=== PATIENT | male | born 1985 | race Hispanic/Latino ===

== ENCOUNTER 2023-03-18 03:05 | Emergency (ER) | payer OTHER ==
[2023-03-18 04:50] LABS: Protime INR 0.98
[2023-03-18 04:52] LABS: Absolute Lymphocytes (CBC) 1.2 K/uL (0.7-4.9); Hematocrit 26.9 % (39.6-49.0); Lymphocytes % 11.1 % (15.3-44.8); MCV 97.6 fL (80-100); MPV 7.1 fL (7.6-11.3); Platelets 221 thou/uL (152-406); RBC Red Blood Cell Count 2.75 M/uL (4.33-5.43)
[2023-03-18] MEDS ORDERED: MORPHINE 4 MG/ML SYR ONE ×2 (04:54→07:56)
[2023-03-18] MEDS ORDERED: ONDANSETRON 4 MG/2 ML VIAL ONE (04:55)
[2023-03-18] MEDS ORDERED: HYDRALAZINE HCL 20 MG/ML VIAL ONE (04:55)
[2023-03-18] MEDS ORDERED: LORAZEPAM 1 MG TABLET ONE (04:55)
[2023-03-18 05:49] LABS: Albumin 2.9 g/dL (3.4-5.0); Bilirubin Direct 0.2 mg/dL (0-0.2); Bilirubin Indirect, Calculated 0.2 mg/dL (0.2-0.8); Bilirubin Total 0.4 mg/dL (0.2-1.0); Magnesium 2.2 mg/dL (1.6-2.4); Potassium 5.5 mEq/L (3.5-5.1); Protein, Total 6.5 g/dL (6.4-8.2)
[2023-03-18 06:53] LABS: Troponin High Sensitivity 231.1 pg/mL (<58.9)
--- NOTE | 2023-03-18 07:04 | ER ---
Nurse's Notes [facility] Name: Dasia Monroe Age: 37 yrs Sex: Male : 1985 Arrival Date: 03/18/2023 Time: 03:05 Bed 18 Private MD: Diagnosis: Elevated troponin, acute diastolic heart failure, hypertensive emergency, end-stage renal disease on peritoneal dialysis, cardiac volume overload. Presentation: 03/18 03:40 Chief complaint: Patient states: I haven't had my hydralazine in a little bit and when vc1 I lay down I am nauseous, dizzy, lightheaded. I am supposed to see my Dr. tomorrow but I can't sleep because I can't breath and my back hurts. 03:40 Coronavirus screen: Vaccine status: Patient reports receiving the 2nd dose of the covid vc1 vaccine. Moderna Client denies travel out of the [place] in the last 14 days. At this time, the client does not indicate any symptoms associated with coronavirus-19. Ebola Screen: Patient negative for fever greater than or equal to 101.5 degrees Fahrenheit, and additional compatible Ebola Virus Disease symptoms Patient denies exposure to infectious person. Patient denies travel to an Ebola-affected area in the 21 days before illness onset. No symptoms or risks identified at this time. Initial Sepsis Screen: Does the patient meet any 2 criteria? No. Patient's initial sepsis screen is negative. Does the patient have a suspected source of infection? No. Patient's initial sepsis screen is negative. Risk Assessment: Do you want to hurt yourself or someone else? Patient reports no desire to harm self or others. Onset of symptoms is unknown. 03:40 Method Of Arrival: Ambulatory vc1 03:40 Acuity: [place] 3 vc1 Triage Assessment: 03:40 General: Appears in no apparent distress. uncomfortable, slender, Behavior is anxious, vc1 crying. Pain: Complains of pain in back Pain does not radiate. Pain currently is 10 out of 10 on a pain scale. EENT: No deficits noted. No signs and/or symptoms were reported regarding the EENT system. Neuro: Level of Consciousness is awake, alert, obeys commands, Oriented to person, place, time, situation, Appropriate for age. Cardiovascular: Reports lightheadedness, nausea, shortness of breath, Denies chest pain. Respiratory: Reports shortness of breath Airway is patent Respiratory effort is even, unlabored, Respiratory pattern is regular, symmetrical. GI: No deficits noted. No signs and/or symptoms were reported involving the gastrointestinal system. : No deficits noted. No signs and/or symptoms were reported regarding the genitourinary system. Derm: No deficits noted. No signs and/or symptoms reported regarding the dermatologic system. Musculoskeletal: Circulation, motion, and sensation intact. Range of motion: intact in all extremities, Reports pain in back. Historical: - Allergies: 04:41 No Known Allergies; vc1 - PMHx: 04:41 Congestive heart failure; Hypertensive disorder; Peritoneal Dialysis; 4 herniated disk; vc1 - PSHx: 04:41 None; vc1 - Immunization history:: Client reports receiving the 2nd dose of the Covid vaccine. - Social history:: Smoking status: Patient reports the use of cigarette tobacco products, smokes one pack cigarettes per day. - Family history:: not pertinent. Screenin:40 [facility] ED Fall Risk Assessment (Adult) History of falling in the last 3 months, vc1 including since admission No falls in past 3 months (0 pts) Confusion or Disorientation No (0 pts) Intoxicated or Sedated No (0 pts) Impaired Gait No (0 pts) Mobility Assist Device Used No (0 pt) Altered Elimination No (0 pt) Score/Fall Risk Level 0 - 2 = Low Risk Oriented to surroundings, Maintained a safe environment, Educated pt \T\ family on fall prevention, incl call for assistance when getting out of bed. Abuse screen: Denies threats or abuse. Nutritional screening: No deficits noted. Tuberculosis screening: No symptoms or risk factors identified. Assessment: 04:50 General: Appears in no apparent distress. uncomfortable, Behavior is cooperative, lg3 fussy, restless. Pain: Complains of pain in back. Neuro: Lozada Agitation-Sedation Scale (RASS): +1 Restless Level of Consciousness is awake, alert, obeys commands, Oriented to person, place, time, situation. Cardiovascular: No deficits noted. Denies chest pain, Capillary refill < 3 seconds Clubbing of nail beds is absent JVD is absent Patient's skin is warm and dry. Respiratory: No deficits noted. Reports shortness of breath Airway is patent Respiratory effort is even, unlabored, Respiratory pattern is regular, symmetrical, Breath sounds are clear bilaterally. GI: No deficits noted. No signs and/or symptoms were reported involving the gastrointestinal system. Abdomen is flat, non-distended. : No deficits noted. No signs and/or symptoms were reported regarding the genitourinary system. : peritoneal dialysis catheter in place. EENT: No deficits noted. No signs and/or symptoms were reported regarding the EENT system. Derm: No deficits noted. No signs and/or symptoms reported regarding the dermatologic system. Skin is intact, is healthy with good turgor, Skin is dry, Skin is normal, Skin temperature is warm. Musculoskeletal: No deficits noted. No signs and/or symptoms reported regarding the musculoskeletal system. Circulation, motion, and sensation intact. Range of motion: intact in all extremities. 06:02 Reassessment:. General: Appears in no apparent distress. comfortable, Behavior is calm, lg3 cooperative. Neuro: No deficits noted. [place]ada Agitation-Sedation Scale (RASS): 0 - Alert and Calm Level of Consciousness is awake, alert, obeys commands, Oriented to person, place, time, situation. Respiratory: No deficits noted. Airway is patent Respiratory effort is even, unlabored, Respiratory pattern is regular, symmetrical. 07:20 Reassessment: Patient is alert, oriented x 3, equal unlabored respirations, skin aa5 warm/dry/pink. Pt c/o chronic back pain, pt states he takes [place] at home for pain. . 08:20 Reassessment: Pt sleeping at this time, equal and unlabored respirations. Awaiting aa5 acceptance to another facility for transfer. . 09:40 Reassessment: to bedside to administer medication, pt not in room. . aa5 09:46 Reassessment: Checked bathrooms and checked pt's room, pt is not in room, unable to aa5 locate pt. Spoke to registration staff and they stated they saw pt and pt's walk down to the cafeteria. . 10:00 Reassessment: Patient is alert, oriented x 3, equal unlabored respirations, skin aa5 warm/dry/pink. Pt back in room. . 10:20 Reassessment: Report given to Neelam at [facility]. . aa5 10:55 Reassessment: Patient is alert, oriented x 3, equal unlabored respirations, skin aa5 warm/dry/pink. Vital Signs: 03:40 BP 215 / 112; Pulse 88; Resp 18; Temp 98.2; Pulse Ox 100% ; Weight 68.04 kg; Height 5 vc1 ft. 5 in. ; Pain 10/10; 04:50 BP 173 / 103; Pulse 86; Resp 17 S; Pulse Ox 100% on R/A; lg3 06:02 BP 164 / 91; Pulse 88; Resp 16 S; Pulse Ox 100% on R/A; lg3 07:20 BP 153 / 85; Pulse 98; Resp 16 S; Temp 98.3(TE); Pulse Ox 99% on R/A; Pain 10/10; aa5 08:20 BP 147 / 81; Pulse 98; Resp 14 S; Pulse Ox 96% on R/A; aa5 10:00 BP 189 / 106; Pulse 86; Resp 17; Pulse Ox 99% on R/A; rs5 03:40 Body Mass Index 24.96 (68.04 kg, 165.1 cm) vc1 03:40 Pain Scale: Adult vc1 07:20 Pain Scale: Adult aa5 ED Course: 03:08 Patient arrived in ED. ag3 03:40 Arm band placed on left wrist. vc1 03:40 Patient has correct armband on for positive identification. Placed in gown. Call light vc1 in reach. Pulse ox on. NIBP on. 03:55 Phill Quiñones MD is Attending Physician. sp4 04:41 Triage completed. vc1 04:49 Elizabeth Ceballos, ROSIO is Primary Nurse. lg3 04:50 Client placed on continuous cardiac and pulse oximetry monitoring. NIBP monitoring lg3 applied. brake liner on. Door closed. Noise minimized. Warm blanket given. 04:50 Inserted saline lock: 20 gauge in right antecubital area, using aseptic technique. lg3 Blood collected. Patient maintains SpO2 saturation greater than 95% on room air. 04:57 XRAY Chest (1 view) In Process Unspecified. EDMS 07:11 Primary Nurse role handed off by Elizabeth Ceballos, ROSIO bd 07:37 Elis Catherine, RN is Primary Nurse. aa5 09:26 Attending Physician role handed off by Phill Quiñones MD rn 09:26 Dileep Presley MD is Attending Physician. rn 10:55 No provider procedures requiring assistance completed. Patient transferred, IV remains aa5 in place. Administered Medications: 04:53 Drug: morphine IVP or IV 4 mg Route: IVP; Infused Over: 4 mins; Site: right antecubital;lg3 06:09 Follow up: Response: No adverse reaction; Marked relief of symptoms lg3 04:53 Drug: Ondansetron IVP 4 mg Route: IVP; Site: right antecubital; lg3 06:09 Follow up: Response: No adverse reaction lg3 04:53 Drug: LORazepam PO 1 mg Route: PO; lg3 06:08 Follow up: Response: No adverse reaction; Marked relief of symptoms; Anxiety decreased lg3 04:54 Drug: hydrALAZINE IVP 20 mg Route: IVP; Site: right antecubital; lg3 06:09 Follow up: Response: No adverse reaction; Marked relief of symptoms lg3 07:28 Drug: Sodium Bicarbonate IVP 1 amp Route: IVP; Site: right antecubital; aa5 07:40 Follow up: Response: No adverse reaction aa5 07:30 Drug: Kayexalate PO 30 grams {Note: Pt only took a few sips, refused the rest. .} aa5 Route: PO; 08:30 Follow up: Response: No adverse reaction aa5 07:37 Drug: Calcium Gluconate IVPB 1 grams Route: IVPB; Infused Over: 60 mins; Site: right aa5 antecubital; 08:37 Follow up: IV Status: Completed infusion aa5 07:37 Drug: HydrALAZINE PO 50 mg Route: PO; aa5 08:30 Follow up: Response: No adverse reaction aa5 07:55 Drug: Aspirin PO Chewable Tablet 324 mg Route: PO; aa5 08:30 Follow up: Response: No adverse reaction aa5 07:55 Drug: morphine IVP or IV 2 mg Route: IVP; Infused Over: 4 mins; Site: right antecubital;aa5 08:00 Follow up: Response: No adverse reaction aa5 10:00 Drug: Furosemide IVP 40 mg Route: IVP; Site: right antecubital; aa5 10:15 Follow up: Response: No adverse reaction aa5 Medication: 03:40 VIS not applicable for this client. vc1 Outcome: 07:03 ER care complete, transfer ordered by . sp4 10:55 Transferred by ground EMS Transfer form completed. X-rays sent w/ patient. Note: aa5 Report given to [facility]. Transfer to [facility]. 10:55 Condition: stable 10:55 Instructed on the need for transfer, Demonstrated understanding of instructions. 11:01 Patient left the ED. aa5 Signatures: Dispatcher [employer] EDMS Montse Tate Roman, MD MD rn Calderon, Audri, RN RN aa5 Brittney Raza ag3 Elizabeth Ceballos RN RN lg3 Beba Howard RN RN vc1 Jaydon Whitmore RN RN rs5 Phill Quiñones MD MD sp4 Corrections: (The following items were deleted from the chart) 04:45 04:44 Arm band placed on left wrist. vc1 vc1
--- NOTE | 2023-03-18 07:04 | EDPHYS ---
Physician Documentation [facility] Name: Dasia Monroe Age: 37 yrs Sex: Male : 1985 Arrival Date: 03/18/2023 Time: 03:05 Bed 18 Private MD: ED Physician Dileep Presley HPI: 03/18 03:56 This 37 yrs old Male presents to ER via Unassigned with complaints of High sp4 Blood Pressure, Back Pain. 05:38 This is an 37-year-old male presents for worsening shortness of breath, diffuse back sp4 pain, dyspnea on exertion and on for orthopnea. Patient also reports elevated blood pressures. . 05:41 Patient reports he is also out of his hydralazine but plans to see his primary MD sp4 tomorrow.. Patient's die tester is Dr. Cedeño . Historical: - Allergies: 04:41 No Known Allergies; vc1 - PMHx: 04:41 Congestive heart failure; Hypertensive disorder; Peritoneal Dialysis; 4 herniated disk; vc1 - PSHx: 04:41 None; vc1 - Immunization history:: Client reports receiving the 2nd dose of the Covid vaccine. - Social history:: Smoking status: Patient reports the use of cigarette tobacco products, smokes one pack cigarettes per day. - Family history:: not pertinent. ROS: 05:38 Constitutional: Negative for fever, chills, and weight loss, positive for body aches, sp4 positive for back pain, positive for dyspnea on exertion, positive for orthopnea Cardiovascular: Negative for chest pain, palpitations, and edema, positive for dyspnea, positive for dyspnea on exertion, positive for orthopnea Back: Positive for chronic back pain 05:38 All other systems are negative. Exam: 05:35 Constitutional: This is a well developed, well nourished patient who is awake, alert, sp4 uncomfortable appearing male, nontoxic-appearing, hypertensive Head/Face: Normocephalic, atraumatic. Eyes: Pupils equal round and reactive to light, extra-ocular motions intact. Lids and lashes normal. Conjunctiva and sclera are not injected. Cornea within normal limits. Periorbital areas with no swelling, redness, or edema. ENT: Nares patent. No nasal discharge, no septal abnormalities noted. Tympanic membranes are normal and external auditory canals are clear. Oropharynx with no redness, swelling, or masses, exudates, or evidence of obstruction, uvula midline. Mucous membranes moist. Neck: Trachea midline, no thyromegaly or masses palpated, and no cervical lymphadenopathy. Supple, full range of motion without nuchal rigidity, or vertebral point tenderness. Positive jugular venous distention Chest/axilla: Normal chest wall appearance and motion. Nontender with no deformity. No lesions are appreciated. Cardiovascular: Regular rate and rhythm with a normal S1 and S2. No gallops, murmurs, or rubs. Normal PMI, positive JVD, no pulse deficits. Respiratory: Lungs have equal breath sounds bilaterally, clear to auscultation and percussion. No rales, rhonchi or wheezes noted. No increased work of breathing, no retractions or nasal flaring. Abdomen/GI: Soft, non-tender, with normal bowel sounds. No distension or tympany. No guarding or rebound. No evidence of tenderness throughout. There is left lower quadrant abdominal peritoneal dialysis catheter. Dialysis stoma looks clean dry and intact Back: No spinal tenderness. No costovertebral tenderness. Skin: Warm, dry with normal turgor. Normal color with no rashes, no lesions, and no evidence of cellulitis. MS/ Extremity: Pulses equal, no cyanosis. Neurovascular intact. Full, normal range of motion. Neuro: Awake and alert, GCS 15, oriented to person, place, time, and situation. Cranial nerves II-XII grossly intact. Motor strength 5/5 in all extremities. Sensory grossly intact. Psych: Awake, alert, with orientation to person, place and time. Behavior, mood, and affect are within normal limits 05:35 ECG was reviewed by the Attending Physician. EKG time 414, there is sinus rhythm with multiple supraventricular complexes, there is sinus rhythm at the rate of 98, no ST elevation or depression, normal intervals, apart from supraventricular complexes EKG is unremarkable. Vital Signs: 03:40 BP 215 / 112; Pulse 88; Resp 18; Temp 98.2; Pulse Ox 100% ; Weight 68.04 kg; Height 5 vc1 ft. 5 in. ; Pain 10/10; 04:50 BP 173 / 103; Pulse 86; Resp 17 S; Pulse Ox 100% on R/A; lg3 06:02 BP 164 / 91; Pulse 88; Resp 16 S; Pulse Ox 100% on R/A; lg3 07:20 BP 153 / 85; Pulse 98; Resp 16 S; Temp 98.3(TE); Pulse Ox 99% on R/A; Pain 10/10; aa5 08:20 BP 147 / 81; Pulse 98; Resp 14 S; Pulse Ox 96% on R/A; aa5 10:00 BP 189 / 106; Pulse 86; Resp 17; Pulse Ox 99% on R/A; rs5 03:40 Body Mass Index 24.96 (68.04 kg, 165.1 cm) vc1 03:40 Pain Scale: Adult vc1 07:20 Pain Scale: Adult aa5 MDM: 04:05 Patient medically screened. sp4 06:43 ED course: COMPARISON: None. TECHNIQUE: XR CHEST 1 VIEW 03/18/2023 3:55 AM CDT FINDINGS: sp4 Cardiac silhouette is normal in size. Lungs are clear without consolidation, atelectasis, mass or edema. There is no pleural effusion. There is no pneumothorax. There are no acute osseous findings. IMPRESSION: Clear lungs.. 06:50 Differential diagnosis: hypertensive crisis, Malignant HTN, Medication noncompliance, sp4 acute hypertensive emergency. Data reviewed: vital signs, nurses notes, old medical records, lab test result(s), EKG, radiologic studies, plain films. Consideration of Admission/Observation Escalation of care including admission/observation considered. Management of patient was discussed with the following: Register Of Wills: Patient's die tester. ED course: Patient states he takes hydralazine 25 mg 3 times a day. Patient states he actually has appointment today with his die tester. Patient will have refills for his medications presumably today at his appointment. Patient will be prescribed hydralazine just in case for blood pressure control this morning. At this time blood pressure has improved significantly. On patient has mild elevation of potassium 5.5, will administer Kayexalate and bicarbonate. Patient will warrant his peritoneal dialysis today. At this time there is no pulmonary edema, no respiratory compromise, however patient's troponin is abnormally high over 200. I spoke with patient's die tester Dr. Cedeño who is excepting patient at [facility] at [place]. Patient also can be accepted at [facility] by his die tester for peritoneal dialysis and cardiac evaluation.. 07:01 ED course: . sp4 09:32 ED course: Pt still makes urine, hemodynamically stable, will give lasix per rn conversation with hospitalist at [facility], and now accepted for transfer. . 03/18 03:55 Order name: Basic Metabolic Panel; Complete Time: 06:53 sp4 03/18 03:55 Order name: CBC with Diff; Complete Time: 05:28 sp4 03/18 03:55 Order name: LFT's; Complete Time: 06:53 sp4 03/18 03:55 Order name: Magnesium; Complete Time: 06:53 sp4 03/18 03:55 Order name: NT PRO-BNP; Complete Time: 06:53 sp4 03/18 03:55 Order name: PT-INR; Complete Time: 05:28 sp4 03/18 03:55 Order name: Troponin HS; Complete Time: 06:53 sp4 03/18 07:10 Order name: SARS RAPID; Complete Time: 09:23 sp4 03/18 03:55 Order name: XRAY Chest (1 view) sp4 03/18 03:55 Order name: EKG; Complete Time: 03:56 sp4 03/18 03:55 Order name: Cardiac monitoring; Complete Time: 04:54 sp4 03/18 03:55 Order name: EKG - Nurse/Tech; Complete Time: 04:54 sp4 03/18 03:55 Order name: IV Saline Lock; Complete Time: 04:54 sp4 03/18 03:55 Order name: Labs collected and sent; Complete Time: 04:54 sp4 03/18 03:55 Order name: O2 Per Protocol; Complete Time: 04:54 sp4 03/18 03:55 Order name: O2 Sat Monitoring; Complete Time: 04:54 sp4 Administered Medications: 04:53 Drug: morphine IVP or IV 4 mg Route: IVP; Infused Over: 4 mins; Site: right antecubital;lg3 06:09 Follow up: Response: No adverse reaction; Marked relief of symptoms lg3 04:53 Drug: Ondansetron IVP 4 mg Route: IVP; Site: right antecubital; lg3 06:09 Follow up: Response: No adverse reaction lg3 04:53 Drug: LORazepam PO 1 mg Route: PO; lg3 06:08 Follow up: Response: No adverse reaction; Marked relief of symptoms; Anxiety decreased lg3 04:54 Drug: hydrALAZINE IVP 20 mg Route: IVP; Site: right antecubital; lg3 06:09 Follow up: Response: No adverse reaction; Marked relief of symptoms lg3 07:28 Drug: Sodium Bicarbonate IVP 1 amp Route: IVP; Site: right antecubital; aa5 07:40 Follow up: Response: No adverse reaction aa5 07:30 Drug: Kayexalate PO 30 grams {Note: Pt only took a few sips, refused the rest. .} aa5 Route: PO; 08:30 Follow up: Response: No adverse reaction aa5 07:37 Drug: Calcium Gluconate IVPB 1 grams Route: IVPB; Infused Over: 60 mins; Site: right aa5 antecubital; 08:37 Follow up: IV Status: Completed infusion aa5 07:37 Drug: HydrALAZINE PO 50 mg Route: PO; aa5 08:30 Follow up: Response: No adverse reaction aa5 07:55 Drug: Aspirin PO Chewable Tablet 324 mg Route: PO; aa5 08:30 Follow up: Response: No adverse reaction aa5 07:55 Drug: morphine IVP or IV 2 mg Route: IVP; Infused Over: 4 mins; Site: right antecubital;aa5 08:00 Follow up: Response: No adverse reaction aa5 10:00 Drug: Furosemide IVP 40 mg Route: IVP; Site: right antecubital; aa5 10:15 Follow up: Response: No adverse reaction aa5 Disposition Summary: 03/18/23 07:03 Transfer Ordered Transfer Location: [facility] sp4 Reason: Higher level of care sp4 Condition: Stable sp4 Problem: new sp4 Symptoms: have improved sp4 Accepting Physician: Dr. Cedeño at [facility] (03/18/23 11:01) aa5 Diagnosis - Elevated troponin, acute diastolic heart failure, hypertensive emergency, end-stage sp4 renal disease on peritoneal dialysis, cardiac volume overload. Forms: - Medication Reconciliation Form sp4 - SBAR form sp4 Signatures: Dispatcher [employer] EDMS Dileep Presley MD MD rn Calderon, Audri, RN RN aa5 Elizabeth Ceballos RN RN lg3 Beba Howard RN RN vc1 Phill Quiñones MD MD sp4 Corrections: (The following items were deleted from the chart) 07:02 06:50 ED course: Patient states he takes hydralazine 25 mg 3 times a day. Patient sp4 states he actually has appointment today with his die tester. Patient will have refills for his medications presumably today at his appointment. Patient will be prescribed hydralazine just in case for blood pressure control this morning. At this time blood pressure has improved significantly. On patient has mild elevation of potassium 5.5, will administer Kayexalate and bicarbonate. Patient will warrant his peritoneal dialysis today. At this time there is no pulmonary edema, no respiratory compromise, patient is stable for discharge home. He will advised to continue his peritoneal dialysis at home and see his die tester today. . sp4 11:01 07:03 Dr. Cedeño at [facility] sp4 aa5
[2023-03-18] MEDS ORDERED: SOD BICARB 8.4% PEDI 10 mEq/10 mL SYR IVP ONE (07:05)
[2023-03-18] MEDS ORDERED: SOD POLYSTYREN SUL 15 GM/60 ML UCUP ONE (07:05)
[2023-03-18] MEDS ORDERED: HYDRALAZINE HCL 10 MG TABLET ONE (07:27)
[2023-03-18] MEDS ORDERED: CALCIUM GLUCONATE 1 GM IVPB 1 GM/50 ML BAG IV ONE (07:27)
[2023-03-18] MEDS ORDERED: SODIUM BICARB 50 MEQ/50ML VIAL ONE (07:27)
[2023-03-18] MEDS ORDERED: HYDRALAZINE HCL 25 MG TABLET ONE (07:40)
[2023-03-18] MEDS ORDERED: ASPIRIN 81 MG CHEWABLE TABLET ONE (07:56)
[2023-03-18] MEDS ORDERED: MORPHINE 2 MG/ML SYR ONE (08:01)
[2023-03-18 08:22] LABS: SARS-CoV-2 Antigen Rapid Res Negative (Negative)
[2023-03-18] MEDS ORDERED: FUROSEMIDE 40 MG/4 ML VIAL ONE (09:47)
[2023-03-18 11:25] VITALS: TEMP 98.3
[2023-03-18 11:27] VITALS: BP 189/106; O2SAT 99
--- NOTE | 2023-03-18 13:48 | RAD REPORT ---
EXAM DESCRIPTION: RAD - Chest Single View - 03/18/2023 4:55 am CLINICAL HISTORY: CHEST PAIN COMPARISON: None. TECHNIQUE: XR CHEST 1 VIEW 03/18/2023 3:55 AM CDT FINDINGS: Cardiac silhouette is normal in size. Lungs are clear without consolidation, atelectasis, mass or edema. There is no pleural effusion. There is no pneumothorax. There are no acute osseous fin dings. IMPRESSION: Clear lungs. Electronically signed by: Robin Iniguez MD 03/18/2023 6:22 AM CDT Due to temporary technical issues with the PACS/Fluency reporting system, reports are being signed by the in house radiologists without review as a courtesy to insure prompt reporting. The interpreting radiologist is fully responsible for the content of the report.
--- NOTE | 2023-03-18 17:00 | EKG ---
Test Date: 2023-03-18 Test Time: 04:14:55 Chandelier Maker: SANCHO MEASUREMENT RESULTS: Intervals: Rate: 98 AR: 134 QRSD: 82 QT: 360 QTc: 459 [place]: P: 54 AR: 134 QRS: 62 T: 76 INTERPRETIVE STATEMENTS: Sinus rhythm with premature supraventricular complexes Otherwise normal ECG No previous ECG available for comparison Electronically Signed On 03-18-23 17:00:00 CDT by Miki Carrington
== END 2023-03-18 11:01 | disposition short-term general hospital (02) ==
LOC: ER 03:05
DX: I16.1 Hypertensive emergency (principal); E87.70 Fluid overload, unspecified; R77.8 Other specified abnormalities of plasma proteins; I50.31 Acute diastolic (congestive) heart failure; I12.0 Hypertensive chronic kidney disease with stage 5 chronic kidney disease or end stage renal disease; N18.6 End stage renal disease; F17.210 Nicotine dependence, cigarettes, uncomplicated; Z99.2 Dependence on renal dialysis; Z20.822 Contact with and (suspected) exposure to COVID-19
CPT/HCPCS: 96365; 93005; 85025; 80048; 36415; 83735; 85610; 80076; 84484; 83880; 71045; 96375; 99285; 87811; J0612; J0360; J1940; J2270; J2405

== ENCOUNTER 2023-07-09 18:08 | Inpatient (IN) | payer MEDICARE ==
[2023-07-09 18:38] LABS: Absolute Lymphocytes (CBC) 1.7 K/uL (0.7-4.9); Hematocrit 30.5 % (39.6-49.0); Lymphocytes % 21.4 % (15.3-44.8); MCV 95.1 fL (80-100); MPV 7.7 fL (7.6-11.3); Platelets 171 thou/uL (152-406); RBC Red Blood Cell Count 3.21 M/uL (4.33-5.43)
[2023-07-09] MEDS ORDERED: dilTIAZem HCL 25 MG/5 ML VIAL IV ONE ×5 (18:40→22:01)
[2023-07-09] MEDS ORDERED: LORazepam 2 MG/ML VIAL ONE (18:40)
[2023-07-09 18:54] LABS: Bilirubin Direct 0.1 mg/dL (0-0.2); Bilirubin Indirect, Calculated 0.3 mg/dL (0.2-0.8); Bilirubin Total 0.4 mg/dL (0.2-1.0); Magnesium 2.2 mg/dL (1.6-2.4); Potassium 3.2 mEq/L (3.5-5.1); Protein, Total 6.7 g/dL (6.4-8.2)
--- NOTE | 2023-07-09 19:24 | RAD REPORT ---
EXAM DESCRIPTION: RAD - Chest Single View - 07/09/2023 7:19 pm CLINICAL HISTORY: DYSPNEA Chest pain. COMPARISON: Chest Single View dated 03/18/2023 FINDINGS: Portable technique limits examination quality. Mild pulmonary edema is seen. The heart is normal in size. No displaced fractures.Right-sided venous catheter tip in the SVC. IMPRESSION: Mild CHF versus volume overload.
[2023-07-09 19:31] LABS: Troponin High Sensitivity 205.4 pg/mL (<58.9)
--- NOTE | 2023-07-09 19:55 | ER ---
Nurse's Notes [facility] Name: Dasia Monroe Age: 37 yrs Sex: Male : 1985 Arrival Date: 07/09/2023 Time: 18:08 Bed 19 Private MD: Diagnosis: Atrial fibrillation with rapid ventricular rate;Elevated troponin Presentation: 07/09 18:20 Chief complaint: EMS states: toned out to dialysis center for irregular heartbeat. me1 Patient was getting hemodialysis (removed 1800 ml) and started having an irregular heartbeat, c/o weakness and SOB. Denied cp at the scene but did have CP upon arrival to hospital. EKG Afib with RVR- HR 170. Blood glucose of 97. No IV access, No medication administered by EMS. Coronavirus screen: Vaccine status: Patient reports receiving the 2nd dose of the covid vaccine. Ebola Screen: No symptoms or risks identified at this time. Initial Sepsis Screen: Does the patient meet any 2 criteria? HR > 90 bpm. Does the patient have a suspected source of infection? No. Patient's initial sepsis screen is negative. Risk Assessment: Do you want to hurt yourself or someone else? Patient reports no desire to harm self or others. Onset of symptoms was July 09, 2023. 18:20 Method Of Arrival: EMS: [place] [id number] 18:20 Acuity: GUANAKITO 3 me1 Triage Assessment: 18:24 General: Appears uncomfortable, well groomed, well developed, well nourished, Behavior me1 is calm, cooperative, appropriate for age, Reports feeling ill for 12-24 hours, fatigue for was getting dialysis and started having an irregular heartbeat. Became weak and SOB. Pain: Denies pain. Neuro: Level of Consciousness is awake, alert, obeys commands, Oriented to person, place, time, situation, Appropriate for age. Cardiovascular: Capillary refill < 3 seconds Patient's skin is warm and dry. Rhythm is atrial fibrillation with rapid ventricular response. Respiratory: Airway is patent Respiratory effort is even, unlabored, Respiratory pattern is regular, symmetrical. : Hemodialysis patient. Access to right chest wall. M, W, F. 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 Historical: - Allergies: 18:24 No Known Allergies; aa5 - PMHx: 18:24 4 herniated disk; Hypertensive disorder; Congestive heart failure; PERITONEAL DIALYSIS; aa5 - PSHx: 18:24 dialysis access placement; aa5 - Immunization history:: Adult Immunizations up to date. - Social history:: Smoking status: Patient reports the use of cigarette tobacco products, smokes one pack cigarettes per day. - Family history:: not pertinent. Screenin:32 [facility] ED Fall Risk Assessment (Adult) History of falling in the last 3 months, me1 including since admission No falls in past 3 months (0 pts) Confusion or Disorientation No (0 pts) Intoxicated or Sedated No (0 pts) Impaired Gait No (0 pts) Mobility Assist Device Used No (0 pt) Altered Elimination No (0 pt) Score/Fall Risk Level 0 - 2 = Low Risk Maintained a safe environment, Provided non-skid footwear, Hourly rounding (assess needs \T\ fall precautionary measures) done. Abuse screen: Denies threats or abuse. Nutritional screening: No deficits noted. Tuberculosis screening: No symptoms or risk factors identified. Assessment: 18:24 General: See triage assessment. . me1 Vital Signs: 18:20 BP 149 / 91; Pulse 138; Resp 22; Temp 99.6(A); Pulse Ox 99% on R/A; Weight 71.67 kg; me1 Height 5 ft. 5 in. ; Pain 0/10; 18:41 BP 154 / 91; Pulse 143; Resp 22; Pulse Ox 96% on R/A; me1 19:00 BP 175 / 92; Pulse 94; Resp 22; Pulse Ox 97% on R/A; me1 19:27 BP 137 / 95; Pulse 128; Resp 19; Pulse Ox 96% on R/A; me1 19:40 BP 176 / 80; Pulse 106; Resp 20; Pulse Ox 98% on R/A; me1 20:00 BP 167 / 91; Pulse 113; Resp 21; Pulse Ox 97% on R/A; me1 20:20 BP 149 / 87; Pulse 99; Resp 16; Pulse Ox 97% on R/A; me1 20:46 BP 152 / 84; Pulse 99; Resp 22; Pulse Ox 96% on R/A; me1 21:00 BP 175 / 93; Pulse 111; Resp 22; Pulse Ox 96% on R/A; me1 21:00 BP 175 / 99; Pulse 129; Resp 18; Pulse Ox 96% on R/A; me1 18:20 Body Mass Index 26.29 (71.67 kg, 165.1 cm) me1 18:20 Pain Scale: Adult me1 ED Course: 18:10 Patient arrived in ED. me1 18:10 Mary Lou Menjivar, RN is Primary Nurse. me1 18:12 Navdeep Garcia MD is Attending Physician. rt 18:24 Triage completed. aa5 18:24 Arm band placed on Patient placed in an exam room. me1 19:20 XRAY Chest (1 view) In Process Unspecified. EDMS 19:54 Imer Contreras MD is Hospitalizing Provider. rt 21:39 Patient has correct armband on for positive identification. Bed in low position. Call me1 light in reach. Side rails up X2. Provided Education on: POC. Verbalized understanding. . 21:39 No provider procedures requiring assistance completed. me1 Administered Medications: 18:25 Drug: Ativan IVP 1 mg IVP once Route: IVP; Site: right antecubital; rs5 21:40 Follow up: Response: No adverse reaction me1 18:25 Drug: Diltiazem IVP 10 mg IVP once; Over 2 minutes Route: IVP; Site: right antecubital; rs5 21:40 Follow up: Response: No adverse reaction me1 19:32 Drug: Diltiazem IVP 10 mg IVP once; Over 2 minutes Route: IVP; Site: right antecubital; me1 21:40 Follow up: Response: No adverse reaction me1 Medication: 18:32 VIS not applicable for this client. me1 Outcome: 19:55 Decision to Hospitalize by Provider. rt 12 00:09 Patient left the ED. jb4 Signatures: Dispatcher [employer] EDMS Elis Catherine RN RN aa5 Rayshawn Mena, RN RN jb4 Navdeep Garcia MD MD rt Jaydon Whitmore RN RN rs5 Mary Lou Menjivar, ROSIO RN me1 Corrections: (The following items were deleted from the chart) 07/09 19:19 18:20 Chief complaint: EMS states: toned out to dialysis center for irregular me1 heartbeat. Patient was getting hemodialysis (removed 1800 ml) and started having an irregular heartbeat, c/o weakness and SOB. Denied cp at the scene but did have CP upon arrival to hospital. EKG Afib with RVR- HR 170. Blood glucose of 97. No IV access, No medication administered by EMS. [facility] 18:20 Coronavirus screen: Vaccine status: Patient reports receiving the 2nd dose of the ks1 covid vaccine. [facility] 18:20 Ebola Screen: No symptoms or risks identified at this time. [place] [address] : 18:20 Initial Sepsis Screen: Does the patient meet any 2 criteria? HR > 90 bpm. Does me1 the patient have a suspected source of infection? No. Patient's initial sepsis screen is negative. [facility] 18:20 Risk Assessment: Do you want to hurt yourself or someone else? Patient reports no ks1 desire to harm self or others. [facility] 18:20 Onset of symptoms was July 09, 2023 [place] [address] : 18:20 Method Of Arrival: EMS: [facility] [place] [address] :19 18:20 BP 149 / 91; Pulse 138bpm; Resp 22bpm; Pulse Ox 99% RA; Temp 99.6F Axillary; me1 71.67 kg; Height 5 ft. 5 in.; BMI: 26.2; Pain 0/10, Adult; [facility] : 18:20 Acuity: GUANAKITO 3 [place] [address] :20 18:24 Immunization history: Adult Immunizations up to date, [place] [address] :20 18:24 Social history: Smoking status: Patient reports the use of cigarette tobacco [facility] products, smokes one pack cigarettes per day. [facility] :20 18:55 Family history: not pertinent, rt [facility] :20 18:55 The history from the nurse's notes was reviewed and I agree with what is [facility] documented. rt 19:20 18:24 General: Appears uncomfortable, well groomed, well developed, well nourished, [facility] Behavior is calm, cooperative, appropriate for age, Reports feeling ill for 12-24 hours, fatigue for was getting dialysis and started having an irregular heartbeat. Became weak and SOB. [facility] :20 18:24 Pain: Denies pain. [place] [address] 19:20 18:24 Neuro: Level of Consciousness is awake, alert, obeys commands, Oriented to ks1 person, place, time, situation, Appropriate for age [facility] : 18:24 Cardiovascular: Capillary refill < 3 seconds Patient's skin is warm and dry. me1 Rhythm is atrial fibrillation with rapid ventricular response [facility] : 18:24 Respiratory: Airway is patent Respiratory effort is even, unlabored, Respiratory [facility] pattern is regular, symmetrical, [facility] :20 18:24 : Hemodialysis patient. Access to right chest wall. M, W, F. 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 [facility] : 18:10 Patient arrived in ED. [place] [address] : 18:24 Arm band placed on Patient placed in an exam room, [place] [address] : 18:32 General: See triage assessment. . [place] [address] : 18:32 [facility] Fall Risk Assessment (Adult) History of falling in the last 3 months, [facility] including since admission No falls in past 3 months (0 pts) Confusion or Disorientation No (0 pts) Intoxicated or Sedated No (0 pts) Impaired Gait No (0 pts) Mobility Assist Device Used No (0 pt) Altered Elimination No (0 pt) Score/Fall Risk Level 0 - 2 = Low Risk Maintained a safe environment, Provided non-skid footwear, Hourly rounding (assess needs \T\ fall precautionary measures) done, [facility] : 18:32 Abuse screen: Denies threats or abuse. [place] [address] : 18:32 Nutritional screening: No deficits noted. [place] [address] 19:21 18:32 Tuberculosis screening: No symptoms or risk factors identified. [place] [address] : 18:20 Elis Catherine, RN is Primary Nurse. [place] [address] : 19:22 Mary Lou Menjivar, ROSIO is Primary Nurse. [place] [address] 19: 18:32 VIS not applicable for this client. [place] [address]
--- NOTE | 2023-07-09 19:55 | EDPHYS ---
Physician Documentation [facility] Name: Dasia Monroe Age: 37 yrs Sex: Male : 1985 Arrival Date: 07/09/2023 Time: 18:08 Bed 19 Private MD: ED Physician Navdeep Garcia HPI: 07/09 18:55 This 37 yrs old Male presents to ER via EMS with complaints of Blood Pressure rt Problem. 18:55 Patient presents to the ED from dialysis with A-fib with RVR. Patient developed rapid rt ventricular rate towards the end of dialysis, was net -1800 cc. Reports mild chest pain, shortness of breath. Reports anxiety. Denies other acute complaints, symptoms are moderate in severity, no other aggravating or alleviating factors.. Historical: - Allergies: 18:24 No Known Allergies; aa5 - PMHx: 18:24 4 herniated disk; Hypertensive disorder; Congestive heart failure; PERITONEAL DIALYSIS; aa5 - PSHx: 18:24 dialysis access placement; aa5 - Immunization history:: Adult Immunizations up to date. - Social history:: Smoking status: Patient reports the use of cigarette tobacco products, smokes one pack cigarettes per day. - Family history:: not pertinent. ROS: 18:55 Constitutional: Negative for fever, chills, and weight loss, Eyes: Negative for injury, rt pain, redness, and discharge, Abdomen/GI: Negative for abdominal pain, nausea, vomiting, diarrhea, and constipation, Skin: Negative for injury, rash, and discoloration, Psych: Negative for depression, anxiety, suicide ideation, homicidal ideation, and hallucinations, 18:55 Cardiovascular: Positive for chest pain, Negative for edema, 18:55 Respiratory: Positive for shortness of breath, Negative for cough, 18:55 Psych: Positive for anxiety, Negative for suicidal ideation, Exam: 18:55 Constitutional: This is a well developed, well nourished patient who is awake, alert, rt and in no acute distress. Head/Face: Normocephalic, atraumatic. Chest/axilla: Normal chest wall appearance and motion. Nontender with no deformity. No lesions are appreciated. Cardiovascular: Regular rate and rhythm with a normal S1 and S2. No gallops, murmurs, or rubs. Normal PMI, no JVD. No pulse deficits. Respiratory: Lungs have equal breath sounds bilaterally, clear to auscultation and percussion. No rales, rhonchi or wheezes noted. No increased work of breathing, no retractions or nasal flaring. Abdomen/GI: Soft, non-tender, with normal bowel sounds. No distension or tympany. No guarding or rebound. No evidence of tenderness throughout. Skin: Warm, dry with normal turgor. Normal color with no rashes, no lesions, and no evidence of cellulitis. MS/ Extremity: Pulses equal, no cyanosis. Neurovascular intact. Full, normal range of motion. Neuro: Awake and alert, GCS 15, oriented to person, place, time, and situation. Cranial nerves II-XII grossly intact. Motor strength 5/5 in all extremities. Sensory grossly intact. Cerebellar exam normal. Normal gait. 18:55 ECG was reviewed by the Attending Physician. Vital Signs: 18:20 BP 149 / 91; Pulse 138; Resp 22; Temp 99.6(A); Pulse Ox 99% on R/A; Weight 71.67 kg; me1 Height 5 ft. 5 in. ; Pain 0/10; 18:41 BP 154 / 91; Pulse 143; Resp 22; Pulse Ox 96% on R/A; me1 19:00 BP 175 / 92; Pulse 94; Resp 22; Pulse Ox 97% on R/A; me1 19:27 BP 137 / 95; Pulse 128; Resp 19; Pulse Ox 96% on R/A; me1 19:40 BP 176 / 80; Pulse 106; Resp 20; Pulse Ox 98% on R/A; me1 20:00 BP 167 / 91; Pulse 113; Resp 21; Pulse Ox 97% on R/A; me1 20:20 BP 149 / 87; Pulse 99; Resp 16; Pulse Ox 97% on R/A; me1 20:46 BP 152 / 84; Pulse 99; Resp 22; Pulse Ox 96% on R/A; me1 21:00 BP 175 / 93; Pulse 111; Resp 22; Pulse Ox 96% on R/A; me1 21:00 BP 175 / 99; Pulse 129; Resp 18; Pulse Ox 96% on R/A; me1 18:20 Body Mass Index 26.29 (71.67 kg, 165.1 cm) me1 18:20 Pain Scale: Adult me1 MDM: 18:12 Patient medically screened. rt 19:56 Differential Diagnosis A-fib, volume depletion, electrolyte disturbance. Data reviewed: rt vital signs, nurses notes, lab test result(s), EKG, radiologic studies. Consideration of Admission/Observation Patient was admitted/placed on observation. Management of patient was discussed with the following: Hospitalist: Agrees to admit. I considered the following discharge prescriptions or medication management in the emergency department Medications were administered in the Emergency Department. See MAR. Independent interpretation of the following test(s) in the Emergency Department X-Ray: My interpretation is Cardiomegaly seen on interpretation of x-ray images. Care significantly affected by the following chronic conditions: A-fib, CKD. Counseling: I had a detailed discussion with the patient and/or guardian regarding the historical points, exam findings, and any diagnostic results supporting the discharge/admit diagnosis, lab results, radiology results, the need for further work-up and treatment in the hospital. Response to treatment: the patient's symptoms have markedly improved after treatment. 07/09 18:21 Order name: Basic Metabolic Panel; Complete Time: 19:39 rt 07/09 18:21 Order name: CBC with Diff; Complete Time: 18:50 rt 07/09 18:21 Order name: LFT's; Complete Time: 19:39 rt 07/09 18:21 Order name: Magnesium; Complete Time: 19:39 rt 07/09 18:21 Order name: Troponin HS; Complete Time: 19:39 rt 07/09 20:19 Order name: Urinalysis w/ reflexes EDMS 07/09 20:19 Order name: CBC with Automated Diff EDMS 07/09 20:20 Order name: CBC with Automated Diff EDMS 07/09 20:20 Order name: Comprehensive Metabolic Panel EDMS 07/09 20:20 Order name: Comprehensive Metabolic Panel EDMS 07/09 20:20 Order name: Troponin High Sensitivity EDMS 07/09 20:20 Order name: Troponin High Sensitivity EDMS 07/09 20:20 Order name: Troponin High Sensitivity EDMS 07/09 20:20 Order name: Troponin High Sensitivity EDMS 07/09 18:21 Order name: XRAY Chest (1 view); Complete Time: 19:28 rt 07/09 18:21 Order name: EKG; Complete Time: 18:28 rt 07/09 18:21 Order name: Cardiac monitoring; Complete Time: 18:27 rt 07/09 18:21 Order name: EKG - Nurse/Tech; Complete Time: 18:27 rt 07/09 18:21 Order name: IV Saline Lock; Complete Time: 18:27 rt 07/09 18:21 Order name: Labs collected and sent; Complete Time: 18:27 rt 07/09 18:21 Order name: O2 Per Protocol; Complete Time: 18:27 rt 07/09 18:21 Order name: O2 Sat Monitoring; Complete Time: 18:27 rt EC:55 Rate is 161 beats/min. Rhythm is irregularly irregular, A fib with Occasional PVCs, rt Fibrillated ST and T wave changes. QRS [place] is Normal. QRS interval is normal. QT interval is prolonged at 504 msec. No Q waves. Administered Medications: 18:25 Drug: Ativan IVP 1 mg IVP once Route: IVP; Site: right antecubital; rs5 21:40 Follow up: Response: No adverse reaction me1 18:25 Drug: Diltiazem IVP 10 mg IVP once; Over 2 minutes Route: IVP; Site: right antecubital; rs5 21:40 Follow up: Response: No adverse reaction me1 19:32 Drug: Diltiazem IVP 10 mg IVP once; Over 2 minutes Route: IVP; Site: right antecubital; me1 21:40 Follow up: Response: No adverse reaction me1 Disposition Summary: 07/09/23 19:55 Hospitalization Ordered Notes: Hospitalization Status: Observation rt Provider: Imer Contreras rt Condition: Stable rt Problem: an acute exacerbation rt Symptoms: have improved rt Bed/Room Type: Standard rt Location: Intensive Care Unit(07/09/23 22:13) vc1 Room Assignment: 5-(07/09/23 23:27) Diagnosis - Atrial fibrillation with rapid ventricular rate rt - Elevated troponin rt Forms: - Medication Reconciliation Form rt - SBAR form rt - Leadership Thank You Letter rt Critical care time excluding procedures: 20:23 Critical care time: Bedside Care: 30 minutes, Consultation: 5 minutes. Total time: 35 rt minutes Signatures: Dispatcher [employer] Elis Arce RN RN aa5 Adri Noriega RN RN cg Beba Howard RN RN vc1 Navdeep Garcia MD MD rt Jaydon Whitmore, RN RN rs5 Mary Lou Menjivar, RN RN me1 Corrections: (The following items were deleted from the chart) 19:20 18:24 Immunization history: Adult Immunizations up to date, aa5 me1 19:20 18:24 Social history: Smoking status: Patient reports the use of cigarette tobacco me1 products, smokes one pack cigarettes per day. aa5 19:20 18:55 Family history: not pertinent, rt me1 19:20 18:55 The history from the nurse's notes was reviewed and I agree with what is me1 documented. rt 20:59 19:55 Telemetry/MedSurg (observation) rt cg 20:59 19:55 rt cg 22:13 20:59 [facility] ER HOLD cg vc1 22:13 20:59 ERHOLD- cg vc1 23:27 22:13 vc1 cg
[2023-07-09] MEDS ORDERED: ONDANSETRON 4 MG/2 ML VIAL IV PRN (20:14)
[2023-07-09] MEDS ORDERED: ACETAMINOPHEN 500 MG TAB PO PRN (20:14)
[2023-07-09] MEDS: METOPROLOL XL 50 MG TAB PO SCH (20:18)
--- NOTE | 2023-07-09 20:22 | P.HP ---
Certification for Inpatient Patient admitted to: Inpatient With expected LOS: >2 Midnights Patient will require the following post-hospital care: None Practitioner: I am a practitioner with admitting privileges, knowledge of patient current condition, hospital course, and medical plan of care. Services: Services provided to patient in accordance with Admission requirements found in Title 42 Section 412.3 of the Code of Federal Regulations Patient History Date of Service: 07/09/23 Reason for admission: Palpitation History of Present Illness: 37-year-old male with past medical history of hypertension, CHF, ESRD, on dialysis, atrial fibrillation, who was transferred from dialysis center manage he was getting dialysis and became had shortness of breath and palpitation after drawing 1800 cc . Patient denies any chest pain. No fever or chills. No nausea vomiting or diarrhea . Patient also complains of generalized weakness . Patient was assessed in the ER and was found to have A-fib with RVR and was admitted for further management Allergies No Known Drug Allergies Allergy (Verified 07/09/23 21:44) Anaphylaxis Home medications list reviewed: Yes - Past Medical/Surgical History Past Medical History: Reviewed- Non-Contributory -: ESRD, HTN , atrial fibrillation Past Surgical History: Reviewed- Non-Contributory - Family History Family History: Reviewed- Non-Contributory - Social History Smoking Status: Never smoker Review of Systems 10-point ROS is otherwise unremarkable General: Weakness, Malaise Eyes: Unremarkable ENT: Unremarkable Respiratory: Shortness of Breath, SOB with Excertion Cardiovascular: Palpitations Gastrointestinal: Unremarkable Genitourinary: Unremarkable Musculoskeletal: Unremarkable Integumentary: Unremarkable Neurological: Unremarkable Lymphatics: Unremarkable Physical Examination - Vital Signs Temperature: 98.8 F Blood Pressure: 162/96 Pulse: 126 Respirations: 18 Pulse Ox (%): 98 - Physical Exam General: Alert, Oriented x3, Mild distress HEENT: Atraumatic, Normocephalic Neck: Supple Respiratory: Diminished, Crackles/rales, Expiratory wheezes Cardiovascular: Other (Tachycardic), Irregular heart rate/rhythm Capillary refill: <2 Seconds Gastrointestinal: Soft and benign, W/out hepatosplenomegaly Musculoskeletal: No clubbing, No swelling Integumentary: No rashes, No tenderness/swelling Neurological: Normal speech, Other (alert,awake ,) Lymphatics: No axilla or inguinal lymphadenopathy - Studies Laboratory Data (last 24 hrs) 07/09/23 07/09/23 18:29 18:29 WBC 8.00 Hgb 10.2 L Hct 30.5 L Plt Count 171 Sodium 138 Potassium 3.2 L BUN 13 Creatinine 4.17 H Glucose 93 Magnesium 2.2 Total Bilirubin 0.4 AST 19 ALT 11 L Alkaline Phosphatase 55 Assessment and Plan - Problems (Diagnosis) (1) Atrial fibrillation with RVR Current Visit: Yes Status: Acute Plan: Noted to have A-fib with RVR Patient received Cardizem with minimal response We will start on Cardizem infusion Beta-cait as needed for tachycardia Cardiology consulted We will get an echocardiogram Monitor closely under telemetry in ICU (2) ESRD on dialysis Current Visit: Yes Status: Chronic Plan: Patient had dialysis today Will monitor renal parameters Strict I&O Start on renal diet Nephrology consult (3) Accelerated hypertension Current Visit: Yes Status: Acute Plan: Continue antihypertensives Titrated as needed On Cardizem drip (4) History of congestive heart failure Current Visit: Yes Status: Chronic Plan: We will get an echocardiogram Monitor I&O Electrolytes monitor and replace accordingly (5) Anemia of chronic disease Current Visit: Yes Status: Chronic Plan: Monitor H&H No overt bleeding noted Transfuse as needed (6) NSTEMI (non-ST elevated myocardial infarction) Current Visit: Yes Status: Acute Plan: Cardiac enzymes trended Start on aspirin and statin Cardiology consult Echo pending Discharge Plan: Home Plan to discharge in: Greater than 2 days - Advance Directives Does patient have a Living Will: No Does patient have a Durable POA for Healthcare: No - Code Status/Comfort Care Code Status: Full Code Critical Care: Yes Time Spent Managing Pts Care (In Minutes): 46
[2023-07-09] MEDS ORDERED: ATORVASTATIN 40 MG TAB PO SCH (21:00)
[2023-07-09] MEDS ORDERED: Nicardipine/NS 25 MG/250 ML KIT IV ONE (21:57)
[2023-07-09] MEDS ORDERED: NA CHLORIDE 0.9% 50 ML ONE (22:01)
[2023-07-09] MEDS: DILTIAZEM INJ 125 MG/25 ML 125 MG in NA CHLORIDE 0.9% 100 ML IV SCH (22:03)
[2023-07-09] MEDS ORDERED: clonazePAM 0.5 MG TAB PO PRN (22:29)
[2023-07-09] MEDS: HYDROCODONE/APAP 7.5/325 MG TAB PO PRN (22:43)
[2023-07-09] MEDS ORDERED: clonazePAM 1 MG TAB ONE (22:54)
[2023-07-09] MEDS ORDERED: HYDROCODONE/APAP 7.5/325 MG TAB ONE (22:55)
[2023-07-09] MEDS: NA CHLORIDE 0.9% 500 ML IV SCH (23:16)
[2023-07-09] MEDS: ASPIRIN EC 81 MG TAB PO SCH (23:17)
[2023-07-09] MEDS ORDERED: ATORVASTATIN 40 MG TAB ONE (23:18)
[2023-07-09] MEDS ORDERED: NA CHLORIDE 0.9% 1,000 ML ONE (23:18)
[2023-07-09] MEDS ORDERED: ASPIRIN EC 81 MG TAB PO ONE (23:18)
[2023-07-10] MEDS: HYDRALAZINE HCL 20 MG/ML VIAL IV PRN ×2 (00:42→08:50)
[2023-07-10] MEDS ORDERED: HYDRALAZINE HCL 20 MG/ML VIAL ONE ×2 (00:55→09:04)
[2023-07-10 01:03] VITALS: BMI 26.2
[2023-07-10 05:16] LABS: Absolute Lymphocytes (CBC) 1.6 K/uL (0.7-4.9); Hematocrit 29.1 % (39.6-49.0); Lymphocytes % 22.1 % (15.3-44.8); MCV 96.1 fL (80-100); MPV 7.8 fL (7.6-11.3); Platelets 149 thou/uL (152-406); RBC Red Blood Cell Count 3.03 M/uL (4.33-5.43)
[2023-07-10] MEDS: METOPROLOL XL 50 MG TAB PO SCH (05:27)
[2023-07-10] MEDS: HYDROCODONE/APAP 7.5/325 MG TAB PO PRN ×2 (05:27→09:37)
[2023-07-10 05:30] LABS: Albumin 2.7 g/dL (3.4-5.0); Bilirubin Total 0.5 mg/dL (0.2-1.0); Potassium 3.9 mEq/L (3.5-5.1); Protein, Total 6.2 g/dL (6.4-8.2)
[2023-07-10 05:35] LABS: Troponin High Sensitivity 232.8 pg/mL (<58.9)
[2023-07-10] MEDS: NA CHLORIDE 0.9% 500 ML IV SCH (07:00)
[2023-07-10] MEDS: DILTIAZEM INJ 125 MG/25 ML 125 MG in NA CHLORIDE 0.9% 100 ML IV SCH (07:44)
[2023-07-10] MEDS: HEPARIN 5000 UNIT/ML 1 ML VIAL IV ONE ×2 (07:47→07:55)
[2023-07-10] MEDS ORDERED: HEPARIN/D5W 25,000 UNIT/500 ML BAG IV SCH (08:00)
[2023-07-10] MEDS ORDERED: HEPARIN 5000 UNIT/ML 1 ML VIAL ONE (08:09)
[2023-07-10 08:16] LABS: Protime INR 1.18
[2023-07-10 08:35] VITALS: TEMP 97.4
[2023-07-10] MEDS ORDERED: HEPARIN/D5W 25,000 UNIT/500 ML BAG IV ONE (08:55)
[2023-07-10] MEDS: ASPIRIN EC 81 MG TAB PO SCH (09:00)
--- NOTE | 2023-07-10 09:29 | P.CNS ---
Date of Consult: 07/10/23 Reason for Consult: ESRD Requesting Physician: Althea Sepulveda Chief Complaint: Palpitation History of Present Illness: 37-year-old male with past medical history of hypertension, CHF, ESRD, on dialysis, atrial fibrillation, who was transferred from dialysis center manage he was getting dialysis and became had shortness of breath and palpitation after drawing 1800 cc . Patient denies any chest pain. No fever or chills. No na usea vomiting or diarrhea . Patient also complains of generalized weakness . Patient was assessed in the ER and was found to have A-fib with RVR and was admitted for further management. vanessa 18:55 This 37 yrs old Male presents to ER via EMS with complaints of Blood Pressure rt Problem. 18:55 Patient presents to the ED from dialysis with A-fib with RVR. Patient developed rapid rt ventricular rate towards the end of dialysis, was net -1800 cc. Reports mild chest pain, shortness of breath. Reports anxiety. Denies other acute complaints, symptoms are moderate in severity, no other aggravating or alleviating factors.. Allergies No Known Drug Allergies Allergy (Verified 07/09/23 21:44) Anaphylaxis Home medications list reviewed: Yes - Past Medical/Surgical History Diabetic: No -: ESRD (Dr. South/ Dr. Candelaria) -: Afib -: HTN -: CHF -: Peritoneal dialysis -: Herniated disk -: Dialysis Access placement - Family History Father Medical History: Heart disease, Hypertension, Diabetes, Stroke - Social History Smoking Status: Current every day smoker Alcohol use: No CD- Drugs: No Caffeine use: Yes Place of Residence: Home Review of Systems 10-point ROS is otherwise unremarkable Physical Examination Temp Pulse Resp BP Pulse Ox 97.4 F 74 20 195/116 H 100 07/10/23 08:00 07/10/23 09:06 07/10/23 09:06 07/10/23 09:06 07/10/23 09:06 General: In no apparent distress HEENT: Atraumatic Neck: Supple Respiratory: Normal air movement Cardiovascular: Irregular heart rate/rhythm Gastrointestinal: Non-distended Musculoskeletal: No clubbing Integumentary: No rashes, No cyanosis Neurological: Normal speech Laboratory Data (last 24 hrs) 07/09/23 07/09/23 18:29 18:29 WBC 8.00 Hgb 10.2 L Hct 30.5 L Plt Count 171 Sodium 138 Potassium 3.2 L BUN 13 Creatinine 4.17 H Glucose 93 Magnesium 2.2 Total Bilirubin 0.4 AST 19 ALT 11 L Alkaline Phosphatase 55 Imagings Data: vanessa 18:55 This 37 yrs old Male presents to ER via EMS with complaints of Blood Pressure rt Problem. 18:55 Patient presents to the ED from dialysis with A-fib with RVR. Patient developed rapid rt ventricular rate towards the end of dialysis, was net -1800 cc. Reports mild chest pain, shortness of breath. Reports anxiety. Denies other acute complaints, symptoms are moderate in severity, no other aggravating or alleviating factors.. Conclusions/Impression: ESRD on HD -HD TIW HTN with CKD/ CHF -Continue Metoprolol Diastolic CHF, chronic -HD with UF Anemia in CKD -Retacrit prn CKD MBD -Start Ergo Thank you kindly for the consultation
[2023-07-10] MEDS ORDERED: HYDROCODONE/APAP 7.5/325 MG TAB ONE (09:50)
[2023-07-10] MEDS ORDERED: ASPIRIN 81 MG CHEWABLE TABLET ONE (09:50)
[2023-07-10] MEDS ORDERED: LABETALOL 20 MG/4ML SYRINGE IV ONE ×2 (09:51→10:00)
--- NOTE | 2023-07-10 10:17 | P.PN ---
Subjective Date of Service: 07/10/23 Chief Complaint: Palpitation Pt is resting comfortably in bed. He is eager to leave AMA but I persuaded him to wait for cardiology eval. HR has improved. Off Diltiazem drip. Will continue heparin drip for NSTEMI. No other complaints. Review of Systems General: Unremarkable Eyes: Unremarkable ENT: Unremarkable Respiratory: Unremarkable Cardiovascular: Unremarkable Gastrointestinal: Unremarkable Genitourinary: Unremarkable Musculoskeletal: Unremarkable Integumentary: Unremarkable Neurological: Unremarkable Physical Examination - Vital Signs Temperature: 97.4 F Blood Pressure: 195/116 Pulse: 74 Respirations: 18 Pulse Ox (%): 100 - Physical Exam General: Alert, In no apparent distress, Oriented x3, Cooperative HEENT: Atraumatic, Normocephalic, PERRLA Neck: Supple, 2+ carotid pulse no bruit Respiratory: Clear to auscultation bilaterally, Normal air movement Cardiovascular: No edema, Normal pulses, Normal S1 S2 Capillary refill: <2 Seconds Gastrointestinal: Normal bowel sounds, Soft and benign, Non-distended Musculoskeletal: No clubbing, No swelling Integumentary: No rashes, No breakdown Neurological: Normal gait, Normal speech, Normal strength at 5/5 x4 extr Lymphatics: No axilla or inguinal lymphadenopathy - Studies Laboratory Data (last 24 hrs) 07/09/23 07/09/23 18:29 18:29 WBC 8.00 Hgb 10.2 L Hct 30.5 L Plt Count 171 Sodium 138 Potassium 3.2 L BUN 13 Creatinine 4.17 H Glucose 93 Magnesium 2.2 Total Bilirubin 0.4 AST 19 ALT 11 L Alkaline Phosphatase 55 Assessment And Plan - Plan A. fib with RVR: HR has improved. HR is 81. Off diltiazem drip. Will continue metoprolol 50mg po BID, heparin drip and Telemetry. Consulted cardiology Elevated troponin: Likely due to A. fib with RVR or NSTEMI. Will trend troponin 232<- 210 <- 205. Will continue heparin drip and follow up Cardiology eval. ESRD: Will continue HD on outpt. Htn: Continue metoprolol 50mg po BID and prn labetalol. Hx of CHF: Will continue home meds. Anemia of chronic disease; Monitor H/H. Hgb is 9.8. DVT ppx: heparin drip Code: full
[2023-07-10 10:25] VITALS: BP 154/66
[2023-07-10 10:30] VITALS: O2SAT 100
--- NOTE | 2023-07-10 11:49 | P.DS ---
Admission Date: 07/09/23 Discharge Date: 07/10/23 Disposition: AMA-LEFT AGAINST MEDICAL ADVIC Discharge Condition: FAIR Reason for Admission: Palpitation Brief History of Present Illness: 37-year-old male with past medical history of hypertension, CHF, ESRD, on dialysis, atrial fibrillation, who was transferred from dialysis center manage he was getting dialysis and became had shortness of breath and palpitation after drawing 1800 cc . Patient denies any chest pain. No fever or chills. No nausea vomiting or diarrhea . Patient also complains of generalized weakness . Patient was assessed in the ER and was found to have A-fib with RVR and was admitted for further management Hospital Course: Pt is a 37-year-old male with past medical history of hypertension, CHF, ESRD, on dialysis, and atrial fibrillation who was transferred from dialysis center due to palpitation and SOB. On admission, pt was in A. fib with RVR. We gave Diltiazem drip, metoprolol and consulted Cardiology. We gave heparin drip for elevated troponin or NSTEMI. The heart rate improved but BP remained elevated. We gave iv labetalol and BP improved. Pt decided to leave AMA despite my persuasion to stay and see the commercial reporter. Vital Signs/Physical Exam: Temp Pulse Resp BP Pulse Ox 97.4 F 72 18 154/66 H 100 07/10/23 10:19 07/10/23 10:25 07/10/23 10:25 07/10/23 10:25 07/10/23 10:25 Laboratory Data at Discharge: WBC 7.20 thou/uL (4.3-10.9) 07/10/23 04:46 Hgb 9.8 g/dL (13.6-17.9) L 07/10/23 04:46 Hct 29.1 % (39.6-49.0) L 07/10/23 04:46 Plt Count 149 thou/uL (152-406) L 07/10/23 04:46 PT 12.9 SECONDS (9.5-12.5) H 07/10/23 07:58 INR 1.18 07/10/23 07:58 APTT 30.0 SECONDS (24.3-36.9) 07/10/23 07:58 Sodium 137 mEq/L (136-145) 07/10/23 04:46 Potassium 3.9 mEq/L (3.5-5.1) D 07/10/23 04:46 BUN 18 mg/dL (7-18) 07/10/23 04:46 Creatinine 5.36 mg/dL (0.70-1.30) H 07/10/23 04:46 Glucose 96 mg/dL (74-106) 07/10/23 04:46 Magnesium 2.2 mg/dL (1.6-2.4) 07/09/23 18:29 Total Bilirubin 0.5 mg/dL (0.2-1.0) 07/10/23 04:46 AST 20 U/L (15-37) 07/10/23 04:46 ALT 12 U/L (16-61) L 07/10/23 04:46 Alkaline Phosphatase 41 U/L (45-117) L D 07/10/23 04:46 Followup: NONE,NONE [Primary Care Provider] -
--- NOTE | 2023-07-10 13:50 | P.CNS ---
Date of Consult: 07/10/23 Reason for Consult: Nonstemi, Afib with RVR Requesting Physician: Althea Sepulveda Primary Care Provider: Jay Jay Chief Complaint: Palpitation History of Present Illness: Mr. Monroe is a 37 yo with past medical history of NIDDM, HTN, ESRD on peritoneal dialysis since August 26. He began hemodialysis 1.5mo ago per right tessiocath. He has dialysis MWF x 3.5 hours. He presented to the ED last pm post 1800ml removed at dialysis clinic (about 2-2.5 hours in) for weakness and palpitations. He was noted to be in a. fib with RVR with diastolic blood pressures in the 110-116 range. He was given multiple rounds of antihypertensives (labetolol, metoprolol, hydralazine, and cardizem). He was started on a cardizem drip and admitted to medicine to ICU. Allergies No Known Drug Allergies Allergy (Verified 07/09/23 21:44) Anaphylaxis Home medications list reviewed: Yes - Past Medical/Surgical History Diabetic: Yes -: ESRD -: Afib -: Htn -: CHF -: Peritoneal dialysis -: Herniated disk -: ("don't need DM treatment anymore") -: Dialysis Access placement - Family History Father Medical History: Heart disease, Hypertension, Diabetes, Stroke - Social History Smoking Status: Current every day smoker Alcohol use: No CD- Drugs: No Caffeine use: Yes Place of Residence: Home Review of Systems 10-point ROS is otherwise unremarkable Respiratory: As per HPI Cardiovascular: As per HPI Physical Examination Temp Pulse Resp BP Pulse Ox 97.4 F 72 18 154/66 H 100 07/10/23 10:19 07/10/23 10:25 07/10/23 10:25 07/10/23 10:25 07/10/23 10:25 General: Alert, Oriented x3, Other (Does not wish to stay in the hospital, "I would rather go home and ") HEENT: Atraumatic, Normocephalic Neck: Supple, No Thyromegaly Respiratory: Clear to auscultation bilaterally Cardiovascular: No edema, Other (tachycardic) Capillary refill: <2 Seconds Gastrointestinal: Normal bowel sounds, Soft and benign Musculoskeletal: No clubbing Integumentary: No rashes Neurological: Normal speech, Normal tone Lymphatics: No axilla or inguinal lymphadenopathy External genitalia: Deferred Rectal: Deferred Laboratory Data (last 24 hrs) 07/09/23 07/09/23 18:29 18:29 WBC 8.00 Hgb 10.2 L Hct 30.5 L Plt Count 171 Sodium 138 Potassium 3.2 L BUN 13 Creatinine 4.17 H Glucose 93 Magnesium 2.2 Total Bilirubin 0.4 AST 19 ALT 11 L Alkaline Phosphatase 55 - Problems (1) Atrial fibrillation with RVR Status: Acute Plan: Continue cardizem drip for now, aspirin, will add betablocker, strive for rate control (2) NSTEMI (non-ST elevated myocardial infarction) Status: Acute Plan: Trend troponins, heparin drip, aspirin, permissive hypertension, will need cardiac cath Pt is adamant that he will be leaving. Discussed high possibility of . Pt states he has been dealing with health problems for the whole year and is compliant without relief. States he has things to do today and declines treatment per Cardiology and per Medicine. States he wants to sign AMA papers and leave.
== END 2023-07-10 10:30 | disposition left against medical advice (07) | DRG 280 ==
LOC: ER 18:08 → ERHOLD 20:14 → 3RD-ICU 23:36
PROVIDERS: ADMIT Family Medicine; ATTEND Hospitalist
PROC: 5A1D70Z Performance of Urinary Filtration, Intermittent, Less than 6 Hours Per Day (ICD-10-PCS; principal; 2023-07-10)
DX: I48.91 Unspecified atrial fibrillation (principal); N18.6 End stage renal disease; I21.4 Non-ST elevation (NSTEMI) myocardial infarction; I50.32 Chronic diastolic (congestive) heart failure; I13.2 Hypertensive heart and chronic kidney disease with heart failure and with stage 5 chronic kidney disease, or end stage renal disease; D63.1 Anemia in chronic kidney disease; I49.3 Ventricular premature depolarization; F17.210 Nicotine dependence, cigarettes, uncomplicated; R94.31 Abnormal electrocardiogram [ECG] [EKG]; R77.8 Other specified abnormalities of plasma proteins; Z99.2 Dependence on renal dialysis; Z53.29 Procedure and treatment not carried out because of patient's decision for other reasons
CPT/HCPCS: 36415; 71045; 80048; 80053; 80076; 83735; 84484; 85025; 85610; 85730; 90935; 93005; 93306; 94760; 96374; 96375; 99284; J0360; J1644; J7030

== ENCOUNTER 2023-08-16 13:27 | Inpatient (IN) | payer MEDICARE ==
[2023-08-16] MEDS ORDERED: METOPROLOL TARTRATE 5 MG/5 ML INJ IV ONE (14:02)
[2023-08-16] MEDS ORDERED: HYDROCODONE/APAP 10/325 TAB ONE (14:12)
[2023-08-16 14:29] LABS: Absolute Lymphocytes (CBC) 1.2 K/uL (0.7-4.9); Hematocrit 34.3 % (39.6-49.0); Lymphocytes % 14.2 % (15.3-44.8); MCV 97.2 fL (80-100); Platelets 140 thou/uL (152-406); RBC Red Blood Cell Count 3.53 M/uL (4.33-5.43)
[2023-08-16 15:00] LABS: ALT/SGPT 248 U/L (16-61); Albumin 3.3 g/dL (3.4-5.0); Alkaline Phosphatase 85 U/L (45-117); BUN Blood Urea Nitrogen 42 mg/dL (7-18); Bicarbonate 21 mEq/L (21-32); Bilirubin Direct 0.4 mg/dL (0-0.2); Bilirubin Indirect, Calculated 0.5 mg/dL (0.2-0.8); Bilirubin Total 0.9 mg/dL (0.2-1.0); Glucose Level 100 mg/dL (74-106); Magnesium 2.2 mg/dL (1.6-2.4); Potassium 5.3 mEq/L (3.5-5.1); Sodium Level 135 mEq/L (136-145)
[2023-08-16 15:03] LABS: AST/SGOT 378 U/L (15-37); Glomerular Filtration Rate 11 ml/min (=/>90)
[2023-08-16 15:05] LABS: NT PRO-BNP > 175000 pg/mL (<125); Troponin High Sensitivity 617.8 pg/mL (<58.9)
--- NOTE | 2023-08-16 15:05 | RAD REPORT ---
EXAM DESCRIPTION: [place] Single View08/16/2023 2:49 pm CLINICAL HISTORY: Palpitations COMPARISON: none FINDINGS: Mild bilateral pulmonary opacities Heart is mildly enlarged. Central venous line in place IMPRESSION: Mild CHF
[2023-08-16] MEDS ORDERED: DIGOXIN 0.25 MG/ML AMP ONE (15:24)
[2023-08-16] MEDS ORDERED: METOPROLOL XL 50 MG TAB PO ONE (15:25)
[2023-08-16] MEDS ORDERED: AMIODARONE HCL 150 MG/3 ML INJ IV ONE (16:14)
[2023-08-16] MEDS ORDERED: NA CHLORIDE 0.9% 100 ML ONE (16:14)
[2023-08-16] MEDS ORDERED: AMIODARONE IN DEXTROSE,ISO-OSM 360 MG/200 ML BAG IV ONE ×2 (16:14→20:45)
--- NOTE | 2023-08-16 16:24 | EDPHYS ---
Physician Documentation [facility] Name: Dasia Monroe Age: 37 yrs Sex: Male : 1985 Arrival Date: 08/16/2023 Time: 13:27 Bed 5 Private MD: ED Physician Jordan Castano HPI: 08/16 16:15 This 37 yrs old Male presents to ER via Ambulatory with complaints of HEART kb RATE. 16:15 Patient is a 37-year-old male who presents for heart rate of 150 for the last week. kb Denies any other symptoms. States he has been to dialysis as scheduled Friday, Friday and Friday and was told to come to the ER for evaluation each time but he did not want to come in until today.. Historical: - Allergies: 13:46 No Known Drug Allergies; bp 13:45 No Known Allergies; nj1 - PMHx: 13:46 4 herniated disk; Congestive heart failure; Hypertensive disorder; PERITONEAL DIALYSIS; bp 13:45 4 herniated disk; Congestive heart failure; Hypertensive disorder; Kidney disease; nj1 - PSHx: 13:46 dialysis access placement; bp 13:45 dialysis access placement; nj1 - Immunization history:: Adult Immunizations up to date, Client reports receiving the 2nd dose of the Covid vaccine. - Social history:: Smoking status: Patient denies any tobacco usage or history of. Smoking status: unknown. ROS: 15:05 Constitutional: Negative for fever, chills, and weight loss, kb 16:15 Cardiovascular: Positive for palpitations, kb 16:15 All other systems are negative, Exam: 16:21 Constitutional: This is a well developed, well nourished patient who is awake, alert, kb and in no acute distress. Head/Face: Normocephalic, atraumatic. ENT: Moist Mucous membranes Respiratory: Respirations even and unlabored. No increased work of breathing. Talking in full sentences Abdomen/GI: Soft, non-tender. No distention Skin: Warm, dry with normal turgor. Normal color. MS/ Extremity: Pulses equal, no cyanosis. Neurovascular intact. Full, normal range of motion. Neuro: Awake and alert, GCS 15, oriented to person, place, time, and situation. Moves all extremities. Normal gait. 16:21 Cardiovascular: Rate: tachycardic, actual rate is 149 bpm, 16:21 ECG was reviewed by the Attending Physician. Vital Signs: 13:42 BP 175 / 127; Pulse 145; Resp 18; Temp 98.2(TE); Pulse Ox 100% ; Weight 71.67 kg; nj1 Height 5 ft. 5 in. ; 14:09 Pulse 147; Pulse Ox 98% on R/A; ld1 14:15 BP 183 / 132; Pulse 147; Resp 16; Pulse Ox 99% ; bp 15:22 Pulse 148; Resp 18; Pulse Ox 98% on R/A; ld1 16:23 BP 188 / 119; Pulse 138; Resp 18; Pulse Ox 96% on R/A; ld1 17:51 BP 183 / 123; Pulse 134; Resp 16; Pulse Ox 100% ; ld1 13:42 Body Mass Index 26.29 (71.67 kg, 165.1 cm) nj1 MDM: 13:34 Patient medically screened. kb 16:22 Differential diagnosis: arrythmia, dehydration, stress disorder. Data reviewed: vital kb signs, nurses notes. Consideration of Admission/Observation Patient was admitted/placed on observation. Escalation of care including admission/observation considered. Management of patient was discussed with the following: Hospitalist: Dr Rockwell accepts admission. Bearing Press Machine Operator: Dr Carrington consulted, recommends amiodarone drip and admit. Care significantly affected by the following chronic conditions: Hypertension, Congestive Heart Failure, Chronic Kidney Disease. Counseling: I had a detailed discussion with the patient and/or guardian regarding the historical points, exam findings, and any diagnostic results supporting the discharge/admit diagnosis, lab results, radiology results, the need for further work-up and treatment in the hospital. 08/16 13:43 Order name: Basic Metabolic Panel; Complete Time: 15:06 kb 08/16 13:43 Order name: CBC with Diff; Complete Time: 14:39 kb 08/16 13:43 Order name: LFT's; Complete Time: 15:06 kb 08/16 13:43 Order name: Magnesium; Complete Time: 15:06 kb 08/16 13:43 Order name: NT PRO-BNP; Complete Time: 15:06 kb 08/16 13:43 Order name: Troponin HS; Complete Time: 15:06 kb 08/16 14:37 Order name: Thyroid Stimulating Hormone; Complete Time: 15:06 EDMS 08/16 16:56 Order name: CBC with Automated Diff EDMS 08/16 16:56 Order name: CBC with Automated Diff EDMS 08/16 16:56 Order name: Comprehensive Metabolic Panel EDMS 08/16 16:56 Order name: Comprehensive Metabolic Panel EDMS 08/16 16:56 Order name: D-Dimer EDMS 08/16 16:56 Order name: D-Dimer EDMS 08/16 16:56 Order name: Digoxin Level EDMS 08/16 16:56 Order name: Digoxin Level EDMS 08/16 16:56 Order name: Digoxin Level EDMS 08/16 16:56 Order name: Digoxin Level EDMS 08/16 16:56 Order name: Lipid Profile EDMS 08/16 16:56 Order name: Lipid Profile EDMS 08/16 16:56 Order name: Magnesium EDMS 08/16 16:56 Order name: Magnesium EDMS 08/16 16:56 Order name: NT PRO-BNP EDMS 08/16 16:56 Order name: NT PRO-BNP EDMS 08/16 16:56 Order name: Phosphorus EDMS 08/16 16:56 Order name: Phosphorus EDMS 08/16 16:56 Order name: Troponin High Sensitivity EDMS 08/16 16:56 Order name: Troponin High Sensitivity EDMS 08/16 16:56 Order name: Troponin High Sensitivity EDMS 08/16 16:56 Order name: Troponin High Sensitivity EDMS 08/16 13:43 Order name: XRAY Chest (1 view); Complete Time: 15:06 kb 08/16 13:43 Order name: EKG; Complete Time: 13:44 kb 08/16 16:56 Order name: CONS Physician Consult EDMS 08/16 16:56 Order name: CONS Physician Consult EDMS 08/16 13:43 Order name: Cardiac monitoring; Complete Time: 13:53 kb 08/16 13:43 Order name: EKG - Nurse/Tech; Complete Time: 13:53 kb 08/16 13:43 Order name: IV Saline Lock; Complete Time: 14:16 kb 08/16 13:43 Order name: Labs collected and sent; Complete Time: 14:16 kb 08/16 13:43 Order name: O2 Per Protocol; Complete Time: 13:46 kb 08/16 13:43 Order name: O2 Sat Monitoring; Complete Time: 13:46 kb EC:21 Rate is 146 beats/min. Rhythm is regular. QRS [place] is Normal. CA interval is normal at kb 154 msec. QRS interval is normal at 88 msec. QT interval is normal at 389 msec. Administered Medications: 14:00 Drug: Metoprolol IVP 5 mg IVP every 5 minutes; Hold for SBP < 100 or HR < 60. x3 Route: bp IVP; Site: right forearm; 14:15 Drug: Metoprolol IVP 5 mg IVP every 5 minutes; Hold for SBP < 100 or HR < 60. x3 Route: bp IVP; Site: right forearm; 14:16 Drug: [place] PO 10 mg-325 mg 1 tabs PO once Route: PO; bp 16:29 Follow up: Response: No adverse reaction bp 15:29 Drug: Digoxin IVP 0.5 mg IVP once Route: IVP; Site: right antecubital; ld1 15:29 Drug: Metoprolol PO 50 mg PO once Route: PO; ld1 16:22 Drug: amiodarone IVPB 150 mg 100 ml IVPB once over 10 mins; (mix in D5W) Volume: 100 ld1 ml; Route: IVPB; Infused Over: 10 mins; Site: right forearm; 16:27 Drug: amiodarone IVPB 900 mg, D5W IV 500 ml IVPB at 1 mg/min continuous; for 6 hrs, ld1 then change to 0.5 mg/min Route: IVPB; Rate: 1 mg/min; Site: right forearm; Disposition Summary: 08/16/23 16:23 Hospitalization Ordered Notes: Hospitalization Status: Inpatient Admission kb Provider: Seda Rockwell Location: Intensive Care Unit kb Condition: Stable kb Problem: new kb Symptoms: are unchanged kb Bed/Room Type: Standard Room Assignment: 4-(08/16/23 17:10) eb Diagnosis - Unspecified atrial flutter kb - Tachycardia, unspecified kb Forms: - Medication Reconciliation Form kb - SBAR form kb - Leadership Thank You Letter kb Critical care time excluding procedures: 17:16 Critical care time: Bedside Care: 10 minutes, Consultation: 10 minutes, Family kb Intervention: 10 minutes. Total time: 30 minutes Signatures: Dispatcher [employer] Ofelia Boyd FNP-C FNP-Narciso Verma RN RN Marina Vanegas Lauren, RN RN ld1 Liliam Paris RN RN nj1 Corrections: (The following items were deleted from the chart) 13:46 13:45 PMHx: PERITONEAL DIALYSIS; nj1 nj1 14:37 14:11 THYROID STIMULAT HORMONE+C.LAB.BRZ ordered. EDMS EDMS 17:10 16:23 kb
--- NOTE | 2023-08-16 16:24 | ER ---
Nurse's Notes [facility] Name: Dasia Monroe Age: 37 yrs Sex: Male : 1985 Arrival Date: 08/16/2023 Time: 13:27 Bed 5 Private MD: Diagnosis: Unspecified atrial flutter;Tachycardia, unspecified Presentation: 08/16 13:42 Chief complaint: Patient states: Rapid heart rate for a week, "150's", had had HD MWF. nj1 Advised to come to ED by hd staff, patient refused. Coronavirus screen: Vaccine status: Patient reports receiving the 2nd dose of the covid vaccine. Ebola Screen: Patient denies travel to an Ebola-affected area in the 21 days before illness onset. Initial Sepsis Screen: Does the patient meet any 2 criteria? HR > 90 bpm. No. Patient's initial sepsis screen is negative. Does the patient have a suspected source of infection? No. Patient's initial sepsis screen is negative. Risk Assessment: Do you want to hurt yourself or someone else? Patient reports no desire to harm self or others. Onset of symptoms was August 2023. 13:42 Method Of Arrival: Ambulatory [facility] 13:42 Acuity: GUANAKITO 2 nj1 Triage Assessment: 13:46 General: Appears in no apparent distress. Behavior is appropriate for age. Pain: Denies bp pain. Historical: - Allergies: 13:46 No Known Drug Allergies; bp 13:45 No Known Allergies; nj1 - PMHx: 13:46 4 herniated disk; Congestive heart failure; Hypertensive disorder; PERITONEAL DIALYSIS; bp 13:45 4 herniated disk; Congestive heart failure; Hypertensive disorder; Kidney disease; nj1 - PSHx: 13:46 dialysis access placement; bp 13:45 dialysis access placement; nj1 - Immunization history:: Adult Immunizations up to date, Client reports receiving the 2nd dose of the Covid vaccine. - Social history:: Smoking status: Patient denies any tobacco usage or history of. Smoking status: unknown. Screenin:09 [facility] ED Fall Risk Assessment (Adult) History of falling in the last 3 months, ld1 including since admission No falls in past 3 months (0 pts). Abuse screen: Denies threats or abuse. Denies injuries from another. Nutritional screening: No deficits noted. Tuberculosis screening: No symptoms or risk factors identified. Assessment: 14:09 General: Appears in no apparent distress. comfortable, Behavior is calm, cooperative, ld1 appropriate for age. Pain: Complains of pain in chest Pain does not radiate. Pain currently is 8 out of 10 on a pain scale. Quality of pain is described as sharp, shooting, throbbing, Pain began 2-3 days ago. Is intermittent. Neuro: Level of Consciousness is awake, alert, obeys commands, Oriented to person, place, time, situation. Cardiovascular: Capillary refill < 3 seconds Patient's skin is warm and dry. Cardiovascular: Rhythm is sinus tachycardia. Respiratory: Airway is patent Respiratory effort is even, unlabored. GI: Abdomen is round non-distended. : No signs and/or symptoms were reported regarding the genitourinary system. EENT: No signs and/or symptoms were reported regarding the EENT system. Derm: No signs and/or symptoms reported regarding the dermatologic system. Musculoskeletal: No signs and/or symptoms reported regarding the musculoskeletal system. 15:30 Reassessment: No changes from previously documented assessment. Patient is alert, ld1 oriented x 3, equal unlabored respirations, skin warm/dry/pink. 16:30 Reassessment: ADMIT INITIATED. ld1 Vital Signs: 13:42 BP 175 / 127; Pulse 145; Resp 18; Temp 98.2(TE); Pulse Ox 100% ; Weight 71.67 kg; nj1 Height 5 ft. 5 in. ; 14:09 Pulse 147; Pulse Ox 98% on R/A; ld1 14:15 BP 183 / 132; Pulse 147; Resp 16; Pulse Ox 99% ; bp 15:22 Pulse 148; Resp 18; Pulse Ox 98% on R/A; ld1 16:23 BP 188 / 119; Pulse 138; Resp 18; Pulse Ox 96% on R/A; ld1 17:51 BP 183 / 123; Pulse 134; Resp 16; Pulse Ox 100% ; ld1 13:42 Body Mass Index 26.29 (71.67 kg, 165.1 cm) nj1 ED Course: 13:32 Patient arrived in ED. ts1 13:34 Ofelia Collins FNP-C is [facility]. kb 13:34 Jordan Castano MD is Attending Physician. kb 13:43 Narciso Ramos, ROSIO is Primary Nurse. bp 13:45 Triage completed. nj1 13:46 Arm band placed on. nj1 14:09 Patient has correct armband on for positive identification. Placed in gown. Bed in low ld1 position. Call light in reach. Side rails up X2. cardiac monitor technician on. Pulse ox on. NIBP on. Door closed. Noise minimized. Warm blanket given. 14:09 No provider procedures requiring assistance completed. ld1 14:10 Inserted saline lock: 20 gauge in right forearm, using aseptic technique. Blood bp collected. 14:50 XRAY Chest (1 view) In Process Unspecified. EDMS 16:23 Seda Rockwell MD is Hospitalizing Provider. kb 18:02 Patient admitted, IV remains in place. ld1 Administered Medications: 14:00 Drug: Metoprolol IVP 5 mg IVP every 5 minutes; Hold for SBP < 100 or HR < 60. x3 Route: bp IVP; Site: right forearm; 14:15 Drug: Metoprolol IVP 5 mg IVP every 5 minutes; Hold for SBP < 100 or HR < 60. x3 Route: bp IVP; Site: right forearm; 14:16 Drug: [place] PO 10 mg-325 mg 1 tabs PO once Route: PO; bp 16:29 Follow up: Response: No adverse reaction bp 15:29 Drug: Digoxin IVP 0.5 mg IVP once Route: IVP; Site: right antecubital; ld1 15:29 Drug: Metoprolol PO 50 mg PO once Route: PO; ld1 16:22 Drug: amiodarone IVPB 150 mg 100 ml IVPB once over 10 mins; (mix in D5W) Volume: 100 ld1 ml; Route: IVPB; Infused Over: 10 mins; Site: right forearm; 16:27 Drug: amiodarone IVPB 900 mg, D5W IV 500 ml IVPB at 1 mg/min continuous; for 6 hrs, ld1 then change to 0.5 mg/min Route: IVPB; Rate: 1 mg/min; Site: right forearm; Medication: 18:02 VIS not applicable for this client. ld1 Outcome: 16:23 Decision to Hospitalize by Provider. 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 ld1 Signatures: Dispatcher [employer] EDOfelia Carrillo, WILFRED-C WOOL GROWER-Narciso Verma RN RN Lizz Gama RN RN ld1 Liliam Paris RN RN nj1 Mariia Martell, LINDSAY PAS ts1 Corrections: (The following items were deleted from the chart) 13:46 13:45 PMHx: PERITONEAL DIALYSIS; nj1 nj
[2023-08-16] MEDS ORDERED: ONDANSETRON 4 MG/2 ML VIAL IV PRN (16:49)
[2023-08-16] MEDS ORDERED: IPRATROPIUM BROM 0.5MG/2.5ML NEB PRN (16:49)
[2023-08-16] MEDS ORDERED: ALBUTEROL 2.5 MG/3 ML NEB SOL NEB PRN (16:49)
[2023-08-16 18:35] VITALS: BMI 26.4
[2023-08-16] MEDS ORDERED: cloNIDine HCL 0.1 MG TAB PO ONE (18:38)
[2023-08-16] MEDS ORDERED: FUROSEMIDE 40 MG/4 ML VIAL ONE (19:12)
[2023-08-16] MEDS ORDERED: cloNIDine HCL 0.1 MG TAB ONE (19:12)
[2023-08-16] MEDS: FUROSEMIDE 40 MG/4 ML VIAL IV SCH (19:16)
[2023-08-16] MEDS ORDERED: ALPRAZOLAM 0.5 MG TABLET PO PRN (19:30)
[2023-08-16] MEDS ORDERED: HYDROMORPHONE HCL 0.5 MG/0.5 ML INJ ONE (19:43)
[2023-08-16] MEDS ORDERED: ALPRAZOLAM 0.5 MG TABLET ONE (19:43)
[2023-08-16] MEDS: HYDROMORPHONE HCL 0.5 MG/0.5 ML INJ IV PRN (19:45)
[2023-08-16] MEDS ORDERED: HYDRALAZINE HCL 20 MG/ML VIAL IV PRN (19:50)
[2023-08-16] MEDS ORDERED: SODIUM ZIRCONIUM CYCLOSILICATE 10 GM/PKT PO ONE (20:30)
[2023-08-16] MEDS: METOPROLOL TAR 50 MG TAB PO SCH (20:55)
[2023-08-16] MEDS ORDERED: SOD POLYSTYREN SUL 15 GM/60 ML UCUP PO ONE (21:00)
[2023-08-16] MEDS ORDERED: METOPROLOL TAR 50 MG TAB PO SCH (21:00)
[2023-08-16] MEDS ORDERED: AMIODARONE HCL 450 MG in D5W 241 ML IV SCH (21:00)
[2023-08-16] MEDS ORDERED: DIPHENHYDRAMINE 50 MG/ML VIAL ONE (21:49)
[2023-08-16] MEDS: DIPHENHYDRAMINE 50 MG/ML VIAL IV PRN (21:55)
[2023-08-16] MEDS ORDERED: HYDRALAZINE HCL 20 MG/ML VIAL ONE (23:22)
[2023-08-17] MEDS: cloNIDine HCL 0.1 MG TAB PO SCH ×2 (03:00→08:37)
[2023-08-17] MEDS ORDERED: cloNIDine HCL 0.1 MG TAB ONE ×3 (03:10→14:20)
[2023-08-17] MEDS ORDERED: HYDROMORPHONE HCL 0.5 MG/0.5 ML INJ ONE ×2 (03:45→08:45)
[2023-08-17] MEDS: HYDROMORPHONE HCL 0.5 MG/0.5 ML INJ IV PRN ×2 (03:45→08:46)
[2023-08-17 05:21] LABS: Absolute Lymphocytes (CBC) 1.9 K/uL (0.7-4.9); Hematocrit 33.3 % (39.6-49.0); Lymphocytes % 24.9 % (15.3-44.8); MCV 97.1 fL (80-100); MPV 8.2 fL (7.6-11.3); Platelets 134 thou/uL (152-406); RBC Red Blood Cell Count 3.43 M/uL (4.33-5.43)
[2023-08-17] MEDS ORDERED: DIPHENHYDRAMINE 50 MG/ML VIAL ONE (06:02)
--- NOTE | 2023-08-17 06:03 | P.HP ---
Certification for Inpatient Patient admitted to: Inpatient With expected LOS: >2 Midnights Patient will require the following post-hospital care: None Practitioner: I am a practitioner with admitting privileges, knowledge of patient current condition, hospital course, and medical plan of care. Services: Services provided to patient in accordance with Admission requirements found in Title 42 Section 412.3 of the Code of Federal Regulations Patient History Date of Service: 08/16/23 Reason for admission: Aflutter with RVR Allergies No Known Drug Allergies Allergy (Verified 07/09/23 21:44) Anaphylaxis Home Medications: ALPRAZolam [Alprazolam] 1 tab PO BEDTIME PRN 08/16/23 Apixaban [Eliquis] 1 tab PO BID 08/16/23 Atenolol [Tenormin] 25 mg PO BEDTIME 08/16/23 Docusate Sodium 1 cap PO TID 08/16/23 Hydralazine [Apresoline*] 100 mg PO TID 08/16/23 Losartan Potassium 1 tab PO DAILY 08/16/23 Metoprolol Tartrate 1 tab PO BID 08/16/23 Midodrine HCl 5 mg PO SEECOM 08/16/23 PARoxetine HCL [Paxil*] 1 tab PO DAILY 08/16/23 Pantoprazole [Protonix Tab] 40 mg PO DAILY 08/16/23 cloNIDine HCL [Clonidine HCl] 0.1 mg PO BID 08/16/23 - Past Medical/Surgical History Has patient received pneumonia vaccine in the past: No Diabetic: No -: ESRD (Dr. South/ Dr. Candelaria) -: Afib -: HTN -: CHF -: Peritoneal dialysis -: Herniated disk -: Anxiety -: Depression -: Dialysis Access placement 07/23 - Family History Father History Unknown: Yes Medical History: Heart disease, Hypertension, Diabetes, Stroke - Social History Smoking Status: Current every day smoker Alcohol use: No CD- Drugs: Yes Caffeine use: Yes Place of Residence: Home Review of Systems 10-point ROS is otherwise unremarkable Physical Examination - Vital Signs Temperature: 96.8 F Blood Pressure: 144/90 Pulse: 94 Respirations: 17 Pulse Ox (%): 99 - Physical Exam General: Alert, In no apparent distress, Oriented x3 HEENT: Atraumatic, PERRLA, Mucous membr. moist/pink, EOMI, Sclerae nonicteric Neck: Supple, 2+ carotid pulse no bruit, No LAD, Without JVD or thyroid abnormality Respiratory: Clear to auscultation bilaterally, Normal air movement Cardiovascular: Other (regularly, irregular) Gastrointestinal: Normal bowel sounds, No tenderness Musculoskeletal: No clubbing, No swelling, No tenderness Integumentary: No rashes Neurological: Normal gait, Normal speech, Normal strength at 5/5 x4 extr, Normal tone, Sensation intact, Cranial nerves 3-12 intact, Normal affect Lymphatics: No axilla or inguinal lymphadenopathy - Studies Laboratory Data (last 24 hrs) 08/16/23 08/16/23 14:10 14:10 WBC 8.70 Hgb 11.6 L Hct 34.3 L Plt Count 140 L Sodium 135 L Potassium 5.3 H BUN 42 H Creatinine 6.21 H Glucose 100 Magnesium 2.2 Total Bilirubin 0.9 AST 378 H ALT 248 H Alkaline Phosphatase 85 Assessment & Plan - Problems (Diagnosis) (1) Atrial flutter with rapid ventricular response Current Visit: Yes Status: Acute (2) Type 2 myocardial infarction due to arrhythmia Current Visit: Yes Status: Acute (3) NSTEMI (non-ST elevated myocardial infarction) Current Visit: No Status: Acute (4) ESRD on dialysis Current Visit: No Status: Chronic (5) History of congestive heart failure Current Visit: No Status: Chronic - Advance Directives Does patient have a Living Will: No Does patient have a Durable POA for Healthcare: No
[2023-08-17] MEDS: DIPHENHYDRAMINE 50 MG/ML VIAL IV PRN (06:22)
[2023-08-17 06:56] LABS: ALT/SGPT 507 U/L (16-61); AST/SGOT 692 U/L (15-37); Albumin 2.9 g/dL (3.4-5.0); Alkaline Phosphatase 73 U/L (45-117); BUN Blood Urea Nitrogen 50 mg/dL (7-18); Bicarbonate 24 mEq/L (21-32); Bilirubin Total 0.5 mg/dL (0.2-1.0); Glomerular Filtration Rate 9 ml/min (=/>90); Glucose Level 83 mg/dL (74-106); HDL Cholesterol 42 mg/dL (40-60); LDL Cholesterol, Calculated 51 mg/dL (<130); Magnesium 2.1 mg/dL (1.6-2.4); Phosphorus 7.5 mg/dL (2.5-4.9); Potassium 4.7 mEq/L (3.5-5.1); Protein, Total 6.4 g/dL (6.4-8.2); Sodium Level 135 mEq/L (136-145)
[2023-08-17 07:03] LABS: NT PRO-BNP > 175000 pg/mL (<125)
[2023-08-17] MEDS ORDERED: AMIODARONE HCL 900 MG in Dextrose 5%-Water 482 ML IV SCH (08:00)
[2023-08-17] MEDS ORDERED: FUROSEMIDE 40 MG/4 ML VIAL ONE (08:10)
[2023-08-17] MEDS: METOPROLOL TAR 50 MG TAB PO SCH (08:38)
[2023-08-17] MEDS: FUROSEMIDE 40 MG/4 ML VIAL IV SCH (08:39)
[2023-08-17 09:51] VITALS: O2SAT 96
[2023-08-17] MEDS ORDERED: AMIODARONE IN DEXTROSE,ISO-OSM 0 MG/0 ML BAG IV ONE (11:44)
[2023-08-17] MEDS ORDERED: LOSARTAN POTASSIUM 50 MG TABLET PO ONE (12:19)
[2023-08-17 12:25] VITALS: TEMP 97.4
[2023-08-17 15:01] VITALS: BP 158/78
[2023-08-17] MEDS ORDERED: LOSARTAN POTASSIUM 50 MG TABLET PO SCH (21:00)
[2023-08-18] MEDS ORDERED: LOSARTAN POTASSIUM 50 MG TABLET PO ONE (12:19)
--- NOTE | 2023-08-18 17:03 | EKG ---
Test Date: 2023-08-16 Test Time: 13:50:08 Sport Intern: Nuria RASMUSSEN MEASUREMENT RESULTS: Intervals: Rate: 146 RI: 154 QRSD: 88 QT: 250 QTc: 389 [place]: P: 198 RI: 154 QRS: 156 T: 51 INTERPRETIVE STATEMENTS: Suspect arm lead reversal, interpretation assumes no reversal Unusual P axis, possible ectopic atrial tachycardia Nonspecific ST abnormality Abnormal ECG Compared to ECG 07/09/2023 21:33:50 ST (T wave) deviation now present Sinus rhythm no longer present Electronically Signed On 08-18-23 16:58:17 SWITCHBOARD MANAGER by Miki Carrington
== END 2023-08-17 14:45 | disposition left against medical advice (07) | DRG 280 ==
LOC: ER 13:27 → 3RD-ICU 17:34
PROVIDERS: ADMIT Hospitalist; ATTEND Hospitalist
DX: I48.92 Unspecified atrial flutter (principal); I21.A1 Myocardial infarction type 2; N18.6 End stage renal disease; I13.2 Hypertensive heart and chronic kidney disease with heart failure and with stage 5 chronic kidney disease, or end stage renal disease; I50.9 Heart failure, unspecified; R00.0 Tachycardia, unspecified; I48.91 Unspecified atrial fibrillation; F41.9 Anxiety disorder, unspecified; F32.A Depression, unspecified; Z53.29 Procedure and treatment not carried out because of patient's decision for other reasons; Z99.2 Dependence on renal dialysis; F17.200 Nicotine dependence, unspecified, uncomplicated; Z79.01 Long term (current) use of anticoagulants; Z79.899 Other long term (current) drug therapy; Z82.49 Family history of ischemic heart disease and other diseases of the circulatory system; Z82.3 Family history of stroke; Z83.3 Family history of diabetes mellitus
CPT/HCPCS: 36415; 71045; 80048; 80053; 80061; 80076; 80162; 83735; 83880; 84100; 84443; 84484; 85025; 85379; 87070; 87205; 93005; 94760; 99285; J0282; J0360; J1160; J1170; J1200; J1940; J7060

== ENCOUNTER 2024-03-13 14:53 | Emergency (ER) | payer MEDICARE, OTHER ==
[2024-03-13] MEDS ORDERED: NA CHLORIDE 0.9% 1,000 ML ONE (15:42)
[2024-03-13] MEDS ORDERED: METOPROLOL TAR 50 MG TAB ONE (15:43)
[2024-03-13] MEDS ORDERED: METOPROLOL TARTRATE 5 MG/5 ML INJ IV ONE (15:43)
[2024-03-13] MEDS ORDERED: DIGOXIN 0.25 MG/ML AMP ONE (15:43)
[2024-03-13 15:46] LABS: Absolute Basophils 0.1 K/uL (0-0.5); Absolute Eosinophils 0.4 K/uL (0-0.5); Absolute Lymphocytes (CBC) 2.1 K/uL (0.7-4.9); Absolute Monocytes 1.6 K/uL (0.1-1.3); Absolute Neutrophil 5.7 K/uL (1.8-8.0); Basophils % 0.9 % (0-1.3); Eosinophils % 3.9 % (0-4.4); Hematocrit 44.7 % (39.6-49.0); Hemoglobin 14.7 g/dL (13.6-17.9); Lymphocytes % 21.1 % (15.3-44.8); MCH 33.4 pg (27.0-35.0); MCHC 32.8 g/dL (32.0-36.0); MCV 101.6 fL (80-100); MPV 6.6 fL (7.6-11.3); Monocytes % 16.1 % (3.3-12.3); Nucleated Red Blood Cells % 0.1 % (0-0); Platelets 253 thou/uL (152-406); RBC Red Blood Cell Count 4.39 M/uL (4.33-5.43); Red Cell Distribution Width 17.4 % (12.1-15.2)
[2024-03-13] MEDS ORDERED: ONDANSETRON 4 MG/2 ML VIAL ONE (16:03)
[2024-03-13] MEDS ORDERED: MORPHINE 4 MG/ML SYR ONE (16:04)
[2024-03-13 16:16] LABS: PT Prothrombin Time 12.3 SECONDS (9.4-12.5)
[2024-03-13 16:17] LABS: Protime INR 1.1
--- NOTE | 2024-03-13 16:32 | RAD REPORT ---
EXAM DESCRIPTION: [place] Single View03/13/2024 3:53 pm CLINICAL HISTORY: Chest pain COMPARISON: February 2024 FINDINGS: The lungs appear clear of acute infiltrate. The heart is normal size IMPRESSION: No acute abnormalities displayed
--- NOTE | 2024-03-13 17:07 | EDPHYS ---
Physician Documentation [facility] Name: Dasia Monroe Age: 38 yrs Sex: Male : 1985 Arrival Date: 03/13/2024 Time: 14:53 Bed 4 Private MD: ED Physician Jordan Castano HPI: 03/13 16:12 This 38 yrs old Male presents to ER via EMS with complaints of Chest Pain. griffin 16:12 The patient or guardian reports chest pain that is located primarily in the anterior griffin chest wall, bilaterally. Onset: just prior to arrival. The pain does not radiate. Associated signs and symptoms: Pertinent positives: shortness of breath. The chest pain is described as aching. Modifying factors: The symptoms are alleviated by application of supplemental oxygen, remaining still, rest, the symptoms are aggravated by activity. Severity of pain: At its worst the pain was mild in the emergency department the pain is unchanged. Historical: - Allergies: 15:12 No Known Allergies; nj1 - PMHx: 15:12 4 herniated disk; Congestive heart failure; Hypertensive disorder; kidney disease; nj1 Anxiety; - PSHx: 15:12 dialysis access placement; nj1 - Immunization history:: Client reports having NOT received the Covid vaccine. - Infectious Disease History:: Denies. - Social history:: Smoking status: Patient reports the use of cigarette tobacco products, smokes one pack cigarettes per day. - Family history:: not pertinent. ROS: 16:12 Constitutional: Negative for fever, chills, and weight loss, Eyes: Negative for injury, griffin pain, redness, and discharge, ENT: Negative for injury, pain, and discharge, Neck: Negative for injury, pain, and swelling, Respiratory: Negative for shortness of breath, cough, wheezing, and pleuritic chest pain, Abdomen/GI: Negative for abdominal pain, nausea, vomiting, diarrhea, and constipation, Back: Negative for injury and pain, : Negative for injury, bleeding, discharge, and swelling, MS/Extremity: Negative for injury and deformity, Skin: Negative for injury, rash, and discoloration, Neuro: Negative for headache, weakness, numbness, tingling, and seizure, Psych: Negative for depression, anxiety, suicide ideation, homicidal ideation, and hallucinations, Allergy/Immunology: Negative for hives, rash, and allergies, Endocrine: Negative for neck swelling, polydipsia, polyuria, polyphagia, and marked weight changes, Hematologic/Lymphatic: Negative for swollen nodes, abnormal bleeding, and unusual bruising, 16:12 Cardiovascular: Positive for chest pain, palpitations, Exam: 16:12 Constitutional: This is a well developed, well nourished patient who is awake, alert, griffin and in no acute distress. Head/Face: Normocephalic, atraumatic. Eyes: Pupils equal round and reactive to light, extra-ocular motions intact. Lids and lashes normal. Conjunctiva and sclera are non-icteric and not injected. Cornea within normal limits. Periorbital areas with no swelling, redness, or edema. ENT: Nares patent. No nasal discharge, no septal abnormalities noted. Tympanic membranes are normal and external auditory canals are clear. Oropharynx with no redness, swelling, or masses, exudates, or evidence of obstruction, uvula midline. Mucous membranes moist. Neck: Trachea midline, no thyromegaly or masses palpated, and no cervical lymphadenopathy. Supple, full range of motion without nuchal rigidity, or vertebral point tenderness. No Meningismus. Chest/axilla: Normal chest wall appearance and motion. Nontender with no deformity. No lesions are appreciated. Respiratory: Lungs have equal breath sounds bilaterally, clear to auscultation and percussion. No rales, rhonchi or wheezes noted. No increased work of breathing, no retractions or nasal flaring. Abdomen/GI: Soft, non-tender, with normal bowel sounds. No distension or tympany. No guarding or rebound. No evidence of tenderness throughout. Back: No spinal tenderness. No costovertebral tenderness. Full range of motion. Male : Normal genitalia with no discharge or lesions. Skin: Warm, dry with normal turgor. Normal color with no rashes, no lesions, and no evidence of cellulitis. MS/ Extremity: Pulses equal, no cyanosis. Neurovascular intact. Full, normal range of motion. Neuro: Awake and alert, GCS 15, oriented to person, place, time, and situation. Cranial nerves II-XII grossly intact. Motor strength 5/5 in all extremities. Sensory grossly intact. Cerebellar exam normal. Normal gait. Psych: Awake, alert, with orientation to person, place and time. Behavior, mood, and affect are within normal limits. 16:12 Cardiovascular: Rate: tachycardic, actual rate is 155 bpm, Rhythm: irregularly irregular, Pulses: Pulses are 4+ in bilateral radial, brachial, femoral, popliteal, posterior tibial and and dorsalis pedis arteries.. Heart sounds: normal, Edema: is not appreciated, JVD: is not appreciated, 16:12 ECG was reviewed by the Attending Physician. 17:05 ECG was reviewed by the Attending Physician. [facility] Vital Signs: 15:02 BP 113 / 88; Pulse 73; Resp 18; Temp 98.9(O); Pulse Ox 99% on R/A; Weight 77.11 kg; nj1 Height 5 ft. 5 in. ; 15:52 BP 126 / 70; Pulse 168; nj1 15:56 BP 114 / 76; Pulse 84; Resp 18; Pulse Ox 100% on R/A; nj1 16:15 BP 139 / 90; Pulse 91; Resp 16; Pulse Ox 100% ; nj1 16:53 BP 158 / 87; Pulse 86; Resp 15; Pulse Ox 97% on R/A; nj1 15:02 Body Mass Index 28.29 (77.11 kg, 165.1 cm) nj1 MDM: 15:09 Patient medically screened. griffin 15:09 Patient medically screened. griffin 16:15 Differential diagnosis: abnormal EKG, acute myocardial infarction, acute pericarditis, griffin anxiety, coronary artery disease chest wall pain, congestive heart failure Cholelithiasis costochondritis, Devora-Smith syndrome, pancreatitis, peptic ulcer disease, pericarditis, pleurisy, stable angina, thoracic aortic disection, unstable angina. HEART Score: History: Slightly Suspicious (0), ECG: Significant ST-deviation (2), Age: < or = 45 years (0), Risk Factors: > or = 3 Risk factors for atherosclerotic disease (2), [Hypercholesterolemia] [Hypertension] [DM] [+ Family HX] [Obesity] Troponin: < or = 1 x Normal Limit (0). The patient was given aspirin in the Emergency Department. The patient was not given aspirin in the Emergency Department. Not indicated due to patient's past medical history. SYLVIE Risk Score: 1 - Three or more CAD risk factors, 1- Known CAD, TOTAL SCORE = 2. Data reviewed: vital signs, nurses notes, lab test result(s), EKG, radiologic studies, plain films. Consideration of Admission/Observation Escalation of care including admission/observation considered. I considered the following discharge prescriptions or medication management in the emergency department Medications were administered in the Emergency Department. See MAR. Test considered but Not performed: Ultrasound no 2 d echo. 17:06 ED course: PT REFUSED TO STAY, NOT ALL LABS BACK , WILL NOT STAY ANY LONGER, WILL NOT griffin BE ADMITTED. 03/13 15:10 Order name: Basic Metabolic Panel; Complete Time: 17:29 [facility] 03/13 15:10 Order name: CBC with Diff; Complete Time: 16:32 [facility] 03/13 15:10 Order name: LFT's; Complete Time: 17:29 [facility] 03/13 15:10 Order name: Magnesium; Complete Time: 17: [facility] 03/13 15:10 Order name: NT PRO-BNP; Complete Time: 17:29 [facility] 03/13 15:10 Order name: PT-INR; Complete Time: 16:32 [facility] 03/13 15:10 Order name: Troponin HS; Complete Time: 17:29 [facility] 03/13 15:10 Order name: TSH; Complete Time: 17:29 [facility] 03/13 15:10 Order name: XRAY Chest (1 view); Complete Time: 16:46 [facility] 03/13 16:21 Order name: EKG; Complete Time: 16:21 [facility] 03/13 15:10 Order name: Cardiac monitoring; Complete Time: 15:34 [facility] 03/13 15:10 Order name: EKG - Nurse/Tech; Complete Time: 15:34 [facility] 03/13 15:10 Order name: IV Saline Lock; Complete Time: 15:41 [facility] 03/13 15:10 Order name: Labs collected and sent; Complete Time: 15:41 [facility] 03/13 15:10 Order name: O2 Per Protocol; Complete Time: 15:16 [facility] 03/13 15:10 Order name: O2 Sat Monitoring; Complete Time: 15:16 [facility] 03/13 16:21 Order name: EKG - Nurse/Tech; Complete Time: 17:04 [facility] EC:12 Rate is 155 beats/min. Rhythm is irregularly irregular, A fib. QRS Coleman is Normal. PA griffin interval is normal. QRS interval is normal. QT interval is normal. No Q waves. T waves are Normal. No ST changes noted. Clinical impression: Atrial Fibrillation. Interpreted by me. Reviewed by me. 17:05 Rate is 75 beats/min. Rhythm is regular. QRS Coleman is Normal. PA interval is normal. QRS griffin interval is normal. QT interval is normal. No Q waves. T waves are Normal. No ST changes noted. Clinical impression: NSR w/ Non-specific ST/T Changes and No evidence of ischemia. Interpreted by me. Reviewed by me. Administered Medications: 15:16 Not Given (324mg ASA given by EMSs): aspirinchewable tablet 81 mg PO once nj1 15:45 Drug: Metoprolol PO 50 mg PO once Route: PO; nj1 17:05 Follow up: Response: No adverse reaction nj1 15:47 Drug: Metoprolol IVP 5 mg IVP once; Hold for SBP <100 or HR <60. Route: IVP; [facility]; 17:05 Follow up: Response: No adverse reaction nj1 15:52 Drug: Metoprolol IVP 5 mg IVP once; Hold for SBP <100 or HR <60. Route: IVP; [facility]; 17:05 Follow up: Response: No adverse reaction nj1 15:55 Drug: NS 0.9% IV 1000 ml IV at 75 ml/hr continuous Route: IV; Rate: 75 ml/hr; [facility]; 17:41 Follow up: Response: No adverse reaction; IV Status: Order to discontinue infusion; IV nj1 Intake: 150ml 15:57 Drug: Digoxin IVP 0.5 mg IVP once Route: IVP; Site: right antecubital; nj1 17:05 Follow up: Response: No adverse reaction nj1 16:05 Drug: Ondansetron IVP 4 mg IVP once; over 2 minutes Route: IVP; Site: right antecubital;nj1 17:04 Follow up: Response: No adverse reaction nj1 16:07 Drug: morphine IVP or IV 4 mg IVP once over 4 mins Route: IVP; Infused Over: 4 mins; nj1 Site: right antecubital; 17:05 Follow up: Response: No adverse reaction; Pain is decreased nj1 Disposition Summary: 03/13/24 17:06 Discharge Ordered Notes: Location: Home griffin Problem: new griffin Symptoms: have improved griffin Condition: Fair griffin Diagnosis - Dependence on renal dialysis griffin - Paroxysmal atrial fibrillation - with RVR griffin - Chest pain, unspecified 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 griffin - Non ST elevation [place] griffin Followup: griffin - With: Private Physician - When: 2 - 3 days - Reason: Recheck today's complaints, Continuance of care, Re-evaluation by your physician Followup: griffin - With: Miki Carrington MD - When: 2 - 3 days - Reason: Recheck today's complaints, Re-evaluation by your physician Followup: griffin - With: Luis Daniel Castro MD - When: 1 - 2 days - Reason: Recheck today's complaints, Re-evaluation by your physician Discharge Instructions: - Discharge Summary Sheet griffin - Atrial Fibrillation griffin - Nonspecific Chest Pain, Adult griffin - Nonspecific Chest Pain, Adult, [id number] griffin - Atrial Fibrillation, [id number] griffin Forms: - Medication Reconciliation Form griffin - Antibiotic Education griffin - Prescription Opioid Use griffin - Patient Portal Instructions griffin - Leadership Thank You Letter [facility] Prescriptions: - Digitek 250 mcg (0.25 mg) Oral tablet - take 1 tablet ORAL route once daily for 15 days; 15 tablet; Refills: 0, Product griffin Selection Permitted - Lopressor 100 mg Oral tablet - take 1 tablet ORAL route 2 times per day; 40 tablet; Refills: 0, Product griffin Selection Permitted Signatures: Dispatcher [employer] EDJordan Patel MD MD cha Jaco, Norma, RN RN nj1 Corrections: (The following items were deleted from the chart) 15:10 15:10 BASIC METABOLIC PANEL+C.LAB.BRZ ordered. EDMS EDMS 15:10 15:10 CBC+H.LAB.BRZ ordered. EDMS EDMS 15:10 15:10 HEPATIC FUNCTION+C.LAB.BRZ ordered. EDMS EDMS 15:10 15:10 MAGNESIUM+C.LAB.BRZ ordered. EDMS EDMS 15:10 15:10 PROBNP+C.LAB.BRZ ordered. EDMS EDMS 15:10 15:10 PROTIME (+INR)+COAG.LAB.BRZ ordered. EDMS EDMS 15:10 15:10 Troponin High Sensitivity+C.LAB.BRZ ordered. EDMS EDMS 15:10 15:10 THYROID STIMULAT HORMONE+C.LAB.BRZ ordered. EDMS EDMS
--- NOTE | 2024-03-13 17:07 | ER ---
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 Was at dialysis today, had half nj1 of his treatment done when he started complaining of chest pain and was hypotensive. Denies chest pain at this time, vital signs stable. Given 324 mg ASA. 15:02 Coronavirus screen: Vaccine status: Patient reports being unvaccinated. Ebola Screen: nj1 Patient denies travel to an Ebola-affected area in the 21 days before illness onset. Initial Sepsis Screen: Does the patient meet any 2 criteria? No. Patient's initial sepsis screen is negative. Does the patient have a suspected source of infection? No. Patient's initial sepsis screen is negative. Risk Assessment: Do you want to hurt yourself or someone else? Patient reports no desire to harm self or others. Onset of symptoms was March 13, 2024. 15:02 Method Of Arrival: EMS: [facility] 15:02 Acuity: GUANAKITO 2 nj1 15:02 Care prior to arrival: Medication(s) given: ASA, 81 mg, x 4. nj1 Historical: - Allergies: 15:12 No Known Allergies; nj1 - PMHx: 15:12 4 herniated disk; Congestive heart failure; Hypertensive disorder; kidney disease; nj1 Anxiety; - PSHx: 15:12 dialysis access placement; nj1 - Immunization history:: Client reports having NOT received the Covid vaccine. - Infectious Disease History:: Denies. - Social history:: Smoking status: Patient reports the use of cigarette tobacco products, smokes one pack cigarettes per day. - Family history:: not pertinent. Screenin:14 [facility] ED Fall Risk Assessment (Adult) History of falling in the last 3 months, nj1 including since admission No falls in past 3 months (0 pts) Confusion or Disorientation No (0 pts) Intoxicated or Sedated No (0 pts) Impaired Gait No (0 pts) Mobility Assist Device Used No (0 pt) Altered Elimination No (0 pt) Score/Fall Risk Level 0 - 2 = Low Risk Oriented to surroundings, Maintained a safe environment, Hourly rounding (assess needs \T\ fall precautionary measures) done. Abuse screen: Denies threats or abuse. Denies injuries from another. Nutritional screening: No deficits noted. Tuberculosis screening: No symptoms or risk factors identified. Assessment: 15:14 General: Appears in no apparent distress. comfortable, Behavior is calm, cooperative, nj1 appropriate for age. Pain: Denies pain. Neuro: Level of Consciousness is awake, alert, obeys commands, Oriented to person, place, time, situation. Cardiovascular: Denies chest pain, Patient's skin is warm and dry. Respiratory: Airway is patent Respiratory effort is even, unlabored. 15:15 Pain: Pain does not radiate. denies pain. nj1 15:15 Pain: Pain began suddenly, a few hours ago, resolved. [facility] 15:25 Cardiovascular: Rhythm is atrial fibrillation with rapid ventricular response. nh1 15:26 Reassessment: Pt does not want anything done, wants to leave AMA. Education provided, nj1 still wants to go. 15:30 Reassessment: This RN attempts to educate patient once again, pt refuses. Dr Castano nj1 notified. 17:00 Reassessment: Patient appears in no apparent distress at this time. Patient and/or nj1 family updated on plan of care and expected duration. Pain level reassessed. Patient is alert, oriented x 3, equal unlabored respirations, skin warm/dry/pink. Ready to go home. Patient denies pain at this time. Patient states feeling better. Vital Signs: 15:02 BP 113 / 88; Pulse 73; Resp 18; Temp 98.9(O); Pulse Ox 99% on R/A; Weight 77.11 kg; nh1 Height 5 ft. 5 in. ; 15:52 BP 126 / 70; Pulse 168; nj1 15:56 BP 114 / 76; Pulse 84; Resp 18; Pulse Ox 100% on R/A; nj1 16:15 BP 139 / 90; Pulse 91; Resp 16; Pulse Ox 100% ; nj1 16:53 BP 158 / 87; Pulse 86; Resp 15; Pulse Ox 97% on R/A; nj1 15:02 Body Mass Index 28.29 (77.11 kg, 165.1 cm) nj1 ED Course: 15:07 Patient arrived in ED. nj1 15:08 Liliam Paris, RN is Primary Nurse. nj1 15:09 Jordan Castano MD is Attending Physician. griffin 15:11 Triage completed. nj1 15:13 Arm band placed on. nj1 15:15 Patient has correct armband on for positive identification. Bed in low position. Call nj1 light in reach. Provided Education on: call light, fall precautions. 15:15 Patient maintains SpO2 saturation greater than 95% on room air. nj1 15:25 Client placed on continuous cardiac and pulse oximetry monitoring. NIBP monitoring nj1 applied. product managent intern on. 15:25 EKG done, by ED staff, reviewed by Jordan Castano MD. nj1 15:27 Notified ED physician of other Pt does not want anything done, wants to leave AMA. nj1 15:38 Inserted saline lock: 20 gauge in right antecubital area, using aseptic technique. nj1 Blood collected. Flushed with 10 mL NS. 15:55 XRAY Chest (1 view) In Process Unspecified. EDMS 17:05 EKG done, by ED staff, reviewed by Jordan Castano MD. nj1 17:06 Miki Carrington MD is Referral Physician. griffin 17:06 Luis Daniel Castro MD is Referral Physician. griffin 17:39 No provider procedures requiring assistance completed. IV discontinued, intact, nj1 bleeding controlled, No redness/swelling at site. Pressure dressing applied. Administered Medications: 15:16 Not Given (324mg ASA given by EMSs): aspirinchewable tablet 81 mg PO once nj1 15:45 Drug: Metoprolol PO 50 mg PO once Route: PO; nj1 17:05 Follow up: Response: No adverse reaction nj1 15:47 Drug: Metoprolol IVP 5 mg IVP once; Hold for SBP <100 or HR <60. Route: IVP; Site: [facility] right antecubital; 17:05 Follow up: Response: No adverse reaction nj1 15:52 Drug: Metoprolol IVP 5 mg IVP once; Hold for SBP <100 or HR <60. Route: IVP; Site: [facility] right antecubital; 17:05 Follow up: Response: No adverse reaction nj1 15:55 Drug: NS 0.9% IV 1000 ml IV at 75 ml/hr continuous Route: IV; Rate: 75 ml/hr; Site: nj1 right antecubital; 17:41 Follow up: Response: No adverse reaction; IV Status: Order to discontinue infusion; IV nj1 Intake: 150ml 15:57 Drug: Digoxin IVP 0.5 mg IVP once Route: IVP; Site: right antecubital; nj1 17:05 Follow up: Response: No adverse reaction nj1 16:05 Drug: Ondansetron IVP 4 mg IVP once; over 2 minutes Route: IVP; Site: right antecubital;nj1 17:04 Follow up: Response: No adverse reaction nj1 16:07 Drug: morphine IVP or IV 4 mg IVP once over 4 mins Route: IVP; Infused Over: 4 mins; nj1 Site: right antecubital; 17:05 Follow up: Response: No adverse reaction; Pain is decreased nj1 Medication: 17:06 VIS not applicable for this client. nj1 Intake: 17:41 IV: 150ml; Total: 150ml. nj1 Outcome: 17:06 Discharge ordered by MD. moya 17:40 Discharged to home ambulatory, nj1 17:40 Condition: stable 17:40 Discharge instructions given to patient, Instructed on discharge instructions, follow up and referral plans. medication usage, Demonstrated understanding of instructions, follow-up care, medications, Prescriptions given X 2, 17:41 Patient left the ED. nj1 Signatures: Dispatcher [employer] EDCO Jordan Castano MD MD cha Jaco, Norma, RN RN nj1 Corrections: (The following items were deleted from the chart) 16:14 16:12 Inserted saline lock: 20 gauge in right antecubital area, using aseptic nj1 technique. Blood collected. Flushed with 10 mL NS nj1
[2024-03-13 17:24] LABS: ALT/SGPT 17 U/L (16-61); AST/SGOT 16 U/L (15-37); Albumin 3.4 g/dL (3.4-5.0); Albumin/Globulin Ratio 0.7 (1.1-1.8); Alkaline Phosphatase 74 U/L (45-117); Anion Gap 11.6 mEq/L (5.0-15.0); BUN Blood Urea Nitrogen 54 mg/dL (7-18); Bicarbonate 30 mEq/L (21-32); Bilirubin Total 0.8 mg/dL (0.2-1.0); Globulin 4.6 g/dL (2.3-3.5); Glomerular Filtration Rate 5 ml/min (=/>90); Glucose Level 121 mg/dL (74-106); Magnesium 2.3 mg/dL (1.6-2.4); NT PRO-BNP 13723 pg/mL (<125); Potassium 4.6 mEq/L (3.5-5.1); Sodium Level 136 mEq/L (136-145)
[2024-03-13 17:26] LABS: Bilirubin Direct < 0.2 mg/dL (0-0.2); Bilirubin Indirect, Calculated 0.6 mg/dL (0.2-0.8)
[2024-03-13 17:27] LABS: Troponin High Sensitivity 85.2 pg/mL (<58.9)
[2024-03-13 17:46] VITALS: TEMP 98.9
[2024-03-13 17:52] VITALS: BP 158/87; O2SAT 97
--- NOTE | 2024-03-15 13:50 | EKG ---
Test Date: 2024-03-13 Test Time: 17:02:56 Rolled Seat Trimmer: JOSHUA MEASUREMENT RESULTS: Intervals: Rate: 75 OK: 160 QRSD: 88 QT: 346 QTc: 386 [place]: P: 60 OK: 160 QRS: 79 T: 66 INTERPRETIVE STATEMENTS: Normal sinus rhythm Possible Left atrial enlargement Borderline ECG Compared to ECG 03/13/2024 15:24:08 Atrial fibrillation no longer present Electronically Signed On 03-15-24 13:45:32 CDT by Miki Carrington
--- NOTE | 2024-03-15 13:50 | EKG ---
Test Date: 2024-03-13 Test Time: 15:24:08 Surgical Territory Manager: JOSHUA MEASUREMENT RESULTS: Intervals: Rate: 155 [place]: QRSD: 88 QT: 290 QTc: 465 [place]: P: [place]: QRS: 74 T: 79 INTERPRETIVE STATEMENTS: Atrial fibrillation with rapid ventricular response Abnormal ECG Compared to ECG 08/16/2023 13:50:08 ST (T wave) deviation no longer present Electronically Signed On 03-15-24 13:45:40 CDT by Miki Carrington
== END 2024-03-13 17:41 | disposition home or self-care (01) ==
LOC: ER 14:53
DX: I21.4 Non-ST elevation (NSTEMI) myocardial infarction (principal); I48.0 Paroxysmal atrial fibrillation; Z99.2 Dependence on renal dialysis; Z79.01 Long term (current) use of anticoagulants; I10 Essential (primary) hypertension; I50.9 Heart failure, unspecified; F17.210 Nicotine dependence, cigarettes, uncomplicated
CPT/HCPCS: 96361; 93005 ×2; 85025; 80048; 36415; 83735; 85610; 80076; 84443; 84484; 83880; 71045; 96375; 96374; 99285; J1160; J2405; J7030

== ENCOUNTER 2024-03-19 06:05 | Emergency (ER) | payer OTHER ==
[2024-03-19] MEDS ORDERED: ONDANSETRON 4 MG (ODT) TAB ONE (06:46)
[2024-03-19] MEDS ORDERED: HYDROMORPHONE HCL 1 MG/ML INJ ONE (06:46)
[2024-03-19] MEDS ORDERED: MAGNESIUM CITRATE 300 ML BOT ONE (06:46)
[2024-03-19 08:39] LABS: Absolute Basophils 0.1 K/uL (0-0.5); Absolute Eosinophils 0.1 K/uL (0-0.5); Absolute Lymphocytes (CBC) 1.7 K/uL (0.7-4.9); Absolute Monocytes 0.8 K/uL (0.1-1.3); Absolute Neutrophil 6.6 K/uL (1.8-8.0); Basophils % 0.8 % (0-1.3); Eosinophils % 1.3 % (0-4.4); Hematocrit 43.7 % (39.6-49.0); Hemoglobin 14.6 g/dL (13.6-17.9); Lymphocytes % 18.3 % (15.3-44.8); MCH 34.1 pg (27.0-35.0); MCHC 33.5 g/dL (32.0-36.0); MCV 101.7 fL (80-100); MPV 6.4 fL (7.6-11.3); Monocytes % 8.8 % (3.3-12.3); Neutrophils % 70.8 % (41.7-73.7); Platelets 264 thou/uL (152-406); RBC Red Blood Cell Count 4.29 M/uL (4.33-5.43)
[2024-03-19 08:58] LABS: Albumin 3.9 g/dL (3.4-5.0); Albumin/Globulin Ratio 0.9 (1.1-1.8); Anion Gap 16.7 mEq/L (5.0-15.0); Bilirubin Total 0.7 mg/dL (0.2-1.0); Globulin 4.5 g/dL (2.3-3.5); Potassium 5.7 mEq/L (3.5-5.1); Protein, Total 8.4 g/dL (6.4-8.2)
[2024-03-19 10:09] LABS: Anion Gap 14.8 mEq/L (5.0-15.0); Potassium 5.8 mEq/L (3.5-5.1)
--- NOTE | 2024-03-19 10:29 | ER ---
Nurse's Notes [facility] Name: Dasia Monroe Age: 38 yrs Sex: Male : 1985 Arrival Date: 03/19/2024 Time: 06:05 Bed 15 Private MD: Diagnosis: Constipation, unspecified;Hyperkalemia;Anemia, unspecified Presentation: 03/19 06:22 Chief complaint: Patient states: has not had BM x1 week, believes it is due to HD. tm6 Coronavirus screen: Vaccine status: Patient reports receiving the 2nd dose of the covid vaccine. Ebola Screen: Patient negative for fever greater than or equal to 101.5 degrees Fahrenheit, and additional compatible Ebola Virus Disease symptoms Patient denies exposure to infectious person. Patient denies travel to an Ebola-affected area in the 21 days before illness onset. No symptoms or risks identified at this time. Initial Sepsis Screen: Does the patient meet any 2 criteria? No. Patient's initial sepsis screen is negative. Does the patient have a suspected source of infection? No. Patient's initial sepsis screen is negative. Risk Assessment: Do you want to hurt yourself or someone else? Patient reports no desire to harm self or others. Onset of symptoms was March 05, 2024. 06:22 Method Of Arrival: Ambulatory tm6 06:22 Acuity: GUANAKITO 3 tm6 Triage Assessment: 06:24 General: Appears in no apparent distress. uncomfortable, Behavior is calm, cooperative. tm6 Pain: Complains of pain in abdomen Pain does not radiate. Pain currently is 5 out of 10 on a pain scale. EENT: No signs and/or symptoms were reported regarding the EENT system. Neuro: Level of Consciousness is awake, alert, obeys commands, Oriented to person, place, time, situation. Cardiovascular: Patient's skin is warm and dry. Respiratory: Airway is patent Respiratory effort is even, unlabored, Respiratory pattern is regular, symmetrical. GI: Abdomen is flat, non-distended, Abd is soft and non tender X 4 quads. Reports constipation. : No signs and/or symptoms were reported regarding the genitourinary system. Derm: No signs and/or symptoms reported regarding the dermatologic system. Musculoskeletal: No signs and/or symptoms reported regarding the musculoskeletal system. Historical: - Allergies: 06:24 No Known Allergies; tm6 - PMHx: 06:24 4 herniated disk; Anxiety; Congestive heart failure; Hypertensive disorder; kidney tm6 disease; Diabetes mellitus; - PSHx: 06:24 dialysis access placement; tm6 - Immunization history:: Client reports receiving the 2nd dose of the Covid vaccine. - Infectious Disease History:: Denies. - Social history:: Smoking status: Patient reports the use of cigarette tobacco products, smokes one pack cigarettes per day. Patient/guardian denies using alcohol. - Family history:: not pertinent. Screenin:10 [facility] ED Fall Risk Assessment (Adult) History of falling in the last 3 months, rg5 including since admission No falls in past 3 months (0 pts) Confusion or Disorientation No (0 pts) Intoxicated or Sedated No (0 pts) Impaired Gait No (0 pts) Mobility Assist Device Used No (0 pt) Altered Elimination No (0 pt) Score/Fall Risk Level 0 - 2 = Low Risk Oriented to surroundings, Maintained a safe environment, Hourly rounding (assess needs \T\ fall precautionary measures) done. Abuse screen: Denies threats or abuse. Nutritional screening: No deficits noted. Tuberculosis screening: No symptoms or risk factors identified. Assessment: 06:10 General: Appears uncomfortable, Behavior is calm, cooperative, appropriate for age. rg5 06:10 Pain: Complains of pain in abdomen Pain currently is 8 out of 10 on a pain scale. rg5 Quality of pain is described as aching. Neuro: Level of Consciousness is awake, alert, obeys commands, Oriented to person, place, time. Cardiovascular: Capillary refill < 3 seconds Patient's skin is warm and dry. Respiratory: Airway is patent Trachea midline. GI: Abdomen is flat, non-distended, Reports constipation, cramping. : No signs and/or symptoms were reported regarding the genitourinary system. EENT: No deficits noted. Derm: Skin is intact, Skin is dry, Skin is normal. Musculoskeletal: Range of motion: intact in all extremities. 07:00 GI: rg5 07:15 General: Appears uncomfortable, Behavior is calm, cooperative. Pain: Complains of pain iw in abdomen. Neuro: Level of Consciousness is awake, alert, obeys commands, Oriented to person, place, time, situation. Respiratory: Respiratory effort is even, Respiratory pattern is regular, symmetrical. GI: Reports constipation. Derm: Skin is intact, is healthy with good turgor. 08:40 Reassessment: Patient appears in no apparent distress at this time. pt up to bathroom. iw 09:10 Reassessment: Reassessment: pt reports having a BM and feels better now. iw 10:15 Reassessment: Patient and/or family updated on plan of care and expected duration. Pain rs5 level reassessed. Patient is alert, oriented x 3, equal unlabored respirations, skin warm/dry/pink. Patient denies pain at this time. Patient states feeling better. Patient states symptoms have improved. 11:10 Reassessment: Patient and/or family updated on plan of care and expected duration. Pain rs5 level reassessed. Patient is alert, oriented x 3, equal unlabored respirations, skin warm/dry/pink. Vital Signs: 06:22 BP 204 / 99; Pulse 75; Resp 19; Temp 98.3(O); Pulse Ox 100% on R/A; MAP 126 mmHg; tm6 Weight 77.11 kg; Height 5 ft. 5 in. ; Pain 5/10; 06:58 BP 158 / 64; Pulse 66; Resp 19; Temp 98.2; Pulse Ox 99% on R/A; Pain 8/10; rg5 11:20 BP 148 / 70; Pulse 68; Resp 17; Pulse Ox 98% on R/A; rs5 06:22 Body Mass Index 28.29 (77.11 kg, 165.1 cm) tm6 06:22 Pain Scale: Adult tm6 06:58 Pain Scale: Adult rg5 Radha Coma Score: 06:10 Eye Response: spontaneous(4). Motor Response: obeys commands(6). Verbal Response: rg5 oriented(5). Total: 15. 07:05 Eye Response: spontaneous(4). Motor Response: obeys commands(6). Verbal Response: sp4 oriented(5). Total: 15. ED Course: 06:07 Patient arrived in ED. jj6 06:10 Patient has correct armband on for positive identification. Bed in low position. Call rg5 light in reach. Side rails up X 1. 06:10 Inserted saline lock: 20 gauge in right forearm, using aseptic technique. Flushed with rg5 10 mL NS. 06:14 Potepalov, Phill, MD is Attending Physician. sp4 06:24 Triage completed. tm6 06:24 Arm band placed on right wrist. tm6 06:31 Brady Pace, ROSIO is Primary Nurse. rg5 06:[address] rg5 07:00 Attending Physician role handed off by Phill Quiñones MD ms3 07:00 Jeb Gama DO is Attending Physician. ms3 07:00 Served as a staffing executive during rectal exam. rg5 07:21 Note: Checked in on patient to see if he could try and attempt the scan, but he said sj not at this time. informed him to let the staff know if and when he is ready.. 09:49 Repeat lab(s) drawn. by me, sent to lab. em1 10:39 EKG done, by ED staff, reviewed by Jeb Gama DO. em1 11:13 IV discontinued, intact, bleeding controlled, No redness/swelling at site. Pressure rs5 dressing applied. Administered Medications: 06:30 Drug: Ondansetron PO 4 mg PO once Route: PO; rg5 07:00 Follow up: Response: No adverse reaction rs5 06:30 Drug: Magnesium Citrate PO Liquid 300 ml PO once Route: PO; rg5 07:20 Follow up: Response: No adverse reaction rs5 06:50 Drug: HYDROmorphone IVP 1 mg IVP once Route: IVP; Site: right forearm; rg5 07:10 Follow up: Response: No adverse reaction; Pain is decreased rs5 07:08 CANCELLED (Physician Discretion): fleet ml SC once; may repeat once ms3 08:05 Drug: soap damian 1 units SC once; Soap suds enema Route: SC; iw 08:30 Follow up: Response: No adverse reaction rs5 10:14 Drug: Lokelma Powder 10 grams PO once Route: PO; rs5 10:40 Follow up: Response: No adverse reaction rs5 Medication: 06:10 VIS not applicable for this client. rg5 Outcome: 10:28 Discharge ordered by . ms3 11:13 Discharged to home ambulatory, rs5 11:13 Condition: stable 11:13 Discharge instructions given to patient, family, Instructed on discharge instructions, follow up and referral plans. medication usage, Demonstrated understanding of instructions, follow-up care, medications, Prescriptions given X 3, 11:14 Patient left the ED. rs5 Signatures: Rosaline Lee Irene, RN RN iw Josue Mcnulty em1 Jeb Gama DO DO ms3 Scarlett Robles jj6 Jaydon Whitmore, ROSIO RN rs5 Phill Quiñones MD MD sp4 Gia Sanchez RN RN tm6 Brady Pace RN RN rg5 Corrections: (The following items were deleted from the chart) 09:30 09:28 Reassessment: [facility] 13:26 11:20 Reassessment: Patient and/or family updated on plan of care and expected rs5 duration. Pain level reassessed. Patient is alert, oriented x 3, equal unlabored respirations, skin warm/dry/pink. rs5
--- NOTE | 2024-03-19 10:29 | EDPHYS ---
Physician Documentation [facility] Name: Dasia Monroe Age: 38 yrs Sex: Male : 1985 Arrival Date: 03/19/2024 Time: 06:05 Bed 15 Private MD: ED Physician Jeb Gama HPI: 03/19 06:14 This 38 yrs old Male presents to ER via Unassigned with complaints of sp4 Constipation. 07:05 38 -year-old male presents with acute constipation and complaint of rectal pain and sp4 rectal discomfort.. States he has not had bowel movement the last 10 days. Historical: - Allergies: 06:24 No Known Allergies; tm6 - PMHx: 06:24 4 herniated disk; Anxiety; Congestive heart failure; Hypertensive disorder; kidney tm6 disease; Diabetes mellitus; - PSHx: 06:24 dialysis access placement; tm6 - Immunization history:: Client reports receiving the 2nd dose of the Covid vaccine. - Infectious Disease History:: Denies. - Social history:: Smoking status: Patient reports the use of cigarette tobacco products, smokes one pack cigarettes per day. Patient/guardian denies using alcohol. - Family history:: not pertinent. ROS: 07:05 Constitutional: Negative for fever, chills, and weight loss, rectal pain, positive sp4 rectal discomfort positive abdominal pain positive constipation 07:05 All other systems are negative, Exam: 07:05 Constitutional: This is a well developed, well nourished patient who is awake, alert, sp4 and in no acute distress. Head/Face: Normocephalic, atraumatic. Eyes: Pupils equal round and reactive to light, extra-ocular motions intact. Lids and lashes normal. Conjunctiva and sclera are not injected. Cornea within normal limits. Periorbital areas with no swelling, redness, or edema. ENT: Nares patent. No nasal discharge, no septal abnormalities noted. Tympanic membranes are normal and external auditory canals are clear. Oropharynx with no redness, swelling, or masses, exudates, or evidence of obstruction, uvula midline. Mucous membranes moist. Neck: Trachea midline, no thyromegaly or masses palpated, and no cervical lymphadenopathy. Supple, full range of motion without nuchal rigidity, or vertebral point tenderness. Chest/axilla: Normal chest wall appearance and motion. Nontender with no deformity. No lesions are appreciated. Cardiovascular: Regular rate and rhythm with a normal S1 and S2. No gallops, murmurs, or rubs. Normal PMI, no JVD. No pulse deficits. Respiratory: Lungs have equal breath sounds bilaterally, clear to auscultation and percussion. No rales, rhonchi or wheezes noted. No increased work of breathing, no retractions or nasal flaring. Abdomen/GI: Soft, with normal bowel sounds. No distension or tympany. No guarding or rebound. No evidence of tenderness throughout. Back: No spinal tenderness. No costovertebral tenderness. Male : Normal genitalia with no discharge or lesions. Rectal exam reveals moderate size solid fecal impaction. Skin: Warm, dry with normal turgor. Normal color with no rashes, no lesions, and no evidence of cellulitis. MS/ Extremity: Pulses equal, no cyanosis. Neurovascular intact. Full, normal range of motion. Neuro: Awake and alert, GCS 15, oriented to person, place, time, and situation. Cranial nerves II-XII grossly intact. Motor strength 5/5 in all extremities. Sensory grossly intact. Psych: Awake, alert, with orientation to person, place and time. Behavior, mood, and affect are within normal limits 10:44 ECG was reviewed by the Attending Physician. ms3 Vital Signs: 06:22 BP 204 / 99; Pulse 75; Resp 19; Temp 98.3(O); Pulse Ox 100% on R/A; MAP 126 mmHg; tm6 Weight 77.11 kg; Height 5 ft. 5 in. ; Pain 5/10; 06:58 BP 158 / 64; Pulse 66; Resp 19; Temp 98.2; Pulse Ox 99% on R/A; Pain 8/10; rg5 11:20 BP 148 / 70; Pulse 68; Resp 17; Pulse Ox 98% on R/A; rs5 06:22 Body Mass Index 28.29 (77.11 kg, 165.1 cm) tm6 06:22 Pain Scale: Adult tm6 06:58 Pain Scale: Adult rg5 Radha Coma Score: 06:10 Eye Response: spontaneous(4). Motor Response: obeys commands(6). Verbal Response: rg5 oriented(5). Total: 15. 07:05 Eye Response: spontaneous(4). Motor Response: obeys commands(6). Verbal Response: sp4 oriented(5). Total: 15. Procedures: 07:09 Fecal disimpaction: digital disimpaction was performed, with a small amount of stool sp4 expressed. The patient tolerated the intervention well, Fecal impaction was broken up into pieces inside the rectum, patient will be given enema. MDM: 06:41 Patient medically screened. sp4 07:00 Transition of care: Care assumed from Phill Quiñones MD. hi3 07:05 Transition of care: After a detail discussion of the patient's case, care is sp4 transferred to Jeb Gama DO. 07:05 Differential diagnosis: diverticulitis, gastritis, Hepatitis. Data reviewed: vital sp4 signs, nurses notes, radiologic studies, CT scan. Consideration of Admission/Observation Escalation of care including admission/observation considered. 10:28 I considered the following discharge prescriptions or medication management in the [facility] [place] Medications were administered in the Emergency Department. See MAR. Independent interpretation of the following test(s) in the Emergency Department EKG: See my EKG interpretation above. Counseling: I had a detailed discussion with the patient and/or guardian regarding the historical points, exam findings, and any diagnostic results supporting the discharge/admit diagnosis, lab results, the need for outpatient follow up, to return to the emergency department if symptoms worsen or persist or if there are any questions or concerns that arise at home. ED course: Patient with improvement in symptoms after large bowel movement. CT scan canceled. Patient with potassium of Lokelma given, no EKG changes noted. Patient states he has dialysis today. Patient instructed to go to dialysis from the emergency department. Patient understands agrees with plan. All questions were answered. Return precautions discussed include worsening symptoms, or any other concerns. On reevaluation patient symptoms improved, patient is alert and oriented x 4, in no apparent distress, nontoxic-appearing, ambulatory in the emergency department. 03/19 07:50 Order name: CBC with Diff; Complete Time: 08:44 ms3 03/19 07:50 Order name: CMP; Complete Time: 09:04 ms3 03/19 09:06 Order name: BMP; Complete Time: 10:12 iw 03/19 10:13 Order name: EKG; Complete Time: 10:13 ms3 03/19 06:24 Order name: Saline Lock; Complete Time: 06:49 sp4 EC:44 Rate is 67 beats/min. Rhythm is regular. QRS [place] is Normal. [place] interval is normal. QRS ms3 interval is normal. QT interval is normal. Clinical impression: Normal ECG. Interpreted by me. Reviewed by me. Administered Medications: 06:30 Drug: Ondansetron PO 4 mg PO once Route: PO; rg5 07:00 Follow up: Response: No adverse reaction rs5 06:30 Drug: Magnesium Citrate PO Liquid 300 ml PO once Route: PO; rg5 07:20 Follow up: Response: No adverse reaction rs5 06:50 Drug: HYDROmorphone IVP 1 mg IVP once Route: IVP; Site: right forearm; rg5 07:10 Follow up: Response: No adverse reaction; Pain is decreased rs5 07:08 CANCELLED (Physician Discretion): fleet vahen306 ml W[place] once; may repeat once ms3 08:05 Drug: soap damian 1 units W[place] once; Soap suds enema Route: WY; iw 08:30 Follow up: Response: No adverse reaction rs5 10:14 Drug: Lokelma Powder 10 grams PO once Route: PO; rs5 10:40 Follow up: Response: No adverse reaction rs5 Disposition Summary: 03/19/24 10:28 Discharge Ordered Notes: Location: Home ms3 Condition: Stable ms3 Diagnosis - Constipation, unspecified ms3 - Hyperkalemia ms3 - Anemia, unspecified ms3 Followup: ms3 - With: Private Physician - When: Today - Reason: Recheck today's complaints Discharge Instructions: - Discharge Summary Sheet ms3 - Anemia ms3 - Constipation, Adult ms3 Forms: - Medication Reconciliation Form ms3 - Antibiotic Education ms3 - Prescription Opioid Use ms3 - Patient Portal Instructions ms3 - Leadership Thank You Letter ms3 Signatures: Dispatcher [employer] Praveena So RN RN iw Jeb Gama DO DO ms3 Jaydon Whitmore RN RN rs5 Phill Quiñones MD MD sp4 Gia Sanchez RN RN tm6 Brady Pace RN RN rg5 Corrections: (The following items were deleted from the chart) 06:24 06:24 Abdomen Pelvis Wo Con+CT.RAD.BRZ ordered. EDMS EDMS 07:08 06:59 Fleet Enema WY 133 ml WY once; may repeat once ordered. sp4 ms3 07:50 07:50 CBC+H.LAB.BRZ ordered. EDMS EDMS 07:50 07:50 COMPREHENSIVE METABOLIC PANEL+C.LAB.BRZ ordered. EDMS EDMS
[2024-03-19] MEDS ORDERED: SODIUM ZIRCONIUM CYCLOSILICATE 10 GM/PKT PO SCH (11:00)
[2024-03-19 11:23] VITALS: BP 158/64; TEMP 98.2; O2SAT 99
== END 2024-03-19 11:14 | disposition home or self-care (01) ==
LOC: ER 06:05
DX: K59.00 Constipation, unspecified (principal); E87.5 Hyperkalemia; D64.9 Anemia, unspecified; F17.210 Nicotine dependence, cigarettes, uncomplicated
CPT/HCPCS: 93005; 85025; 80048; 36415; 80053; 96374; 99285; Q0162; J1170

== ENCOUNTER 2024-03-20 22:11 | Emergency (ER) | payer OTHER ==
--- NOTE | 2024-03-20 23:12 | ER ---
Nurse's Notes [facility] Name: Dasia Monroe Age: 38 yrs Sex: Male : 1985 Arrival Date: 03/20/2024 Time: 22:11 Bed IW2 Private MD: Diagnosis: Left Before Medical Screening ED Course: 03/20 22:14 Patient arrived in ED. ra3 22:15 Juan Luis Lundy MD is Attending Physician. ec2 23:06 Patient's name was called from ER [facility]. No response. vc1 23:22 Patient's name was called from ER [employer]. No response. Unable to locate patient. Will vc1 disposition as left without being seen by a provider. Administered Medications: No medications were administered Outcome: 23:23 Eloped from waiting room, before seeing physician Time discovered patient gone: March 1 2023 at 23:16 23:23 Patient left the ED. vc1 Signatures: Beba Howard RN RN vc1 Juan Luis Lundy MD MD ec2 Zaina Humphreys ra3
--- NOTE | 2024-03-20 23:12 | EDPHYS ---
Physician Documentation [facility] Name: Dasia Monroe Age: 38 yrs Sex: Male : 1985 Arrival Date: 03/20/2024 Time: 22:11 Bed IW2 Private MD: TARA Physician Juan Luis Lundy Administered Medications: No medications were administered Disposition Summary: 03/20/24 23:12 Eloped Notes: Disposition: Before Triage ec2 Reason: unknown ec2 Diagnosis - Left Before Medical Screening ec2 Followup: ec2 - With: Private Physician - When: - Reason: Re-evaluation by your physician Signatures: Juan Luis Lundy MD MD ec2 Corrections: (The following items were deleted from the chart) 03/20 23:11 23:06 Patient medically screened. ec2 ec2
== END 2024-03-20 23:23 | disposition left against medical advice (07) ==
LOC: ER 22:11
DX: Z02.9 Encounter for administrative examinations, unspecified (principal)

== ENCOUNTER 2024-05-19 21:52 | Emergency (ER) | payer OTHER ==
[2024-05-19] MEDS ORDERED: ONDANSETRON 4 MG/2 ML VIAL ONE (22:02)
[2024-05-19] MEDS ORDERED: LORazepam 2 MG/ML VIAL ONE (22:02)
[2024-05-19] MEDS ORDERED: MORPHINE 2 MG/ML SYR ONE (22:02)
--- NOTE | 2024-05-19 22:20 | RAD REPORT ---
EXAMINATION: ONE VIEW CHEST XR CLINICAL INDICATION: CHEST PAIN TECHNIQUE: Frontal chest projection is submitted. Examination is limited by patient positioning and t echnique. COMPARISON: 04/28/2024 FINDINGS: The lungs are well inflated and clear. The heart is normal in size. No displaced fractures identified . IMPRESSION: No acute intrathoracic abnormalities.
[2024-05-19 22:21] LABS: Absolute Basophils 0.1 K/uL (0-0.5); Absolute Eosinophils 0.4 K/uL (0-0.5); Absolute Lymphocytes (CBC) 1.9 K/uL (0.7-4.9); Absolute Monocytes 1.9 K/uL (0.1-1.3); Absolute Neutrophil 5.8 K/uL (1.8-8.0); Basophils % 0.9 % (0-1.3); Eosinophils % 3.7 % (0-4.4); Hematocrit 42.7 % (39.6-49.0); Hemoglobin 14.6 g/dL (13.6-17.9); Lymphocytes % 19.4 % (15.3-44.8); MCH 33.9 pg (27.0-35.0); MCHC 34.2 g/dL (32.0-36.0); MCV 99.2 fL (80-100); MPV 6.8 fL (7.6-11.3); Monocytes % 18.5 % (3.3-12.3); Neutrophils % 57.5 % (41.7-73.7); Nucleated Red Blood Cells % 0.1 % (0-0); Platelets 216 thou/uL (152-406)
[2024-05-19 22:24] LABS: PT Prothrombin Time 12.5 SECONDS (9.4-12.5); Protime INR 1.12
[2024-05-19 23:04] LABS: ALT/SGPT 21 U/L (16-61); AST/SGOT 19 U/L (15-37); Albumin 3.9 g/dL (3.4-5.0); Albumin/Globulin Ratio 0.8 (1.1-1.8); Alkaline Phosphatase 70 U/L (45-117); Anion Gap 10.7 mEq/L (5.0-15.0); BUN Blood Urea Nitrogen 23 mg/dL (7-18); Bicarbonate 27 mEq/L (21-32); Bilirubin Total 0.4 mg/dL (0.2-1.0); Globulin 4.7 g/dL (2.3-3.5); Glomerular Filtration Rate 10 ml/min (=/>90); Glucose Level 126 mg/dL (74-106); Lipase 101 U/L (13-75); Magnesium 2.1 mg/dL (1.6-2.4); NT PRO-BNP 52196 pg/mL (<125); Potassium 3.7 mEq/L (3.5-5.1); Protein, Total 8.6 g/dL (6.4-8.2); Sodium Level 134 mEq/L (136-145)
[2024-05-19 23:05] LABS: Bilirubin Direct < 0.2 mg/dL (0-0.2); Bilirubin Indirect, Calculated 0.2 mg/dL (0.2-0.8)
[2024-05-19 23:07] LABS: Troponin High Sensitivity 115.5 pg/mL (<58.9)
--- NOTE | 2024-05-20 00:35 | RAD REPORT ---
EXAM: CT Chest, Abdomen and Pelvis Without Intravenous Contrast CLINICAL HISTORY: Abdominal distention. TECHNIQUE: Axial computed tomography images of the chest, abdomen and pelvis without intravenous contrast. Sag ittal and coronal reformatted images were created and reviewed. This CT exam was performed using one or more of the following dose reduction techniques: automated exposure control, adjustment of t he mA and/or kV according to patient size, and/or use of iterative reconstruction technique. COMPARISON: CT Chest Abdomen Pelvis 04/28/2024. FINDINGS: CHEST: Lungs: Minimal pleural parenchymal scar on the left. No focal consolidation. Pleural space: No significant effusion. No pneumothorax. Heart: Coronary artery calcification. No cardiomegaly. No significant pericardial effusion. Thyroid: Stable 1.2 cm left thyroid nodule. ABDOMEN: Liver: Unremarkable. Gallbladder and bile ducts: Multiple calcified gallstones within a contracted gallbladder. No gallb ladder wall thickening or pericholecystic fluid. No ductal dilation. Pancreas: Unremarkable. No ductal dilation. Spleen: Unremarkable. No splenomegaly. Adrenals: Unremarkable. No mass. Kidneys and ureters: Unremarkable. No calculi. No hydronephrosis. Stomach and bowel: Moderate stool in the proximal to mid large bowel. No obstruction. Colonic diver ticula without adjacent inflammatory change. No mucosal thickening. PELVIS: Appendix: Normal caliber appendix. No findings to suggest acute appendicitis. Bladder: The urinary bladder is decompressed. No stones. Reproductive: Unremarkable as visualized. CHEST, ABDOMEN and PELVIS: Intraperitoneal space: Unremarkable. No significant fluid collection. No free air. Bones/joints: Remote left lateral fifth and sixth rib fractures. Multilevel spondylosis. No acute f racture. No dislocation. Soft tissues: Bilateral gynecomastia. Small bilateral fat-containing inguinal hernias. Vasculature: No thoracic or abdominal aortic aneurysm. Lymph nodes: Unremarkable. No enlarged lymph nodes. IMPRESSION: 1. No focal infiltrate. 2. No acute abnormality identified within the abdomen and pelvis. 3. Other findings as above. Electronically signed by: Lou Dexter MD 05/20/2024 12:31 AM CDT Due to temporary technical issues with the PACS/DoubleDutch reporting system, reports are being daniel d by the in-house radiologist without review as a courtesy to ensure prompt reporting the interpreting radiologist is fully responsible for the content of the report. Transcribed Date/Time: 05/20/2024 12:34 AM
[2024-05-20] MEDS ORDERED: PANTOPRAZOLE 40MG TABLET PO ONE (02:21)
[2024-05-20] MEDS ORDERED: METOCLOPRAMIDE 5 MG TAB ONE (02:21)
[2024-05-20] MEDS ORDERED: MAGNES/ALUMIN/SIMET 30ML UCUP ONE (02:21)
--- NOTE | 2024-05-20 02:56 | ER ---
Nurse's Notes [facility] Name: Dasia Monroe Age: 38 yrs Sex: Male : 1985 Arrival Date: 05/19/2024 Time: 21:52 Bed 4 Private MD: Diagnosis: Vomiting;Acute Vomiting, Suspected Gastroparesis , Anxiety attack Presentation: 05/19 22:06 Chief complaint: Patient states: Pt c/o nausea, vomiting, anxiety since yesterday. tl4 Coronavirus screen: At this time, the client does not indicate any symptoms associated with coronavirus-19. Ebola Screen: No symptoms or risks identified at this time. Initial Sepsis Screen: Does the patient meet any 2 criteria? No. Patient's initial sepsis screen is negative. Does the patient have a suspected source of infection? No. Patient's initial sepsis screen is negative. Risk Assessment: Do you want to hurt yourself or someone else? Patient reports no desire to harm self or others. Onset of symptoms was May 18, 2024. 22:06 Method Of Arrival: Wheelchair tl4 22:06 Acuity: [place] 3 tl4 Triage Assessment: 22:15 General: Appears distressed, Behavior is anxious, crying. Pain: Complains of pain in tl4 abdomen. EENT: No signs and/or symptoms were reported regarding the EENT system. Neuro: Level of Consciousness is awake, alert, obeys commands, Oriented to person, place, time, situation. Cardiovascular: Capillary refill < 3 seconds Patient's skin is warm and dry. Respiratory: Airway is patent Respiratory effort is even, unlabored, Respiratory pattern is regular, symmetrical. GI: Reports lower abdominal pain, upper abdominal pain. : No signs and/or symptoms were reported regarding the genitourinary system. Derm: No signs and/or symptoms reported regarding the dermatologic system. Musculoskeletal: No signs and/or symptoms reported regarding the musculoskeletal system. 22:18 General: Appears uncomfortable, ill, Behavior is agitated, anxious. Pain: Complains of kd3 pain in abdomen. GI: Reports vomiting. Historical: - Allergies: 22:15 No Known Allergies; tl4 - PMHx: 22:15 4 herniated disk; Anxiety; Congestive heart failure; diabetes mellitus; Dialysis tl4 (dialysis access johanna); Hypertensive disorder; kidney disease; - PSHx: 22:15 dialysis access placement; tl4 - Immunization history:: Adult Immunizations unknown. - Infectious Disease History:: Denies. - Social history:: Smoking status: Patient reports the use of cigarette tobacco products, smokes one pack cigarettes per day. - Family history:: not pertinent. Screenin:18 [facility] ED Fall Risk Assessment (Adult) History of falling in the last 3 months, kd3 including since admission No falls in past 3 months (0 pts) Confusion or Disorientation No (0 pts) Intoxicated or Sedated No (0 pts) Impaired Gait No (0 pts) Mobility Assist Device Used No (0 pt) Altered Elimination No (0 pt) Score/Fall Risk Level 0 - 2 = Low Risk Oriented to surroundings. Abuse screen: Denies threats or abuse. Denies injuries from another. Nutritional screening: No deficits noted. Tuberculosis screening: No symptoms or risk factors identified. Assessment: 22:14 General: This RN entered the room to find the patient thrashing back and forward in the kd3 stretcher, screaming and sweating. Patient is pale and diaphoretic and actively vomiting. Patient is extremely anxious, heart rate is elevated. Orders received from provider. Pt administered medications. Vital signs taken after patient has been medicated. Patient responded well to medications. EKG performed after med administration. . 05/20 00:02 General: Appears in no apparent distress. Behavior is calm, cooperative. General: kd3 Patient remains calm after medication administration. Vital signs remained stable. Patient returned to the room via stretcher from scan. . Neuro: Level of Consciousness is awake, alert, obeys commands, Oriented to person, place, time, situation. GI: Abdomen is non-distended. 02:25 Reassessment: Patient appears in no apparent distress at this time. Patient and/or bm8 family updated on plan of care and expected duration. Pain level reassessed. Patient is alert, oriented x 3, equal unlabored respirations, skin warm/dry/pink. PT IS RESTING WITH EYES CLOSED BREATHING IS EVEN UNLABORED WITH SYMMETRICAL RISE AND FALL OF CHEST. NO DISTRESS NOTED. Patient denies pain at this time. Patient states feeling better. Patient states symptoms have improved. 04:34 General: Appears in no apparent distress. Behavior is calm, cooperative. Neuro: Level kd3 of Consciousness is awake, alert, obeys commands, Oriented to person, place, time, situation. Cardiovascular: Patient's skin is warm and dry. Respiratory: Airway is patent Trachea midline Respiratory effort is even, unlabored. Vital Signs: 05/19 22:06 BP 225 / 126; Pulse 94; Resp 22; Temp 98.7(O); Pulse Ox 100% on R/A; Weight 76.2 kg; tl4 Height 5 ft. 5 in. ; 22:17 BP 171 / 93; Pulse 81; Resp 22; Pulse Ox 98% on R/A; kd3 05/20 00:01 BP 156 / 97; Pulse 75; Resp 17; Pulse Ox 100% on R/A; kd3 02:25 BP 126 / 72; Pulse 65; Resp 18; Temp 98.7; Pulse Ox 99% on R/A; Pain 0/10; bm8 04:34 BP 107 / 68; Pulse 71; Resp 19; Pulse Ox 98% on R/A; kd3 05/19 22:06 Body Mass Index 27.96 (76.20 kg, 165.1 cm) tl4 02:25 Pain Scale: Adult bm8 [place] Coma Score: 02:25 Eye Response: spontaneous(4). Motor Response: obeys commands(6). Verbal Response: bm8 oriented(5). Total: 15. ED Course: 05/19 21:53 Patient arrived in ED. ra3 21:59 Phill Quiñones MD is Attending Physician. sp4 22:14 Naya Duran, RN is Primary Nurse. kd3 22:15 Triage completed. tl4 22:17 Basic Metabolic Panel Sent. kmf 22:17 CBC with Diff Sent. kmf 22:17 LFT's Sent. kmf 22:17 Magnesium Sent. kmf 22:18 XRAY Chest (1 view) In Process Unspecified. EDMS 22:18 NT PRO-BNP Sent. kmf 22:18 PT-INR Sent. kmf 22:18 Troponin HS Sent. kmf 22:18 Inserted saline lock: 18 gauge in right antecubital area, using aseptic technique. [facility] Blood collected. Flushed with 10 mL NS. 22:18 Initial lab(s) drawn, by [facility], sent to lab. kmf 22:18 EKG done, by ED staff, reviewed by Phill Quiñones MD. kmf 22:19 Arm band placed on right wrist. EKG completed in triage. Results shown to MD. kd3 22:19 Patient has correct armband on for positive identification. Provided Education on: kd3 medication . 22:19 Placed in gown. Bed in low position. Call light in reach. Side rails up X 1. Adult w/ tl4 patient. Client placed on continuous cardiac and pulse oximetry monitoring. NIBP monitoring applied. street light wirer on. 23:53 CT Chest Abdomen Pelvis W/O Contrast In Process Unspecified. EDMS 05/20 01:15 Troponin High Sensitivity Sent. kmf 01:16 Repeat lab(s) drawn. by [facility], sent to lab. kmf 02:25 No provider procedures requiring assistance completed. bm8 02:29 PO fluids given. bm8 02:53 Jeremy Candelaria DO is Referral Physician. sp4 04:41 IV discontinued, intact, bleeding controlled, No redness/swelling at site. Pressure kd3 dressing applied. Administered Medications: 05/19 22:14 Drug: Ativan IVP 2 mg IVP once Route: IVP; Site: right antecubital; kd3 05/20 02:27 Follow up: Response: No adverse reaction bm8 05/19 22:14 Drug: Ondansetron IVP 8 mg IVP once; over 2 minutes Route: IVP; Site: right antecubital;kd3 05/20 02:27 Follow up: Response: No adverse reaction bm8 05/19 22:14 Drug: morphine IVP or IV 2 mg IVP once over 4 mins Route: IVP; Infused Over: 4 mins; kd3 Site: right antecubital; 05/20 00:49 Follow up: Response: No adverse reaction bm8 02:25 Drug: MetoCLOPramide PO 10 mg PO once Route: PO; bm8 02:25 Drug: Pantoprazole PO 40 mg PO once Route: PO; bm8 02:25 Drug: Alum-Mag Hydroxide-Simeth PO Suspension (200 mg-200 mg-20 mg/5 mL) 30 ml PO once bm8 Route: PO; Medication: 05/19 22:19 VIS not applicable for this client. kd3 Outcome: 05/20 02:55 Discharge ordered by . sp4 04:41 Discharged to home ambulatory, with family, kd3 04:41 Condition: stable 04:41 Discharge instructions given to patient, family, Instructed on discharge instructions, follow up and referral plans. Demonstrated understanding of instructions, follow-up care, medications, Prescriptions given X 4, 04:41 Patient left the ED. kd3 Signatures: Dispatcher [employer] EDNaya Young, RN RN kd3 Phill Quiñones MD MD sp4 Ethel Agudelo [facility] Guzman Varner RN RN tl4 Zaina Humphreys ra3 Yony Still RN RN bm8
--- NOTE | 2024-05-20 02:56 | EDPHYS ---
Physician Documentation [facility] Name: Dasia Monroe Age: 38 yrs Sex: Male : 1985 Arrival Date: 05/19/2024 Time: 21:52 Bed 4 Private MD: ED Physician Phill Quiñones HPI: 05/19 23:38 This 38 yrs old Male presents to ER via Wheelchair with complaints of Vomiting.sp4 05/20 02:57 38 -year-old male history of end-stage renal disease, diabetes, on dialysis, dialyzed sp4 today, presents with acute onset of moderate to severe anxiety associated with screaming and agitation. Patient also signs of moderate to severe vomiting and complains of heartburn. Patient's medications include apixaban twice daily, losartan daily, metoprolol twice daily, paroxetine daily, Protonix 40 mg daily, clonidine twice daily, Fosrenol daily, amlodipine daily, sevelamer daily. Historical: - Allergies: 05/19 22:15 No Known Allergies; tl4 - PMHx: 22:15 4 herniated disk; Anxiety; Congestive heart failure; diabetes mellitus; Dialysis tl4 (dialysis access johanna); Hypertensive disorder; kidney disease; - PSHx: 22:15 dialysis access placement; tl4 - Immunization history:: Adult Immunizations unknown. - Infectious Disease History:: Denies. - Social history:: Smoking status: Patient reports the use of cigarette tobacco products, smokes one pack cigarettes per day. - Family history:: not pertinent. ROS: 05/20 02:58 Constitutional: Negative for fever, chills, and weight loss, for vomiting, positive sp4 for anxiety, positive for agitation, positive for heartburn All other systems are negative, Exam: 02:58 Constitutional: This is a well developed, well nourished patient who is awake, alert, sp4 and in no acute distress. Head/Face: Normocephalic, atraumatic. Eyes: Pupils equal round and reactive to light, extra-ocular motions intact. Lids and lashes normal. Conjunctiva and sclera are not injected. Cornea within normal limits. Periorbital areas with no swelling, redness, or edema. ENT: Nares patent. No nasal discharge, no septal abnormalities noted. Tympanic membranes are normal and external auditory canals are clear. Oropharynx with no redness, swelling, or masses, exudates, or evidence of obstruction, uvula midline. Mucous membranes moist. Neck: Trachea midline, no thyromegaly or masses palpated, and no cervical lymphadenopathy. Supple, full range of motion without nuchal rigidity, or vertebral point tenderness. Chest/axilla: Normal chest wall appearance and motion. Nontender with no deformity. No lesions are appreciated. Cardiovascular: Regular rate and rhythm with a normal S1 and S2. No gallops, murmurs, or rubs. Normal PMI, no JVD. No pulse deficits. Respiratory: Lungs have equal breath sounds bilaterally, clear to auscultation and percussion. No rales, rhonchi or wheezes noted. No increased work of breathing, no retractions or nasal flaring. Abdomen/GI: Soft, with normal bowel sounds. No distension or tympany. No guarding or rebound. No evidence of tenderness throughout. Back: No spinal tenderness. No costovertebral tenderness. Skin: Warm, dry with normal turgor. Normal color with no rashes, no lesions, and no evidence of cellulitis. MS/ Extremity: Pulses equal, no cyanosis. Neurovascular intact. Full, normal range of motion. Neuro: Awake and alert, GCS 15, oriented to person, place, time, and situation. Cranial nerves II-XII grossly intact. Motor strength 5/5 in all extremities. Sensory grossly intact. Psych: Awake, alert, with orientation to person, place and time. Behavior, mood, and affect are within normal limits 02:58 ECG was reviewed by the Attending Physician. EKG at 2209 normal sinus rhythm, no ST elevation or depression. Vital Signs: 05/19 22:06 BP 225 / 126; Pulse 94; Resp 22; Temp 98.7(O); Pulse Ox 100% on R/A; Weight 76.2 kg; tl4 Height 5 ft. 5 in. ; 22:17 BP 171 / 93; Pulse 81; Resp 22; Pulse Ox 98% on R/A; kd3 05/20 00:01 BP 156 / 97; Pulse 75; Resp 17; Pulse Ox 100% on R/A; kd3 02:25 BP 126 / 72; Pulse 65; Resp 18; Temp 98.7; Pulse Ox 99% on R/A; Pain 0/10; bm8 04:34 BP 107 / 68; Pulse 71; Resp 19; Pulse Ox 98% on R/A; kd3 05/19 22:06 Body Mass Index 27.96 (76.20 kg, 165.1 cm) tl4 02:25 Pain Scale: Adult bm8 [place] Coma Score: 02:25 Eye Response: spontaneous(4). Motor Response: obeys commands(6). Verbal Response: bm8 oriented(5). Total: 15. MDM: 05/19 22:01 Medical Screening Exam initiated sp4 23:37 ED course: CLINICAL INDICATION: CHEST PAIN TECHNIQUE: Frontal chest projection is sp4 submitted. Examination is limited by patient positioning and technique. COMPARISON: 04/28/2024 FINDINGS: The lungs are well inflated and clear. The heart is normal in size. No displaced fractures identified. IMPRESSION: No acute intrathoracic abnormalities.. 05/20 01:33 ED course: EXAMINATION: ONE VIEW CHEST XR CLINICAL INDICATION: CHEST PAIN TECHNIQUE: sp4 Frontal chest projection is submitted. Examination is limited by patient positioning and technique. COMPARISON: 04/28/2024 FINDINGS: The lungs are well inflated and clear. The heart is normal in size. No displaced fractures identified. IMPRESSION: No acute intrathoracic abnormalities. . ED course: EXAM: CT Chest, Abdomen and Pelvis Without Intravenous Contrast CLINICAL HISTORY: Abdominal distention. TECHNIQUE: Axial computed tomography images of the chest, abdomen and pelvis without intravenous contrast. Sagittal and coronal reformatted images were created and reviewed. This CT exam was performed using one or more of the following dose reduction techniques: automated exposure control, adjustment of the mA and/or kV according to patient size, and/or use of iterative reconstruction technique. COMPARISON: CT Chest Abdomen Pelvis 04/28/2024. FINDINGS: CHEST: Lungs: Minimal pleural parenchymal scar on the left. No focal consolidation. Pleural space: No significant effusion. No pneumothorax. Heart: Coronary artery calcification. No cardiomegaly. No significant pericardial effusion. Thyroid: Stable 1.2 cm left thyroid nodule. ABDOMEN: Liver: Unremarkable. Gallbladder and bile ducts: Multiple calcified gallstones within a contracted gallbladder. No gallbladder wall thickening or pericholecystic fluid. No ductal dilation. Pancreas: Unremarkable. No ductal dilation. Spleen: Unremarkable. No splenomegaly. Adrenals: Unremarkable. No mass. Kidneys and ureters: Unremarkable. No calculi. No hydronephrosis. Stomach and bowel: Moderate stool in the proximal to mid large bowel. No obstruction. Colonic diverticula without adjacent inflammatory change. No mucosal thickening. PELVIS: Appendix: Normal caliber appendix. No findings to suggest acute appendicitis. Bladder: The urinary bladder is decompressed. No stones. Reproductive: Unremarkable as visualized. CHEST, ABDOMEN and PELVIS: Intraperitoneal space: Unremarkable. No significant fluid collection. No free air. Bones/joints: Remote left lateral fifth and sixth rib fractures. Multilevel spondylosis. No acute fracture. No dislocation. Soft tissues: Bilateral gynecomastia. Small bilateral fat-containing inguinal hernias. Vasculature: No thoracic or abdominal aortic aneurysm. Lymph nodes: Unremarkable. No enlarged lymph nodes. IMPRESSION: 1. No focal infiltrate. 2. No acute abnormality identified within the abdomen and pelvis. 3. Other findings as above. . 03:00 Differential diagnosis: Nonspecific abd pain, gastritis, pancreatitis, viral sp4 gastroenteritis, gastroenteritis. Data reviewed: vital signs, nurses notes, old medical records, lab test result(s), EKG, radiologic studies, CT scan, plain films. Consideration of Admission/Observation Escalation of care including admission/observation considered. ED course: Has improved symptomatically and is stable for discharge home. Repeat troponin is at baseline.. 05/19 22:00 Order name: Basic Metabolic Panel; Complete Time: 23:34 sp4 05/19 22:00 Order name: CBC with Diff; Complete Time: 23:07 sp4 05/19 22:00 Order name: LFT's; Complete Time: 23:34 sp4 05/19 22:00 Order name: Magnesium; Complete Time: 23:34 sp4 05/19 22:00 Order name: NT PRO-BNP; Complete Time: 23:34 sp4 05/19 22:00 Order name: PT-INR; Complete Time: 23:07 sp4 05/19 22:00 Order name: Troponin HS; Complete Time: 23:34 sp4 05/19 22:01 Order name: Lipase; Complete Time: 23:34 sp4 05/19 23:38 Order name: Troponin High Sensitivity; Complete Time: 02:50 sp4 05/19 22:00 Order name: XRAY Chest (1 view); Complete Time: 23:07 4 05/19 23:37 Order name: CT Chest Abdomen Pelvis W/O Contrast sp4 05/19 22:00 Order name: EKG; Complete Time: 22:01 sp4 05/19 22:00 Order name: Cardiac monitoring; Complete Time: : sp4 05/19 22:00 Order name: EKG - Nurse/Tech; Complete Time: : sp4 05/19 22:00 Order name: IV Saline Lock; Complete Time: : sp4 05/19 22:00 Order name: Labs collected and sent; Complete Time: : sp4 05/19 22:00 Order name: O2 Per Protocol; Complete Time: : sp4 05/19 22:00 Order name: O2 Sat Monitoring; Complete Time: : sp4 05/20 01:37 Order name: PO challenge; Complete Time: : sp4 EC:58 Rate is 82 beats/min. Rhythm is regular, Normal Sinus Rhythm. QRS [place] is Normal. ID sp4 interval is normal. QRS interval is normal. QT interval is normal. No Q waves. T waves are Normal. No ST changes noted. Clinical impression: No evidence of ischemia. Interpreted by me. Reviewed by me. Administered Medications: 05/19 22:14 Drug: Ativan IVP 2 mg IVP once Route: IVP; Site: right antecubital; 3 05/20 02:27 Follow up: Response: No adverse reaction 8 05/19 22:14 Drug: Ondansetron IVP 8 mg IVP once; over 2 minutes Route: IVP; Site: right antecubital;kd3 05/20 02:27 Follow up: Response: No adverse reaction 8 05/19 22:14 Drug: morphine IVP or IV 2 mg IVP once over 4 mins Route: IVP; Infused Over: 4 mins; kd3 Site: right antecubital; 05/20 00:49 Follow up: Response: No adverse reaction bm8 02:25 Drug: MetoCLOPramide PO 10 mg PO once Route: PO; bm8 02:25 Drug: Pantoprazole PO 40 mg PO once Route: PO; bm8 02:25 Drug: Alum-Mag Hydroxide-Simeth PO Suspension (200 mg-200 mg-20 mg/5 mL) 30 ml PO once bm8 Route: PO; Disposition Summary: 05/20/24 02:55 Discharge Ordered Notes: Location: Home sp4 Problem: new sp4 Symptoms: have improved sp4 Condition: Stable sp4 Diagnosis - Vomiting sp4 - Acute Vomiting, Suspected Gastroparesis , Anxiety attack sp4 Followup: sp4 - With: Private Physician - When: 7 - 10 days - Reason: Recheck today's complaints Followup: sp4 - With: Jeremy Candelaria DO - When: 7 - 10 days - Reason: Recheck today's complaints Discharge Instructions: - Discharge Summary Sheet sp4 - Gastroparesis sp4 Forms: - Patient Portal Instructions sp4 Prescriptions: - Ativan 1 mg Oral tablet - take 1 tablet ORAL route once daily As needed PRN anxiety attacks; 10 tablet; sp4 Refills: 0, Product Selection Permitted - Protonix 40 mg Oral tablet, delayed release (enteric coated) - take 1 tablet ORAL route once daily for 1 month; 30 tablet; Refills: 0, Product sp4 Selection Permitted - Reglan 10 mg Oral tablet - take 1 tablet ORAL route every 6 hours PRN nausea; 30 tablet; Refills: 0, sp4 Product Selection Permitted Signatures: Dispatcher [employer] Naya Tomas, RN RN kd3 Phill Quiñones MD MD sp4 Guzman Varner RN RN tl4 Yony Still, RN RN bm8 Corrections: (The following items were deleted from the chart) 05/19 22:02 22:01 Chest Single View+[email or web address] ordered. EDME SMITHA
[2024-05-20 06:58] VITALS: TEMP 98.7
[2024-05-20 07:03] VITALS: BP 107/68; O2SAT 98
--- NOTE | 2024-05-20 11:50 | EKG ---
Test Date: 2024-05-19 Test Time: 22:09:20 Protective Signal Installer Helper: JAYESH MEASUREMENT RESULTS: Intervals: Rate: 82 MA: 132 QRSD: 94 QT: 372 QTc: 434 [place]: P: 46 MA: 132 QRS: 125 T: 115 INTERPRETIVE STATEMENTS: Normal sinus rhythm ST abnormality, possible digitalis effect Abnormal ECG Compared to ECG 03/19/2024 10:36:40 ST (T wave) deviation now present Electronically Signed On 05-20-24 11:49:53 CDT by Brady Amaya
== END 2024-05-20 04:41 | disposition home or self-care (01) ==
LOC: ER 21:52
DX: R11.10 Vomiting, unspecified (principal); F41.0 Panic disorder [episodic paroxysmal anxiety]; E11.22 Type 2 diabetes mellitus with diabetic chronic kidney disease; N18.6 End stage renal disease; Z99.2 Dependence on renal dialysis; F17.210 Nicotine dependence, cigarettes, uncomplicated
CPT/HCPCS: 93005; 85025; 80048; 36415; 83735; 85610; 80076; 84484 ×2; 83690; 83880; 71250; 74176; 71045; 96375; 96374; 99285; J2270; J2405

== ENCOUNTER 2024-06-07 21:16 | Emergency (ER) | payer OTHER ==
--- NOTE | 2024-06-07 22:14 | RAD REPORT ---
Procedure: Chest Single View HISTORY: Chest pain COMPARISON: May 2024 FINDINGS: The lungs appear clear of acute infiltrate. No significant pleural effusion noted. The heart is normal size. IMPRESSION: No acute abnormality is displayed.
[2024-06-07] MEDS ORDERED: ONDANSETRON 4 MG/2 ML VIAL ONE (22:34)
[2024-06-07] MEDS ORDERED: MORPHINE 4 MG/ML SYR ONE (22:40)
[2024-06-07] MEDS ORDERED: HYDRALAZINE HCL 20 MG/ML VIAL ONE (22:40)
[2024-06-07 22:46] LABS: PT Prothrombin Time 13.1 SECONDS (9.4-12.5); Protime INR 1.18
[2024-06-07 22:54] LABS: Absolute Basophils 0.1 K/uL (0-0.5); Absolute Eosinophils 0.4 K/uL (0-0.5); Absolute Lymphocytes (CBC) 1.1 K/uL (0.7-4.9); Absolute Monocytes 1.1 K/uL (0.1-1.3); Absolute Neutrophil 6.5 K/uL (1.8-8.0); Basophils % 0.8 % (0-1.3); Eosinophils % 3.9 % (0-4.4); Hematocrit 31.5 % (39.6-49.0); Lymphocytes % 12.4 % (15.3-44.8); MCH 34.4 pg (27.0-35.0); MCV 98.4 fL (80-100); MPV 6.9 fL (7.6-11.3); Monocytes % 11.9 % (3.3-12.3); Nucleated Red Blood Cells % 0.1 % (0-0); Platelets 223 thou/uL (152-406); Red Cell Distribution Width 14.6 % (12.1-15.2)
[2024-06-07 23:31] LABS: ALT/SGPT 28 U/L (16-61); AST/SGOT 22 U/L (15-37); Albumin 3.2 g/dL (3.4-5.0); Albumin/Globulin Ratio 0.8 (1.1-1.8); Alkaline Phosphatase 57 U/L (45-117); Anion Gap 10.4 mEq/L (5.0-15.0); BUN Blood Urea Nitrogen 26 mg/dL (7-18); Bicarbonate 28 mEq/L (21-32); Bilirubin Direct 0.2 mg/dL (0-0.2); Bilirubin Indirect, Calculated 0.3 mg/dL (0.2-0.8); Bilirubin Total 0.5 mg/dL (0.2-1.0); Globulin 4.1 g/dL (2.3-3.5); Glomerular Filtration Rate 9 ml/min (=/>90); Glucose Level 141 mg/dL (74-106); Lipase 34 U/L (13-75); Potassium 4.4 mEq/L (3.5-5.1); Protein, Total 7.3 g/dL (6.4-8.2); Sodium Level 136 mEq/L (136-145)
[2024-06-07 23:32] LABS: NT PRO-BNP > 175000 pg/mL (<125)
[2024-06-07 23:33] LABS: Troponin High Sensitivity 242.1 pg/mL (<58.9)
[2024-06-08] MEDS ORDERED: LORazepam 2 MG/ML VIAL ONE (00:02)
[2024-06-08] MEDS ORDERED: MORPHINE 2 MG/ML SYR ONE (00:03)
[2024-06-08] MEDS ORDERED: ASPIRIN 81 MG CHEWABLE TABLET ONE (00:03)
--- NOTE | 2024-06-08 01:02 | ER ---
Nurse's Notes [facility] Name: Dasia Monroe Age: 38 yrs Sex: Male : 1985 Arrival Date: 06/07/2024 Time: 21:16 Bed 17 Private MD: Diagnosis: Subsequent non-ST elevation (NSTEMI) myocardial infarction;Hypertensive heart and chronic kidney disease with heart failure and with stage 5 chronic kidney disease, or end stage renal disease Presentation: 06/07 21:36 Chief complaint: Patient states: "I had dialysis today and they took too much fluid off cm10 of me." "I am having pain in my chest and all over.". Coronavirus screen: Client denies travel out of the [place] in the last 14 days. Ebola Screen: Patient denies travel to an Ebola-affected area in the 21 days before illness onset. No symptoms or risks identified at this time. Initial Sepsis Screen: Does the patient meet any 2 criteria? No. Patient's initial sepsis screen is negative. Does the patient have a suspected source of infection? No. Patient's initial sepsis screen is negative. Risk Assessment: Do you want to hurt yourself or someone else? Patient reports no desire to harm self or others. Onset of symptoms was June 07, 2024. 21:36 Method Of Arrival: Ambulatory cm10 21:36 Acuity: [place] 2 cm10 Triage Assessment: 21:37 General: Appears in no apparent distress. uncomfortable, Behavior is cooperative. cm10 Neuro: No deficits noted. Level of Consciousness is awake, alert, obeys commands, Oriented to person, place, time, situation, Appropriate for age. Respiratory: No deficits noted. Airway is patent Respiratory effort is even, unlabored, Respiratory pattern is regular, symmetrical. Historical: - Allergies: 21:37 No Known Allergies; cm10 - PMHx: 21:37 4 herniated disk; Anxiety; Congestive heart failure; diabetes mellitus; Dialysis cm10 (dialysis access johanna); Hypertensive disorder; kidney disease; - PSHx: 21:37 dialysis access placement; cm10 - Immunization history:: Adult Immunizations up to date. - Infectious Disease History:: Denies. - Social history:: Smoking status: Patient reports the use of cigarette tobacco products, smokes one pack cigarettes per day. Screenin:29 [facility] ED Fall Risk Assessment (Adult) History of falling in the last 3 months, cp4 including since admission No falls in past 3 months (0 pts) Confusion or Disorientation No (0 pts) Intoxicated or Sedated No (0 pts) Impaired Gait No (0 pts) Mobility Assist Device Used No (0 pt) Altered Elimination No (0 pt) Score/Fall Risk Level 0 - 2 = Low Risk Oriented to surroundings, Maintained a safe environment, Assessed \\T\\ reinforced patient's understanding of fall precautions, Hourly rounding (assess needs \\T\\ fall precautionary measures) done. Abuse screen: Denies threats or abuse. Nutritional screening: No deficits noted. Tuberculosis screening: No symptoms or risk factors identified. Assessment: 22:29 General: Appears in no apparent distress. uncomfortable, Behavior is calm, cooperative, cp4 appropriate for age. Pain: Complains of pain in "all over" Pain does not radiate. Pain began after dialysis. Neuro: Level of Consciousness is awake, alert, obeys commands, Oriented to person, place, time, situation. Cardiovascular: Reports chest pain, Patient's skin is warm and dry. Rhythm is sinus rhythm. Respiratory: Airway is patent Respiratory effort is even, unlabored. GI: No signs and/or symptoms were reported involving the gastrointestinal system. : No signs and/or symptoms were reported regarding the genitourinary system. EENT: No signs and/or symptoms were reported regarding the EENT system. Derm: No signs and/or symptoms reported regarding the dermatologic system. Musculoskeletal: No signs and/or symptoms reported regarding the musculoskeletal system. 23:30 Reassessment: Patient appears in no apparent distress at this time. Patient and/or kl family updated on plan of care and expected duration. Pain level reassessed. Patient is alert, oriented x 3, equal unlabored respirations, skin warm/dry/pink. 06/08 00:30 Reassessment: Patient appears in no apparent distress at this time. Patient and/or kl family updated on plan of care and expected duration. Pain level reassessed. Patient is alert, oriented x 3, equal unlabored respirations, skin warm/dry/pink. 01:30 Reassessment: Patient appears in no apparent distress at this time. Patient and/or cp4 family updated on plan of care and expected duration. Pain level reassessed. Patient is alert, oriented x 3, equal unlabored respirations, skin warm/dry/pink. 02:11 Reassessment: Patient states he does not want to transfer and wants to sign out AMA. cp4 Provider notified and spoke with patient. AMA paper signed. Vital Signs: 06/07 21:36 BP 228 / 106; Pulse 78; Resp 18; Temp 97.9(TE); Pulse Ox 96% on R/A; Weight 79 kg; cm10 Height 5 ft. 5 in. ; Pain 10; 22:35 BP 195 / 98; Pulse 72; Resp 18; Pulse Ox 98% ; cp4 22:58 BP 179 / 77; Pulse 73; Resp 18; Pulse Ox 98% ; cp4 23:24 BP 137 / 76; Pulse 79; Resp 18; Pulse Ox 98% ; cp4 06/08 00:14 BP 151 / 86; Pulse 62; Resp 18; Pulse Ox 99% ; cp4 01:09 BP 151 / 73; Pulse 64; Resp 18; Pulse Ox 98% ; cp4 02:09 BP 164 / 83; Pulse 67; Resp 18; Pulse Ox 99% ; cp4 06/07 21:36 Body Mass Index 28.98 (79.00 kg, 165.1 cm) cm10 06/07 21:36 Pain Scale: Adult cm10 ED Course: 06/07 21:18 Patient arrived in ED. mr 21:36 Arm band placed on left wrist. Patient placed in waiting room. EKG completed in triage. cm10 Results shown to MD. 21:37 Triage completed. cm10 21:38 [facility] cp 21:38 Phill Quiñones MD is Attending Physician. cp 21:38 EKG done, by ED staff, reviewed by Phill Quiñones MD. cm10 22:05 Briseida Larios is Primary Nurse. cp4 22:09 XRAY Chest (1 view) In Process Unspecified. EDMS 22:29 Bed in low position. Call light in reach. Side rails up X 1. Provided Education on:. cp4 Client placed on continuous cardiac and pulse oximetry monitoring. NIBP monitoring applied. monitoring manager on. Pulse ox on. NIBP on. 22:29 No provider procedures requiring assistance completed. Inserted saline lock: 20 gauge cp4 in right antecubital area, using aseptic technique. Blood collected. Flushed with 10 mL NS. Patient maintains SpO2 saturation greater than 95% on room air. 06/08 02:07 Miki Carrington MD is Referral Physician. cp 02:12 intact, bleeding controlled, No redness/swelling at site. Pressure dressing applied. cp4 Administered Medications: 06/07 22:45 Drug: hydrALAZINE IVP 20 mg IVP once Route: IVP; Site: right antecubital; cp4 22:45 Drug: morphine IVP or IV 4 mg IVP once over 4 mins Route: IVP; Infused Over: 4 mins; cp4 Site: right antecubital; 23:30 Follow up: Response: No adverse reaction; Pain is decreased cp4 22:46 Drug: Ondansetron IVP 4 mg IVP once; over 2 minutes Route: IVP; Site: right antecubital;cp4 23:30 Follow up: Response: No adverse reaction cp4 23:00 Drug: hydrALAZINE IVP 20 mg IVP once Route: IVP; Site: right antecubital; cp4 23:30 Follow up: Response: No adverse reaction; Blood pressure is lowered cp4 06/08 00:08 Drug: Aspirin PO Chewable Tablet 324 mg PO once; 81 mg tablets x 4 Route: PO; cp4 01:11 Follow up: Response: No adverse reaction cp4 00:08 Drug: morphine IVP or IV 4 mg IVP once over 4 mins Route: IVP; Infused Over: 4 mins; cp4 Site: right antecubital; 01:11 Follow up: Response: No adverse reaction; Pain is decreased cp4 00:08 Drug: Ativan IVP 0.5 mg IVP once Route: IVP; Site: right antecubital; cp4 01:11 Follow up: Response: No adverse reaction cp4 01:53 Drug: Eliquis PO 5 mg PO once Route: PO; cp4 02:10 Follow up: Response: No adverse reaction cp4 Medication: 06/07 22:29 VIS not applicable for this client. cp4 Outcome: 06/08 01:02 ER care complete, transfer ordered by . cp 02:12 AMA AMA form signed cp4 02:12 AMA AMA form signed 02:12 Condition: stable 02:12 Instructed on follow up and referral plans. Demonstrated understanding of follow-up care, 02:13 Patient left the ED. cp4 Signatures: Dispatcher [employer] EDPreeti Estrada RN RN kl Rivera, Mary, Reg Reg mr Page, Corey, PA PA cp Martinez, Clarissa, RN RN Briseida Allred cp4
--- NOTE | 2024-06-08 01:02 | EDPHYS ---
Physician Documentation [facility] Name: Dasia Monroe Age: 38 yrs Sex: Male : 1985 Arrival Date: 06/07/2024 Time: 21:16 Bed 17 Private MD: ED Physician Phill Quiñones HPI: 06/06 21:50 This 38 yrs old Male presents to ER via Ambulatory with complaints of Chest cp Pain, Pain All Over. Historical: - Allergies: 06/07 21:37 No Known Allergies; cm10 - PMHx: 21:37 4 herniated disk; Anxiety; Congestive heart failure; diabetes mellitus; Dialysis cm10 (dialysis access johanna); Hypertensive disorder; kidney disease; - PSHx: 21:37 dialysis access placement; cm10 - Immunization history:: Adult Immunizations up to date. - Infectious Disease History:: Denies. - Social history:: Smoking status: Patient reports the use of cigarette tobacco products, smokes one pack cigarettes per day. ROS: 21:55 Cardiovascular: Positive for chest pain, cp 21:55 Eyes: Negative for injury, pain, redness, and discharge, cp 21:55 Constitutional: Negative for body aches, chills, fever, poor PO intake, Exam: 21:39 ECG was reviewed by the Attending Physician. cp 22:00 Constitutional: The patient appears in no acute distress, alert, awake, cp non-diaphoretic, non-toxic, well developed, well nourished, uncomfortable, 22:00 Head/Face: Normocephalic, atraumatic. cp Vital Signs: 21:36 BP 228 / 106; Pulse 78; Resp 18; Temp 97.9(TE); Pulse Ox 96% on R/A; Weight 79 kg; cm10 Height 5 ft. 5 in. ; Pain 10/10; 22:35 BP 195 / 98; Pulse 72; Resp 18; Pulse Ox 98% ; cp4 22:58 BP 179 / 77; Pulse 73; Resp 18; Pulse Ox 98% ; cp4 23:24 BP 137 / 76; Pulse 79; Resp 18; Pulse Ox 98% ; cp4 06/08 00:14 BP 151 / 86; Pulse 62; Resp 18; Pulse Ox 99% ; cp4 01:09 BP 151 / 73; Pulse 64; Resp 18; Pulse Ox 98% ; cp4 02:09 BP 164 / 83; Pulse 67; Resp 18; Pulse Ox 99% ; cp4 06/07 21:36 Body Mass Index 28.98 (79.00 kg, 165.1 cm) cm10 06/07 21:36 Pain Scale: Adult cm10 MDM: 06/07 21:44 Medical Screening Exam initiated cp 22:00 Differential diagnosis: acute myocardial infarction, pericarditis, pleurisy, pneumonia, cp pneumothorax, pulmonary embolus, stable angina, thoracic aortic disection, unstable angina. 06/08 00:50 The patient was given aspirin in the Emergency Department. cp 00:50 Data reviewed: vital signs, nurses notes, lab test result(s), EKG, radiologic studies. 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 01:24 ED course: [facility] troponin and call back. 06/07 21:44 Order name: Basic Metabolic Panel; Complete Time: 23:41 cp 06/07 23:41 Interpretation: Normal except: GLUC 141; BUN 26; CRE 7.29; GFR 9. cp 06/07 21:44 Order name: CBC with Diff; Complete Time: 23:41 cp 06/07 23:41 Interpretation: Normal except: RBC 3.20; HGB 11.0; HCT 31.5; MPV 6.9; LYM% 12.4. cp 06/07 21:44 Order name: LFT's; Complete Time: 23:41 cp 06/07 21:44 Order name: Magnesium; Complete Time: 23:41 cp 06/07 21:44 Order name: NT PRO-BNP; Complete Time: 23:41 cp 06/07 21:44 Order name: PT-INR; Complete Time: 23:41 cp 06/07 21:44 Order name: Troponin HS; Complete Time: 23:41 cp 06/07 23:46 Interpretation: Troponin HS 242.1; Reviewed. cp 06/07 21:45 Order name: Lipase; Complete Time: 23:41 cp 06/08 01:24 Order name: Troponin High Sensitivity cp 06/07 21:44 Order name: XRAY Chest (1 view); Complete Time: 22:36 cp 06/07 22:36 Interpretation: Report review. cp 06/07 21:44 Order name: EKG; Complete Time: :45 06/07 21:44 Order name: Cardiac monitoring; Complete Time: : cp 06/07 21:44 Order name: EKG - Nurse/Tech; Complete Time: 22:28 cp 06/07 21:44 Order name: IV Saline Lock; Complete Time: 22:28 06/07 21:44 Order name: Labs collected and sent; Complete Time: : cp 06/07 21:44 Order name: O2 Per Protocol; Complete Time: : cp 06/07 21:44 Order name: O2 Sat Monitoring; Complete Time: :28 EC/04 21:39 Rate is 81 beats/min. Rhythm is regular. MD interval is normal. QRS interval is normal. cp QT interval is normal. T waves are Inverted in lead aVR. Interpreted by me. Reviewed by me. Administered Medications: 22:45 Drug: hydrALAZINE IVP 20 mg IVP once Route: IVP; Site: right antecubital; cp4 22:45 Drug: morphine IVP or IV 4 mg IVP once over 4 mins Route: IVP; Infused Over: 4 mins; cp4 Site: right antecubital; 23:30 Follow up: Response: No adverse reaction; Pain is decreased cp4 22:46 Drug: Ondansetron IVP 4 mg IVP once; over 2 minutes Route: IVP; Site: right antecubital;cp4 23:30 Follow up: Response: No adverse reaction cp4 23:00 Drug: hydrALAZINE IVP 20 mg IVP once Route: IVP; Site: right antecubital; cp4 23:30 Follow up: Response: No adverse reaction; Blood pressure is lowered cp4 06/08 00:08 Drug: Aspirin PO Chewable Tablet 324 mg PO once; 81 mg tablets x 4 Route: PO; cp4 01:11 Follow up: Response: No adverse reaction cp4 00:08 Drug: morphine IVP or IV 4 mg IVP once over 4 mins Route: IVP; Infused Over: 4 mins; cp4 Site: right antecubital; 01:11 Follow up: Response: No adverse reaction; Pain is decreased cp4 00:08 Drug: Ativan IVP 0.5 mg IVP once Route: IVP; Site: right antecubital; cp4 01:11 Follow up: Response: No adverse reaction cp4 01:53 Drug: Eliquis PO 5 mg PO once Route: PO; cp4 02:10 Follow up: Response: No adverse reaction cp4 Disposition: 03:39 Co-signature as Attending Physician, Phill Quiñones MD I agree with the assessment sp4 and plan of care. I reviewed the patient's care provided by Advanced Practice Provider \T\ agree w/ the diagnosis \T\ care plan. I personally saw the pt \T\ performed a substantive portion of the visit, incldng all aspects of the (History/Exam/Medical Decision Making). 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 EDMS EDMS 23:46 23:42 Reviewed. cp cp 06/08 02:07 01:02 Doctor cp cp 02: 01:02 [facility] cp cp 02:07 01:02 Higher level of care cp cp 02:07 01:02 Stable cp cp 02:07 01:02 new cp cp 02:07 01:02 have improved cp cp 02:07 01:02 Chest pain, unspecified cp cp
[2024-06-08] MEDS ORDERED: APIXABAN 5 MG TABLET ONE (01:47)
[2024-06-08 03:33] VITALS: TEMP 97.9
[2024-06-08 03:39] VITALS: BP 164/83; O2SAT 99
--- NOTE | 2024-06-08 12:17 | EKG ---
Test Date: 2024-06-07 Test Time: 21:33:25 Fee Clerk: ROMAN MEASUREMENT RESULTS: Intervals: Rate: 81 IL: 138 QRSD: 84 QT: 370 QTc: 429 [place]: P: 59 IL: 138 QRS: -73 T: 62 INTERPRETIVE STATEMENTS: Sinus rhythm with premature supraventricular complexes Left anterior fascicular block Abnormal ECG Compared to ECG 05/19/2024 22:09:20 Atrial premature complex(es) now present Left anterior fascicular block now present ST (T wave) deviation no longer present Electronically Signed On 06-08-24 12:15:49 OCCUP THERAPIST by Brady mAaya
== END 2024-06-08 02:13 | disposition left against medical advice (07) ==
LOC: ER 21:16
DX: I22.2 Subsequent non-ST elevation (NSTEMI) myocardial infarction (principal); I21.9 Acute myocardial infarction, unspecified; E11.22 Type 2 diabetes mellitus with diabetic chronic kidney disease; I13.2 Hypertensive heart and chronic kidney disease with heart failure and with stage 5 chronic kidney disease, or end stage renal disease; I50.9 Heart failure, unspecified; N18.6 End stage renal disease; Z99.2 Dependence on renal dialysis; F17.210 Nicotine dependence, cigarettes, uncomplicated
CPT/HCPCS: 93005; 85025; 80048; 36415; 83735; 85610; 80076; 84484 ×2; 83690; 83880; 71045; 96375; 96374; 99285; J0360; J2270; J2405

== ENCOUNTER 2024-06-16 15:42 | Emergency (ER) | payer OTHER ==
--- NOTE | 2024-06-16 16:38 | ER ---
Nurse's Notes 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 16:28 Coronavirus screen: Vaccine status: Patient reports receiving the 2nd dose of the covid ph vaccine. Ebola Screen: No symptoms or risks identified at this time. Initial Sepsis Screen: Does the patient meet any 2 criteria? No. Patient's initial sepsis screen is negative. Does the patient have a suspected source of infection? No. Patient's initial sepsis screen is negative. Risk Assessment: Do you want to hurt yourself or someone else? Patient reports no desire to harm self or others. Onset of symptoms was June 16, 2024. 16:28 Method Of Arrival: EMS: [facility] ph 16:28 Acuity: [place] 3 ph Historical: - Allergies: 16:29 No Known Drug Allergies; ph - PMHx: 16:29 4 herniated disk; Anxiety; Congestive heart failure; diabetes mellitus; Dialysis ph (dialysis access johanna); Hypertensive disorder; kidney disease; - PSHx: 16:29 dialysis access placement; ph - Immunization history:: Adult Immunizations up to date. - Infectious Disease History:: Denies. - Social history:: Smoking status: Patient denies any tobacco usage or history of. Screenin:04 [facility] ED Fall Risk Assessment (Adult) History of falling in the last 3 months, ll1 including since admission No falls in past 3 months (0 pts) Confusion or Disorientation No (0 pts) Intoxicated or Sedated No (0 pts) Impaired Gait No (0 pts) Mobility Assist Device Used No (0 pt) Altered Elimination No (0 pt) Score/Fall Risk Level 0 - 2 = Low Risk Maintained a safe environment, Hourly rounding (assess needs \T\ fall precautionary measures) done. Abuse screen: Denies threats or abuse. Nutritional screening: No deficits noted. Tuberculosis screening: No symptoms or risk factors identified. Assessment: 17:03 General: Appears in no apparent distress. Behavior is calm, cooperative, appropriate ll1 for age. Pain: Denies pain. Neuro: No deficits noted. Cardiovascular: Reports feeling better. Vital Signs: 16:28 BP 147 / 75; Pulse 66; Resp 18; Temp 97.8; Pulse Ox 98% on R/A; ph ED Course: 15:43 Patient arrived in ED. ec2 15:43 Juan Luis Lundy MD is Attending Physician. ec2 16:08 Carito Macario, RN is Primary Nurse. ph 16:28 Triage completed. ph 16:29 Arm band placed on Patient placed in an exam room. ph 16:34 XRAY Chest (1 view) In Process Unspecified. EDMS 17:04 Patient has correct armband on for positive identification. Provided Education on: ll1 return to ED for worsening symptoms. 17:04 Maintain EMS IV. Dressing intact. Good blood return noted. Site clean \T\ dry. Gauge \T\ ll 1 site: 18 G R FA. 17:04 No provider procedures requiring assistance completed. IV discontinued, intact, ll1 bleeding controlled, No redness/swelling at site. Pressure dressing applied. Administered Medications: No medications were administered Medication: 17:05 VIS not applicable for this client. ll1 Outcome: 16:38 Discharge ordered by . ec2 17:04 Discharged to home ambulatory, ll1 17:04 Condition: stable 17:04 Discharge instructions given to patient, Instructed on discharge instructions, follow up and referral plans. Demonstrated understanding of instructions, follow-up care, 17:05 Patient left the ED. ll1 Signatures: Dispatcher [employer] Carito Lopez, ROSIO AVELAR ph Janette Nassar RN RN 1 Juan Luis Lundy MD MD [facility]
--- NOTE | 2024-06-16 16:39 | EDPHYS ---
Physician Documentation [facility] Name: Dasia Monroe Age: 38 yrs Sex: Male : 1985 Arrival Date: 06/16/2024 Time: 15:42 Bed 5 Private MD: ED Physician Juan Luis Lundy HPI: 06/16 16:16 This 38 yrs old Male presents to ER via Unassigned with complaints of afib w/ ec2 rvr. 16:17 Patient arrives today for evaluation of A-fib with RVR. Patient with history of atrial ec2 fibrillation, takes Eliquis and metoprolol, was noted to have palpitations subsequently called EMS. EMS had noted him to be with heart rates in the 140s to 160s, give the patient 20 mg of diltiazem with resolution of tachycardia. No chest pain or difficulty breathing. Was undergoing dialysis just prior to onset. Historical: - Allergies: 16:29 No Known Drug Allergies; ph - PMHx: 16:29 4 herniated disk; Anxiety; Congestive heart failure; diabetes mellitus; Dialysis ph (dialysis access johanna); Hypertensive disorder; kidney disease; - PSHx: 16:29 dialysis access placement; ph - Immunization history:: Adult Immunizations up to date. - Infectious Disease History:: Denies. - Social history:: Smoking status: Patient denies any tobacco usage or history of. ROS: 16:17 Constitutional: as per hpi ec2 Exam: 16:17 Constitutional: GEN: NAD Head: atraumatic Eyes: EOMI Ears: External ears are ec2 normal. CV: regular rate LUNGS: no respiratory distress ABD: non-distended SKIN: no evidence of rashes MSK: no evidence of trauma Vital Signs: 16:28 BP 147 / 75; Pulse 66; Resp 18; Temp 97.8; Pulse Ox 98% on R/A; ph MDM: 15:44 Medical Screening Exam initiated ec2 16:17 Data reviewed: vital signs, nurses notes. ED course: Patient arrives today for ec2 evaluation of A-fib with RVR. Examination is unrevealing. Will obtain lab work, EKG as well as chest x-ray. Differential diagnosis includes electrolyte disturbances, anemia, volume overload.. 16:38 ED course: Patient reports that he has returned to baseline and no longer feels ec2 palpitations. No longer warrants additional workup.Will discharge home. Return precautions given.. 06/16 15:44 Order name: XRAY Chest (1 view); Complete Time: 16:50 ec2 06/16 15:44 Order name: EKG; Complete Time: 15:44 ec2 06/16 15:44 Order name: Cardiac monitoring ec2 06/16 15:44 Order name: EKG - Nurse/Tech ec2 06/16 15:44 Order name: IV Saline Lock ec2 06/16 15:44 Order name: Labs collected and sent ec2 06/16 15:44 Order name: O2 Per Protocol ec2 06/16 15:44 Order name: O2 Sat Monitoring ec2 Administered Medications: No medications were administered Disposition Summary: 06/16/24 16:38 Discharge Ordered Notes: Location: Home ec2 Condition: Stable ec2 Diagnosis - Persistent atrial fibrillation ec2 Followup: ec2 - With: Private Physician - When: - Reason: Re-evaluation by your physician Forms: - Medication Reconciliation Form ec2 - Antibiotic Education ec2 - Prescription Opioid Use ec2 - Patient Portal Instructions ec2 - Leadership Thank You Letter ec2 Signatures: Dispatcher [employer] EDCarito Briceño RN RN Janette Biggs RN RN ll1 Juan Luis Lundy MD MD ec2 Corrections: (The following items were deleted from the chart) 15:44 15:44 BASIC METABOLIC PANEL+C.LAB.BRZ ordered. EDMS EDMS 15:44 15:44 CBC+H.LAB.BRZ ordered. EDMS EDMS 15:44 15:44 MAGNESIUM+C.LAB.BRZ ordered. EDMS EDMS 15:44 15:44 PROBNP+C.LAB.BRZ ordered. EDMS EDMS 15:44 15:44 Troponin High Sensitivity+C.LAB.BRZ ordered. EDMS EDMS 16:50 16:38 ED course: Patient reports that he has returned to baseline and no longer feels ec2 palpitations. Will discharge home. Return precautions given.. ec2
--- NOTE | 2024-06-16 16:43 | RAD REPORT ---
EXAMINATION: ONE VIEW CHEST XR CLINICAL INDICATION: DYSPNEA TECHNIQUE: Frontal chest projection is submitted. Examination is limited by patient positioning and t echnique. COMPARISON: 06/07/2024 FINDINGS: Mild pulmonary edema. The heart is upper limit of normal in size. No displaced fractures identified. IMPRESSION: Mild CHF is possible.
[2024-06-16 18:08] VITALS: BP 147/75; TEMP 97.8; O2SAT 98
== END 2024-06-16 17:05 | disposition home or self-care (01) ==
LOC: ER 15:42
DX: I48.19 Other persistent atrial fibrillation (principal); I50.9 Heart failure, unspecified; E11.22 Type 2 diabetes mellitus with diabetic chronic kidney disease; N18.6 End stage renal disease; I10 Essential (primary) hypertension; Z99.2 Dependence on renal dialysis
CPT/HCPCS: 71045

== ENCOUNTER 2024-07-03 13:58 | Inpatient (IN) | payer OTHER ==
[2024-07-03] MEDS ORDERED: ONDANSETRON 4 MG/2 ML VIAL ONE ×3 (15:25→19:36)
[2024-07-03] MEDS ORDERED: METOPROLOL TARTRATE 5 MG/5 ML INJ IV ONE ×2 (15:25→19:36)
[2024-07-03] MEDS ORDERED: METOPROLOL XL 50 MG TAB PO ONE (15:25)
[2024-07-03] MEDS ORDERED: METOPROLOL TAR 50 MG TAB ONE (15:29)
[2024-07-03 15:55] LABS: PT Prothrombin Time 15.1 SECONDS (9.4-12.5); Protime INR 1.36
--- NOTE | 2024-07-03 16:04 | RAD REPORT ---
EXAM: Chest Single View HISTORY: COUGH COMPARISON: 06/16/2024 FINDINGS: LUNGS/PLEURA: The lungs are clear. No pleural effusions or pneumothorax. No pulmonary edema. MEDIASTINUM: The mediastinal silhouette is within normal limits. CARDIAC: Similar size and configuration UPPER ABDOMEN: No significant abnormality. BONES: No acute fracture. LINES/TUBES/OTHER: N/A IMPRESSION: No evidence of acute cardiopulmonary disease.
[2024-07-03 16:18] LABS: Absolute Lymphocytes (CBC) 0.3 K/uL (0.7-4.9); Absolute Monocytes 0.4 K/uL (0.1-1.3); Absolute Neutrophil 2.9 K/uL (1.8-8.0); Basophils % 0.4 % (0-1.3); Hematocrit 42.7 % (39.6-49.0); Hemoglobin 14.6 g/dL (13.6-17.9); Lymphocytes % 9.1 % (15.3-44.8); MCH 33.2 pg (27.0-35.0); MCHC 34.3 g/dL (32.0-36.0); MCV 96.8 fL (80-100); MPV 7.6 fL (7.6-11.3); Monocytes % 10.6 % (3.3-12.3); Neutrophils % 79.9 % (41.7-73.7); Platelets 172 thou/uL (152-406); RBC Red Blood Cell Count 4.41 M/uL (4.33-5.43); Red Cell Distribution Width 14.6 % (12.1-15.2)
[2024-07-03 16:23] LABS: Albumin 4.2 g/dL (3.4-5.0); Albumin/Globulin Ratio 0.8 (1.1-1.8); Anion Gap 30.5 mEq/L (5.0-15.0); Bilirubin Direct 0.3 mg/dL (0-0.2); Bilirubin Indirect, Calculated 0.4 mg/dL (0.2-0.8); Bilirubin Total 0.7 mg/dL (0.2-1.0); Globulin 5.1 g/dL (2.3-3.5); Magnesium 2.7 mg/dL (1.6-2.4); Potassium 5.5 mEq/L (3.5-5.1); Protein, Total 9.3 g/dL (6.4-8.2); Thyroid Stimulating Hormone 0.833 uIU/mL (0.358-3.740)
[2024-07-03 16:24] LABS: SARS-CoV-2 Antigen CONTROL BLUE LINE VIS/BG OK; SARS-CoV-2 Antigen Rapid Res Negative (Negative)
[2024-07-03 16:25] LABS: Troponin High Sensitivity 297.3 pg/mL (<58.9)
[2024-07-03] MEDS ORDERED: DIGOXIN 0.25 MG/ML AMP ONE (16:59)
[2024-07-03] MEDS ORDERED: SOD POLYSTYREN SUL 15 GM/60 ML UCUP ONE (17:00)
[2024-07-03] MEDS ORDERED: LORAZEPAM 1 MG TABLET ONE (17:06)
[2024-07-03] MEDS ORDERED: AMIODARONE HCL 150 MG/3 ML INJ IV ONE (17:20)
[2024-07-03] MEDS ORDERED: AMIODARONE IN DEXTROSE,ISO-OSM 0 MG/0 ML BAG IV ONE (17:20)
[2024-07-03] MEDS ORDERED: D5W 100 ML IV ONE (17:24)
--- NOTE | 2024-07-03 17:25 | ER ---
Nurse's Notes [facility] Name: Dasia Monroe Age: 38 yrs Sex: Male : 1985 Arrival Date: 07/03/2024 Time: 13:58 Bed 4 Private MD: Diagnosis: Chronic combined systolic (congestive) and diastolic (congestive) heart failure;Dependence on renal dialysis-MISSED FRIDAY AND FRIDAY;Vomiting;Hyperkalemia-5.5;Atypical atrial flutter-2:1;Hypo-osmolality and hyponatremia;Dyspnea Presentation: 07/03 14:42 Chief complaint: Patient states: "I've had a cold, so I've missed dialysis since Friday ss and they told me to come to the ER because my heart rate is up to 150, but I've been stubborn.". Coronavirus screen: Client denies travel out of the [place] in the last 14 days. Ebola Screen: Patient denies exposure to infectious person. Patient denies travel to an Ebola-affected area in the 21 days before illness onset. Initial Sepsis Screen: Does the patient meet any 2 criteria? No. Patient's initial sepsis screen is negative. Does the patient have a suspected source of infection? No. Patient's initial sepsis screen is negative. Risk Assessment: Do you want to hurt yourself or someone else? Patient reports no desire to harm self or others. Onset of symptoms is unknown. 14:42 Method Of Arrival: Ambulatory ss 14:42 Acuity: GUA[place]KITO 2 ss Historical: - Allergies: 14:43 No Known Allergies; ss - PMHx: 14:43 4 herniated disk; Anxiety; Congestive heart failure; diabetes mellitus; Dialysis ss (dialysis access johanna); Hypertensive disorder; kidney disease; - PSHx: 14:43 dialysis access placement; ss - Immunization history:: Adult Immunizations unknown. - Infectious Disease History:: Denies. - Social history:: Smoking status: unknown Patient uses street drugs, marijuana. Screenin:50 [facility] ED Fall Risk Assessment (Adult) History of falling in the last 3 months, jl7 including since admission No falls in past 3 months (0 pts) Confusion or Disorientation No (0 pts) Intoxicated or Sedated No (0 pts) Impaired Gait No (0 pts) Mobility Assist Device Used No (0 pt) Altered Elimination No (0 pt) Score/Fall Risk Level 0 - 2 = Low Risk Oriented to surroundings, Maintained a safe environment. Abuse screen: Denies threats or abuse. Denies injuries from another. Nutritional screening: No deficits noted. Tuberculosis screening: No symptoms or risk factors identified. Assessment: 15:30 General: Appears uncomfortable, ill, Behavior is cooperative, anxious, restless. Pain: jl7 Complains of pain in all over Pain currently is 10 out of 10 on a pain scale. Neuro: Level of Consciousness is awake, alert, obeys commands, Oriented to person, place, time, situation. Cardiovascular: Heart tones present Patient's skin is warm and dry. Rhythm is irregular. Respiratory: Airway is patent Respiratory effort is even, unlabored, Respiratory pattern is regular, symmetrical. GI: Abdomen is non-distended, Reports nausea, vomiting. : Reports anuria. Derm: Skin is pink, warm \\T\\ dry. 15:49 Reassessment: pt reports he does not make urine, ERD notified, lab notified to cancel jl7 urine. 16:30 Reassessment: Patient appears in no apparent distress at this time. No changes from jl7 previously documented assessment. Patient and/or family updated on plan of care and expected duration. Pain level reassessed. Patient is alert, oriented x 3, equal unlabored respirations, skin warm/dry/pink. 17:30 Reassessment: Patient appears in no apparent distress at this time. No changes from jl7 previously documented assessment. Patient and/or family updated on plan of care and expected duration. Pain level reassessed. Patient is alert, oriented x 3, equal unlabored respirations, skin warm/dry/pink. 18:30 Reassessment: Patient appears in no apparent distress at this time. No changes from jl7 previously documented assessment. Patient and/or family updated on plan of care and expected duration. Pain level reassessed. Patient is alert, oriented x 3, equal unlabored respirations, skin warm/dry/pink. 19:00 Reassessment: No changes from previously documented assessment. Patient and/or family vc1 updated on plan of care and expected duration. Pain level reassessed. GI: Abdomen is round non-distended, Pt is actively vomiting Reports nausea. Vital Signs: 14:42 BP 153 / 118; Pulse 146; Resp 18; Temp 98.3(TE); Pulse Ox 99% on R/A; Weight 77.4 kg; ss Height 5 ft. 5 in. ; Pain 10/10; 15:28 BP 158 / 114; Pulse 145; Resp 15; Pulse Ox 100% ; Pain 10/10; jl7 15:37 BP 144 / 96; Pulse 141; jl7 15:50 BP 150 / 110; Pulse 137; jl7 16:30 BP 121 / 96; Pulse 137; Resp 15; Pulse Ox 98% ; jl7 17:30 BP 154 / 110; Pulse 134; Resp 15; Pulse Ox 98% ; jl7 18:00 BP 144 / 110; Pulse 134; Resp 17; Pulse Ox 97% ; jl7 18:30 BP 142 / 100; Pulse 135; Resp 15; Pulse Ox 97% ; jl7 19:00 BP 181 / 145; Pulse 134; Resp 19; Pulse Ox 98% ; vc1 19:30 BP 141 / 104; Pulse 135; Resp 20; Pulse Ox 99% ; vc1 14:42 Body Mass Index 28.40 (77.40 kg, 165.1 cm) ss 14:42 Pain Scale: Adult ss 15:28 Pain Scale: Adult jl7 ED Course: 13:59 Patient arrived in ED. im 14:39 Jordan Castano MD is Attending Physician. griffin 14:43 Triage completed. ss 14:43 Arm band placed on left wrist. ss 14:58 EKG done, by ED staff, reviewed by Jordan Castano MD. em1 15:09 Reji Jolley, RN is Primary Nurse. jl7 15:38 XRAY Chest (1 view) In Process Unspecified. EDMS 15:49 Initial lab(s) drawn, by oh, sent to lab. Inserted saline lock: 20 gauge in right jl7 antecubital area, using aseptic technique. Blood collected. Flushed with 10 mL NS. 15:50 Patient has correct armband on for positive identification. Provided Education on: use jl7 of call pineda. 17:22 Ismael Harris is Hospitalizing Provider. griffin 18:55 Notified the admitting physician of a critical lab result(s), Phos 17.0. jl7 20:51 No provider procedures requiring assistance completed. Patient admitted, IV remains in cp4 place. Administered Medications: 15:25 Drug: Ondansetron IVP 4 mg IVP once; over 2 minutes Route: IVP; Site: right antecubital;jl7 15:40 Follow up: Response: No adverse reaction; Nausea is decreased jl7 15:30 Drug: Metoprolol IVP 5 mg IVP every 5 minutes; Hold for SBP < 100 or HR < 60. x3 Route: jl7 IVP; Site: right antecubital; 15:35 Drug: Metoprolol IVP 5 mg IVP every 5 minutes; Hold for SBP < 100 or HR < 60. x3 Route: jl7 IVP; Site: right antecubital; 15:35 Follow up: Response: No adverse reaction; Cardiac rhythm is unchanged jl7 15:40 Follow up: Response: No adverse reaction; Cardiac rhythm is unchanged jl7 15:50 Drug: Metoprolol IVP 5 mg IVP every 5 minutes; Hold for SBP < 100 or HR < 60. x3 Route: jl7 IVP; Site: right antecubital; 15:55 Follow up: Response: No adverse reaction; Cardiac rhythm is unchanged jl7 16:42 Drug: Metoprolol PO 50 mg PO once Route: PO; jl7 18:02 Follow up: Response: No adverse reaction jl7 17:13 Drug: Digoxin IVP 0.5 mg IVP once Route: IVP; Site: right antecubital; jl7 18:00 Follow up: Response: No adverse reaction; No change in condition jl7 17:17 Drug: Kayexalate PO 45 grams PO once Route: PO; jl7 17:45 Follow up: Response: No adverse reaction; Pt drank 30 G, refused last 15 g jl7 17:18 Drug: ALPRAZolam PO Tablet 1 mg PO once Route: PO; jl7 17:57 Follow up: Response: No adverse reaction jl7 17:30 Drug: Ondansetron IVP 4 mg IVP once; over 2 minutes Route: IVP; Site: right antecubital;jl7 18:03 Follow up: Response: No adverse reaction; Nausea is decreased jl7 17:35 Drug: amiodarone IVPB 150 mg 100 ml IVPB once over 10 mins; (mix in D5W) Volume: 100 jl7 ml; Route: IVPB; Infused Over: 10 mins; Site: right antecubital; 17:45 Follow up: Response: No adverse reaction; IV Status: Completed infusion jl7 17:50 Drug: amiodarone IVPB 900 mg, D5W IV 500 ml IVPB at 1 mg/min continuous; for 6 hrs, jl7 then change to 0.5 mg/min Route: IVPB; Rate: 1 mg/min; Site: right antecubital; 19:33 Follow up: Response: No adverse reaction; IV Status: Infusion continued upon admission jl7 17:56 Drug: HYDROmorphone IVP 0.5 mg IVP once Route: IVP; Site: right antecubital; jl7 19:32 Follow up: Response: No adverse reaction jl7 Medication: 18:30 VIS not applicable for this client. jl7 Intake: Outcome: 17:25 Decision to Hospitalize by Provider. griffin 20:51 Admitted to [facility] 20:51 Condition: stable 20:51 Instructed on the need for admit, 20:52 Admitted to ICU accompanied by nurse, via stretcher, room 1-, vc1 20:52 Condition: good 20:52 Patient left the ED. 1 Signatures: Dispatcher [employer] EDAL Jordan Castano MD MD cha Martinez, Eric 1 Stefany Shields, RN RN Reji Barnard RN RN jl7 Beba Howard RN RN [facility] Ilene Olivarez Christina [facility] Corrections: (The following items were deleted from the chart) 19:34 15:37 Response: No adverse reaction; Cardiac rhythm is unchanged jl7 jl7
--- NOTE | 2024-07-03 17:25 | EDPHYS ---
Physician Documentation [facility] Name: Dasia Monroe Age: 38 yrs Sex: Male : 1985 Arrival Date: 07/03/2024 Time: 13:58 Bed 4 Private MD: TARA Physician Jordan Castano HPI: 07/03 17:09 This 38 yrs old Male presents to ER via Ambulatory with complaints of griffin Nausea/Vomiting, Pain All Over, Dialysis, Afib. 17:09 The patient presents to the emergency department with nausea, vomiting, that is griffin intermittent. Onset: The symptoms/episode began/occurred 5 day(s) ago. Possible causes: unknown. The symptoms are aggravated by nothing. The symptoms are alleviated by nothing. The patient has experienced similar episodes in the past, multiple times. Historical: - Allergies: 14:43 No Known Allergies; ss - PMHx: 14:43 4 herniated disk; Anxiety; Congestive heart failure; diabetes mellitus; Dialysis ss (dialysis access johanna); Hypertensive disorder; kidney disease; - PSHx: 14:43 dialysis access placement; ss - Immunization history:: Adult Immunizations unknown. - Infectious Disease History:: Denies. - Social history:: Smoking status: unknown Patient uses street drugs, marijuana. ROS: 17:10 Constitutional: Negative for fever, chills, and weight loss, Eyes: Negative for injury, griffin pain, redness, and discharge, ENT: Negative for injury, pain, and discharge, Neck: Negative for injury, pain, and swelling, Abdomen/GI: Negative for abdominal pain, nausea, vomiting, diarrhea, and constipation, Back: Negative for injury and pain, : Negative for injury, bleeding, discharge, and swelling, MS/Extremity: Negative for injury and deformity, Skin: Negative for injury, rash, and discoloration, Neuro: Negative for headache, weakness, numbness, tingling, and seizure, Psych: Negative for depression, anxiety, suicide ideation, homicidal ideation, and hallucinations, Allergy/Immunology: Negative for hives, rash, and allergies, Endocrine: Negative for neck swelling, polydipsia, polyuria, polyphagia, and marked weight changes, Hematologic/Lymphatic: Negative for swollen nodes, abnormal bleeding, and unusual bruising, 17:10 Cardiovascular: Positive for palpitations, Negative for chest pain, palpitations, 17:10 Respiratory: Positive for cough, shortness of breath, at rest. Exam: 17:10 Constitutional: This is a well developed, well nourished patient who is awake, alert, griffin and in no acute distress. Head/Face: Normocephalic, atraumatic. Eyes: Pupils equal round and reactive to light, extra-ocular motions intact. Lids and lashes normal. Conjunctiva and sclera are non-icteric and not injected. Cornea within normal limits. Periorbital areas with no swelling, redness, or edema. ENT: Nares patent. No nasal discharge, no septal abnormalities noted. Tympanic membranes are normal and external auditory canals are clear. Oropharynx with no redness, swelling, or masses, exudates, or evidence of obstruction, uvula midline. Mucous membranes moist. Neck: Trachea midline, no thyromegaly or masses palpated, and no cervical lymphadenopathy. Supple, full range of motion without nuchal rigidity, or vertebral point tenderness. No Meningismus. Chest/axilla: Normal chest wall appearance and motion. Nontender with no deformity. No lesions are appreciated. Abdomen/GI: Soft, non-tender, with normal bowel sounds. No distension or tympany. No guarding or rebound. No evidence of tenderness throughout. Back: No spinal tenderness. No costovertebral tenderness. Full range of motion. Male : Normal genitalia with no discharge or lesions. Skin: Warm, dry with normal turgor. Normal color with no rashes, no lesions, and no evidence of cellulitis. MS/ Extremity: Pulses equal, no cyanosis. Neurovascular intact. Full, normal range of motion., bilateral aka Neuro: Awake and alert, GCS 15, oriented to person, place, time, and situation. Cranial nerves II-XII grossly intact. Motor strength 5/5 in all extremities. Sensory grossly intact. Cerebellar exam normal. Normal gait. Psych: Awake, alert, with orientation to person, place and time. Behavior, mood, and affect are within normal limits. 17:10 Cardiovascular: Rate: tachycardic, actual rate is 144 bpm, Rhythm: regular, Pulses: Pulses are 4+ in bilateral radial, brachial, femoral, popliteal, posterior tibial and and dorsalis pedis arteries.. Heart sounds: murmur, systolic, grade 2 over 6, Edema: 1+ edema to level of left midcalf and right midcalf, JVD: is noted bilaterally, to 2 cm, 17:10 ECG was reviewed by the Attending Physician. Vital Signs: 14:42 BP 153 / 118; Pulse 146; Resp 18; Temp 98.3(TE); Pulse Ox 99% on R/A; Weight 77.4 kg; ss Height 5 ft. 5 in. ; Pain 10/10; 15:28 BP 158 / 114; Pulse 145; Resp 15; Pulse Ox 100% ; Pain 10/10; jl7 15:37 BP 144 / 96; Pulse 141; jl7 15:50 BP 150 / 110; Pulse 137; jl7 16:30 BP 121 / 96; Pulse 137; Resp 15; Pulse Ox 98% ; jl7 17:30 BP 154 / 110; Pulse 134; Resp 15; Pulse Ox 98% ; jl7 18:00 BP 144 / 110; Pulse 134; Resp 17; Pulse Ox 97% ; jl7 18:30 BP 142 / 100; Pulse 135; Resp 15; Pulse Ox 97% ; jl7 19:00 BP 181 / 145; Pulse 134; Resp 19; Pulse Ox 98% ; vc1 19:30 BP 141 / 104; Pulse 135; Resp 20; Pulse Ox 99% ; vc1 14:42 Body Mass Index 28.40 (77.40 kg, 165.1 cm) ss 14:42 Pain Scale: Adult ss 15:28 Pain Scale: Adult jl7 MDM: 14:39 Medical Screening Exam initiated griffin 17:13 Antibiotic administration: Not indicated. Differential diagnosis: Anemia CHF griffin exacerbation, Chronic Obstructive Pulmonary Disease Nonspecific abd pain, gastritis, viral gastroenteritis, gastroenteritis, Myocardial Infarction pneumonia, pulmonary edema. Differential Diagnosis: Obstructed Airway Bronchitis Influenza Upper Respiratory Infection Sinusitis Pharyngitis Asthma Exacerbation Viral Syndrome Pneumonia. Immunization status:. Data reviewed: vital signs, nurses notes, lab test result(s), EKG, radiologic studies, plain films. Consideration of Admission/Observation Patient was admitted/placed on observation. Escalation of care including admission/observation considered. I considered the following discharge prescriptions or medication management in the emergency department Medications were administered in the Emergency Department. See MAR. Independent interpretation of the following test(s) in the Emergency Department EKG: See my EKG interpretation above. Test considered but Not performed: Ultrasound NO 2 D ECHO. Historians other than the Patient: Spouse/Significant Other: WELL INFORMED. Care significantly affected by the following chronic conditions: Diabetes, Hypertension, Congestive Heart Failure, A FIB. Counseling: I had a detailed discussion with the patient and/or guardian regarding the historical points, exam findings, and any diagnostic results supporting the discharge/admit diagnosis, the presence of at least one elevated blood pressure reading (>120/80) during this emergency department visit, lab results, radiology results, the need for further work-up and treatment in the hospital. 07/03 14:40 Order name: Basic Metabolic Panel; Complete Time: 16:41 griffin 07/03 14:40 Order name: CBC with Diff; Complete Time: 16:41 griffin 07/03 14:40 Order name: LFT's; Complete Time: 16:41 griffin 07/03 14:40 Order name: Magnesium; Complete Time: 16:41 griffin 07/03 14:40 Order name: NT PRO-BNP; Complete Time: 16:41 griffin 07/03 14:40 Order name: PT-INR; Complete Time: 16:41 griffin 07/03 14:40 Order name: Troponin HS; Complete Time: 16:41 griffin 07/03 14:40 Order name: TSH; Complete Time: 16:41 griffin 07/03 14:40 Order name: Flu; Complete Time: 16:41 griffin 07/03 14:40 Order name: SARS RAPID; Complete Time: 16:41 griffin 07/03 14:40 Order name: Lipase; Complete Time: 16:41 griffin 07/03 18:07 Order name: Hep B surface AG w/Reflex EDMS 07/03 18:22 Order name: Urinalysis w/ reflexes EDMS 07/03 18:22 Order name: Urine Drug Screen EDMS 07/03 18:22 Order name: CBC with Automated Diff EDMS 07/03 18:22 Order name: CBC with Automated Diff EDMS 07/03 18:22 Order name: CBC with Automated Diff EDMS 07/03 18:22 Order name: CBC with Automated Diff EDMS 07/03 18:22 Order name: CBC with Automated Diff EDMS 07/03 18:22 Order name: CBC with Automated Diff EDMS 07/03 18:22 Order name: Comprehensive Metabolic Panel EDMS 07/03 18:22 Order name: Comprehensive Metabolic Panel EDMS 07/03 18:22 Order name: Comprehensive Metabolic Panel EDMS 07/03 18:22 Order name: Comprehensive Metabolic Panel EDMS 07/03 18:22 Order name: Comprehensive Metabolic Panel EDMS 07/03 18:22 Order name: Comprehensive Metabolic Panel EDMS 07/03 18:22 Order name: Magnesium EDMS 07/03 18:22 Order name: Magnesium EDMS 07/03 18:22 Order name: Magnesium EDMS 07/03 18:22 Order name: Magnesium EDMS 07/03 18:22 Order name: Magnesium EDMS 07/03 18:22 Order name: Magnesium EDMS 07/03 18:22 Order name: Phosphorus EDMS 07/03 18:22 Order name: Phosphorus EDMS 07/03 18:22 Order name: Phosphorus EDMS 07/03 18:22 Order name: Phosphorus EDMS 07/03 18:22 Order name: Phosphorus EDMS 07/03 18:22 Order name: Phosphorus EDMS 07/03 18:22 Order name: Troponin High Sensitivity EDMS 07/03 18:22 Order name: Troponin High Sensitivity EDMS 07/03 18:22 Order name: Troponin High Sensitivity EDMS 07/03 18:22 Order name: Phosphorus; Complete Time: 19:18 [facility] 07/03 14:40 Order name: XRAY Chest (1 view); Complete Time: 16:41 [facility] 07/03 14:40 Order name: EKG; Complete Time: 14:41 [facility] 07/03 18:22 Order name: CONS Physician Consult [facility] 07/03 14:40 Order name: Cardiac monitoring; Complete Time: 14:58 [facility] 07/03 14:40 Order name: EKG - Nurse/Tech; Complete Time: 14:58 [facility] 07/03 14:40 Order name: IV Saline Lock; Complete Time: 15:47 [facility] 07/03 14:40 Order name: Labs collected and sent; Complete Time: 15:47 [facility] 07/03 14:40 Order name: O2 Per Protocol; Complete Time: 14:58 [facility] 07/03 14:40 Order name: O2 Sat Monitoring; Complete Time: 14:58 [facility] EC:10 Rate is 144 beats/min. Rhythm is regular. QRS [place] is Normal. [place] interval is normal. griffin QRS interval is normal. QT interval is normal. No Q waves. T waves are Normal. No ST changes noted. Clinical impression: Atrial Flutter. Interpreted by me. Reviewed by me. Administered Medications: 15:25 Drug: Ondansetron IVP 4 mg IVP once; over 2 minutes Route: IVP; Site: right antecubital;jl7 15:40 Follow up: Response: No adverse reaction; Nausea is decreased jl7 15:30 Drug: Metoprolol IVP 5 mg IVP every 5 minutes; Hold for SBP < 100 or HR < 60. x3 Route: jl7 IVP; Site: right antecubital; 15:35 Drug: Metoprolol IVP 5 mg IVP every 5 minutes; Hold for SBP < 100 or HR < 60. x3 Route: jl7 IVP; Site: right antecubital; 15:35 Follow up: Response: No adverse reaction; Cardiac rhythm is unchanged jl7 15:40 Follow up: Response: No adverse reaction; Cardiac rhythm is unchanged jl7 15:50 Drug: Metoprolol IVP 5 mg IVP every 5 minutes; Hold for SBP < 100 or HR < 60. x3 Route: jl7 IVP; Site: right antecubital; 15:55 Follow up: Response: No adverse reaction; Cardiac rhythm is unchanged jl7 16:42 Drug: Metoprolol PO 50 mg PO once Route: PO; jl7 18:02 Follow up: Response: No adverse reaction jl7 17:13 Drug: Digoxin IVP 0.5 mg IVP once Route: IVP; Site: right antecubital; jl7 18:00 Follow up: Response: No adverse reaction; No change in condition jl7 17:17 Drug: Kayexalate PO 45 grams PO once Route: PO; jl7 17:45 Follow up: Response: No adverse reaction; Pt drank 30 G, refused last 15 g jl7 17:18 Drug: ALPRAZolam PO Tablet 1 mg PO once Route: PO; jl7 17:57 Follow up: Response: No adverse reaction jl7 17:30 Drug: Ondansetron IVP 4 mg IVP once; over 2 minutes Route: IVP; Site: right antecubital;jl7 18:03 Follow up: Response: No adverse reaction; Nausea is decreased jl7 17:35 Drug: amiodarone IVPB 150 mg 100 ml IVPB once over 10 mins; (mix in D5W) Volume: 100 jl7 ml; Route: IVPB; Infused Over: 10 mins; Site: right antecubital; 17:45 Follow up: Response: No adverse reaction; IV Status: Completed infusion jl7 17:50 Drug: amiodarone IVPB 900 mg, D5W IV 500 ml IVPB at 1 mg/min continuous; for 6 hrs, jl7 then change to 0.5 mg/min Route: IVPB; Rate: 1 mg/min; Site: right antecubital; 19:33 Follow up: Response: No adverse reaction; IV Status: Infusion continued upon admission jl7 17:56 Drug: HYDROmorphone IVP 0.5 mg IVP once Route: IVP; Site: right antecubital; jl7 19:32 Follow up: Response: No adverse reaction jl7 Disposition Summary: 07/03/24 17:25 Hospitalization Ordered Notes: Hospitalization Status: Inpatient Admission griffin Provider: Ismael Harris cha Location: Intensive Care Unit griffni Condition: Serious griffin Problem: an acute exacerbation griffin Symptoms: are unchanged griffin Bed/Room Type: Standard griffin Room Assignment: 1-(07/03/24 19:06) ty Diagnosis - Chronic combined systolic (congestive) and diastolic (congestive) heart failure griffin - Dependence on renal dialysis - MISSED FRIDAY AND FRIDAY griffin - Vomiting griffin - Hyperkalemia - 5.5 griffin - Atypical atrial flutter - 2:1 griffin - Hypo-osmolality and hyponatremia griffin - Dyspnea griffin Forms: - Medication Reconciliation Form griffin - SBAR form griffin - Leadership Thank You Letter griffin Signatures: Dispatcher [employer] EDJordan Patel MD MD cha Blanchard, Shelby RN Reji Ramos RN RN jl7 Romero [place] ty Corrections: (The following items were deleted from the chart) 14:41 14:41 BASIC METABOLIC PANEL+C.LAB.BRZ ordered. EDMS EDMS 14:41 14:41 CBC+H.LAB.BRZ ordered. EDMS EDMS 14:41 14:41 HEPATIC FUNCTION+C.LAB.BRZ ordered. EDMS EDMS 14:41 14:41 MAGNESIUM+C.LAB.BRZ ordered. EDMS EDMS 14:41 14:41 PROBNP+C.LAB.BRZ ordered. EDMS EDMS 14:41 14:41 PROTIME (+INR)+COAG.LAB.BRZ ordered. EDMS EDMS 14:41 14:41 Troponin High Sensitivity+C.LAB.BRZ ordered. EDMS EDMS 14:41 14:41 THYROID STIMULAT HORMONE+C.LAB.BRZ ordered. EDMS EDMS 14:41 14:41 Influenza Screen (A \T\ B)+BA.LAB.BRZ ordered. EDMS EDMS 14:41 14:41 SARS-COV-2 Antigen Rapid+I.LAB.BRZ ordered. EDMS EDMS 14:41 14:41 LIPASE+C.LAB.BRZ ordered. EDMS EDMS 15:52 14:41 Urinalysis+U.LAB.BRZ ordered. EDMS EDMS 19:06 17:25 griffin ty
[2024-07-03] MEDS ORDERED: HYDROMORPHONE HCL 0.5 MG/0.5 ML INJ ONE (17:38)
--- NOTE | 2024-07-03 17:41 | P.HP ---
Certification for Inpatient Patient admitted to: Inpatient With expected LOS: >2 Midnights Patient will require the following post-hospital care: None Practitioner: I am a practitioner with admitting privileges, knowledge of patient current condition, hospital course, and medical plan of care. Services: Services provided to patient in accordance with Admission requirements found in Title 42 Section 412.3 of the Code of Federal Regulations Patient History Date of Service: 07/03/24 Reason for admission: NSTEMI, Afib with RVR, Uremic History of Present Illness: Dasia Monroe is a 38 year old male with Pmhx ESRD on dialysis, Atrial fibrillation, CHF, NSTEMI, Anxiety/depression, Hypertension who presents to the ED with chief complaint of nausea vomiting and generalized malaise since Friday. He reports missing dialysis 2 days this week d/t tachycardia. He reports taking his medications as scheduled but cannot keep any food or water down. He reports smoking weed for anxiety since he does not have medication for his anxiety currently. Laboratory evaluation significant for troponin 297, sodium 127, potassium 5.5, BUN/creatinine 108/22.3, GFR 2, serum glucose 142. Chest x-ray shows no acute findings. Dr. Candelaria was contacted consulted with immediate dialysis ordered. On arrival, HR at 146, EKG showing atrial fibrillation. Dasia will be admitted to hospitalist service for treatment of Afib with RVR and Uremia 2/2 ESRD with missed dialysis days. Allergies No Known Drug Allergies Allergy (Verified 07/09/23 21:44) Anaphylaxis Home Medications: Apixaban [Eliquis] 1 tab PO BID 08/16/23 Losartan Potassium 1 tab PO DAILY 08/16/23 Metoprolol Tartrate 100 tab PO BID 08/16/23 PARoxetine HCL [Paxil*] 1 tab PO DAILY 08/16/23 Pantoprazole [Protonix Tab] 40 mg PO DAILY 08/16/23 cloNIDine HCL [Clonidine HCl] 0.1 mg PO BID 08/16/23 Lanthanum Carbonate [Fosrenol] 1,000 mg PO TIDWM 08/17/23 Amlodipine [Norvasc] 10 mg PO DAILY 04/29/24 Sevelamer Carbonate [Renvela] 800 mg PO TIDWM 04/29/24 Bismuth Subsalicylate [Bismuth] 262 mg PO Q8HP PRN 30 Days #120 tab.chew 04/30/24 - Past Medical/Surgical History Diabetic: No -: ESRD (Dr. South/ Dr. Candelaria) -: Afib -: HTN -: CHF -: Peritoneal dialysis -: Herniated disk -: Anxiety -: Depression -: Dialysis Access placement 07/23 - Family History Father -: Heart disease, Hypertension, Diabetes, Stroke - Social History Smoking Status: Current every day smoker Alcohol use: No CD- Drugs: Yes Caffeine use: Yes Review of Systems General: Malaise Gastrointestinal: Nausea, Vomiting Physical Examination - Physical Exam General: Alert, In no apparent distress, Oriented x3, Other HEENT: Atraumatic, Normocephalic Neck: Supple, 2+ carotid pulse no bruit Respiratory: Clear to auscultation bilaterally, Normal air movement Cardiovascular: Normal pulses, Normal S1 S2, Irregular heart rate/rhythm (Afib with RVR) Capillary refill: <2 Seconds Gastrointestinal: Normal bowel sounds, Soft and benign Musculoskeletal: No clubbing Integumentary: No rashes Neurological: Normal speech, Normal tone Urinary: Dialysis catheter - Studies Laboratory Data (last 24 hrs) 07/03/24 07/03/24 07/03/24 15:36 15:36 15:36 WBC 3.60 L Hgb 14.6 Hct 42.7 Plt Count 172 PT 15.1 H INR 1.36 Sodium 127 L Potassium 5.5 H BUN 108 H Creatinine 22.30 H Glucose 142 H Magnesium 2.7 H Total Bilirubin 0.7 AST 42 H ALT 23 Alkaline Phosphatase 52 Lipase 31 Microbiology Data (last 24 hrs): 07/03/24 15:36 Nasopharnyx Influenza Type A Antigen Screen - Final 07/03/24 15:36 Nasopharnyx Influenza Type B Antigen Screen - Final Assessment and Plan - Plan Assessment plan Uremia secondary to ESRD on dialysis Electrolyte imbalance -Admit to ICU -reports missed dialysis twice this week d/t tachycardia -Consult nephrology -Immediate dialysis -Sodium 127, potassium 5.5, magnesium 2.7 BUN/creatinine 108/22.30, GFR 2 -Monitor electrolytes in a.m. labs -Continuous telemetry -Kayexalate given in ED -trend electrolytes in AM labs Atrial fibrillation Hx CHF NSTEMI -Consult cardiology -Troponin 297, serial pending -BNP 148,948 -Continuous telemetry -Amiodarone -Metoprolol, digoxin, amiodarone given in the ED -Reports metoprolol usually controlled his heart rate Hyperglycemic -monitor in AM labs, A1C in the AM -Serum glucose 142 Anxiety Hypertension -Continue home medication Substance abuse -UDS pending -reports marijuana use for anxiety -Cessation education provided DVT Timur Layton Full code LOS 2 days Discharge Plan: Home Plan to discharge in: 48 Hours - Advance Directives Does patient have a Living Will: No Does patient have a Durable POA for Healthcare: No
[2024-07-03] MEDS ORDERED: ACETAMINOPHEN 325 MG TABLET PO PRN (18:11)
[2024-07-03] MEDS ORDERED: AMIODARONE HCL 450 MG in D5W 241 ML IV SCH (19:00)
[2024-07-03] MEDS: METOPROLOL TARTRATE 5 MG/5 ML INJ IV PRN (19:44)
[2024-07-03] MEDS: ONDANSETRON 4 MG/2 ML VIAL IV PRN (19:45)
[2024-07-03 21:54] VITALS: BMI 27.0
[2024-07-03 22:31] VITALS: TEMP 97.8
[2024-07-03] MEDS ORDERED: AMIODARONE IN DEXTROSE,ISO-OSM 360 MG/200 ML BAG IV ONE (22:46)
[2024-07-03 23:18] VITALS: O2SAT 99
[2024-07-03] MEDS: ALPRAZOLAM 0.25 MG TABLET PO PRN (23:26)
[2024-07-03] MEDS: HYDROCODONE/APAP 5/325 MG TAB PO PRN (23:26)
[2024-07-03] MEDS: APIXABAN 2.5 MG TABLET PO SCH (23:26)
[2024-07-03] MEDS: SEVELAMER CARBONATE 800 MG TABLET PO SCH (23:27)
--- NOTE | 2024-07-04 00:16 | P.PN ---
Date of Service: 07/04/24 Notified by ICU around 1205 hours that patient pulled out his IV line and wants to leave against medical advice. I immediately went to the patient's bedside. I discussed with the patient the risks and benefits of leaving AMA. The patient demonstrates an understanding of the risks and benefits, and is able to communicate both back to me. The patient's is present at bedside, and attempted to convince the patient to remain in the hospital to no avail. The patient wishes to leave against medical advice, and is actively removing ECG leads placed on body. I encouraged the patient to return to the hospital for any reason, and he voiced understanding. Informed Dr. Harris of this encounter.
[2024-07-04 00:20] VITALS: BP 150/132
--- NOTE | 2024-07-04 14:12 | EKG ---
Test Date: 2024-07-03 Test Time: 14:54:30 Blood Coordinator: URIAH MEASUREMENT RESULTS: Intervals: Rate: 144 PA: 126 QRSD: 142 QT: 280 QTc: 433 [place]: P: PA: 126 QRS: -37 T: 71 INTERPRETIVE STATEMENTS: Sinus tachycardia Left axis deviation Nonspecific intraventricular block Abnormal ECG Compared to ECG 06/07/2024 21:33:25 Left-axis deviation now present Sinus rhythm no longer present Atrial premature complex(es) no longer present Left anterior fascicular block no longer present Electronically Signed On 07-04-24 14:11:10 TRAINING REPRESENTATIVE by Miki Carrington
== END 2024-07-04 00:12 | disposition left against medical advice (07) | DRG 280 ==
LOC: ER 13:58 → ERHOLD 18:11 → 3RD-ICU 20:08
PROVIDERS: ADMIT Internal Medicine; ATTEND Internal Medicine
PROC: 5A1D70Z Performance of Urinary Filtration, Intermittent, Less than 6 Hours Per Day (ICD-10-PCS; principal; 2024-07-03)
DX: I48.91 Unspecified atrial fibrillation (principal); N18.6 End stage renal disease; I21.4 Non-ST elevation (NSTEMI) myocardial infarction; I13.2 Hypertensive heart and chronic kidney disease with heart failure and with stage 5 chronic kidney disease, or end stage renal disease; E87.1 Hypo-osmolality and hyponatremia; I50.42 Chronic combined systolic (congestive) and diastolic (congestive) heart failure; E11.22 Type 2 diabetes mellitus with diabetic chronic kidney disease; E11.65 Type 2 diabetes mellitus with hyperglycemia; E87.5 Hyperkalemia; I48.4 Atypical atrial flutter; F41.9 Anxiety disorder, unspecified; F12.10 Cannabis abuse, uncomplicated; F17.200 Nicotine dependence, unspecified, uncomplicated; I25.2 Old myocardial infarction; Z99.2 Dependence on renal dialysis; Z79.01 Long term (current) use of anticoagulants; Z53.29 Procedure and treatment not carried out because of patient's decision for other reasons; Z79.899 Other long term (current) drug therapy; Z91.158 Patient's noncompliance with renal dialysis for other reason
CPT/HCPCS: 36415; 71045; 80048; 80076; 82947; 83690; 83735; 83880; 84100; 84443; 84484; 85025; 85610; 87804; 87811; 90935; 93005; 96365; 96366; 96375; 99285; J0282; J1160; J1171; J2405

== ENCOUNTER 2024-07-05 15:54 | Emergency (ER) | payer OTHER ==
[2024-07-05] MEDS ORDERED: ONDANSETRON 4 MG (ODT) TAB ONE (16:44)
[2024-07-05 17:25] LABS: Absolute Basophils 0.1 K/uL (0-0.5); Absolute Lymphocytes (CBC) 0.7 K/uL (0.7-4.9); Absolute Monocytes 0.6 K/uL (0.1-1.3); Absolute Neutrophil 6.2 K/uL (1.8-8.0); Basophils % 0.7 % (0-1.3); Eosinophils % 0.2 % (0-4.4); Hematocrit 42.4 % (39.6-49.0); Hemoglobin 14.5 g/dL (13.6-17.9); MCH 33.3 pg (27.0-35.0); MCHC 34.1 g/dL (32.0-36.0); MCV 97.6 fL (80-100); MPV 7.7 fL (7.6-11.3); Monocytes % 8.2 % (3.3-12.3); Neutrophils % 81.9 % (41.7-73.7); Nucleated Red Blood Cells % 0.2 % (0-0); Platelets 215 thou/uL (152-406); RBC Red Blood Cell Count 4.34 M/uL (4.33-5.43); Red Cell Distribution Width 14.3 % (12.1-15.2)
[2024-07-05 17:42] LABS: Anion Gap 23.9 mEq/L (5.0-15.0); Potassium 4.9 mEq/L (3.5-5.1)
[2024-07-05 17:44] LABS: Troponin High Sensitivity 241.5 pg/mL (<58.9)
--- NOTE | 2024-07-05 18:22 | ER ---
Nurse's Notes [facility] Name: Dasia Monroe Age: 38 yrs Sex: Male : 1985 Arrival Date: 07/05/2024 Time: 15:54 Bed 3 Private MD: Diagnosis: Elevated Troponin;Hyponatremia;Hypertension;Anemia Presentation: 07/05 16:45 Chief complaint: Chief complaint: Patient states: was seen here recently, pt reports aa5 nausea. 16:46 Coronavirus screen: nausea. Ebola Screen: Patient denies travel to an Ebola-affected [facility] area in the 21 days before illness onset. Initial Sepsis Screen: Does the patient meet any 2 criteria? No. Patient's initial sepsis screen is negative. Does the patient have a suspected source of infection? No. Patient's initial sepsis screen is negative. Risk Assessment: Do you want to hurt yourself or someone else? Patient reports no desire to harm self or others. Onset of symptoms was 2023. 16:46 Acuity: G[place] 3 aa5 16:46 Method Of Arrival: Ambulatory aa5 Historical: - Allergies: 16:45 No Known Allergies; aa5 - PMHx: 16:45 4 herniated disk; Anxiety; Congestive heart failure; diabetes mellitus; Dialysis aa5 (dialysis access johanna); Hypertensive disorder; kidney disease; - PSHx: 16:45 dialysis access placement; left arm; aa5 - Immunization history:: Adult Immunizations unknown. - Infectious Disease History:: Denies. - Social history:: Smoking status: Patient reports the use of cigarette tobacco products. Screenin:20 [facility] ED Fall Risk Assessment (Adult) History of falling in the last 3 months, hb including since admission No falls in past 3 months (0 pts) Confusion or Disorientation No (0 pts) Intoxicated or Sedated No (0 pts) Impaired Gait Yes (1 pt) Mobility Assist Device Used Yes (1 pt) Altered Elimination No (0 pt) Score/Fall Risk Level 3 or more points = High Risk Oriented to surroundings, Maintained a safe environment, Educated pt \T\ family on fall prevention, incl call for assistance when getting out of bed, Assessed \T\ reinforced patient's understanding of fall precautions. Abuse screen: Denies threats or abuse. Denies injuries from another. Nutritional screening: No deficits noted. Tuberculosis screening: No symptoms or risk factors identified. Assessment: 17:21 General: Appears in no apparent distress. Behavior is calm, cooperative. Pain: Pain hb currently is 3 out of 10 on a pain scale. Neuro: Level of Consciousness is awake, alert, obeys commands, Oriented to person, place, time, situation. Cardiovascular: Patient's skin is warm and dry. Respiratory: Respiratory effort is even, unlabored, Respiratory pattern is regular, symmetrical. GI: Reports nausea. : No signs and/or symptoms were reported regarding the genitourinary system. EENT: No signs and/or symptoms were reported regarding the EENT system. Derm: Skin is pink, warm \T\ dry. Musculoskeletal: No signs and/or symptoms reported regarding the musculoskeletal system. 18:44 Reassessment: Patient appears in no apparent distress at this time. Patient and/or hb family updated on plan of care and expected duration. Pain level reassessed. Patient is alert, oriented x 3, equal unlabored respirations, skin warm/dry/pink. Vital Signs: 16:46 BP 155 / 76; Pulse 62; Resp 16 S; Temp 98.2(O); Pulse Ox 97% on R/A; aa5 ED Course: 16:04 Patient arrived in ED. mg5 16:28 Jeb Gama DO is Attending Physician. ms3 16:45 Arm band placed on. aa5 16:47 Triage completed. aa5 16:57 Narciso Ramos, RN is Primary Nurse. bp 17:19 Initial lab(s) drawn, by al, sent to lab. EKG done, by ED staff, reviewed by Jeb Gama DO. Inserted saline lock: 22 gauge in right hand, using aseptic technique. Blood collected. Flushed with 10 mL NS. 17:20 Patient has correct armband on for positive identification. Provided Education on: use hb of call light . 17:20 CBC with Diff Sent. hb 17:20 Basic Metabolic Panel Sent. hb 17:20 Troponin HS Sent. hb 18:21 Imer Contreras MD is Hospitalizing Provider. ms3 19:59 intact, bleeding controlled, No redness/swelling at site. Pressure dressing applied. bm8 20:00 No provider procedures requiring assistance completed. bm8 Administered Medications: 16:50 Drug: Ondansetron PO 4 mg PO once Route: PO; aa5 Medication: 17:21 VIS not applicable for this client. Outcome: 18:21 Decision to Hospitalize by Provider. ms3 19:59 AMA AMA form signed bm8 19:59 Condition: stable 19:59 Instructed on follow up and referral plans. 20:00 Patient left the ED. bm8 Signatures: Elis Catherine, RN RN aa5 Kelle Bhatt RN RN Narciso Ramos RN RN Jeb Gama, DO DO ms3 Bertha Camacho mg5 Yony Still RN RN bm8 Corrections: (The following items were deleted from the chart) 16:47 16:45 Chief complaint: aa5 aa5
--- NOTE | 2024-07-05 18:22 | EDPHYS ---
Physician Documentation [facility] Name: Dasia Monroe Age: 38 yrs Sex: Male : 1985 Arrival Date: 07/05/2024 Time: 15:54 Bed 3 Private MD: ED Physician Jeb Gama HPI: 07/05 18:18 This 38 yrs old Male presents to ER via Ambulatory with complaints of Nausea. ms3 18:18 38-year-old male with past medical history anxiety, congestive heart failure, diabetes, ms3 end-stage renal disease presents to the emergency department for nausea and vomiting. Patient states he was seen last night had dialysis performed while he was admitted to the hospital. Patient states he signed out AMA and did not get medications that he was given last night. Patient notes he is also been unable to sleep.. Historical: - Allergies: 16:45 No Known Allergies; aa5 - PMHx: 16:45 4 herniated disk; Anxiety; Congestive heart failure; diabetes mellitus; Dialysis aa5 (dialysis access johanna); Hypertensive disorder; kidney disease; - PSHx: 16:45 dialysis access placement; left arm; aa5 - Immunization history:: Adult Immunizations unknown. - Infectious Disease History:: Denies. - Social history:: Smoking status: Patient reports the use of cigarette tobacco products. ROS: 18:19 Constitutional: Negative for fever, and chills. Cardiovascular: Negative for chest ms3 pain, and palpitations. Respiratory: Negative for shortness of breath, cough, wheezing, and pleuritic chest pain, 18:19 MS/Extremity: Negative for injury and deformity, Skin: Negative for injury, rash, and discoloration, 18:19 Abdomen/GI: Positive for nausea and vomiting, Exam: 18:19 Constitutional: This is a well developed, well nourished patient who is awake, alert, ms3 and in no acute distress. Head/Face: Normocephalic, atraumatic. Chest/axilla: Normal chest wall appearance and motion. Nontender with no deformity. Cardiovascular: Regular rate and rhythm with a normal S1 and S2. No gallops, murmurs, or rubs. Normal PMI, no JVD. No pulse deficits. Respiratory: Lungs have equal breath sounds bilaterally, clear to auscultation and percussion. No rales, rhonchi or wheezes noted. No increased work of breathing, no retractions or nasal flaring. Abdomen/GI: Soft, non-tender, with normal bowel sounds. No distension or tympany. No guarding or rebound. No evidence of tenderness throughout. Skin: Warm, dry with normal turgor. Normal color with no rashes, no lesions, and no evidence of cellulitis. 18:19 ECG was reviewed by the Attending Physician. ms3 Vital Signs: 16:46 BP 155 / 76; Pulse 62; Resp 16 S; Temp 98.2(O); Pulse Ox 97% on R/A; aa5 MDM: 16:45 Medical Screening Exam initiated ms3 18:19 Differential diagnosis: Nonspecific abd pain, gastritis, viral gastroenteritis, NSTEMI. ms3 Data reviewed: vital signs, nurses notes, lab test result(s), EKG, and as a result, I will admit patient. Consideration of Admission/Observation Patient was admitted/placed on observation. Management of patient was discussed with the following: Hospitalist: Dr Contreras. I considered the following discharge prescriptions or medication management in the emergency department Medications were administered in the Emergency Department. See MAR. Independent interpretation of the following test(s) in the Emergency Department EKG: See my EKG interpretation above. Counseling: I had a detailed discussion with the patient and/or guardian regarding the historical points, exam findings, and any diagnostic results supporting the discharge/admit diagnosis, lab results, radiology results, the need for further work-up and treatment in the hospital. 07/05 16:55 Order name: Basic Metabolic Panel; Complete Time: 17:46 ms3 07/05 16:55 Order name: CBC with Diff; Complete Time: 17:46 ms3 07/05 16:55 Order name: Troponin HS; Complete Time: 17:46 ms3 07/05 16:55 Order name: Cardiac monitoring; Complete Time: 17:20 ms3 07/05 16:55 Order name: EKG - Nurse/Tech; Complete Time: 17:20 ms3 07/05 16:55 Order name: IV Saline Lock; Complete Time: 17:20 ms3 07/05 16:55 Order name: Labs collected and sent; Complete Time: 17:20 ms3 07/05 16:55 Order name: O2 Per Protocol; Complete Time: 17:20 ms3 07/05 16:55 Order name: O2 Sat Monitoring; Complete Time: 17:19 ms3 EC:19 Rate is 60 beats/min. Rhythm is regular. Left axis deviation noted. [place] interval is ms3 normal. QRS interval is normal. Clinical impression: NSR w/ Non-specific ST/T Changes. Interpreted by me. Reviewed by me. Administered Medications: 16:50 Drug: Ondansetron PO 4 mg PO once Route: PO; aa5 Disposition Summary: 07/05/24 18:21 Hospitalization Ordered Notes: Hospitalization Status: Inpatient Admission ms3 Provider: Imer Contreras ms3 Location: Telemetry/MedSurg (Inpatient) ms3 Condition: Stable ms3 Problem: new ms3 Symptoms: are unchanged ms3 Bed/Room Type: Standard ms3 Room Assignment: ms3 Diagnosis - Elevated Troponin ms3 - Hyponatremia ms3 - Hypertension ms3 - Anemia ms3 Forms: - Medication Reconciliation Form ms3 - SBAR form ms3 - Leadership Thank You Letter ms3 Signatures: Dispatcher [employer] Elis Arce, RN RN aa5 Jeb Gama DO DO ms3
[2024-07-05] MEDS ORDERED: ONDANSETRON 4 MG/2 ML VIAL IV PRN (20:12)
[2024-07-05] MEDS ORDERED: ACETAMINOPHEN 325 MG TABLET PO PRN (20:12)
[2024-07-05] MEDS ORDERED: MAGNESIUM HYDROXIDE 8% 30 ML PO PRN (20:12)
--- NOTE | 2024-07-05 20:17 | P.HP ---
Certification for Inpatient Patient admitted to: Inpatient With expected LOS: >2 Midnights Practitioner: I am a practitioner with admitting privileges, knowledge of patient current condition, hospital course, and medical plan of care. Services: Services provided to patient in accordance with Admission requirements found in Title 42 Section 412.3 of the Code of Federal Regulations Patient History Date of Service: 07/07/24 Reason for admission: Atrial Flutter History of Present Illness: 38 yrs old Male with past medical history of herniated disk; Anxiety; Congestive heart failure; diabetes mellitus; ESRD on dialysis and hypertension presents to ER with complaints of Nausea, chest pain. Patient states he was seen last night had dialysis performed while he was admitted to the hospital. Patient states he signed out AMA and did not get medications that he was given last night. Patient notes he is also been unable to sleep.. Patient complains of chest pain which is retrosternal with nonradiating, pressure-like, not associated with any diaphoresis. Denies any fever or chills. Patient was assessed in the ER and is admitted for further management of chest pain to rule out ACS Allergies No Known Drug Allergies Allergy (Verified 07/09/23 21:44) Anaphylaxis Home medications list reviewed: Yes Home Medications: Apixaban [Eliquis] 1 tab PO BID 08/16/23 Losartan Potassium 1 tab PO DAILY 08/16/23 Metoprolol Tartrate 100 tab PO BID 08/16/23 PARoxetine HCL [Paxil*] 1 tab PO DAILY 08/16/23 Pantoprazole [Protonix Tab] 40 mg PO DAILY 08/16/23 cloNIDine HCL [Clonidine HCl] 0.1 mg PO BID 08/16/23 Lanthanum Carbonate [Fosrenol] 1,000 mg PO TIDWM 08/17/23 Amlodipine [Norvasc] 10 mg PO DAILY 04/29/24 LORazepam [Lorazepam] 1 mg PO DAILYPRN PRN 07/03/24 Metoclopramide HCl [Reglan] 10 mg PO Q6HP PRN 07/03/24 methocarbamoL [Methocarbamol] 500 mg PO BIDP PRN 07/03/24 - Past Medical/Surgical History Diabetic: No Past Medical History: Reviewed- Non-Contributory -: ESRD (Dr. South/ Dr. Candelaria) -: Afib -: HTN -: CHF -: Peritoneal dialysis -: Herniated disk -: Anxiety -: Depression -: Diabetes mellitus Past Surgical History: Reviewed- Non-Contributory -: Dialysis Access placement 07/23 - Family History Family History: Reviewed- Non-Contributory - Family History Father -: Heart disease, Hypertension, Diabetes, Stroke - Social History Smoking Status: Never smoker Alcohol use: No CD- Drugs: No Caffeine use: No Review of Systems 10-point ROS is otherwise unremarkable Physical Examination - Vital Signs Temperature: 98.2 F Blood Pressure: 155/76 Pulse: 62 Respirations: 18 Pulse Ox (%): 94 - Physical Exam General: Alert, In no apparent distress, Oriented x3 HEENT: Atraumatic, Normocephalic Neck: Supple, 2+ carotid pulse no bruit Respiratory: Clear to auscultation bilaterally, Normal air movement Cardiovascular: No edema, Regular rate/rhythm, Normal S1 S2 Capillary refill: <2 Seconds Gastrointestinal: Soft and benign, Non-distended, W/out hepatosplenomegaly Musculoskeletal: No clubbing, No swelling Integumentary: No rashes Neurological: Normal speech, Normal strength at 5/5 x4 extr, Cranial nerves 3-12 intact, Normal reflexes 2+ Lymphatics: No axilla or inguinal lymphadenopathy - Studies Laboratory Data (last 24 hrs) 07/05/24 07/05/24 17:12 17:12 WBC 7.60 Hgb 14.5 Hct 42.4 Plt Count 215 Sodium 126 L Potassium 4.9 BUN 106 H Creatinine 21.00 H Glucose 148 H Assessment and Plan - Plan Chest pain to rule out ACS Will trend cardiac enzymes Will monitor telemetry Started on aspirin and statin Will get an echocardiogram Cardiology consult Hypertension Antihypertensives titrated Continue home medications and titrate as needed Hyperlipidemia Continue statin ESRD on dialysis Nephrology consulted Monitor renal parameters Electrolytes monitor and replace accordingly Diabetes Insulin sliding scale Accu-Chek before every meal and at bedtime Anxiety Continue home medications and titrate as needed GI/DVT prophylaxis Advanced directive full code Discharge Plan: Home Plan to discharge in: 48 Hours - Advance Directives Does patient have a Living Will: No Does patient have a Durable POA for Healthcare: No - Code Status/Comfort Care Code Status: Full Code Time Spent Managing Pts Care (In Minutes): 48
[2024-07-05] MEDS ORDERED: HEPARIN 5000 UNIT/ML 1 ML VIAL SQ SCH (21:00)
[2024-07-05 21:44] VITALS: BP 155/76; TEMP 98.2; O2SAT 97
== END 2024-07-05 19:58 | disposition left against medical advice (07) ==
LOC: ER 15:54 → UNDOADMIN 20:12 → ERHOLD 20:12
DX: R07.9 Chest pain, unspecified (principal); Z53.29 Procedure and treatment not carried out because of patient's decision for other reasons; I13.2 Hypertensive heart and chronic kidney disease with heart failure and with stage 5 chronic kidney disease, or end stage renal disease; E11.22 Type 2 diabetes mellitus with diabetic chronic kidney disease; N18.6 End stage renal disease; I50.9 Heart failure, unspecified; Z99.2 Dependence on renal dialysis; D64.9 Anemia, unspecified; I48.91 Unspecified atrial fibrillation; E78.5 Hyperlipidemia, unspecified; R79.89 Other specified abnormal findings of blood chemistry; E87.1 Hypo-osmolality and hyponatremia; F41.9 Anxiety disorder, unspecified; F32.A Depression, unspecified; F17.210 Nicotine dependence, cigarettes, uncomplicated; Z79.01 Long term (current) use of anticoagulants; Z79.899 Other long term (current) drug therapy; Z82.49 Family history of ischemic heart disease and other diseases of the circulatory system; Z82.3 Family history of stroke; Z83.3 Family history of diabetes mellitus
CPT/HCPCS: 85025; 80048; 36415; 84484; 99284; Q0162

== ENCOUNTER 2024-07-12 20:14 | Emergency (ER) | payer OTHER ==
[2024-07-12] MEDS ORDERED: ONDANSETRON 4 MG/2 ML VIAL ONE ×2 (20:39→21:37)
[2024-07-12] MEDS ORDERED: NA CHLORIDE 0.9% 250 ML ONE (20:40)
[2024-07-12] MEDS ORDERED: MORPHINE 4 MG/ML SYR ONE (20:40)
[2024-07-12] MEDS ORDERED: HYDRALAZINE HCL 20 MG/ML VIAL ONE (20:40)
[2024-07-12] MEDS ORDERED: METOCLOPRAMIDE 10 MG/2mL INJ ONE (20:40)
[2024-07-12 20:55] LABS: Absolute Basophils 0.1 K/uL (0-0.5); Absolute Eosinophils 0.4 K/uL (0-0.5); Absolute Monocytes 1.5 K/uL (0.1-1.3); Absolute Neutrophil 6.4 K/uL (1.8-8.0); Basophils % 0.6 % (0-1.3); Eosinophils % 3.8 % (0-4.4); Hematocrit 36.7 % (39.6-49.0); Hemoglobin 12.6 g/dL (13.6-17.9); Lymphocytes % 19.2 % (15.3-44.8); MCH 33.5 pg (27.0-35.0); MCHC 34.4 g/dL (32.0-36.0); MCV 97.3 fL (80-100); MPV 6.1 fL (7.6-11.3); Monocytes % 14.5 % (3.3-12.3); Neutrophils % 61.9 % (41.7-73.7); Platelets 251 thou/uL (152-406); RBC Red Blood Cell Count 3.78 M/uL (4.33-5.43); Red Cell Distribution Width 14.6 % (12.1-15.2)
[2024-07-12 20:56] LABS: PT Prothrombin Time 12.7 SECONDS (9.4-12.5); Protime INR 1.14
[2024-07-12 21:06] LABS: Albumin 3.4 g/dL (3.4-5.0); Albumin/Globulin Ratio 0.7 (1.1-1.8); Alkaline Phosphatase 58 U/L (45-117); Anion Gap 9.6 mEq/L (5.0-15.0); BUN Blood Urea Nitrogen 20 mg/dL (7-18); Bicarbonate 28 mEq/L (21-32); Bilirubin Direct 0.2 mg/dL (0-0.2); Bilirubin Indirect, Calculated 0.6 mg/dL (0.2-0.8); Bilirubin Total 0.8 mg/dL (0.2-1.0); Globulin 4.9 g/dL (2.3-3.5); Glomerular Filtration Rate 10 ml/min (=/>90); Glucose Level 141 mg/dL (74-106); Potassium 3.6 mEq/L (3.5-5.1); Protein, Total 8.3 g/dL (6.4-8.2); Sodium Level 138 mEq/L (136-145)
[2024-07-12 21:08] LABS: AST/SGOT < 10 U/L (15-37)
[2024-07-12 21:09] LABS: ALT/SGPT < 14 U/L (16-61)
[2024-07-12] MEDS ORDERED: LORazepam 2 MG/ML VIAL ONE (21:14)
[2024-07-12 21:18] LABS: NT PRO-BNP 118559 pg/mL (<125)
[2024-07-12 21:32] LABS: Troponin High Sensitivity 380.5 pg/mL (<58.9)
[2024-07-12] MEDS ORDERED: MORPHINE 2 MG/ML SYR ONE (21:37)
--- NOTE | 2024-07-13 01:27 | EDPHYS ---
Physician Documentation [facility] Name: Dasia Monroe Age: 38 yrs Sex: Male : 1985 Arrival Date: 07/12/2024 Time: 20:14 Bed 4 Private MD: ED Physician Phill Quiñones HPI: 07/12 20:22 This 38 yrs old Male presents to ER via Unassigned with complaints of sp4 Dialysis, Back Pain. 20:47 38-year-old male, past medical history herniated disc anxiety congestive heart failure sp4 diabetes, end-stage renal disease on dialysis, recent admission 07/07/2024 for atrial flutter . Patient presents with worsening lower back pain associated with moderate to severe vomiting associated with elevated blood pressure. Patient states he was dialyzed this morning. Patient's medications include Eliquis twice daily, losartan daily, metoprolol tartrate 100 mg twice daily, paroxetine p.o. daily, pantoprazole 40 mg daily, clonidine 0.1 mg p.o. twice daily, Phos renal 1000 mg p.o. 3 times daily, Norvasc 10 mg p.o. daily, lorazepam 1 mg p.o. daily, Reglan 10 mg p.o. every 6 hours as needed, methocarbamol 500 mg p.o. twice daily. . Historical: - Allergies: 20:34 No Known Allergies; bm8 - Home Meds: 20:34 Unable to obtain [Active]; bm8 - PMHx: 20:34 4 herniated disk; Congestive heart failure; Anxiety; diabetes mellitus; Hypertensive bm8 disorder; Dialysis (dialysis access johanna); kidney disease; - PSHx: 20:34 dialysis access placement; left arm; bm8 - Immunization history:: Adult Immunizations up to date. - Infectious Disease History:: Denies. - Social history:: Smoking status: Patient reports the use of cigarette tobacco products, Patient uses street drugs, marijuana. ROS: 20:55 Constitutional: Negative for fever, chills, and weight loss, positive back pain, sp4 positive nausea vomiting, positive elevated blood pressure, positive for feeling unwell 20:55 All other systems are negative, Exam: 20:55 Constitutional: This is a well developed, well nourished patient who is awake, sp4 actively vomiting on arrival with dry heaving and retching. Ill-appearing male, left upper arm dialysis fistula with palpable thrill. Head/Face: Normocephalic, atraumatic. Eyes: Pupils equal round and reactive to light, extra-ocular motions intact. Lids and lashes normal. Conjunctiva and sclera are not injected. Cornea within normal limits. Periorbital areas with no swelling, redness, or edema. ENT: Nares patent. No nasal discharge, no septal abnormalities noted. Tympanic membranes are normal and external auditory canals are clear. Oropharynx with no redness, swelling, or masses, exudates, or evidence of obstruction, uvula midline. Mucous membranes moist. Neck: Trachea midline, no thyromegaly or masses palpated, and no cervical lymphadenopathy. Supple, full range of motion without nuchal rigidity, or vertebral point tenderness. Chest/axilla: Normal chest wall appearance and motion. Nontender with no deformity. No lesions are appreciated. Cardiovascular: Regular rate and rhythm with a normal S1 and S2. No gallops, murmurs, or rubs. Normal PMI, no JVD. No pulse deficits. Respiratory: Lungs have equal breath sounds bilaterally, clear to auscultation and percussion. No rales, rhonchi or wheezes noted. No increased work of breathing, no retractions or nasal flaring. Abdomen/GI: Soft, with normal bowel sounds. No distension or tympany. No guarding or rebound. No evidence of tenderness throughout. Back: No spinal tenderness. No costovertebral tenderness. Skin: Warm, dry with normal turgor. Normal color with no rashes, no lesions, and no evidence of cellulitis. MS/ Extremity: Pulses equal, no cyanosis. Neurovascular intact. Full, normal range of motion. Neuro: Awake and alert, GCS 15, oriented to person, place, time, and situation. Cranial nerves II-XII grossly intact. Motor strength 5/5 in all extremities. Sensory grossly intact. 23:19 ECG was reviewed by the Attending Physician. EKG at [address]48 normal sinus rhythm no ST sp4 elevation or depression. Vital Signs: 20:32 BP 226 / 98; Pulse 83; Resp 18; Temp 98.7; Pulse Ox 100% ; Weight 77.11 kg; Height 5 bm8 ft. 6 in. ; Pain 10/10; 21:55 BP 171 / 75; Pulse 75; Resp 20; Pulse Ox 98% on R/A; mt4 23:02 BP 136 / 69; Pulse 75; Resp 18; Temp 98.7; Pulse Ox 98% ; Pain 7/10; bm8 23:42 BP 156 / 67; Pulse 75; Resp 15; Temp 98.7; Pulse Ox 98% ; Pain 7/10; bm8 07/13 00:38 BP 156 / 69; Pulse 72; Resp 13; Temp 98.4; Pulse Ox 97% on R/A; Pain 0/10; bm8 01:28 BP 165 / 76; Pulse 78; Resp 18; Temp 98.5; Pulse Ox 98% ; Pain 4/10; bm8 07/12 20:32 Body Mass Index 27.44 (77.11 kg, 167.64 cm) bm8 07/12 20:32 Pain Scale: Adult bm8 23:02 Pain Scale: Adult bm8 23:42 Pain Scale: Adult bm8 07/13 00:38 Pain Scale: Adult bm8 01:28 Pain Scale: Adult bm8 Radha Coma Score: 07/12 20:55 Eye Response: spontaneous(4). Motor Response: obeys commands(6). Verbal Response: sp4 oriented(5). Total: 15. 23:02 Eye Response: spontaneous(4). Motor Response: obeys commands(6). Verbal Response: bm8 oriented(5). Total: 15. 23:42 Eye Response: spontaneous(4). Motor Response: obeys commands(6). Verbal Response: bm8 oriented(5). Total: 15. 07/13 00:38 Eye Response: spontaneous(4). Motor Response: obeys commands(6). Verbal Response: bm8 oriented(5). Total: 15. 01:28 Eye Response: spontaneous(4). Motor Response: obeys commands(6). Verbal Response: bm8 oriented(5). Total: 15. MDM: 07/12 20:23 Medical Screening Exam initiated sp4 07/13 02:02 Differential diagnosis: arthritis, Fatigue Fracture Myeloma Neoplasm. Data reviewed: sp4 vital signs, nurses notes, old medical records, lab test result(s), EKG. Consideration of Admission/Observation Escalation of care including admission/observation considered. ED course: Patient's repeat troponin is less than his initial troponin. Patient is already on Eliquis p.o. Patient also takes appropriate medications for his blood pressure.. Pain and nausea under control. Patient discharged with p.o. as needed Ativan and p.o. as needed Zofran. Patient was referred to pain management physician. At this point stable for discharge.. 07/12 20:22 Order name: Basic Metabolic Panel; Complete Time: 23:18 sp4 07/12 20:22 Order name: CBC with Diff; Complete Time: 21:16 sp4 07/12 20:22 Order name: LFT's; Complete Time: 23:18 sp4 07/12 20:22 Order name: Magnesium; Complete Time: 23:18 sp4 07/12 20:22 Order name: NT PRO-BNP; Complete Time: 23:18 sp4 07/12 20:22 Order name: PT-INR; Complete Time: 21:16 sp4 07/12 20:22 Order name: Troponin HS; Complete Time: 23:18 sp4 07/13 00:22 Order name: Troponin High Sensitivity; Complete Time: 01:23 sp4 07/12 20:22 Order name: EKG; Complete Time: 20:23 sp4 07/12 20:22 Order name: Cardiac monitoring; Complete Time: 20:38 sp4 07/12 20:22 Order name: EKG - Nurse/Tech; Complete Time: 20:52 sp4 07/12 20:22 Order name: IV Saline Lock; Complete Time: 20:38 sp4 07/12 20:22 Order name: Labs collected and sent; Complete Time: 20:38 sp4 07/12 20:22 Order name: O2 Per Protocol; Complete Time: 20:38 sp4 07/12 20:22 Order name: O2 Sat Monitoring; Complete Time: 20:38 sp4 EC/09 20:49 Rate is 71 beats/min. Rhythm is regular, Normal Sinus Rhythm. QRS [place] is Normal. PA sp4 interval is normal. QRS interval is normal. QT interval is normal. No Q waves. T waves are Normal. No ST changes noted. Clinical impression: No evidence of ischemia. Interpreted by me. Reviewed by me. Administered Medications: 20:52 Drug: morphine IVP or IV 4 mg IVP once over 4 mins Route: IVP; Infused Over: 4 mins; bm8 Site: right wrist; 23:01 Follow up: Response: No adverse reaction bm8 20:52 Drug: Ondansetron IVP 8 mg IVP once; over 2 minutes Route: IVP; Site: right wrist; bm8 23:01 Follow up: Response: No adverse reaction bm8 20:52 Drug: metoCLOPramide IVP 10 mg IVP once; over 1 to 2 minutes Route: IVP; Site: right bm8 wrist; 23:01 Follow up: Response: No adverse reaction bm8 20:52 Drug: hydrALAZINE IVP 20 mg IVP once Route: IVP; Site: right wrist; bm8 23:01 Follow up: Response: No adverse reaction bm8 21:36 Drug: Ativan IVP 1 mg IVP once Route: IVP; Site: right wrist; bm8 23:01 Follow up: Response: No adverse reaction bm8 21:39 Drug: morphine IVP or IV 2 mg IVP once over 4 mins Route: IVP; Infused Over: 4 mins; bm8 Site: right wrist; 23:01 Follow up: Response: No adverse reaction 8 07/13 01:32 Not Given (Patient Refused): hydrocodone-acetaminophen5 mg-325 mg 2 tabs PO once bm8 Disposition Summary: 07/13/24 01:26 Discharge Ordered Notes: Location: Home sp4 Problem: new sp4 Symptoms: have improved sp4 Condition: Stable sp4 Diagnosis - Hypertensive Urgency, Acute Anxiety Attack, Insomnia, Acute exacerbation of sp4 chronic Back pain - End-stage renal disease dialysis dependent sp4 Followup: sp4 - With: Jacob Young DO - When: 7 - 10 days - Reason: Recheck today's complaints Discharge Instructions: - Discharge Summary Sheet sp4 - Insomnia sp4 Forms: - Patient Portal Instructions sp4 Prescriptions: - Ativan 1 mg Oral tablet - take 1 tablet ORAL route once daily As needed PRN anxiety attacks; 10 tablet; sp4 Refills: 0, Product Selection Permitted - ondansetron 8 mg Oral Tablet,disintegrating - take 1 tablet ORAL route every 12 hours PRN nausea; 30 tablet; Refills: 0, sp4 Product Selection Permitted Signatures: [facility] Phill Hawkins MD MD sp4 Yony Still RN RN bm8
--- NOTE | 2024-07-13 01:27 | ER ---
Nurse's Notes [facility] Name: Dasia Monroe Age: 38 yrs Sex: Male : 1985 Arrival Date: 07/12/2024 Time: 20:14 Bed 4 Private MD: Diagnosis: Hypertensive Urgency, Acute Anxiety Attack, Insomnia, Acute exacerbation of chronic Back pain ;End-stage renal disease dialysis dependent Presentation: 07/12 20:32 Chief complaint: Patient states: n/v since right after dialysis today, causing lots of bm8 back pain and making bp spike. Coronavirus screen: Vaccine status: Patient reports receiving the 2nd dose of the covid vaccine. Ebola Screen: Patient negative for fever greater than or equal to 101.5 degrees Fahrenheit, and additional compatible Ebola Virus Disease symptoms Patient denies exposure to infectious person. Patient denies travel to an Ebola-affected area in the 21 days before illness onset. No symptoms or risks identified at this time. Initial Sepsis Screen: Does the patient meet any 2 criteria? No. Patient's initial sepsis screen is negative. Does the patient have a suspected source of infection? No. Patient's initial sepsis screen is negative. Risk Assessment: Do you want to hurt yourself or someone else? Patient reports no desire to harm self or others. Onset of symptoms was July 12, 2024 at 18:00. 20:32 Method Of Arrival: Ambulatory bm8 20:32 Acuity: GUA[place]KITO 2 bm8 Triage Assessment: 20:34 General: Appears in no apparent distress. uncomfortable, Behavior is calm, cooperative, bm8 appropriate for age. Pain: Complains of pain in back Pain currently is 10 out of 10 on a pain scale. EENT: No deficits noted. No signs and/or symptoms were reported regarding the EENT system. Neuro: No deficits noted. Level of Consciousness is awake, alert, obeys commands, Oriented to person, place, time, situation, Appropriate for age. Cardiovascular: Reports HTN Capillary refill < 3 seconds in bilateral fingers Patient's skin is warm and dry. Respiratory: Airway is patent Respiratory effort is even, unlabored, Respiratory pattern is regular, symmetrical. GI: Reports nausea, vomiting. : No signs and/or symptoms were reported regarding the genitourinary system. Reports does not make urine due to dialysis. Derm: No signs and/or symptoms reported regarding the dermatologic system. Musculoskeletal: Circulation, motion, and sensation intact. Capillary refill < 3 seconds, in bilateral fingers. Range of motion: intact in all extremities, Reports pain in back. Historical: - Allergies: 20:34 No Known Allergies; bm8 - Home Meds: 20:34 Unable to obtain [Active]; bm8 - PMHx: 20:34 4 herniated disk; Congestive heart failure; Anxiety; diabetes mellitus; Hypertensive bm8 disorder; Dialysis (dialysis access johanna); kidney disease; - PSHx: 20:34 dialysis access placement; left arm; bm8 - Immunization history:: Adult Immunizations up to date. - Infectious Disease History:: Denies. - Social history:: Smoking status: Patient reports the use of cigarette tobacco products, Patient uses street drugs, marijuana. Screenin:36 [facility] ED Fall Risk Assessment (Adult) History of falling in the last 3 months, bm8 including since admission No falls in past 3 months (0 pts) Confusion or Disorientation No (0 pts) Intoxicated or Sedated No (0 pts) Impaired Gait No (0 pts) Mobility Assist Device Used No (0 pt) Altered Elimination No (0 pt) Score/Fall Risk Level 0 - 2 = Low Risk Oriented to surroundings, Maintained a safe environment, Educated pt \T\ family on fall prevention, incl call for assistance when getting out of bed, Assessed \T\ reinforced patient's understanding of fall precautions, Hourly rounding (assess needs \T\ fall precautionary measures) done, Used ambulatory aids as needed (educated on \T\ assisted with), Used gait belt as appropriate. Abuse screen: Denies threats or abuse. Nutritional screening: No deficits noted. Tuberculosis screening: No symptoms or risk factors identified. Assessment: 20:36 General: see triage assessment. Neuro: No deficits noted. Level of Consciousness is bm8 awake, alert, obeys commands, Oriented to person, place, time, situation, Appropriate for age. 21:17 Reassessment: trop 380.5, NOTIFIED DR. QUIÑONES. mt4 23:02 Reassessment: Patient appears in no apparent distress at this time. Patient and/or bm8 family updated on plan of care and expected duration. Pain level reassessed. Patient is alert, oriented x 3, equal unlabored respirations, skin warm/dry/pink. Pain: Complains of pain in back Pain currently is 7 out of 10 on a pain scale. Neuro: No deficits noted. Level of Consciousness is awake, alert, obeys commands, Oriented to person, place, time, situation, Appropriate for age. Cardiovascular: Denies chest pain, Capillary refill < 3 seconds in bilateral fingers Patient's skin is warm and dry. Respiratory: Airway is patent Trachea midline Respiratory effort is even, unlabored, Respiratory pattern is regular, symmetrical, Breath sounds are clear bilaterally. 07/13 00:38 Reassessment: Patient appears in no apparent distress at this time. Patient and/or bm8 family updated on plan of care and expected duration. Pain level reassessed. Patient is alert, oriented x 3, equal unlabored respirations, skin warm/dry/pink. pt is resting with eyes closed breathing is even unlabored with symmetrical rise and fall of chest. had to wake pt to get redraw troponin level. pt went back to sleeping after tourniquet removed. Patient states feeling better. Patient states symptoms have improved. 01:28 Reassessment: Patient appears in no apparent distress at this time. No changes from bm8 previously documented assessment. Patient and/or family updated on plan of care and expected duration. Pain level reassessed. Patient is alert, oriented x 3, equal unlabored respirations, skin warm/dry/pink. Vital Signs: 07/12 20:32 BP 226 / 98; Pulse 83; Resp 18; Temp 98.7; Pulse Ox 100% ; Weight 77.11 kg; Height 5 bm8 ft. 6 in. ; Pain 10; 21:55 BP 171 / 75; Pulse 75; Resp 20; Pulse Ox 98% on R/A; mt4 23:02 BP 136 / 69; Pulse 75; Resp 18; Temp 98.7; Pulse Ox 98% ; Pain 7/; bm8 23:42 BP 156 / 67; Pulse 75; Resp 15; Temp 98.7; Pulse Ox 98% ; Pain 7/; bm8 07/13 00:38 BP 156 / 69; Pulse 72; Resp 13; Temp 98.4; Pulse Ox 97% on R/A; Pain 0/10; bm8 01:28 BP 165 / 76; Pulse 78; Resp 18; Temp 98.5; Pulse Ox 98% ; Pain 4/10; bm8 07/12 20:32 Body Mass Index 27.44 (77.11 kg, 167.64 cm) bm8 07/12 20:32 Pain Scale: Adult bm8 23:02 Pain Scale: Adult bm8 23:42 Pain Scale: Adult bm8 07/13 00:38 Pain Scale: Adult bm8 01:28 Pain Scale: Adult bm8 Radha Coma Score: 07/12 20:55 Eye Response: spontaneous(4). Motor Response: obeys commands(6). Verbal Response: sp4 oriented(5). Total: 15. 23:02 Eye Response: spontaneous(4). Motor Response: obeys commands(6). Verbal Response: bm8 oriented(5). Total: 15. 23:42 Eye Response: spontaneous(4). Motor Response: obeys commands(6). Verbal Response: bm8 oriented(5). Total: 15. 07/13 00:38 Eye Response: spontaneous(4). Motor Response: obeys commands(6). Verbal Response: bm8 oriented(5). Total: 15. 01:28 Eye Response: spontaneous(4). Motor Response: obeys commands(6). Verbal Response: bm8 oriented(5). Total: 15. ED Course: 07/12 20:15 Patient arrived in ED. mr 20:22 Phill Quiñones MD is Attending Physician. sp4 20:32 Yony Still, RN is Primary Nurse. bm8 20:34 Triage completed. bm8 20:34 Arm band placed on left wrist. bm8 20:36 Patient has correct armband on for positive identification. Placed in gown. Bed in low bm8 position. Side rails up X 1. Client placed on continuous cardiac and pulse oximetry monitoring. NIBP monitoring applied. child monitor on. Pulse ox on. NIBP on. Door closed. Noise minimized. Warm blanket given. Pillow given. Verbal reassurance given. Head of bed elevated. 20:36 No provider procedures requiring assistance completed. Initial lab(s) drawn, by ED [facility] staff, sent to lab. Inserted saline lock: 20 gauge in right wrist, using aseptic technique. Blood collected. Flushed with 10 mL NS. Patient maintains SpO2 saturation greater than 95% on room air. 20:52 EKG done, by ED staff, reviewed by Phill Quiñones MD. bm8 07/13 00:38 Provided Education on: Provided Education on: follow up with pcp, get in touch with a bm8 pain management provider. 01:25 Jacob Young DO is Referral Physician. sp4 01:28 IV discontinued, intact, bleeding controlled, No redness/swelling at site. Pressure bm8 dressing applied. Administered Medications: 07/12 20:52 Drug: morphine IVP or IV 4 mg IVP once over 4 mins Route: IVP; Infused Over: 4 mins; bm8 Site: right wrist; 23:01 Follow up: Response: No adverse reaction bm8 20:52 Drug: Ondansetron IVP 8 mg IVP once; over 2 minutes Route: IVP; Site: right wrist; bm8 23:01 Follow up: Response: No adverse reaction bm8 20:52 Drug: metoCLOPramide IVP 10 mg IVP once; over 1 to 2 minutes Route: IVP; Site: right bm8 wrist; 23:01 Follow up: Response: No adverse reaction bm8 20:52 Drug: hydrALAZINE IVP 20 mg IVP once Route: IVP; Site: right wrist; bm8 23:01 Follow up: Response: No adverse reaction bm8 21:36 Drug: Ativan IVP 1 mg IVP once Route: IVP; Site: right wrist; bm8 23:01 Follow up: Response: No adverse reaction bm8 21:39 Drug: morphine IVP or IV 2 mg IVP once over 4 mins Route: IVP; Infused Over: 4 mins; bm8 Site: right wrist; 23:01 Follow up: Response: No adverse reaction bm8 07/13 01:32 Not Given (Patient Refused): hydrocodone-acetaminophen5 mg-325 mg 2 tabs PO once bm8 Medication: 07/12 20:36 VIS not applicable for this client. bm8 Outcome: 07/13 01:26 Discharge ordered by . sp4 01:28 Discharged to home ambulatory, bm8 01:28 Condition: stable 01:28 Discharge instructions given to patient, family, Instructed on discharge instructions, follow up and referral plans. no drinking with medication, no driving heavy equipment, medication usage, Demonstrated understanding of instructions, follow-up care, medications, Prescriptions given X 2, 01:33 Patient left the ED. bm8 Signatures: Josiane Guerrero, Reg Reg mr NabilPhill del valle MD MD sp4 Yony Still RN RN bm8 Rudy Carmen RN RN mt4 Corrections: (The following items were deleted from the chart) 01:29 00:38 Provided Education on: sammy bm8
[2024-07-13 06:17] VITALS: BP 165/76; TEMP 98.5; O2SAT 98
--- NOTE | 2024-07-16 15:59 | EKG ---
Test Date: 2024-07-12 Test Time: 20:49:28 Phys Assistant: YOSVANY MEASUREMENT RESULTS: Intervals: Rate: 71 CO: 160 QRSD: 96 QT: 368 QTc: 399 [place]: P: 64 CO: 160 QRS: 77 T: 36 INTERPRETIVE STATEMENTS: Normal sinus rhythm Nonspecific ST abnormality Abnormal ECG Compared to ECG 07/05/2024 17:18:07 Left-axis deviation no longer present Myocardial infarct finding no longer present Possible ischemia no longer present ST (T wave) deviation still present Electronically Signed On 07-16-24 15:53:20 REPRODUCER by Brady Amaya
== END 2024-07-13 01:33 | disposition home or self-care (01) ==
LOC: ER 20:14
DX: I16.0 Hypertensive urgency (principal); F41.0 Panic disorder [episodic paroxysmal anxiety]; G47.00 Insomnia, unspecified; M54.9 Dorsalgia, unspecified; E11.22 Type 2 diabetes mellitus with diabetic chronic kidney disease; I13.2 Hypertensive heart and chronic kidney disease with heart failure and with stage 5 chronic kidney disease, or end stage renal disease; I50.9 Heart failure, unspecified; N18.6 End stage renal disease; Z99.2 Dependence on renal dialysis; I48.91 Unspecified atrial fibrillation; Z79.01 Long term (current) use of anticoagulants; Z72.0 Tobacco use
CPT/HCPCS: 93005; 85025; 80048; 36415; 83735; 85610; 80076; 84484 ×2; 83880; 96375; 96374; 99285; J0360; J2765; J2270; J2405 ×2; J7050

== ENCOUNTER 2024-08-09 16:41 | Emergency (ER) | payer OTHER ==
[2024-08-09] MEDS ORDERED: LORAZEPAM 1 MG TABLET ONE (17:09)
[2024-08-09] MEDS ORDERED: ONDANSETRON 4 MG (ODT) TAB ONE (17:09)
[2024-08-09 17:29] LABS: Absolute Basophils 0.1 K/uL (0-0.5); Absolute Eosinophils 0.3 K/uL (0-0.5); Absolute Lymphocytes (CBC) 1.4 K/uL (0.7-4.9); Absolute Monocytes 0.8 K/uL (0.1-1.3); Absolute Neutrophil 7.4 K/uL (1.8-8.0); Basophils % 0.9 % (0-1.3); Eosinophils % 2.7 % (0-4.4); Hematocrit 32.7 % (39.6-49.0); Hemoglobin 11.1 g/dL (13.6-17.9); Lymphocytes % 13.8 % (15.3-44.8); MCH 33.7 pg (27.0-35.0); MCHC 33.8 g/dL (32.0-36.0); MCV 99.8 fL (80-100); MPV 7.1 fL (7.6-11.3); Monocytes % 8.4 % (3.3-12.3); Neutrophils % 74.2 % (41.7-73.7); Nucleated Red Blood Cells % 0.1 % (0-0); Platelets 251 thou/uL (152-406); RBC Red Blood Cell Count 3.28 M/uL (4.33-5.43); Red Cell Distribution Width 16.4 % (12.1-15.2)
--- NOTE | 2024-08-09 17:48 | RAD REPORT ---
Procedure: Chest Single View HISTORY: Chest pain COMPARISON: June 2024 FINDINGS: The alejandrina are hazy. No significant pleural effusion noted. The heart is normal size. IMPRESSION: The alejandrina are hazy. This may indicate mild interstitial pulmonary edema
[2024-08-09 17:52] LABS: Anion Gap 15.3 mEq/L (5.0-15.0); Potassium 5.3 mEq/L (3.5-5.1)
[2024-08-09 17:54] LABS: Troponin High Sensitivity 337.6 pg/mL (<58.9)
[2024-08-09] MEDS ORDERED: SOD POLYSTYREN SUL 15 GM/60 ML UCUP ONE (18:23)
[2024-08-09] MEDS ORDERED: SODIUM ZIRCONIUM CYCLOSILICATE 10 GM/PKT ONE (19:29)
--- NOTE | 2024-08-09 19:41 | EDPHYS ---
Physician Documentation [facility] Name: Dasia Monroe Age: 38 yrs Sex: Male : 1985 Arrival Date: 08/09/2024 Time: 16:41 Bed 24 Private MD: ED Physician Yessica Leary HPI: 08/09 19:35 This 38 yrs old Male presents to ER via Wheelchair with complaints of Chest sb4 Pain, Back Pain. 19:35 Patient reports chest pain that is secondary to anxiety. He states that he gets these sb4 episodes periodically. States that he was at dialysis today and told them he was having chest pain. They did not feel comfortable dialyzing him and told him to come to the ED for cardiac clearance. He states that his pain has since resolved. Historical: - Allergies: 17:05 No Known Allergies; jb4 - PMHx: 17:05 4 herniated disk; Anxiety; Congestive heart failure; diabetes mellitus; Dialysis jb4 (dialysis access johanna); Hypertensive disorder; kidney disease; - PSHx: 17:05 dialysis access placement; left arm; jb4 - Immunization history:: Adult Immunizations up to date. - Infectious Disease History:: Denies. - Social history:: Smoking status: Patient reports the use of cigarette tobacco products, smokes one pack cigarettes per day. ROS: 19:35 Constitutional: Negative for fever, chills, and weight loss, sb4 19:35 Cardiovascular: Positive for chest pain, 19:35 Psych: Positive for anxiety, 19:35 All other systems are negative, Exam: 19:35 Constitutional: This is a well developed, well nourished patient who is awake, alert, sb4 and in no acute distress. Head/Face: Normocephalic, atraumatic. Eyes: Extra-ocular motions intact. Periorbital areas with no swelling, redness, or edema. ENT: Mucous membranes moist. Cardiovascular: Regular rate and rhythm with a normal S1 and S2. Respiratory: No increased work of breathing, no retractions or nasal flaring. Abdomen/GI: Soft, non-tender, no distension. Skin: Warm, dry with normal turgor. Normal color with no rashes, no lesions, and no evidence of cellulitis. Vital Signs: 17:03 BP 174 / 121; Pulse 83; Resp 16; Temp 97.6(O); Pulse Ox 95% on R/A; Weight 77.11 kg jb4 (R); Height 5 ft. 4 in. (R); Pain 7/10; 18:07 BP 186 / 97; Pulse 68; Resp 16; Pulse Ox 100% on R/A; jb4 19:41 BP 192 / 98; Pulse 70; Resp 16; Pulse Ox 99% on R/A; jb4 17:03 Body Mass Index 29.18 (77.11 kg, 162.56 cm) jb4 17:03 Pain Scale: Adult jb4 MDM: 16:53 Medical Screening Exam initiated sb4 19:36 Management of patient was discussed with the following: Rehab Department Manager: Patient's 4 cleat maker, Dr. Candelaria does not think emergent dialysis or cardiac intervention needs to be completed at this time (as his troponin is chronically elevated). He recommended 1 dose of Lokelma, and patient can redo his dialysis tomorrow. 19:42 Counseling: I had a detailed discussion with the patient and/or guardian regarding the sb4 historical points, exam findings, and any diagnostic results supporting the discharge/admit diagnosis, the presence of at least one elevated blood pressure reading (>120/80) during this emergency department visit, lab results, radiology results, the need for outpatient follow up, for definitive care, to return to the emergency department if symptoms worsen or persist or if there are any questions or concerns that arise at home. 20:08 Data reviewed: vital signs, nurses notes, lab test result(s), EKG, radiologic studies, sb4 and as a result, I will discharge patient. 08/09 16:57 Order name: Basic Metabolic Panel; Complete Time: 17:57 sb4 08/09 16:57 Order name: CBC with Diff; Complete Time: 17:37 sb4 08/09 16:57 Order name: Troponin HS; Complete Time: 17:57 sb4 08/09 16:57 Order name: XRAY Chest (1 view); Complete Time: 17:49 sb4 08/09 16:57 Order name: EKG; Complete Time: 16:57 sb4 08/09 16:57 Order name: Cardiac monitoring; Complete Time: 17:07 sb4 08/09 16:57 Order name: EKG - Nurse/Tech; Complete Time: 17:07 sb4 08/09 16:57 Order name: IV Saline Lock; Complete Time: 17:06 sb4 08/09 16:57 Order name: Labs collected and sent; Complete Time: 17: sb4 08/09 16:57 Order name: O2 Per Protocol; Complete Time: 17: sb4 08/09 16:57 Order name: O2 Sat Monitoring; Complete Time: 17: sb4 EC:34 Rate is 701 beats/min. Rhythm is regular, Sinus Rhythm with Occasional PVCs. HI sb4 interval is normal at 164 msec. QRS interval is normal at 96 msec. QT interval is normal at 436 msec. No Q waves. T waves are Normal. No ST changes noted. Clinical impression: No evidence of ischemia. Interpreted by me. Reviewed by me. Administered Medications: 17:13 Drug: Ondansetron PO 4 mg PO once Route: PO; jb4 17:38 Drug: LORazepam PO 1 mg PO once Route: PO; jb4 18:27 Not Given (Patient Refused): [id number] grams PO once jb4 19:38 Not Given (Patient Refused): Lokelma Powder 10 grams PO once jb4 Disposition Summary: 08/09/24 19:40 Discharge Ordered Notes: Location: Home sb4 Problem: new sb4 Symptoms: have improved sb4 Condition: Stable sb4 Diagnosis - Anxiety disorder, unspecified sb4 - Chest pain, unspecified sb4 - End stage renal disease sb4 Followup: sb4 - With: Emergency Department - When: As needed - Reason: Trouble breathing, Worsening of condition Discharge Instructions: - Discharge Summary Sheet sb4 - Nonspecific Chest Pain, Adult, [id number] sb4 - Managing Anxiety, Adult sb4 Forms: - Patient Portal Instructions sb4 - Leadership Thank You Letter sb4 Addendum: 08/12/2024 20:00 Co-signature as Attending Physician, Yessica Leary MD I agree with the assessment and g b1 plan of care. I reviewed the patient's care provided by the Advanced Practice Provider and agree with the diagnosis and treatment plan. Signatures: Dispatcher [employer] Rayshawn Yeung RN RN jb4 Lucretia Simpson, JANIYAC PAGeorge sb4 Yessica Leary MD MD gb1
--- NOTE | 2024-08-09 19:41 | ER ---
Nurse's Notes [facility] Name: Dasia Monroe Age: 38 yrs Sex: Male : 1985 Arrival Date: 08/09/2024 Time: 16:41 Bed 24 Private MD: Diagnosis: Anxiety disorder, unspecified;Chest pain, unspecified;End stage renal disease Presentation: 08/09 17:03 Chief complaint: Patient states: I started having an anxiety attack about 3 hours ago. jb4 It felt like my heart was pounding and it was a pulsating chest pain the center of my chest that is a 7/10. Coronavirus screen: At this time, the client does not indicate any symptoms associated with coronavirus-19. Ebola Screen: No symptoms or risks identified at this time. Initial Sepsis Screen: Does the patient meet any 2 criteria? No. Patient's initial sepsis screen is negative. Does the patient have a suspected source of infection? No. Patient's initial sepsis screen is negative. Risk Assessment: Do you want to hurt yourself or someone else? Patient reports no desire to harm self or others. Onset of symptoms was August 09, 2024. Transition of care: patient was not received from another setting of care. 17:03 Method Of Arrival: Wheelchair jb4 17:03 Acuity: GUANAKITO 2 jb4 Historical: - Allergies: 17:05 No Known Allergies; jb4 - PMHx: 17:05 4 herniated disk; Anxiety; Congestive heart failure; diabetes mellitus; Dialysis jb4 (dialysis access johanna); Hypertensive disorder; kidney disease; - PSHx: 17:05 dialysis access placement; left arm; jb4 - Immunization history:: Adult Immunizations up to date. - Infectious Disease History:: Denies. - Social history:: Smoking status: Patient reports the use of cigarette tobacco products, smokes one pack cigarettes per day. Screenin:01 [facility] ED Fall Risk Assessment (Adult) History of falling in the last 3 months, jb4 including since admission No falls in past 3 months (0 pts) Confusion or Disorientation No (0 pts) Intoxicated or Sedated No (0 pts) Impaired Gait No (0 pts) Mobility Assist Device Used No (0 pt) Altered Elimination No (0 pt) Score/Fall Risk Level 0 - 2 = Low Risk Oriented to surroundings, Maintained a safe environment. Abuse screen: Denies threats or abuse. Nutritional screening: No deficits noted. Tuberculosis screening: No symptoms or risk factors identified. Assessment: 17:10 General: Appears in no apparent distress. uncomfortable, Behavior is cooperative, jb4 anxious. Pain: Complains of pain in chest Pain does not radiate. Pain currently is 7 out of 10 on a pain scale. Quality of pain is described as pulsating, Pain began 3 hours ago. Neuro: Level of Consciousness is awake, alert, obeys commands, Oriented to person, place, time, situation. Cardiovascular: Patient's skin is warm and dry. Respiratory: Airway is patent Respiratory effort is even, unlabored, Respiratory pattern is regular, symmetrical. Derm: Skin is intact, Skin is pink, warm \T\ dry. 18:11 Reassessment: Patient appears in no apparent distress at this time. Patient and/or jb4 family updated on plan of care and expected duration. Pain level reassessed. Patient is alert, oriented x 3, equal unlabored respirations, skin warm/dry/pink. 19:39 Reassessment: Patient appears in no apparent distress at this time. Patient and/or jb4 family updated on plan of care and expected duration. Pain level reassessed. Patient is alert, oriented x 3, equal unlabored respirations, skin warm/dry/pink. 20:01 Reassessment: Patient appears in no apparent distress at this time. Patient and/or jb4 family updated on plan of care and expected duration. Pain level reassessed. Patient is alert, oriented x 3, equal unlabored respirations, skin warm/dry/pink. Vital Signs: 17:03 BP 174 / 121; Pulse 83; Resp 16; Temp 97.6(O); Pulse Ox 95% on R/A; Weight 77.11 kg jb4 (R); Height 5 ft. 4 in. (R); Pain 7/10; 18:07 BP 186 / 97; Pulse 68; Resp 16; Pulse Ox 100% on R/A; jb4 19:41 BP 192 / 98; Pulse 70; Resp 16; Pulse Ox 99% on R/A; jb4 17:03 Body Mass Index 29.18 (77.11 kg, 162.56 cm) [facility] 17:03 Pain Scale: Adult [facility] ED Course: 16:42 Patient arrived in ED. mr 16:53 Lucretia Simpson PA-C is PHCP. sb4 16:53 Yessica Leary MD is Attending Physician. sb4 17:05 Triage completed. jb4 17:05 Arm band placed on right wrist. jb4 17:20 Initial lab(s) drawn, by me, sent to lab. EKG done, by ED staff. Inserted saline lock: kb4 20 gauge in right antecubital area, using aseptic technique. Blood collected. Flushed with 10 mL NS. 17:21 XRAY Chest (1 view) In Process Unspecified. EDMS 20:01 Patient has correct armband on for positive identification. Bed in low position. Call jb4 light in reach. Side rails up X 1. Provided Education on: discharge instructions.. Client placed on continuous cardiac and pulse oximetry monitoring. NIBP monitoring applied. nurse administrator on. Pulse ox on. 20:02 No provider procedures requiring assistance completed. IV discontinued, intact, jb4 bleeding controlled, No redness/swelling at site. Pressure dressing applied. Patient maintains SpO2 saturation greater than 95% on room air. Administered Medications: 17:13 Drug: Ondansetron PO 4 mg PO once Route: PO; jb4 17:38 Drug: LORazepam PO 1 mg PO once Route: PO; jb4 18:27 Not Given (Patient Refused): [id number] grams PO once jb4 19:38 Not Given (Patient Refused): Lokelma Powder 10 grams PO once jb4 Medication: 20:01 VIS not applicable for this client. jb4 Outcome: 19:40 Discharge ordered by . sb4 20:01 Discharged to home ambulatory, jb4 20:01 Condition: stable 20:01 Discharge instructions given to patient, Instructed on discharge instructions, follow up and referral plans. Demonstrated understanding of instructions, follow-up care, 20:02 Patient left the ED. jb4 Signatures: Dispatcher [employer] EDNJ Josiane Guerrero, Reg Reg Rayshawn Brush, RN RN jb4 Lucretia Simpson PA-C PA-C sb4 Zora Martinez kb4 Corrections: (The following items were deleted from the chart) 19:48 19:41 Pulse 70bpm; Resp 16bpm; Pulse Ox 99% RA; jb4 jb4
[2024-08-09 20:06] VITALS: TEMP 97.6
[2024-08-09 20:10] VITALS: BP 192/98; O2SAT 99
--- NOTE | 2024-08-16 11:07 | EKG ---
Test Date: 2024-08-09 Test Time: 17:00:50 Global Lead: RYAN MEASUREMENT RESULTS: Intervals: Rate: 70 MA: 164 QRSD: 96 QT: 436 QTc: 470 [place]: P: 39 MA: 164 QRS: 113 T: 41 INTERPRETIVE STATEMENTS: Sinus rhythm with frequent premature ventricular complexes Otherwise normal ECG Compared to ECG 07/12/2024 20:49:28 Ventricular premature complex(es) now present ST (T wave) deviation no longer present Electronically Signed On 08-16-24 10:59:13 [employer] [employer] PSYCHOLOG[employer] by Brady Amaya
== END 2024-08-09 20:02 | disposition home or self-care (01) ==
LOC: ER 16:41
DX: R07.9 Chest pain, unspecified (principal); F41.9 Anxiety disorder, unspecified; N18.6 End stage renal disease; I50.9 Heart failure, unspecified; E11.9 Type 2 diabetes mellitus without complications; F17.210 Nicotine dependence, cigarettes, uncomplicated; Z99.2 Dependence on renal dialysis
CPT/HCPCS: 93005; 85025; 80048; 36415; 84484; 71045; 99284; Q0162

== ENCOUNTER 2024-08-10 16:08 | Observation (INO) | payer OTHER ==
[2024-08-10 16:42] LABS: Absolute Basophils 0.1 K/uL (0-0.5); Absolute Lymphocytes (CBC) 1.4 K/uL (0.7-4.9); Absolute Monocytes 1.2 K/uL (0.1-1.3); Absolute Neutrophil 9.9 K/uL (1.8-8.0); Basophils % 0.4 % (0-1.3); Eosinophils % 0.3 % (0-4.4); Hematocrit 31.7 % (39.6-49.0); Hemoglobin 10.7 g/dL (13.6-17.9); Lymphocytes % 11.3 % (15.3-44.8); MCH 33.7 pg (27.0-35.0); MCHC 33.8 g/dL (32.0-36.0); MCV 99.9 fL (80-100); MPV 7.6 fL (7.6-11.3); Monocytes % 9.4 % (3.3-12.3); Neutrophils % 78.6 % (41.7-73.7); Nucleated RBC Absolute Count 0.1 (0-0); Nucleated Red Blood Cells % 0.4 % (0-0); Platelets 212 thou/uL (152-406); RBC Red Blood Cell Count 3.17 M/uL (4.33-5.43); Red Cell Distribution Width 16.4 % (12.1-15.2)
--- NOTE | 2024-08-10 16:47 | RAD REPORT ---
EXAMINATION: ONE VIEW CHEST XR CLINICAL INDICATION: CHEST PAIN TECHNIQUE: Frontal chest projection is submitted. Examination is limited by patient positioning and t echnique. COMPARISON: 08/09/2024 FINDINGS: Mild bilateral pulmonary edema is suspected. The heart is upper limit of normal in size. No displaced fractures identified. IMPRESSION: The findings favor CHF or volume overload, appear mildly improved since prior study from yesterday.
[2024-08-10 17:05] LABS: ALT/SGPT 667 U/L (16-61); AST/SGOT 1106 U/L (15-37); Albumin 3.4 g/dL (3.4-5.0); Albumin/Globulin Ratio 0.9 (1.1-1.8); Alkaline Phosphatase 77 U/L (45-117); Anion Gap 23.8 mEq/L (5.0-15.0); BUN Blood Urea Nitrogen 84 mg/dL (7-18); Bicarbonate 18 mEq/L (21-32); Bilirubin Direct 1.4 mg/dL (0-0.2); Bilirubin Indirect, Calculated 1.1 mg/dL (0.2-0.8); Bilirubin Total 2.5 mg/dL (0.2-1.0); Globulin 3.8 g/dL (2.3-3.5); Glomerular Filtration Rate 4 ml/min (=/>90); Glucose Level 160 mg/dL (74-106); Potassium 6.8 mEq/L (3.5-5.1); Protein, Total 7.2 g/dL (6.4-8.2); Sodium Level 131 mEq/L (136-145)
[2024-08-10 17:10] LABS: Troponin High Sensitivity 100.2 pg/mL (<58.9)
--- NOTE | 2024-08-10 17:19 | ER ---
Nurse's Notes [facility] Name: Dasia Monroe Age: 38 yrs Sex: Male : 1985 Arrival Date: 08/10/2024 Time: 16:08 Bed 4 Private MD: Diagnosis: Hyperkalemia, renal failure, chest pain Presentation: 08/10 16:12 Chief complaint: EMS states: toned out to [facility] dialysis for chest pain. BGL 29. ld1 Coronavirus screen: Ebola Screen: No symptoms or risks identified at this time. Risk Assessment: Do you want to hurt yourself or someone else? Patient reports no desire to harm self or others. Onset of symptoms was August 10, 2024. 16:12 Method Of Arrival: EMS: [facility] ld1 16:12 Acuity: GUANAKITO 2 ld1 18:45 Initial Sepsis Screen: Does the patient meet any 2 criteria? No. Patient's initial ld1 sepsis screen is negative. Does the patient have a suspected source of infection? No. Patient's initial sepsis screen is negative. Triage Assessment: 16:11 General: Appears in no apparent distress. uncomfortable, Behavior is calm, cooperative, ld1 appropriate for age. Pain: Complains of pain in chest Pain does not radiate. Pain currently is 8 out of 10 on a pain scale. Quality of pain is described as heavy, pressure, throbbing, Pain began 1 hour ago. Is intermittent. EENT: No signs and/or symptoms were reported regarding the EENT system. Neuro: Level of Consciousness is awake, alert, obeys commands, Oriented to person, place, time, situation. Cardiovascular: Capillary refill < 3 seconds Patient's skin is warm and dry. Rhythm is sinus bradycardia. Respiratory: Airway is patent Respiratory effort is even, unlabored. GI: Abdomen is round non-distended. : No signs and/or symptoms were reported regarding the genitourinary system. Derm: No signs and/or symptoms reported regarding the dermatologic system. Musculoskeletal: No signs and/or symptoms reported regarding the musculoskeletal system. Historical: - Allergies: 16:13 No Known Allergies; ld1 - PMHx: 16:11 4 herniated disk; Anxiety; Congestive heart failure; diabetes mellitus; Dialysis ld1 (dialysis access johanna); Hypertensive disorder; kidney disease; - PSHx: 16:11 dialysis access placement; left arm; ld1 - Immunization history:: Adult Immunizations up to date. - Infectious Disease History:: Denies. - Social history:: Smoking status: . Screenin:14 [facility] ED Fall Risk Assessment (Adult) History of falling in the last 3 months, ld1 including since admission No falls in past 3 months (0 pts) Confusion or Disorientation No (0 pts) Intoxicated or Sedated No (0 pts) Impaired Gait No (0 pts) Mobility Assist Device Used No (0 pt) Altered Elimination No (0 pt) Score/Fall Risk Level 0 - 2 = Low Risk Oriented to surroundings, Maintained a safe environment, Educated pt \\T\\ family on fall prevention, incl call for assistance when getting out of bed, Assessed \\T\\ reinforced patient's understanding of fall precautions, Provided non-skid footwear, Hourly rounding (assess needs \\T\\ fall precautionary measures) done, Used ambulatory aids as needed (educated on \\T\\ assisted with), Used gait belt as appropriate. Abuse screen: Denies threats or abuse. Denies injuries from another. Nutritional screening: No deficits noted. Tuberculosis screening: No symptoms or risk factors identified. Assessment: 16:14 Reassessment: See triage assessment. ld1 16:14 Pain: Complains of pain in chest Pain does not radiate. Pain currently is 8 out of 10 ld1 on a pain scale. Quality of pain is described as heavy, pressure, throbbing, Pain began 1 hour ago. Is intermittent. 17:36 Reassessment: Pt refusing Kayexalate. Reports "I took this last time and it was awful, ld1 never again." Notified ERP. 18:02 Reassessment: Patient appears in no apparent distress at this time. No changes from ld1 previously documented assessment. Patient states symptoms have not improved. Vital Signs: 16:11 BP 219 / 101; Pulse 65; Resp 16; Pulse Ox 100% on R/A; ld1 16:54 BP 198 / 88; Pulse 57; Resp 16; Pulse Ox 100% on R/A; ld1 17:37 BP 186 / 86; Pulse 54; Resp 15; Pulse Ox 100% on R/A; ld1 18:02 BP 185 / 93; Pulse 56; Resp 16; Pulse Ox 100% on R/A; ld1 ED Course: 16:09 Patient arrived in ED. sp3 16:09 Laurel Aguilar MD is Attending Physician. sp3 16:11 Arm band placed on right wrist. EKG completed in triage. Results shown to MD. ld1 16:13 Triage completed. ld1 16:14 Patient has correct armband on for positive identification. Placed in gown. Bed in low ld1 position. Call light in reach. Side rails up X2. monitoring coordinator on. Pulse ox on. NIBP on. Door closed. Noise minimized. Warm blanket given. 16:14 No provider procedures requiring assistance completed. Maintain EMS IV. Dressing ld1 intact. Good blood return noted. Site clean \\T\\ dry. Gauge \\T\\ site: 20G RAC. Patient maintains SpO2 saturation greater than 95% on room air. 16:20 Lizz Gama RN is Primary Nurse. ld1 16:42 XRAY Chest (1 view) In Process Unspecified. EDMS 17:19 Ismael Harris is Hospitalizing Provider. sp3 18:45 Patient admitted, IV remains in place. ld1 Administered Medications: 17:36 Drug: Calcium Gluconate IVPB 2 grams IVPB once over 60 mins; (mix in NS 100 mL) Route: ld1 IVPB; Infused Over: 60 mins; Site: right antecubital; 18:02 Follow up: Response: No adverse reaction; IV Status: Completed infusion; IV Intake: ld1 100ml 17:36 Not Given (Patient Refused): [id number] grams PO once ld1 Medication: 18:45 VIS not applicable for this client. ld1 Intake: 18:02 IV: 100ml; Total: 100ml. ld1 Outcome: 17:19 Decision to Hospitalize by Provider. sp3 18:45 Admitted to Med/surg ld1 18:45 Condition: unchanged 18:45 Instructed on the need for admit, 18:45 Patient left the ED. ld1 Signatures: Dispatcher [employer] EDMS Lizz Gama RN RN ld1 Laurel Aguilar MD MD sp3
--- NOTE | 2024-08-10 17:19 | EDPHYS ---
Physician Documentation [facility] Name: Dasia Monroe Age: 38 yrs Sex: Male : 1985 Arrival Date: 08/10/2024 Time: 16:08 Bed 4 Private MD: ED Physician Laurel Aguilar HPI: 08/10 17:05 This 38 yrs old Male presents to ER via EMS with complaints of Chest Pain. sp3 17:05 38-year-old male with history of diabetes, CHF, end-stage renal disease on dialysis, sp3 anxiety, herniated disks, multiple AMA departures now presents to the ED by EMS for recurrent chest pain. Patient was seen yesterday in the ED and was discharged after he refused Kayexalate and any other medications. He went to dialysis today but before he could get started, he complained of chest pain at which point he was transferred to the ED here. Patient has now been several days without dialysis. Initial blood sugar after EMS arrived at dialysis was 29. After D50 his sugar improved to 100+. He was awake and alert and oriented. They also administered fentanyl IV. Patient denies any shortness of breath, headache, fever or any other signs or symptoms on ROS at this time.. Historical: - Allergies: 16:13 No Known Allergies; ld1 - PMHx: 16:11 4 herniated disk; Anxiety; Congestive heart failure; diabetes mellitus; Dialysis ld1 (dialysis access johanna); Hypertensive disorder; kidney disease; - PSHx: 16:11 dialysis access placement; left arm; ld1 - Immunization history:: Adult Immunizations up to date. - Infectious Disease History:: Denies. - Social history:: Smoking status: . ROS: 17:13 Constitutional: Negative for fever, chills, and weight loss, Eyes: Negative for injury, sp3 pain, redness, and discharge, ENT: Negative for injury, pain, and discharge, Neck: Negative for injury, pain, and swelling, Respiratory: Negative for shortness of breath, cough, wheezing, and pleuritic chest pain, Abdomen/GI: Negative for abdominal pain, nausea, vomiting, diarrhea, and constipation, Back: Negative for injury and pain, MS/Extremity: Negative for injury and deformity, Skin: Negative for injury, rash, and discoloration, Neuro: Negative for headache, weakness, numbness, tingling, and seizure, Psych: Negative for depression, anxiety, suicide ideation, homicidal ideation, and hallucinations, Allergy/Immunology: Negative for hives, rash, and allergies, Endocrine: Negative for neck swelling, polydipsia, polyuria, polyphagia, and marked weight changes, 17:13 All other systems are negative, Exam: 17:13 Constitutional: This is a well developed, well nourished patient who is awake, alert, sp3 and in no acute distress. Head/Face: Normocephalic, atraumatic. Eyes: Pupils equal round and reactive to light, extra-ocular motions intact. Lids and lashes normal. Conjunctiva and sclera are non-icteric and not injected. Cornea within normal limits. Periorbital areas with no swelling, redness, or edema. ENT: Nares patent. No nasal discharge, no septal abnormalities noted. External auditory canals are clear. Oropharynx with no redness, swelling, or masses, exudates, or evidence of obstruction, uvula midline. Mucous membranes moist. Neck: Trachea midline, no thyromegaly or masses palpated, and no cervical lymphadenopathy. Supple, full range of motion without nuchal rigidity, or vertebral point tenderness. No Meningismus. Chest/axilla: Normal chest wall appearance and motion. Nontender with no deformity. No lesions are appreciated. Cardiovascular: Regular rate and rhythm with a normal S1 and S2. No gallops, murmurs, or rubs. Normal PMI, no JVD. No pulse deficits. Respiratory: Lungs have equal breath sounds bilaterally, clear to auscultation and percussion. No rales, rhonchi or wheezes noted. No increased work of breathing, no retractions or nasal flaring. Abdomen/GI: Soft, non-tender, with normal bowel sounds. No distension or tympany. No guarding or rebound. No evidence of tenderness throughout. Back: No spinal tenderness. No costovertebral tenderness. Full range of motion. Skin: Warm, dry with normal turgor. Normal color with no rashes, no lesions, and no evidence of cellulitis. MS/ Extremity: Pulses equal, no cyanosis. Neurovascular intact. Full, normal range of motion. Neuro: Awake and alert, GCS 15, oriented to person, place, time, and situation. Cranial nerves II-XII grossly intact. Motor strength 5/5 in all extremities. Sensory grossly intact. Cerebellar exam normal. Normal gait. Psych: Awake, alert, with orientation to person, place and time. Behavior, mood, and affect are within normal limits. 17:13 ECG was reviewed by the Attending Physician. EKG demonstrates normal sinus rhythm at 60 bpm with normal intervals, normal QRS with mild left axis, and peaked T waves at least a hide of the QRS inferior laterally. Vital Signs: 16:11 BP 219 / 101; Pulse 65; Resp 16; Pulse Ox 100% on R/A; ld1 16:54 BP 198 / 88; Pulse 57; Resp 16; Pulse Ox 100% on R/A; ld1 17:37 BP 186 / 86; Pulse 54; Resp 15; Pulse Ox 100% on R/A; ld1 18:02 BP 185 / 93; Pulse 56; Resp 16; Pulse Ox 100% on R/A; ld1 MDM: 16:09 Medical Screening Exam initiated sp3 17:14 Data reviewed: vital signs, nurses notes, EMS record, old medical records, lab test sp3 result(s), EKG, radiologic studies. ED course: 38-year-old male with recurrent chest pain now with several days of missed dialysis. Differential diagnosis includes critical hyperkalemia, volume overload, acute coronary syndrome, hypertensive urgency, among others. Troponin is down from 300 to 100 however potassium is up from 5.3 to 6.8. Patient will need emergency dialysis and we will initiate steps to make this happen.. 08/10 16:10 Order name: Basic Metabolic Panel; Complete Time: 17:28 sp3 08/10 16:10 Order name: CBC with Diff; Complete Time: 16:48 sp3 08/10 16:10 Order name: LFT's; Complete Time: 17:28 sp3 08/10 16:10 Order name: NT PRO-BNP; Complete Time: 17:28 sp3 08/10 16:10 Order name: Troponin HS; Complete Time: 17:28 sp3 08/10 16:32 Order name: Glucose, Ancillary Testing; Complete Time: 16:48 EDMS 08/10 17:18 Order name: Glucose, Ancillary Testing; Complete Time: 17:28 EDMS 08/10 16:10 Order name: XRAY Chest (1 view); Complete Time: 16:48 sp3 08/10 16:10 Order name: EKG; Complete Time: 16:11 sp3 08/10 16:10 Order name: Cardiac monitoring; Complete Time: 16:17 sp3 08/10 16:10 Order name: EKG - Nurse/Tech; Complete Time: 16:17 sp3 08/10 16:10 Order name: IV Saline Lock; Complete Time: 16:17 sp3 08/10 16:10 Order name: Labs collected and sent; Complete Time: 16:33 sp3 08/10 16:10 Order name: O2 Per Protocol; Complete Time: 16:17 sp3 08/10 16:10 Order name: O2 Sat Monitoring; Complete Time: 16:17 sp3 08/10 16:12 Order name: Accucheck; Complete Time: 16:20 sp3 Administered Medications: 17:36 Drug: Calcium Gluconate IVPB 2 grams IVPB once over 60 mins; (mix in NS 100 mL) Route: ld1 IVPB; Infused Over: 60 mins; Site: right antecubital; 18:02 Follow up: Response: No adverse reaction; IV Status: Completed infusion; IV Intake: ld1 100ml 17:36 Not Given (Patient Refused): [id number] grams PO once ld1 Disposition Summary: 08/10/24 17:19 Hospitalization Ordered Notes: Hospitalization Status: Inpatient Admission sp3 Provider: Ismael Harris sp3 [facility] sp3 Condition: Guarded sp3 Problem: an acute exacerbation sp3 Symptoms: have worsened sp3 Bed/Room Type: Standard sp3 Room Assignment: [facility](08/10/24 17:42) [facility] Diagnosis - Hyperkalemia, renal failure, chest pain sp3 Forms: - Medication Reconciliation Form sp3 - SBAR form sp3 - Leadership Thank You Letter sp3 Signatures: Dispatcher [employer] Alexis Gomez RN RN ja1 Lizz Gama RN RN jose1 Laurel Aguilar MD MD sp3 Corrections: (The following items were deleted from the chart) 16:11 16:10 BASIC METABOLIC PANEL+C.LAB.BRZ ordered. EDMS EDMS 16:11 16:11 CBC+H.LAB.BRZ ordered. EDMS EDMS 16:11 16:11 HEPATIC FUNCTION+C.LAB.BRZ ordered. EDMS EDMS 16:11 16:11 PROBNP+C.LAB.BRZ ordered. EDMS EDMS 16:11 16:11 Troponin High Sensitivity+C.LAB.BRZ ordered. EDMS EDMS 17:42 17:19 sp3 ja1
[2024-08-10 17:20] LABS: NT PRO-BNP > 175000 pg/mL (<125)
[2024-08-10] MEDS ORDERED: CALCIUM GLUCONATE 1 GM IVPB 2 GM/100 ML BAG IV ONE (17:31)
--- NOTE | 2024-08-10 17:36 | P.HP ---
Certification for Inpatient Patient admitted to: Observation With expected LOS: <2 Midnights Practitioner: I am a practitioner with admitting privileges, knowledge of patient current condition, hospital course, and medical plan of care. Services: Services provided to patient in accordance with Admission requirements found in Title 42 Section 412.3 of the Code of Federal Regulations Patient History Date of Service: 08/10/24 Reason for admission: ESRD complicated with Fluid volume overload 2/2 noncompliance History of Present Illness: Dewey Monroe is a 38-year-old male with past medical history of anxiety, congestive heart failure, diabetes mellitus, ESRD noncompliant with dialysis, hypertension who presents to the ED with chief complaint of recurrent chest pain. Reportedly after severeal missed dialysis days, he was at dialysis today with chest pain and was unable to have dialysis. Significant laboratory findings WBC 12.6, normal saline 131, potassium 6.8, bicarb 18, anion gap 23.8, BUN/creatinine 84/14.8, GFR 4, BNP greater than 175,000, AST 1106, ALT 667. initial vitals BP 219 / 101; Pulse 65; Resp 16; Pulse Ox 100% on R/A; Chest x-ray reports "The findings favor CHF or volume overload, appear mildly improved since prior study from yesterday" Dasia will be admitted to hospitalist service for immediate dialysis, Dr. Candelaria consulted. Allergies No Known Drug Allergies Allergy (Verified 07/09/23 21:44) Anaphylaxis Home Medications: Apixaban [Eliquis] 1 tab PO BID 08/16/23 Losartan Potassium 1 tab PO DAILY 08/16/23 Metoprolol Tartrate 100 tab PO BID 08/16/23 PARoxetine HCL [Paxil*] 1 tab PO DAILY 08/16/23 Pantoprazole [Protonix Tab] 40 mg PO DAILY 08/16/23 cloNIDine HCL [Clonidine HCl] 0.1 mg PO BID 08/16/23 Lanthanum Carbonate [Fosrenol] 1,000 mg PO TIDWM 08/17/23 Amlodipine [Norvasc] 10 mg PO DAILY 04/29/24 LORazepam [Lorazepam] 1 mg PO DAILYPRN PRN 07/03/24 Metoclopramide HCl [Reglan] 10 mg PO Q6HP PRN 07/03/24 methocarbamoL [Methocarbamol] 500 mg PO BIDP PRN 07/03/24 - Past Medical/Surgical History Diabetic: No -: ESRD (Dr. South/ Dr. Candelaria) -: Afib -: HTN -: CHF -: Peritoneal dialysis -: Herniated disk -: Anxiety -: Depression -: Diabetes mellitus -: Dialysis Access placement 07/23 - Family History Father -: Heart disease, Hypertension, Diabetes, Stroke - Social History Alcohol use: No CD- Drugs: No Caffeine use: No Review of Systems is unable to be obtained Physical Examination - Physical Exam General: Acute distress, Other (lethargic) HEENT: Atraumatic, Normocephalic, PERRLA Neck: Supple, 2+ carotid pulse no bruit Respiratory: Clear to auscultation bilaterally, Normal air movement Cardiovascular: Normal pulses, Regular rate/rhythm, Normal S1 S2 Capillary refill: <2 Seconds Gastrointestinal: Soft and benign, No tenderness Musculoskeletal: No clubbing Integumentary: No rashes Neurological: Other (lethargic) - Studies Laboratory Data (last 24 hrs) 08/10/24 08/10/24 16:32 16:32 WBC 12.60 H Hgb 10.7 L Hct 31.7 L Plt Count 212 Sodium 131 L Potassium 6.8 H* D BUN 84 H Creatinine 14.20 H Glucose 160 H Total Bilirubin 2.5 H AST 1106 H ALT 667 H Alkaline Phosphatase 77 Assessment and Plan - Plan Assessment and plan ESRD complicated with Fluid volume overload 2/2 noncompliance Metabolic acidosis Hyperkalemia Elevated troponin -potassium 6.8, bicarb 18, anion gap 23.8, BUN/creatinine 84/14.8, GFR 4, BNP greater than 175,000, troponin 100.2 -Calcium gluconate given in the ED -Consult Dr. Candelaria -dialysis today -continuous telemetry -Trend troponin, consider consulting cardiology -Chest x-ray reports "The findings favor CHF or volume overload, appear mildly improved since prior study from yesterday" Atrial fibrillation -continuous telemetry -continue home medications Transaminitis Elevated bilirubin -AST 1106, ALT 667, T. bili 2.5, D bili 1.4, indirect bili 1.1 -Monitor in a.m. labs Diabetes mellitus -Serum glucose 160 -Accu-Chek with sliding scale insulin HTN -Continue home medications -IV hydralazine PRN Anxiety /Depression Congestive heart failure -Continue home medications DVT PPx heparin Full code LOS 24-hour OBS Discharge Plan: Home Plan to discharge in: 24 Hours - Advance Directives Does patient have a Living Will: No Does patient have a Durable POA for Healthcare: No
[2024-08-10] MEDS ORDERED: ACETAMINOPHEN 325 MG TABLET PO PRN (18:11)
[2024-08-10] MEDS ORDERED: D10W 125 ML IV PRN (18:27)
[2024-08-10] MEDS ORDERED: GLUCAGON 1 MG/VIAL IM PRN (18:27)
[2024-08-10] MEDS: LORAZEPAM 1 MG TABLET PO ONE (19:41)
--- NOTE | 2024-08-10 19:45 | P.CNS ---
Date of Consult: 08/11/24 Reason for Consult: ESRD Requesting Physician: yuliana zhao Chief Complaint: ESRD complicated with Fluid volume overload 2/2 noncompliance History of Present Illness: Dewey Monroe is a 38-year-old male with past medical history of anxiety, congestive heart failure, diabetes mellitus, ESRD noncompliant with dialysis, hypertension who presents to the ED with chief complaint of recurrent chest pain. Reportedly after severeal missed dialysis days, he was at dialysis today with chest pain and was unable to have dialysis. Significant laboratory findings WBC 12.6, normal saline 131, potassium 6.8, bicarb 18, anion gap 23.8, BUN/creatinine 84/14.8, GFR 4, BNP greater than 175,000, AST 1106, ALT 667. initial vitals BP 219 / 101; Pulse 65; Resp 16; Pulse Ox 100% on R/A; Chest x-ray reports "The findings favor CHF or volume overload, appear mildly improved since prior study from yesterday" [id number] 17:05 This 38 yrs old Male presents to ER via EMS with complaints of Chest Pain. sp3 17:05 38-year-old male with history of diabetes, CHF, end-stage renal disease on dialysis, sp3 anxiety, herniated disks, multiple AMA departures now presents to the ED by EMS for recurrent chest pain. Patient was seen yesterday in the ED and was discharged after he refused Kayexalate and any other medications. He went to dialysis today but before he could get started, he complained of chest pain at which point he was transferred to the ED here. Patient has now been several days without dialysis. Initial blood sugar after EMS arrived at dialysis was 29. After D50 his sugar improved to 100+. He was awake and alert and oriented. They also administered fentanyl IV. Patient denies any shortness of breath, headache, fever or any other signs or symptoms on ROS at this time.. Allergies No Known Drug Allergies Allergy (Verified 07/09/23 21:44) Anaphylaxis Home medications list reviewed: Yes Home Medications: Metoprolol Tartrate 100 tab PO BID 08/16/23 Pantoprazole [Protonix Tab*] 40 mg PO DAILY 08/16/23 Lanthanum Carbonate [Fosrenol] 1,000 mg PO TIDWM 08/17/23 LORazepam [Lorazepam] 1 mg PO DAILYPRN PRN 07/03/24 Metoclopramide HCl [Reglan] 10 mg PO Q6HP PRN 07/03/24 methocarbamoL [Methocarbamol] 500 mg PO BIDP PRN 07/03/24 Apixaban [Eliquis] 2.5 mg PO BID #60 tablet 08/11/24 Losartan Potassium [Cozaar*] 50 mg PO BID #60 tab 08/11/24 Nepro Shake [Nepro*] 237 ml PO TID can 08/11/24 Nifedipine Xl [Procardia XL*] 60 mg PO DAILY #30 tab 08/11/24 Nifedipine Xl [Procardia Xl*] 30 mg PO DAILY #30 tab 08/11/24 Sertraline [Zoloft*] 50 mg PO BID #60 tab 08/11/24 Sevelamer Carbonate [Renvela*] 800 mg PO TIDWM 08/11/24 - Past Medical/Surgical History Diabetic: No -: ESRD (Dr. South/ Dr. Candelaria) -: Afib -: HTN -: CHF -: Peritoneal dialysis -: Herniated disk -: Anxiety -: Depression -: Diabetes mellitus -: Dialysis Access placement 07/23 - Family History Father Medical History: Heart disease, Hypertension, Diabetes, Stroke - Social History Smoking Status: Current every day smoker Alcohol use: No CD- Drugs: No Caffeine use: No Review of Systems 10-point ROS is otherwise unremarkable Physical Examination Temp Pulse Resp BP Pulse Ox 56 16 185/93 H 08/10/24 19:09 08/10/24 19:09 08/10/24 19:09 General: In no apparent distress, Oriented x3, Cooperative HEENT: Atraumatic Neck: Supple Respiratory: Normal air movement Cardiovascular: No edema, Regular rate/rhythm Gastrointestinal: Soft and benign, Non-distended Musculoskeletal: No clubbing, No contractures Integumentary: No rashes, No cyanosis Neurological: Normal speech Laboratory Data (last 24 hrs) 08/10/24 08/10/24 16:32 16:32 WBC 12.60 H Hgb 10.7 L Hct 31.7 L Plt Count 212 Sodium 131 L Potassium 6.8 H* D BUN 84 H Creatinine 14.20 H Glucose 160 H Total Bilirubin 2.5 H AST 1106 H ALT 667 H Alkaline Phosphatase 77 Imagings Data: [id number] CLINICAL INDICATION: CHEST PAIN TECHNIQUE: Frontal chest projection is submitted. Examination is limited by patient positioning and technique. COMPARISON: 08/09/2024 FINDINGS: Mild bilateral pulmonary edema is suspected. The heart is upper limit of normal in size. No displaced fractures identified. IMPRESSION: The findings favor CHF or volume overload, appear mildly improved since prior study from yesterday. Conclusions/Impression: ESRD on HD MWF Hyponatremia Hyperkalemia Metabolic Acidosis -HD TIW -Emergent HD ordered HTN with CKD/ CHF -Continue Metoprolol -Discontinue Clonidine in the setting of possible non-compliance -Start Nifedipine ER and Losartan Diastolic CHF, A/C Pulmonary HTN Moderate TR -UF with HD -Low sodium diet DM II with CKD -RISS Anemia in CKD -Retacrit PRN CKD MBD Secondary HyperParathyroidism -Continue Calcitriol and Ergo -Start Renvela Anxiety -Change Paxil to Zoloft Hospitalist and ER notes reviewed Thank you kindly for the consultation
[2024-08-10 20:28] LABS: Hepatitis B Surface Ab - Quant < 3.10 mIU/mL (<8.0); Hepatitis B surface AG Interp. Nonreactive (Nonreactive)
[2024-08-10 20:29] LABS: HBsAG Nonreactive Report Report
[2024-08-10] MEDS ORDERED: TEMAZEPAM 15 MG CAP PO ONE (21:00)
[2024-08-10] MEDS: INSULIN REGULAR (HUMAN) 100 UNIT/ML SQ SCH (21:00)
[2024-08-10] MEDS ORDERED: METOPROLOL TAR 50 MG TAB PO SCH (21:00)
[2024-08-10] MEDS: cloNIDine HCL 0.1 MG TAB PO SCH (22:15)
[2024-08-10] MEDS: LOSARTAN POTASSIUM 50 MG TABLET PO SCH (22:15)
[2024-08-10] MEDS: NIFEDIPINE XL 60 MG TABLET PO SCH (22:15)
[2024-08-10] MEDS: HEPARIN 5000 UNIT/ML 1 ML VIAL SQ SCH (22:15)
[2024-08-10] MEDS: METOPROLOL TAR 50 MG TAB PO SCH (22:16)
[2024-08-10] MEDS: HYDRALAZINE HCL 20 MG/ML VIAL IV PRN (23:36)
[2024-08-11] MEDS: HYDROCODONE/APAP 5/325 MG TAB PO ONE (00:29)
[2024-08-11 03:16] LABS: Potassium 3.5 mEq/L (3.5-5.1); Troponin High Sensitivity 74.5 pg/mL (<58.9)
[2024-08-11 04:31] VITALS: O2SAT 99
[2024-08-11 06:59] LABS: Absolute Basophils 0.1 K/uL (0-0.5); Absolute Eosinophils 0.2 K/uL (0-0.5); Absolute Lymphocytes (CBC) 1.8 K/uL (0.7-4.9); Absolute Monocytes 0.8 K/uL (0.1-1.3); Absolute Neutrophil 8.2 K/uL (1.8-8.0); Basophils % 0.6 % (0-1.3); Eosinophils % 1.6 % (0-4.4); Hematocrit 29.4 % (39.6-49.0); Hemoglobin 10.1 g/dL (13.6-17.9); Lymphocytes % 16.4 % (15.3-44.8); MCHC 34.4 g/dL (32.0-36.0); MCV 98.9 fL (80-100); MPV 7.7 fL (7.6-11.3); Monocytes % 7.6 % (3.3-12.3); Neutrophils % 73.8 % (41.7-73.7); Nucleated Red Blood Cells % 0.4 % (0-0); Platelets 186 thou/uL (152-406); RBC Red Blood Cell Count 2.97 M/uL (4.33-5.43); Red Cell Distribution Width 15.7 % (12.1-15.2)
[2024-08-11 07:20] LABS: Anion Gap 14.5 mEq/L (5.0-15.0); Phosphorus 6.8 mg/dL (2.5-4.9); Potassium 3.5 mEq/L (3.5-5.1)
[2024-08-11] MEDS: FLU (Fluarix Triv) TS24-25(6MOS UP)/PF 45 MCG/0.5 ML Syringe IM ONE (07:30)
[2024-08-11 08:32] VITALS: BP 128/62; TEMP 98.7
[2024-08-11] MEDS: SERTRALINE HCL 50 MG TAB PO SCH (09:13)
[2024-08-11] MEDS: NIFEDIPINE XL 90 MG TABLET PO SCH (09:13)
[2024-08-11] MEDS: SEVELAMER CARBONATE 800 MG TABLET PO SCH (09:13)
[2024-08-11] MEDS: CALCITROL 0.25 MCG CAP PO SCH (09:13)
[2024-08-11] MEDS: MULTIVITAMINS,THERAPEUT 1 TAB PO SCH (09:13)
[2024-08-11] MEDS: DRISDOL (VITAMIN D=ERGOCALCIFEROL) 50000 UNIT CAP PO SCH (09:13)
[2024-08-11] MEDS: DOCUSATE NA 100 MG CAP PO SCH (09:14)
[2024-08-11] MEDS: NEPRO SHAKE 237 ML CAN PO SCH (09:15)
--- NOTE | 2024-08-11 09:18 | P.DS ---
Admission Date: 08/10/24 Discharge Date: 08/11/24 Disposition: ROUTINE DISCHARGE Discharge Condition: FAIR Reason for Admission: ESRD complicated with Fluid volume overload 2/2 noncompliance Brief History of Present Illness: Dagnosis HPI 08/10/24 Dewey Monreo is a 38-year-old male with past medical history of anxiety, congestive heart failure, diabetes mellitus, ESRD noncompliant with dialysis, hypertension who presents to the ED with chief complaint of recurrent chest pain. Reportedly after severeal missed dialysis days, he was at dialysis today with chest pain and was unable to have dialysis. Significant laboratory find ings WBC 12.6, normal saline 131, potassium 6.8, bicarb 18, anion gap 23.8, BUN/creatinine 84/14.8, GFR 4, BNP greater than 175,000, AST 1106, ALT 667. initial vitals BP 219 / 101; Pulse 65; Resp 16; Pulse Ox 100% on R/A; Chest x-ray reports "The findings favor CHF or volume overload, appear mildly improved since prior study from yesterday" Dasia will be admitted to hospitalist service for immediate dialysis, Dr. Candelaria consulted. Vital Signs/Physical Exam: Temp Pulse Resp BP Pulse Ox 98.7 F 60 16 128/62 95 08/11/24 08:00 08/11/24 08:00 08/11/24 08:00 08/11/24 08:00 08/11/24 08:00 Laboratory Data at Discharge: WBC 11.10 thou/uL (4.3-10.9) H 08/11/24 06:05 Hgb 10.1 g/dL (13.6-17.9) L 08/11/24 06:05 Hct 29.4 % (39.6-49.0) L 08/11/24 06:05 Plt Count 186 thou/uL (152-406) 08/11/24 06:05 Sodium 139 mEq/L (136-145) D 08/11/24 06:05 Potassium 3.5 mEq/L (3.5-5.1) 08/11/24 06:05 BUN 47 mg/dL (7-18) H 08/11/24 06:05 Creatinine 9.38 mg/dL (0.70-1.30) H 08/11/24 06:05 Glucose 81 mg/dL (74-106) 08/11/24 06:05 Phosphorus 6.8 mg/dL (2.5-4.9) H 08/11/24 06:05 Magnesium 2.0 mg/dL (1.6-2.4) 08/11/24 06:05 Total Bilirubin 2.5 mg/dL (0.2-1.0) H 08/10/24 16:32 AST 1106 U/L (15-37) H 08/10/24 16:32 ALT 667 U/L (16-61) H 08/10/24 16:32 Alkaline Phosphatase 77 U/L (45-117) 08/10/24 16:32 Home Medications: Metoprolol Tartrate 100 tab PO BID 08/16/23 Pantoprazole [Protonix Tab*] 40 mg PO DAILY 08/16/23 Lanthanum Carbonate [Fosrenol] 1,000 mg PO TIDWM 08/17/23 LORazepam [Lorazepam] 1 mg PO DAILYPRN PRN 07/03/24 Metoclopramide HCl [Reglan] 10 mg PO Q6HP PRN 07/03/24 methocarbamoL [Methocarbamol] 500 mg PO BIDP PRN 07/03/24 Apixaban [Eliquis] 2.5 mg PO BID #60 tablet 08/11/24 Losartan Potassium [Cozaar*] 50 mg PO BID #60 tab 08/11/24 Nepro Shake [Nepro*] 237 ml PO TID can 08/11/24 Nifedipine Xl [Procardia XL*] 60 mg PO DAILY #30 tab 08/11/24 Nifedipine Xl [Procardia Xl*] 30 mg PO DAILY #30 tab 08/11/24 Sertraline [Zoloft*] 50 mg PO BID #60 tab 08/11/24 Sevelamer Carbonate [Renvela*] 800 mg PO TIDWM 08/11/24 New Medications: Losartan Potassium [Cozaar*] 50 mg PO BID #60 tab Apixaban [Eliquis] 2.5 mg PO BID #60 tablet Nifedipine Xl [Procardia Xl*] 30 mg PO DAILY #30 tab Nifedipine Xl [Procardia XL*] 60 mg PO DAILY #30 tab Sertraline [Zoloft*] 50 mg PO BID #60 tab Physician Discharge Instructions: Please check your blood pressure twice a day and record for your doctor. Please machine pecan picker your prescriptions at your pharmacy. Follow up with Dr. Candelaria for further management and care. Continue with your dialysis days as scheduled. Continue a renal low sodium diet Return to the ED if symptoms worsen. Diet: Renal Activity: Ad sania Followup: Jeremy Candelaria DO [ACTIVE - CAN ADMIT] - 1 Week EDITH STAPLETON [Primary Care Provider] - 1-2 Weeks
== END 2024-08-11 10:21 | disposition home or self-care (01) ==
LOC: ER 16:08 → ERHOLD 17:32 → 4TH 18:14
PROVIDERS: ADMIT Internal Medicine; ATTEND Internal Medicine
DX: E87.70 Fluid overload, unspecified (principal); E11.22 Type 2 diabetes mellitus with diabetic chronic kidney disease; I12.0 Hypertensive chronic kidney disease with stage 5 chronic kidney disease or end stage renal disease; N18.6 End stage renal disease; F41.9 Anxiety disorder, unspecified; F32.A Depression, unspecified; I48.11 Longstanding persistent atrial fibrillation; R74.01 Elevation of levels of liver transaminase levels; E87.20 Acidosis, unspecified; E87.5 Hyperkalemia; D63.1 Anemia in chronic kidney disease; E21.3 Hyperparathyroidism, unspecified; I50.30 Unspecified diastolic (congestive) heart failure; R79.89 Other specified abnormal findings of blood chemistry; R17 Unspecified jaundice; Z79.01 Long term (current) use of anticoagulants; Z99.2 Dependence on renal dialysis; Z91.158 Patient's noncompliance with renal dialysis for other reason
CPT/HCPCS: 85025 ×2; 80048 ×2; 36415; 83735; 84100; 84132; 82947 ×4; 80076; 84484 ×3; 83880; 87340; 86706; 71045; 90935 ×2; J1644 ×2; J0612; J0360; G0378

== ENCOUNTER 2024-09-25 06:43 | Observation (INO) | payer OTHER ==
[2024-09-25] MEDS ORDERED: ADENOSINE 6 MG/ 2ML VIAL IV ONE (06:51)
[2024-09-25] MEDS ORDERED: NA CHLORIDE 0.9% 1,000 ML ONE (06:52)
[2024-09-25] MEDS ORDERED: dilTIAZem HCL 25 MG/5 ML VIAL IV ONE ×2 (06:56→07:02)
[2024-09-25] MEDS ORDERED: LORazepam 2 MG/ML VIAL ONE (07:01)
[2024-09-25] MEDS ORDERED: D5W 100 ML IV ONE (07:03)
[2024-09-25 07:25] LABS: Absolute Basophils 0.1 K/uL (0-0.5); Absolute Eosinophils 0.3 K/uL (0-0.5); Absolute Lymphocytes (CBC) 2.4 K/uL (0.7-4.9); Absolute Neutrophil 7.1 K/uL (1.8-8.0); Eosinophils % 2.6 % (0-4.4); Hematocrit 37.8 % (39.6-49.0); Hemoglobin 12.7 g/dL (13.6-17.9); Lymphocytes % 22.5 % (15.3-44.8); MCH 33.5 pg (27.0-35.0); MCHC 33.6 g/dL (32.0-36.0); MCV 99.6 fL (80-100); MPV 7.2 fL (7.6-11.3); Neutrophils % 64.9 % (41.7-73.7); Nucleated Red Blood Cells % 0.1 % (0-0); Platelets 268 thou/uL (152-406); RBC Red Blood Cell Count 3.79 M/uL (4.33-5.43); Red Cell Distribution Width 16.5 % (12.1-15.2)
[2024-09-25 07:52] LABS: AST/SGOT 11 U/L (15-37); Albumin 3.7 g/dL (3.4-5.0); Albumin/Globulin Ratio 0.9 (1.1-1.8); Alkaline Phosphatase 84 U/L (45-117); Anion Gap 20.5 mEq/L (5.0-15.0); BUN Blood Urea Nitrogen 58 mg/dL (7-18); Bicarbonate 26 mEq/L (21-32); Bilirubin Direct 0.2 mg/dL (0-0.2); Bilirubin Indirect, Calculated 0.5 mg/dL (0.2-0.8); Bilirubin Total 0.7 mg/dL (0.2-1.0); Globulin 4.3 g/dL (2.3-3.5); Glomerular Filtration Rate 6 ml/min (=/>90); Glucose Level 173 mg/dL (74-106); Magnesium 2.3 mg/dL (1.6-2.4); Potassium 3.5 mEq/L (3.5-5.1); Sodium Level 139 mEq/L (136-145)
[2024-09-25 07:53] LABS: ALT/SGPT < 14 U/L (16-61)
[2024-09-25 07:54] LABS: Troponin High Sensitivity 249.3 pg/mL (<58.9)
--- NOTE | 2024-09-25 07:56 | EDPHYS ---
Physician Documentation [facility] Name: Dasia Monroe Age: 38 yrs Sex: Male : 1985 Arrival Date: 09/25/2024 Time: 06:43 Bed 6 Private MD: ED Physician Jordan Castano HPI: 09/25 07:24 This 38 yrs old Male presents to ER via Ambulatory with complaints of rt Nausea/Vomiting. 07:24 Patient presents to the ED with chest pain which he attributes to his atrial rt fibrillation. States that this occurred about 3 AM. Denies other acute complaints at this time, symptoms are severe in severity, no other aggravating or alleviating factors.. Historical: - Allergies: 07:38 No Known Allergies; iw - PMHx: 07:10 4 herniated disk; Anxiety; Congestive heart failure; diabetes mellitus; Dialysis br2 (dialysis access johanna); Hypertensive disorder; kidney disease; - PSHx: 07:10 dialysis access placement; left arm; br2 - Immunization history:: Adult Immunizations not up to date. - Infectious Disease History:: Denies. - Family history:: not pertinent. - Social history:: Smoking status: Patient reports the use of cigarette tobacco products. ROS: 07:24 Constitutional: Negative for fever, chills, and weight loss, Respiratory: Negative for rt shortness of breath, cough, wheezing, and pleuritic chest pain, Abdomen/GI: Negative for abdominal pain, nausea, vomiting, diarrhea, and constipation, MS/Extremity: Negative for injury and deformity, Skin: Negative for injury, rash, and discoloration, Neuro: Negative for headache, weakness, numbness, tingling, and seizure, 07:24 Cardiovascular: Positive for chest pain, Negative for edema, Exam: 07:24 Head/Face: Normocephalic, atraumatic. Chest/axilla: Normal chest wall appearance and rt motion. Nontender with no deformity. No lesions are appreciated. Cardiovascular: Regular rate and rhythm with a normal S1 and S2. No gallops, murmurs, or rubs. Normal PMI, no JVD. No pulse deficits. Respiratory: Lungs have equal breath sounds bilaterally, clear to auscultation and percussion. No rales, rhonchi or wheezes noted. No increased work of breathing, no retractions or nasal flaring. Abdomen/GI: Soft, non-tender, with normal bowel sounds. No distension or tympany. No guarding or rebound. No evidence of tenderness throughout. Skin: Warm, dry with normal turgor. Normal color with no rashes, no lesions, and no evidence of cellulitis. MS/ Extremity: Pulses equal, no cyanosis. Neurovascular intact. Full, normal range of motion. 07:24 Constitutional: The patient appears Diaphoretic, in acute distress 07:24 ECG was reviewed by the Attending Physician. 08:06 ECG was reviewed by the Attending Physician. griffin Vital Signs: 07:04 BP 124 / 66; Pulse 62; Resp 20; Temp 97.2(O); Pulse Ox 100% on R/A; Weight 68.04 kg; br2 Height 5 ft. 8 in. ; Pain 10/10; 07:15 BP 177 / 98; Pulse 76; Resp 20; Temp 97.2; Pulse Ox 100% ; Pain 5/10; bm8 08:15 BP 157 / 79; Pulse 77; Resp 18; Pulse Ox 98% on R/A; iw 08:48 BP 163 / 90; Pulse 80; Resp 18; Pulse Ox 97% on R/A; iw 07:04 Body Mass Index 22.81 (68.04 kg, 172.72 cm) br2 07:04 Pain Scale: Adult br2 07:15 Pain Scale: Adult bm8 Radha Coma Score: 07:15 Eye Response: spontaneous(4). Motor Response: obeys commands(6). Verbal Response: bm8 oriented(5). Total: 15. MDM: 06:52 Medical Screening Exam initiated rt 08:05 Differential diagnosis: Nonspecific abd pain, pancreatitis, viral gastroenteritis, griffin gastroenteritis. Data reviewed: vital signs, nurses notes, lab test result(s), EKG, radiologic studies, plain films. Consideration of Admission/Observation Patient was admitted/placed on observation. Escalation of care including admission/observation considered. I considered the following discharge prescriptions or medication management in the emergency department Medications were administered in the Emergency Department. See MAR. Independent interpretation of the following test(s) in the Emergency Department EKG: See my EKG interpretation above. Test considered but Not performed: Ultrasound no abd usg. Historians other than the Patient: Spouse/Significant Other: well informed. Care significantly affected by the following chronic conditions: Diabetes, Hypertension, Congestive Heart Failure, Obesity, Chronic Kidney Disease. Counseling: I had a detailed discussion with the patient and/or guardian regarding the historical points, exam findings, and any diagnostic results supporting the discharge/admit diagnosis, the presence of at least one elevated blood pressure reading (>120/80) during this emergency department visit, lab results, radiology results, the need for further work-up and treatment in the hospital. 09/25 07:03 Order name: Basic Metabolic Panel rt 09/25 07:03 Order name: CBC with Diff; Complete Time: 07:47 rt 09/25 07:03 Order name: LFT's rt 09/25 07:03 Order name: Magnesium rt 09/25 07:03 Order name: Troponin HS rt 09/25 07:03 Order name: TSH rt 09/25 08:35 Order name: Basic Metabolic Panel EDMS 09/25 08:35 Order name: Basic Metabolic Panel EDMS 09/25 08:35 Order name: CBC with Automated Diff EDMS 09/25 08:35 Order name: CBC with Automated Diff EDMS 09/25 08:35 Order name: Magnesium EDMS 09/25 08:35 Order name: Magnesium EDMS 09/25 08:35 Order name: Phosphorus EDMS 09/25 08:35 Order name: Phosphorus EDMS 09/25 08:35 Order name: Troponin High Sensitivity EDMS 09/25 08:35 Order name: Troponin High Sensitivity EDMS 09/25 08:35 Order name: Troponin High Sensitivity EDMS 09/25 12:26 Order name: Glucose, Ancillary Testing EDMS 09/25 07:03 Order name: XRAY Chest (1 view) rt 09/25 07:03 Order name: EKG; Complete Time: 07:04 rt 09/25 08:35 Order name: CONS Physician Consult EDMS 09/25 07:03 Order name: Cardiac monitoring; Complete Time: 07:13 rt 09/25 07:03 Order name: EKG - Nurse/Tech; Complete Time: 07:13 rt 09/25 07:03 Order name: IV Saline Lock; Complete Time: 07:13 rt 09/25 07:03 Order name: Labs collected and sent; Complete Time: 07:13 rt 09/25 07:03 Order name: O2 Per Protocol; Complete Time: 07:13 rt 09/25 07:03 Order name: O2 Sat Monitoring; Complete Time: 07:13 rt EC:24 Rate is 173 beats/min. Rhythm is irregularly irregular, A fib with No ectopy, Rate rt related ST and T wave changes. QRS [place] is Normal. QRS interval is normal. QT interval is normal. No Q waves. 08:06 Rate is 85 beats/min. Rhythm is regular. QRS [place] is Normal. [place] interval is normal. QRS griffin interval is normal. QT interval is normal. No Q waves. T waves are Normal. No ST changes noted. Clinical impression: NSR w/ Non-specific ST/T Changes and No evidence of ischemia. Interpreted by me. Reviewed by me. Administered Medications: 12:13 Discontinued: diltiazem 5 mg/hr IV at calculated rate See Administration Instructions; iw (standard dilution 125 mg diltiazem mixed in 125 mL NS; final concentration 1mg/mL). Recommended max rate 15 mg/hr; Titrate 5 mg/hr as often as every 15 minutes to achieve goal (see titration policy); Goal parameter HR less than 100 bpm 07:52 Discontinued: ns 0.9% 1000 ml IV at 1000 ml once; to be given as a bolus over 60 minutescha 06:54 Drug: Adenocard IVP 6 mg IVP once Route: IVP; Site: right antecubital; bm8 07:00 Follow up: Response: Cardiac rhythm is unchanged iw 06:55 Drug: Adenocard IVP 12 mg IVP once Route: IVP; Site: right antecubital; bm8 07:00 Follow up: Response: Cardiac rhythm is unchanged iw 07:00 Drug: Diltiazem IVP 20 mg IVP once; Over 2 Minutes Route: IVP; Site: right antecubital; bm8 19:00 Follow up: Response: No adverse reaction; Cardiac rhythm changed iw 07:00 Drug: NS 0.9% IV 1000 ml IV at 1000 ml once; to be given as a bolus over 60 minutes bm8 Route: IV; Rate: 1000 ml; Site: right antecubital; 07:04 Drug: Ativan IVP 1 mg IVP once Route: IVP; Site: right antecubital; bm8 09:00 Follow up: Response: No adverse reaction; Pain is decreased iw 07:06 Drug: Ativan IVP 1 mg IVP once Route: IVP; Site: right antecubital; bm8 10:00 Follow up: Response: No adverse reaction; Pain is decreased iw 07:10 Drug: Diltiazem IVP 10 mg IVP once; Over 2 minutes Route: IVP; Site: right antecubital; bm8 10:00 Follow up: Response: No adverse reaction; Cardiac rhythm changed iw 07:13 Drug: Diltiazem IV 5 mg/hr IV at calculated rate See Administration Instructions; bm8 (standard dilution 125 mg diltiazem mixed in 125 mL NS; final concentration 1mg/mL). Recommended max rate 15 mg/hr; Titrate 5 mg/hr as often as every 15 minutes to achieve goal (see titration policy); Goal parameter HR less than 100 bpm Route: IV; Rate: calculated rate; Site: right antecubital; 12:04 Not Given (Patient Refused): morphineor iv 2 mg IVP once over 4 mins iw Disposition Summary: 09/25/24 07:55 Hospitalization Ordered Notes: Hospitalization Status: Inpatient Admission griffin Provider: Seda Rockwell griffin Condition: Fair griffin Problem: new griffin Symptoms: have improved griffin Bed/Room Type: Standard griffin Location: [facility] ER HOLD(09/25/24 11:20) cc6 Room Assignment: ERHOLD-(09/25/24 11:20) cc6 Diagnosis - Vomiting griffin - Dependence on renal dialysis griffin - Persistent atrial fibrillation - with rvr griffin - Chronic combined systolic (congestive) and diastolic (congestive) heart failure griffin Forms: - Medication Reconciliation Form griffin - SBAR form griffin - Leadership Thank You Letter griffin Signatures: Dispatcher [employer] EDJordan Patel MD MD cha Williams, Irene, RN RN Navdeep Meyer MD MD rt Yony Still, RN RN bm8 Mireya Mariscal RN RN br2 Goldie Jackson cc6 Corrections: (The following items were deleted from the chart) 07:05 07:04 BASIC METABOLIC PANEL+C.LAB.BRZ ordered. EDMS EDMS 07:05 07:04 CBC+H.LAB.BRZ ordered. EDMS EDMS 07:05 07:04 HEPATIC FUNCTION+C.LAB.BRZ ordered. EDMS EDMS 07:05 07:04 MAGNESIUM+C.LAB.BRZ ordered. EDMS EDMS 07:05 07:04 Troponin High Sensitivity+C.LAB.BRZ ordered. EDMS EDMS 07:05 07:04 THYROID STIMULAT HORMONE+C.LAB.BRZ ordered. EDMS EDMS 11: 07:55 Intensive Care Unit [place] [id number] 11: 07:55 [place] [id number]
--- NOTE | 2024-09-25 07:56 | ER ---
Nurse's Notes [facility] Name: Dasia Monroe Age: 38 yrs Sex: Male : 1985 Arrival Date: 09/25/2024 Time: 06:43 Bed 6 Private MD: Diagnosis: Vomiting;Dependence on renal dialysis;Persistent atrial fibrillation-with rvr;Chronic combined systolic (congestive) and diastolic (congestive) heart failure Presentation: 09/25 07:04 Chief complaint: Patient states: PT C/O OF "A-FIB HURTING.. PT SCREAMING AND HOLLERING. br2 Coronavirus screen: Client denies travel out of the [place] in the last 14 days. Ebola Screen: Patient denies exposure to infectious person. Initial Sepsis Screen: Does the patient meet any 2 criteria? No. Patient's initial sepsis screen is negative. Does the patient have a suspected source of infection? No. Patient's initial sepsis screen is negative. Risk Assessment: Do you want to hurt yourself or someone else? Patient reports no desire to harm self or others. Onset of symptoms is unknown. 07:04 Method Of Arrival: Ambulatory br2 07:04 Acuity: [place] 2 br2 Historical: - Allergies: 07:38 No Known Allergies; iw - PMHx: 07:10 4 herniated disk; Anxiety; Congestive heart failure; diabetes mellitus; Dialysis br2 (dialysis access johanna); Hypertensive disorder; kidney disease; - PSHx: 07:10 dialysis access placement; left arm; br2 - Immunization history:: Adult Immunizations not up to date. - Infectious Disease History:: Denies. - Family history:: not pertinent. - Social history:: Smoking status: Patient reports the use of cigarette tobacco products. Screenin:15 [facility] ED Fall Risk Assessment (Adult) History of falling in the last 3 months, bm8 including since admission No falls in past 3 months (0 pts) Confusion or Disorientation No (0 pts) Intoxicated or Sedated No (0 pts) Impaired Gait No (0 pts) Mobility Assist Device Used No (0 pt) Altered Elimination No (0 pt) Score/Fall Risk Level 0 - 2 = Low Risk Oriented to surroundings, Maintained a safe environment, Educated pt \\T\\ family on fall prevention, incl call for assistance when getting out of bed, Assessed \\T\\ reinforced patient's understanding of fall precautions, Hourly rounding (assess needs \\T\\ fall precautionary measures) done, Used ambulatory aids as needed (educated on \\T\\ assisted with), Used gait belt as appropriate. Abuse screen: Denies threats or abuse. Nutritional screening: No deficits noted. Tuberculosis screening: No symptoms or risk factors identified. Assessment: 07:15 Reassessment: Patient and/or family updated on plan of care and expected duration. Pain bm8 level reassessed. Patient is alert, oriented x 3, equal unlabored respirations, skin warm/dry/pink. Patient states symptoms have improved. General: Appears in no apparent distress. comfortable, Behavior is calm, cooperative. Pain: Complains of pain in chest Pain currently is 6 out of 10 on a pain scale. Quality of pain is described as aching. Neuro: No deficits noted. Level of Consciousness is awake, alert, obeys commands, Oriented to person, place, time, situation, Appropriate for age. Cardiovascular: Capillary refill < 3 seconds in bilateral fingers Patient's skin is warm and dry. Respiratory: Airway is patent Respiratory effort is even, unlabored, Respiratory pattern is regular, symmetrical, Breath sounds are clear bilaterally. GI: Abdomen is flat, non-distended, Bowel sounds present X 4 quads. Reports nausea, vomiting. : No deficits noted. No signs and/or symptoms were reported regarding the genitourinary system. EENT: No deficits noted. No signs and/or symptoms were reported regarding the EENT system. Derm: No deficits noted. No signs and/or symptoms reported regarding the dermatologic system. 07:20 Reassessment: pt appears more relaxed , HR down to 74, family at bedside. iw Vital Signs: 07:04 BP 124 / 66; Pulse 62; Resp 20; Temp 97.2(O); Pulse Ox 100% on R/A; Weight 68.04 kg; br2 Height 5 ft. 8 in. ; Pain 10/10; 07:15 BP 177 / 98; Pulse 76; Resp 20; Temp 97.2; Pulse Ox 100% ; Pain 5/10; bm8 08:15 BP 157 / 79; Pulse 77; Resp 18; Pulse Ox 98% on R/A; iw 08:48 BP 163 / 90; Pulse 80; Resp 18; Pulse Ox 97% on R/A; iw 07:04 Body Mass Index 22.81 (68.04 kg, 172.72 cm) br2 07:04 Pain Scale: Adult br2 07:15 Pain Scale: Adult bm8 Vitals: 07:15 Cardiac Rhythm Assessment Atrial fibrillation. bm8 [place] Coma Score: 07:15 Eye Response: spontaneous(4). Motor Response: obeys commands(6). Verbal Response: bm8 oriented(5). Total: 15. ED Course: 06:44 Patient arrived in ED. [email or web address] 06:51 Navdeep Garcia MD is Attending Physician. rt 07:10 Triage completed. br2 07:12 Yony Still, RN is Primary Nurse. bm8 07:15 Patient has correct armband on for positive identification. Placed in gown. Bed in low bm8 position. Call light in reach. Side rails up X2. Adult w/ patient. Report given to Jomar RN. Client placed on continuous cardiac and pulse oximetry monitoring. NIBP monitoring applied. insurance advisor on. Pulse ox on. NIBP on. Door closed. Noise minimized. Warm blanket given. Pillow given. Verbal reassurance given. Head of bed elevated. 07:15 No provider procedures requiring assistance completed. Initial lab(s) drawn, by sammy osman sent to lab. EKG done, by ED staff, reviewed by Navdeep Garcia MD. Inserted saline lock: 20 gauge in right antecubital area, using aseptic technique. Blood collected. Flushed with 10 mL NS. Patient maintains SpO2 saturation greater than 95% on room air. 07:29 Attending Physician role handed off by Navdeep Garcia MD griffin 07:29 Jordan Castano MD is Attending Physician. griffin 07:38 Primary Nurse role handed off by Yony Still, RN iw 07:38 Praveena Bliss, ROSIO is Primary Nurse. iw 07:54 Seda Rockwell MD is Hospitalizing Provider. griffin 07:58 XRAY Chest (1 view) In Process Unspecified. EDMS 11:55 Diet tray given. sp Administered Medications: 12:13 Discontinued: diltiazem 5 mg/hr IV at calculated rate See Administration Instructions; iw (standard dilution 125 mg diltiazem mixed in 125 mL NS; final concentration 1mg/mL). Recommended max rate 15 mg/hr; Titrate 5 mg/hr as often as every 15 minutes to achieve goal (see titration policy); Goal parameter HR less than 100 bpm 07:52 Discontinued: ns 0.9% 1000 ml IV at 1000 ml once; to be given as a bolus over 60 minutescha 06:54 Drug: Adenocard IVP 6 mg IVP once Route: IVP; Site: right antecubital; bm8 07:00 Follow up: Response: Cardiac rhythm is unchanged iw 06:55 Drug: Adenocard IVP 12 mg IVP once Route: IVP; Site: right antecubital; bm8 07:00 Follow up: Response: Cardiac rhythm is unchanged iw 07:00 Drug: Diltiazem IVP 20 mg IVP once; Over 2 Minutes Route: IVP; Site: right antecubital; bm8 19:00 Follow up: Response: No adverse reaction; Cardiac rhythm changed iw 07:00 Drug: NS 0.9% IV 1000 ml IV at 1000 ml once; to be given as a bolus over 60 minutes bm8 Route: IV; Rate: 1000 ml; Site: right antecubital; 07:04 Drug: Ativan IVP 1 mg IVP once Route: IVP; Site: right antecubital; bm8 09:00 Follow up: Response: No adverse reaction; Pain is decreased iw 07:06 Drug: Ativan IVP 1 mg IVP once Route: IVP; Site: right antecubital; bm8 10:00 Follow up: Response: No adverse reaction; Pain is decreased iw 07:10 Drug: Diltiazem IVP 10 mg IVP once; Over 2 minutes Route: IVP; Site: right antecubital; bm8 10:00 Follow up: Response: No adverse reaction; Cardiac rhythm changed iw 07:13 Drug: Diltiazem IV 5 mg/hr IV at calculated rate See Administration Instructions; bm8 (standard dilution 125 mg diltiazem mixed in 125 mL NS; final concentration 1mg/mL). Recommended max rate 15 mg/hr; Titrate 5 mg/hr as often as every 15 minutes to achieve goal (see titration policy); Goal parameter HR less than 100 bpm Route: IV; Rate: calculated rate; Site: right antecubital; 12:04 Not Given (Patient Refused): morphineor iv 2 mg IVP once over 4 mins iw Medication: 07:15 VIS not applicable for this client. bm8 Outcome: 07:55 Decision to Hospitalize by Provider. griffin 13:24 Patient left the ED. iw Signatures: Dispatcher [employer] EDJordan Patel MD MD cha Pinkerton, Shawna sp Williams, Irene, ROSIO RN iw Scarlett Robles jj6 Navdeep Garcia MD MD rt McDonald, Brad RN RN bm8 Mireya Mariscal RN RN br2
--- NOTE | 2024-09-25 08:19 | P.HP ---
Certification for Inpatient Patient admitted to: Observation With expected LOS: <2 Midnights Practitioner: I am a practitioner with admitting privileges, knowledge of patient current condition, hospital course, and medical plan of care. Services: Services provided to patient in accordance with Admission requirements found in Title 42 Section 412.3 of the Code of Federal Regulations Patient History Date of Service: 09/25/24 Reason for admission: fluid volume overload, Afib with RVR History of Present Illness: Dasia Monroe is a 38 year old male with Pmhx herniated disk; Anxiety; Congestive heart failure; diabetes mellitus; Dialysis (dialysis access johanna); Hypertensive disorder; kidney disease; and atrial fibrillation who presented to the ED with chief complaint of chest pain started at 3 am that he attributes to his Afib. Family reports, Dasia missed dialysis on Friday and was offered a chair today but was in the ED by then. On examination, Dasia will not answer to voice or touch, he is moaning and restless, afebrile, BP stable. Laboratory evaluation significant for BUN/creatinine 58/10.3, GFR 36, serum glucose 173, anion gap 20.5, H&H 12/37, troponin 249. Initial vitals BP 124 / 66; Pulse 62; Resp 20; Temp 97.2(O); Pulse Ox 100% on R/A Dasia will be admitted to hospitalist service for atrial fib with RVR and fluid volume overload. Allergies No Known Drug Allergies Allergy (Verified 07/09/23 21:44) Anaphylaxis Home Medications: Metoprolol Tartrate 100 tab PO BID 08/16/23 Pantoprazole [Protonix Tab*] 40 mg PO DAILY 08/16/23 Lanthanum Carbonate [Fosrenol] 1,000 mg PO TIDWM 08/17/23 LORazepam [Lorazepam] 1 mg PO DAILYPRN PRN 07/03/24 Metoclopramide HCl [Reglan] 10 mg PO Q6HP PRN 07/03/24 methocarbamoL [Methocarbamol] 500 mg PO BIDP PRN 07/03/24 Apixaban [Eliquis] 2.5 mg PO BID #60 tablet 08/11/24 Losartan Potassium [Cozaar*] 50 mg PO BID #60 tab 08/11/24 Nepro Shake [Nepro*] 237 ml PO TID can 08/11/24 Nifedipine Xl [Procardia XL*] 60 mg PO DAILY #30 tab 08/11/24 Nifedipine Xl [Procardia Xl*] 30 mg PO DAILY #30 tab 08/11/24 Sertraline [Zoloft*] 50 mg PO BID #60 tab 08/11/24 Sevelamer Carbonate [Renvela*] 800 mg PO TIDWM 08/11/24 - Past Medical/Surgical History Diabetic: No -: ESRD (Dr. South/ Dr. Candelaria) -: Afib -: HTN -: CHF -: Peritoneal dialysis -: Herniated disk -: Anxiety -: Depression -: Diabetes mellitus -: Dialysis Access placement 07/23 - Family History Father -: Heart disease, Hypertension, Diabetes, Stroke - Social History Alcohol use: No CD- Drugs: No Caffeine use: No Review of Systems Other: per HPI Physical Examination - Physical Exam General: Acute distress, Other (lethargic) HEENT: Atraumatic, Normocephalic Neck: Supple Respiratory: Clear to auscultation bilaterally, Normal air movement Cardiovascular: Normal pulses, Normal S1 S2 Gastrointestinal: Normal bowel sounds, Soft and benign Musculoskeletal: No clubbing Integumentary: No rashes Neurological: Other (lethargic) - Studies Laboratory Data (last 24 hrs) 09/25/24 09/25/24 07:08 07:08 WBC 10.90 Hgb 12.7 L Hct 37.8 L Plt Count 268 Sodium 139 Potassium 3.5 BUN 58 H Creatinine 10.30 H Glucose 173 H Magnesium 2.3 Total Bilirubin 0.7 AST 11 L ALT < 14 L Alkaline Phosphatase 84 Assessment and Plan - Plan Assessment and Plan Fluid volume overload 2/2 missed dialysis ESRD on dialysis -Consulted Dr. Candelaria -Missed dialysis Friday -Hold IVF -BUN/riexkbleye16/10.30, GFR 6 Diabetes mellitus Congestive heart failure Hx Afib presented with Afib RVR -continue home medications -continuous telemetry -on cardizem gtt in the ED, repeat EKG showing sinus -Cardizem PO on the floor Herniated disk Anxiety Hypertensive disorder -Continue home medications DVT ppx heparin Full code LOS 24 hour OBS Discharge Plan: Home Plan to discharge in: 24 Hours - Advance Directives Does patient have a Living Will: No Does patient have a Durable POA for Healthcare: No
[2024-09-25] MEDS ORDERED: ACETAMINOPHEN 325 MG TABLET PO PRN (08:30)
--- NOTE | 2024-09-25 08:43 | RAD REPORT ---
EXAMINATION: ONE VIEW CHEST XR CLINICAL INDICATION: Male, 38 years old.,CHEST PAIN TECHNIQUE: Frontal chest projection is submitted. Examination is limited by patient positioning and t echnique. COMPARISON: 08/10/2024 FINDINGS: The lungs again show mild central interstitial prominence, although suboptimal inspiratory effort sam ewhat limits evaluation. No focal consolidation. No pneumothorax or sizable effusion. The heart is normal in size. Mediastinal contours are unremarkable. IMPRESSION: Stable findings which may suggest mild central congestion/CHF.
[2024-09-25] MEDS ORDERED: HEPARIN 5000 UNIT/ML 1 ML VIAL SQ SCH (09:00)
[2024-09-25] MEDS ORDERED: HEPARIN 5000 UNIT/ML 1 ML VIAL ONE (09:08)
[2024-09-25] MEDS ORDERED: DILTIAZEM HCL 60 MG TAB ONE (11:10)
[2024-09-25] MEDS: DILTIAZEM HCL 60 MG TAB PO SCH (11:15)
[2024-09-25] MEDS ORDERED: INSULIN REGULAR (HUMAN) 100 UNIT/ML SQ SCH (11:30)
--- NOTE | 2024-09-25 13:06 | P.SSS ---
Patient History Date of Service: 09/25/24 Reason for admission: fluid volume overload, Afib with RVR History of Present Illness: Dasia Monroe is a 38 year old male with Pmhx herniated disk; Anxiety; Congestive heart failure; diabetes mellitus; Dialysis (dialysis access johanna); Hypertensive disorder; kidney disease; and atrial fibrillation who presented to the ED with chief complaint of chest pain started at 3 am that he attributes to his Afib. Family reports, Dasia missed dialysis on Friday and was offered a chair today but was in the ED by then. On examination, Dasia will not answer to voice or touch, he is moaning and restless, afebrile, BP stable. Laboratory evaluation significant for BUN/creatinine 58/10.3, GFR 36, serum glucose 173, anion gap 20.5, H&H 12/37, troponin 249. Initial vitals BP 124 / 66; Pulse 62; Resp 20; Temp 97.2(O); Pulse Ox 100% on R/A Dasia will be admitted to hospitalist service for atrial fib with RVR and fluid volume overload. Allergies No Known Drug Allergies Allergy (Verified 07/09/23 21:44) Anaphylaxis Home Medications: Metoprolol Tartrate 100 tab PO BID 08/16/23 Pantoprazole [Protonix Tab*] 40 mg PO DAILY 08/16/23 Lanthanum Carbonate [Fosrenol] 1,000 mg PO TIDWM 08/17/23 LORazepam [Lorazepam] 1 mg PO DAILYPRN PRN 07/03/24 Metoclopramide HCl [Reglan] 10 mg PO Q6HP PRN 07/03/24 methocarbamoL [Methocarbamol] 500 mg PO BIDP PRN 07/03/24 Apixaban [Eliquis *] 2.5 mg PO BID #60 tablet 08/11/24 Losartan Potassium [Cozaar*] 50 mg PO BID #60 tab 08/11/24 Nepro Shake [Nepro*] 237 ml PO TID can 08/11/24 Nifedipine Xl [Procardia XL*] 60 mg PO DAILY #30 tab 08/11/24 Nifedipine Xl [Procardia Xl*] 30 mg PO DAILY #30 tab 08/11/24 Sertraline [Zoloft*] 50 mg PO BID #60 tab 08/11/24 Sevelamer Carbonate [Renvela*] 800 mg PO TIDWM 08/11/24 Diltiazem Tab [Cardizem Tab*] 60 mg PO BID 30 Days #60 tab 09/25/24 - Past Medical/Surgical History Diabetic: No -: ESRD (Dr. South/ Dr. Candelaria) -: Afib -: HTN -: CHF -: Peritoneal dialysis -: Herniated disk -: Anxiety -: Depression -: Diabetes mellitus -: Dialysis Access placement 07/23 - Family History Father -: Heart disease, Hypertension, Diabetes, Stroke - Social History Alcohol use: No CD- Drugs: No Caffeine use: No Review of Systems Other: per HPI Physical Examination - Vital Signs Blood Pressure: 165/89 Pulse: 81 - Physical Exam General: Mild distress, Other (uncomfortable) HEENT: Atraumatic, Normocephalic Neck: Supple Respiratory: Clear to auscultation bilaterally, Normal air movement Cardiovascular: Regular rate/rhythm, Normal S1 S2 Capillary refill: <2 Seconds Gastrointestinal: Normal bowel sounds, Soft and benign, No tenderness Musculoskeletal: No clubbing Integumentary: No rashes Neurological: Normal speech, Normal tone - Studies Laboratory Data (last 24 hrs) 09/25/24 09/25/24 07:08 07:08 WBC 10.90 Hgb 12.7 L Hct 37.8 L Plt Count 268 Sodium 139 Potassium 3.5 BUN 58 H Creatinine 10.30 H Glucose 173 H Magnesium 2.3 Total Bilirubin 0.7 AST 11 L ALT < 14 L Alkaline Phosphatase 84 Treatment Summary: Assessment and Plan Fluid volume overload 2/2 missed dialysis ESRD on dialysis -Consulted Dr. Candelaria -Missed dialysis Friday -Held IVF -BUN/ztysehmire46/10.30, GFR 6 -Plan to dc for immediate dialysis at the outside facility Diabetes mellitus Congestive heart failure Hx Afib presented with Afib RVR- resolved -continued home medications -continuous telemetry- HR controlled -Given cardizem gtt in the ED, repeat EKG showing sinus -Cardizem PO at discharge -follow up with Dr. Carrington outpatient Herniated disk Anxiety Hypertensive disorder -Continued home medications Discharge Plan: To dialysis and Home with family support - Disposition Discharge Date: 09/25/24 Disposition: ROUTINE DISCHARGE Condition: FAIR Consultations: Dr. Carrington for Afib on Cardizem Dr. Candelaria for continued kidney management PCP for continued medication management Patient Discharge Instructions: 1. Please call and schedule a follow-up appointment with your PCP in 3-5 days. - Please follow-up with your PCP for medication refills/adjustments. 2. Please call and schedule a follow-up appointment with Zeb in 3-5 days. -Afib started on cardizem. 3. Please call and schedule a follow-up appointment with Dr. Candelaria in 3-5 days. -Continue with scheduled dialysis days. -head straight to dialysis, there is a chair available now. 4. Continue renal diet. 5. activity restrictions fall precaution. 6. Return to the ED if symptoms worsen. New medications. Cardizem 60 mg twice daily for 30 days Diet: Renal Activity: Fall precautions
[2024-09-25 16:09] VITALS: TEMP 97.2
[2024-09-25 16:19] VITALS: BP 163/90; O2SAT 97
[2024-09-25] MEDS ORDERED: APIXABAN 2.5 MG TABLET PO SCH (21:00)
--- NOTE | 2024-09-27 12:03 | EKG ---
Test Date: 2024-09-25 Test Time: 06:49:09 Natural Developer: MIRA MEASUREMENT RESULTS: Intervals: Rate: 173 [place]: QRSD: 80 QT: 296 QTc: 502 [place]: P: DE: QRS: 9 T: 84 INTERPRETIVE STATEMENTS: Atrial fibrillation with rapid ventricular response Marked ST abnormality, possible inferior subendocardial injury Abnormal ECG Compared to ECG 08/10/2024 16:11:33 ST (T wave) deviation now present Sinus rhythm no longer present Electronically Signed On 09-27-24 12:00:19 MATERIALS COORDINATOR by Brady Amaya
--- NOTE | 2024-09-27 12:03 | EKG ---
Test Date: 2024-09-25 Test Time: 07:27:29 Underwater Roboticist: URIAH MEASUREMENT RESULTS: Intervals: Rate: 85 NH: 148 QRSD: 86 QT: 430 QTc: 511 [place]: P: 66 NH: 148 QRS: 68 T: 67 INTERPRETIVE STATEMENTS: Sinus rhythm with sinus arrhythmia with frequent and consecutive premature ventricular complexes Prolonged QT Abnormal ECG Compared to ECG 08/10/2024 16:11:33 Ventricular premature complex(es) now present Prolonged QT interval now present Electronically Signed On 09-27-24 12:00:13 [employer] WARRANT OFFICER by Brady Amaya
== END 2024-09-25 13:24 | disposition home or self-care (01) ==
LOC: ER 06:43 → ERHOLD 08:30
PROVIDERS: ADMIT Family Medicine; ATTEND Family Medicine
DX: E87.70 Fluid overload, unspecified (principal); E11.22 Type 2 diabetes mellitus with diabetic chronic kidney disease; I12.0 Hypertensive chronic kidney disease with stage 5 chronic kidney disease or end stage renal disease; N18.6 End stage renal disease; F41.9 Anxiety disorder, unspecified; I50.42 Chronic combined systolic (congestive) and diastolic (congestive) heart failure; I48.11 Longstanding persistent atrial fibrillation; Z99.2 Dependence on renal dialysis; Z91.158 Patient's noncompliance with renal dialysis for other reason; Z79.01 Long term (current) use of anticoagulants
CPT/HCPCS: 85025; 80048; 36415; 83735; 82947; 80076; 84443; 84484; 71045; J0153; J1644; J7030; 93005; G0378

== ENCOUNTER 2024-11-12 07:36 | Emergency (ER) | payer OTHER ==
[2024-11-12] MEDS ORDERED: droPERidol 5 MG/2 ML VIAL ONE (07:58)
[2024-11-12] MEDS ORDERED: FAMOTIDINE 20 MG/2 ML VIAL IV ONE (07:58)
[2024-11-12 08:10] LABS: Absolute Basophils 0.2 K/uL (0-0.5); Absolute Eosinophils 0.5 K/uL (0-0.5); Absolute Lymphocytes (CBC) 2.5 K/uL (0.7-4.9); Absolute Neutrophil 4.8 K/uL (1.8-8.0); Basophils % 2.2 % (0-1.3); Eosinophils % 5.7 % (0-4.4); Hematocrit 47.5 % (39.6-49.0); Hemoglobin 16.1 g/dL (13.6-17.9); MCH 33.8 pg (27.0-35.0); MCHC 33.9 g/dL (32.0-36.0); MCV 99.6 fL (80-100); MPV 6.7 fL (7.6-11.3); Monocytes % 11.1 % (3.3-12.3); Platelets 234 thou/uL (152-406); RBC Red Blood Cell Count 4.76 M/uL (4.33-5.43); Red Cell Distribution Width 15.9 % (12.1-15.2)
[2024-11-12 08:44] LABS: AST/SGOT 17 U/L (15-37); Albumin/Globulin Ratio 0.8 (1.1-1.8); Alkaline Phosphatase 100 U/L (45-117); Anion Gap 18.8 mEq/L (5.0-15.0); BUN Blood Urea Nitrogen 42 mg/dL (7-18); Bicarbonate 31 mEq/L (21-32); Bilirubin Total 0.7 mg/dL (0.2-1.0); Globulin 5.1 g/dL (2.3-3.5); Glucose Level 161 mg/dL (74-106); Potassium 3.8 mEq/L (3.5-5.1); Protein, Total 9.1 g/dL (6.4-8.2); Sodium Level 139 mEq/L (136-145)
[2024-11-12 08:45] LABS: ALT/SGPT < 14 U/L (16-61)
--- NOTE | 2024-11-12 08:51 | RAD REPORT ---
EXAMINATION: ONE VIEW CHEST XR CLINICAL INDICATION: Male, 39 years old.,PALPITATIONS TECHNIQUE: Frontal chest projection is submitted. Examination is limited by patient positioning and t echnique. COMPARISON: 09/25/2024 FINDINGS: The lungs are grossly clear although suboptimal inspiratory effort somewhat limits evaluation. No pn eumothorax or sizable effusion. The heart is normal in size. Mediastinal contours are unremarkable. IMPRESSION: No acute intrathoracic abnormalities.
[2024-11-12 09:58] LABS: Bilirubin Direct 0.2 mg/dL (0-0.2); Bilirubin Indirect, Calculated 0.5 mg/dL (0.2-0.8); Glomerular Filtration Rate 5 ml/min (=/>90); NT PRO-BNP 100343 pg/mL (<125)
[2024-11-12 09:59] LABS: Troponin High Sensitivity 244.1 pg/mL (<58.9)
--- NOTE | 2024-11-12 11:00 | EDPHYS ---
Physician Documentation [facility] Name: Dasia Monroe Age: 39 yrs Sex: Male : 1985 Arrival Date: 11/12/2024 Time: 07:36 Bed 2 Private MD: ED Physician Alexis Galan HPI: 11/12 08:06 Chief Complaint: Atrial fibrillation exacerbation History of Present Illness: The jr11 patient presents with an exacerbation of atrial fibrillation, reporting that their heart rate has increased, which is a common sign for them when their AFib acts up. The patient has been experiencing nausea and vomiting that started this morning. The patient has a known history of atrial fibrillation and has been treated multiple times for this condition. They did not take their prescribed medication this morning, as they could not recall whether it was metoprolol or diltiazem, but confirmed it was not metoprolol. The patient reports no drug allergies. ROS otherwise negative. Pt feels his anxiety is "acting up". Review of Systems: - Cardiovascular: Increased heart rate - Gastrointestinal: Nausea and vomiting - Allergies: Reports not having any . Historical: - Allergies: 07:52 No Known Allergies; ld1 - PMHx: 07:52 4 herniated disk; Anxiety; Congestive heart failure; diabetes mellitus; Dialysis ld1 (dialysis access johanna); Hypertensive disorder; kidney disease; - PSHx: 07:52 dialysis access placement; left arm; ld1 - Immunization history:: Adult Immunizations up to date. - Infectious Disease History:: Denies. - Social history:: Smoking status: Patient denies any tobacco usage or history of. ROS: 08:06 All other systems are negative, jr11 Exam: 08:06 Constitutional: anxious Chest/axilla: Normal chest wall appearance and motion. jr11 Nontender with no deformity. No lesions are appreciated. Cardiovascular: irregular Respiratory: Lungs have equal breath sounds bilaterally, clear to auscultation and percussion. No rales, rhonchi or wheezes noted. No increased work of breathing, no retractions or nasal flaring. Abdomen/GI: Soft, non-tender, with normal bowel sounds. No distension or tympany. No guarding or rebound. No evidence of tenderness throughout. Skin: Warm, dry with normal turgor. Normal color with no rashes, no lesions, and no evidence of cellulitis. MS/ Extremity: Pulses equal, no cyanosis. Neurovascular intact. Full, normal range of motion. Vital Signs: 07:51 BP 263 / 112; Pulse 89; Resp 19; Temp 98.1(TE); Pulse Ox 100% on R/A; Weight 75 kg; ld1 Height 5 ft. 7 in. ; Pain 10/10; 08:43 BP 200 / 92; Pulse 68; Resp 18; Pulse Ox 97% on R/A; ld1 09:56 BP 188 / 81; Pulse 62; Resp 15; Pulse Ox 98% on R/A; ld1 10:30 BP 187 / 71; Pulse 62; Resp 13; Pulse Ox 100% on R/A; ld1 11:00 BP 182 / 79; Pulse 64; Resp 14; Pulse Ox 97% on R/A; ld1 07:51 Body Mass Index 25.90 (75.00 kg, 170.18 cm) ld1 07:51 Pain Scale: Adult ld1 MDM: 07:47 Medical Screening Exam initiated [facility] 08:06 Differential diagnosis: Medical Decision Makin. Atrial fibrillation exacerbation- jr11 rate controlled on exam 2. Nausea and vomiting likely related to AFib 3. Potential need for metoprolol/diltiazem adjustment 4. Consideration of Droperidol if QTC is normal 5. Evaluate need for potential antiemetic therapy Plan: - Monitor heart rate and rhythm - Consider administration of metoprolol or diltiazem after evaluating current medications - Administer Droperidol if QTC interval is within normal limits - Provide supportive care for nausea and vomiting - Reassess the need for dialysis and check fistula functionality. Data reviewed: vital signs, nurses notes. ED course: EKG interpreted by me shows normal sinus rhythm rate of 60 with a PAC, of note QTc 420, left axis deviation. hall monitor interpreted by me shows normal sinus rhythm rate of 65. 10:58 Special discussion: Spoke to patient and at length, he has history of leaving [facility] multiple times AMA as soon as he gets admitted, troponin is elevated, has been this high before, almost like he is at baseline. Recommended observation however he is refusing at this time, is able to make conscious decisions, we will discharge him from my care with informed refusal. Presents the risk of worsening condition including missed OK. Patient states he will follow-up with dialysis today.. 11/12 07:48 Order name: Basic Metabolic Panel; Complete Time: 10:11/12 07:48 Order name: CBC with Diff; Complete Time: 09:11/12 07:48 Order name: LFT's; Complete Time: 10:11/12 07:48 Order name: NT PRO-BNP; Complete Time: 10:11/12 07:48 Order name: Troponin HS; Complete Time: 10:11/12 07:48 Order name: XRAY Chest (1 view); Complete Time: 09:11/12 07:48 Order name: Cardiac monitoring; Complete Time: 07:11/12 07:48 Order name: EKG - Nurse/Tech; Complete Time: 07:11/12 07:48 Order name: IV Saline Lock; Complete Time: 07:53 11/12 07:48 Order name: Labs collected and sent; Complete Time: 07:53 11/12 07:48 Order name: O2 Per Protocol; Complete Time: 07:11/12 07:48 Order name: O2 Sat Monitoring; Complete Time: 07:51 Administered Medications: 08:10 Drug: Droperidol IVP 0.625 mg IVP once Route: IVP; Site: right antecubital; ld1 11:04 Follow up: Response: No adverse reaction ap3 08:10 Drug: Famotidine IVP 20 mg IVP once; dilute with 10 mL 0.9% NaCl; give over 2 minutes ld1 Route: IVP; Site: right antecubital; 11:04 Follow up: Response: No adverse reaction ap3 Disposition Summary: 11/12/24 10:59 Discharge Ordered Notes: Location: Home jr Condition: Stable jr11 Diagnosis - Nausea with vomiting, unspecified jr11 - Chest pain, unspecified jr11 Discharge Instructions: - Discharge Summary Sheet jr11 - Nonspecific Chest Pain, Adult [facility] Forms: - Medication Reconciliation Form jr11 - Antibiotic Education jr11 - Prescription Opioid Use jr11 - Patient Portal Instructions jr11 - Leadership Thank You Letter jr11 Prescriptions: - ondansetron 4 mg Oral Tablet,disintegrating - take 1 tablet ORAL route every 4 hours as needed for nausea and vomiting; 12 jr11 tablet; Refills: 0, Product Selection Permitted - Pepcid 20 mg Oral Tablet - take 1 tablet ORAL route every 12 hours for 10 days; 20 tablet; Refills: 0, jr11 Product Selection Permitted - Protonix 40 mg Oral Tablet - take 1 tablet ORAL route once daily; 30 tablet; Refills: 0, Product Selection jr11 Permitted Signatures: Dispatcher [employer] EDMS Lizz Gama RN RN ld1 Alexis Galan MD MD jr11 Anne Hernandez RN ap3 Corrections: (The following items were deleted from the chart) 07:48 07:48 BASIC METABOLIC PANEL+C.LAB.BRZ ordered. EDMS EDMS 07:48 07:48 CBC+H.LAB.BRZ ordered. EDMS EDMS 07:48 07:48 HEPATIC FUNCTION+C.LAB.BRZ ordered. EDMS EDMS 07:48 07:48 PROBNP+C.LAB.BRZ ordered. EDMS EDMS 07:48 07:48 Troponin High Sensitivity+C.LAB.BRZ ordered. EDMS EDMS 07:48 07:48 Chest Single View+RAD.RAD.BRZ ordered. EDMS EDMS
--- NOTE | 2024-11-12 11:00 | ER ---
Nurse's Notes [facility] Name: Dasia Monroe Age: 39 yrs Sex: Male : 1985 Arrival Date: 11/12/2024 Time: 07:36 Bed 2 Private MD: Diagnosis: Nausea with vomiting, unspecified;Chest pain, unspecified Presentation: 11/12 07:52 Chief complaint: Patient states: Chest pain X 1 hour. N/V x 3 days. Coronavirus screen: ld1 At this time, the client does not indicate any symptoms associated with coronavirus-19. Ebola Screen: No symptoms or risks identified at this time. Initial Sepsis Screen: Does the patient meet any 2 criteria? No. Patient's initial sepsis screen is negative. Does the patient have a suspected source of infection? No. Patient's initial sepsis screen is negative. Risk Assessment: Do you want to hurt yourself or someone else? Patient reports no desire to harm self or others. Onset of symptoms was November 12, 2024. 07:52 Method Of Arrival: Ambulatory ld1 07:52 Acuity: [place] 2 ld1 Triage Assessment: 07:52 General: Appears in no apparent distress. uncomfortable, Behavior is cooperative, ld1 anxious. Pain: Complains of pain in chest Pain does not radiate. Pain currently is 10 out of 10 on a pain scale. Quality of pain is described as throbbing, Pain began suddenly, Is continuous. EENT: No signs and/or symptoms were reported regarding the EENT system. Neuro: Level of Consciousness is awake, alert, obeys commands, Oriented to person, place, time, situation. Cardiovascular: Capillary refill < 3 seconds Patient's skin is warm and dry. Rhythm is irregular. Respiratory: Airway is patent Respiratory effort is even, unlabored. GI: Abdomen is round non-distended, Reports nausea, vomiting. : No signs and/or symptoms were reported regarding the genitourinary system. Derm: No signs and/or symptoms reported regarding the dermatologic system. Musculoskeletal: No signs and/or symptoms reported regarding the musculoskeletal system. Historical: - Allergies: 07:52 No Known Allergies; ld1 - PMHx: 07:52 4 herniated disk; Anxiety; Congestive heart failure; diabetes mellitus; Dialysis ld1 (dialysis access johanna); Hypertensive disorder; kidney disease; - PSHx: 07:52 dialysis access placement; left arm; ld1 - Immunization history:: Adult Immunizations up to date. - Infectious Disease History:: Denies. - Social history:: Smoking status: Patient denies any tobacco usage or history of. Screenin:17 [facility] ED Fall Risk Assessment (Adult) History of falling in the last 3 months, ld1 including since admission No falls in past 3 months (0 pts) Confusion or Disorientation No (0 pts) Intoxicated or Sedated No (0 pts) Impaired Gait No (0 pts) Mobility Assist Device Used No (0 pt) Altered Elimination No (0 pt) Score/Fall Risk Level 0 - 2 = Low Risk Oriented to surroundings, Hourly rounding (assess needs \T\ fall precautionary measures) done. Abuse screen: Denies threats or abuse. Denies injuries from another. Nutritional screening: No deficits noted. Tuberculosis screening: No symptoms or risk factors identified. Assessment: 08:43 Reassessment: See triage assessment/. Reassessment: Patient appears in no apparent ld1 distress at this time. Patient and/or family updated on plan of care and expected duration. Pain level reassessed. Pt resting in bed with at bedside. Patient states symptoms have improved. Pain: Complains of pain in chest. 09:56 Reassessment: Patient appears in no apparent distress at this time. Patient and/or ld1 family updated on plan of care and expected duration. Pain level reassessed. Patient states symptoms have improved. 11:12 Reassessment: Patient appears in no apparent distress at this time. No changes from ld1 previously documented assessment. Patient and/or family updated on plan of care and expected duration. Pain level reassessed. Patient is alert, oriented x 3, equal unlabored respirations, skin warm/dry/pink. Pain: Denies pain. Vital Signs: 07:51 BP 263 / 112; Pulse 89; Resp 19; Temp 98.1(TE); Pulse Ox 100% on R/A; Weight 75 kg; ld1 Height 5 ft. 7 in. ; Pain 10/10; 08:43 BP 200 / 92; Pulse 68; Resp 18; Pulse Ox 97% on R/A; ld1 09:56 BP 188 / 81; Pulse 62; Resp 15; Pulse Ox 98% on R/A; ld1 10:30 BP 187 / 71; Pulse 62; Resp 13; Pulse Ox 100% on R/A; ld1 11:00 BP 182 / 79; Pulse 64; Resp 14; Pulse Ox 97% on R/A; ld1 07:51 Body Mass Index 25.90 (75.00 kg, 170.18 cm) ld1 07:51 Pain Scale: Adult ld1 ED Course: 07:38 Patient arrived in ED. cj3 07:39 Alexis Galan MD is Attending Physician. jr11 07:52 Triage completed. ld1 07:52 Arm band placed on right wrist. ld1 07:53 Inserted saline lock: 20 gauge in right antecubital area, using aseptic technique. ap3 Blood collected. Flushed with 10 mL NS. 08:00 Patient has correct armband on for positive identification. Placed in gown. Bed in low ld1 position. Call light in reach. Side rails up X2. tile mason on. Pulse ox on. NIBP on. Door closed. Noise minimized. Warm blanket given. 08:43 Lizz Gama, ROSIO is Primary Nurse. ld1 08:49 XRAY Chest (1 view) In Process Unspecified. EDMS 11:17 No provider procedures requiring assistance completed. IV discontinued, intact, ld1 bleeding controlled, No redness/swelling at site. Patient maintains SpO2 saturation greater than 95% on room air. Administered Medications: 08:10 Drug: Droperidol IVP 0.625 mg IVP once Route: IVP; Site: right antecubital; ld1 11:04 Follow up: Response: No adverse reaction ap3 08:10 Drug: Famotidine IVP 20 mg IVP once; dilute with 10 mL 0.9% NaCl; give over 2 minutes ld1 Route: IVP; Site: right antecubital; 11:04 Follow up: Response: No adverse reaction ap3 Medication: 11:18 VIS not applicable for this client. ld1 Outcome: 10:59 Discharge ordered by . jr11 11:18 Discharged to home ambulatory, ld1 11:18 Condition: stable 11:18 Discharge instructions given to patient, Instructed on discharge instructions, follow up and referral plans. Demonstrated understanding of instructions, follow-up care, medications, Prescriptions given X 3, 11:18 Patient left the ED. ld1 Signatures: Dispatcher [employer] EDMN Anne Hernandez RN RN ap3 Lizz Gama RN RN ld1 Alexis Galan MD MD jr11 Emily Yarbrough cj3
[2024-11-12 11:22] VITALS: TEMP 98.1
[2024-11-12 11:29] VITALS: BP 182/79; O2SAT 97
--- NOTE | 2024-11-15 10:58 | EKG ---
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
== END 2024-11-12 11:18 | disposition home or self-care (01) ==
LOC: ER 07:36
DX: R07.9 Chest pain, unspecified (principal); R11.2 Nausea with vomiting, unspecified; I50.9 Heart failure, unspecified; F41.9 Anxiety disorder, unspecified; E11.22 Type 2 diabetes mellitus with diabetic chronic kidney disease; N18.6 End stage renal disease; Z99.2 Dependence on renal dialysis; I10 Essential (primary) hypertension
CPT/HCPCS: 93005; 85025; 80048; 36415; 80076; 84484; 83880; 71045; 96375; 96374; 99285; J1790

== ENCOUNTER 2024-12-20 02:14 | Emergency (ER) | payer OTHER ==
[2024-12-20] MEDS ORDERED: HYDROCODONE/APAP 10/325 TAB ONE (02:50)
--- NOTE | 2024-12-20 03:42 | RAD REPORT ---
EXAM DESCRIPTION: XR HIP 2 VIEWS LEFT 12/20/2024 3:31 AM CDT CLINICAL HISTORY: 39 years, Male, Pain. COMPARISON: None. FINDINGS: 2 X-ray views of the left hip (frontal view of the left hip and frogleg view of the left hip) were ob tained. Bones: No areas of acute bony injuries were demonstrated. Joints: The joint demonstrate to be within normal limits. Soft tissue: No gross soft tissue abnormality is identified. Minimal vascular calcification femoral vessels There are no gross intraosseous lesions. No periosteal reaction were seen. Other: No definitive displaced fracture are identified, if symptoms persist, clinical correlation and /or further evaluation with CT scan and/or MRI could be of assistance. IMPRESSION: No acute bony injuries were demonstrated. Minimal vascular calcification femoral vessels. Electronically signed by: Brian Lin MD 12/20/2024 03:39 AM CDT Transcribed Date/Time: 12/20/2024 3:42 AM
--- NOTE | 2024-12-20 03:52 | EDPHYS ---
Physician Documentation [facility] Name: Dasia Monroe Age: 39 yrs Sex: Male : 1985 Arrival Date: 12/20/2024 Time: 02:14 Bed 6 Private MD: ED Physician Navdeep Garcia HPI: 12/20 05:19 This 39 yrs old Male presents to ER via Wheelchair with complaints of Hip Pain.rt 05:19 Patient with history of ESRD on Eliquis presents to the ED with a left hip pain rating rt down the side of his leg starting today. Denies other acute complaints at this time, symptoms are moderate in severity, aching nature, not otherwise radiating, no other aggravating or alleviating factors.. Historical: - Allergies: 02:44 No Known Allergies; br2 - PMHx: 02:44 4 herniated disk; Anxiety; Congestive heart failure; diabetes mellitus; Dialysis br2 (dialysis access johanna); Hypertensive disorder; kidney disease; - PSHx: :44 dialysis access placement; left arm; br2 - Immunization history:: Adult Immunizations up to date. - Infectious Disease History:: Denies. - Social history:: Smoking status: Patient reports the use of cigarette tobacco products, smokes one pack cigarettes per day. Patient uses street drugs, marijuana, Patient/guardian denies using alcohol. - Family history:: not pertinent. ROS: 05:19 Constitutional: Negative for fever, chills, and weight loss, Cardiovascular: Negative rt for chest pain, palpitations, and edema, Respiratory: Negative for shortness of breath, cough, wheezing, and pleuritic chest pain, Abdomen/GI: Negative for abdominal pain, nausea, vomiting, diarrhea, and constipation, Skin: Negative for injury, rash, and discoloration, Neuro: Negative for headache, weakness, numbness, tingling, and seizure, 05:19 MS/extremity: Positive for pain, Negative for injury or acute deformity, Exam: 05:19 Constitutional: This is a well developed, well nourished patient who is awake, alert, rt and in no acute distress. Head/Face: Normocephalic, atraumatic. Chest/axilla: Normal chest wall appearance and motion. Nontender with no deformity. No lesions are appreciated. Cardiovascular: Regular rate and rhythm with a normal S1 and S2. No gallops, murmurs, or rubs. Normal PMI, no JVD. No pulse deficits. Respiratory: Lungs have equal breath sounds bilaterally, clear to auscultation and percussion. No rales, rhonchi or wheezes noted. No increased work of breathing, no retractions or nasal flaring. Abdomen/GI: Soft, non-tender, with normal bowel sounds. No distension or tympany. No guarding or rebound. No evidence of tenderness throughout. 05:19 Musculoskeletal/extremity: Mild tenderness laterally on hip, no deformities noted, no appreciable swelling, no calf tenderness, pulses, motor, sensation intact. Vital Signs: 02:39 BP 171 / 99; Pulse 74; Resp 18; Temp 97.1(TE); Pulse Ox 100% on R/A; Weight 79.38 kg; br2 Height 5 ft. 6 in. ; Pain 10/10; 03:39 BP 151 / 98; Pulse 79; Resp 16; Pulse Ox 98% on R/A; jb4 04:00 BP 131 / 88; Pulse 78; Resp 18; Pulse Ox 99% ; al5 02:39 Body Mass Index 28.25 (79.38 kg, 167.64 cm) br2 02:39 Pain Scale: Adult br2 MDM: 02:38 Medical Screening Exam initiated rt 05:19 Differential diagnosis: Fracture, dislocation, sciatica. Data reviewed: vital signs, rt nurses notes, radiologic studies. I considered the following discharge prescriptions or medication management in the emergency department Medications were administered in the Emergency Department. See MAR. Independent interpretation of the following test(s) in the Emergency Department X-Ray: My interpretation is No dislocation seen on my interpretation of x-ray images. Test considered but Not performed: Other Details Patient on Eliquis, no appreciable swelling, very low suspicion for DVT, ultrasound is not indicated. Care significantly affected by the following chronic conditions: Chronic Kidney Disease. Counseling: I had a detailed discussion with the patient and/or guardian regarding the historical points, exam findings, and any diagnostic results supporting the discharge/admit diagnosis, radiology results, the need for outpatient follow up. Response to treatment: the patient's symptoms have mildly improved after treatment. 12/20 02:44 Order name: Hip Left 2 View XRAY; Complete Time: 03:44 rt Administered Medications: 02:53 Drug: [place] PO 10 mg-325 mg 1 tabs PO once Route: PO; jb4 04:03 Follow up: Response: No adverse reaction; Pain is decreased al5 Disposition Summary: 12/20/24 03:52 Discharge Ordered Notes: Location: Home rt Problem: new rt Symptoms: have improved rt Condition: Stable rt Diagnosis - Pain in left hip rt Followup: rt - With: Private Physician - When: 2 - 3 days - Reason: Discharge Instructions: - Discharge Summary Sheet rt - Hip Pain rt Forms: - Medication Reconciliation Form rt - Antibiotic Education rt - Prescription Opioid Use rt - Patient Portal Instructions rt - Leadership Thank You Letter rt Prescriptions: - gabapentin 300 mg Oral capsule - take 1 capsule ORAL route 3 times per day; 21 capsule; Refills: 0, Product rt Selection Permitted Signatures: Dispatcher [employer] Rayshawn Yeung, RN RN jb4 Navdeep Garcia MD MD rt Mireya Mariscal RN RN br2 Anne Alonzo RN al5
--- NOTE | 2024-12-20 03:52 | ER ---
Nurse's Notes [facility] Name: Dasia Monroe Age: 39 yrs Sex: Male : 1985 Arrival Date: 12/20/2024 Time: 02:14 Bed 6 Private MD: Diagnosis: Pain in left hip Presentation: 12/20 02:39 Chief complaint: Patient states: PT C/O LEFT HIP PAIN THAT RADIATES DOWN LLE. PT DENIES br2 BACK PAIN OR INJURY. Coronavirus screen: Client denies travel out of the [place] in the last 14 days. Ebola Screen: Patient denies travel to an Ebola-affected area in the 21 days before illness onset. Initial Sepsis Screen: Does the patient meet any 2 criteria? No. Patient's initial sepsis screen is negative. Does the patient have a suspected source of infection? No. Patient's initial sepsis screen is negative. Risk Assessment: Do you want to hurt yourself or someone else? Patient reports no desire to harm self or others. Onset of symptoms is unknown. 02:39 Method Of Arrival: Wheelchair br2 02:39 Acuity: GUANAKITO 3 br2 Triage Assessment: 02:44 General: Appears in no apparent distress. uncomfortable, Behavior is calm, cooperative. br2 Pain: Complains of pain in pelvis Pain radiates to left leg Pain currently is 10 out of 10 on a pain scale. Musculoskeletal: Circulation, motion, and sensation intact. Capillary refill < 3 seconds, Range of motion: intact in all extremities, Reports pain in left leg. Historical: - Allergies: 02:44 No Known Allergies; br2 - PMHx: 02:44 4 herniated disk; Anxiety; Congestive heart failure; diabetes mellitus; Dialysis br2 (dialysis access johanna); Hypertensive disorder; kidney disease; - PSHx: 02:44 dialysis access placement; left arm; br2 - Immunization history:: Adult Immunizations up to date. - Infectious Disease History:: Denies. - Social history:: Smoking status: Patient reports the use of cigarette tobacco products, smokes one pack cigarettes per day. Patient uses street drugs, marijuana, Patient/guardian denies using alcohol. - Family history:: not pertinent. Screenin:47 [facility] ED Fall Risk Assessment (Adult) History of falling in the last 3 months, hm5 including since admission No falls in past 3 months (0 pts) Confusion or Disorientation No (0 pts) Intoxicated or Sedated No (0 pts) Impaired Gait No (0 pts) Mobility Assist Device Used No (0 pt) Altered Elimination No (0 pt) Score/Fall Risk Level 0 - 2 = Low Risk Oriented to surroundings, Maintained a safe environment, Hourly rounding (assess needs \T\ fall precautionary measures) done. Abuse screen: Denies threats or abuse. Nutritional screening: No deficits noted. Tuberculosis screening: No symptoms or risk factors identified. Assessment: 02:46 General: Appears uncomfortable, well groomed, well nourished, Behavior is calm, hm5 cooperative. Pain: Complains of pain in left hip Pain does not radiate. Pain currently is 10 out of 10 on a pain scale. Quality of pain is described as sharp, Pain began gradually, Is intermittent, Alleviated by nothing. Neuro: No deficits noted. Cardiovascular: No deficits noted. Respiratory: No deficits noted. GI: No deficits noted. No signs and/or symptoms were reported involving the gastrointestinal system. : No deficits noted. No signs and/or symptoms were reported regarding the genitourinary system. EENT: No deficits noted. No signs and/or symptoms were reported regarding the EENT system. Derm: No deficits noted. No signs and/or symptoms reported regarding the dermatologic system. Musculoskeletal: No deficits noted. No signs and/or symptoms reported regarding the musculoskeletal system. 03:39 Reassessment: Patient appears in no apparent distress at this time. Patient and/or jb4 family updated on plan of care and expected duration. Pain level reassessed. Patient is alert, oriented x 3, equal unlabored respirations, skin warm/dry/pink. Vital Signs: 02:39 BP 171 / 99; Pulse 74; Resp 18; Temp 97.1(TE); Pulse Ox 100% on R/A; Weight 79.38 kg; br2 Height 5 ft. 6 in. ; Pain 10/10; 03:39 BP 151 / 98; Pulse 79; Resp 16; Pulse Ox 98% on R/A; jb4 04:00 BP 131 / 88; Pulse 78; Resp 18; Pulse Ox 99% ; al5 02:39 Body Mass Index 28.25 (79.38 kg, 167.64 cm) br2 02:39 Pain Scale: Adult br2 ED Course: 02:16 Patient arrived in ED. mr 02:19 Navdeep Garcia MD is Attending Physician. rt 02:32 Kelle Noriega, RN is Primary Nurse. hm5 02:39 Arm band placed on left wrist. br2 02:44 Triage completed. br2 02:48 Patient has correct armband on for positive identification. Bed in low position. Call hm5 light in reach. Side rails up X 1. Provided Education on: plan of care. 02:48 No provider procedures requiring assistance completed. hm5 03:13 Hip Left 2 View XRAY In Process Unspecified. EDMS 04:03 Patient did not have IV access during this emergency room visit. al5 Administered Medications: 02:53 Drug: [place] PO 10 mg-325 mg 1 tabs PO once Route: PO; jb4 04:03 Follow up: Response: No adverse reaction; Pain is decreased al5 Medication: 02:48 VIS not applicable for this client. hm5 Outcome: 03:52 Discharge ordered by MD. rt 04:03 Discharged to home ambulatory, with significant other, al5 04:03 Condition: good 04:03 Discharge instructions given to patient, Instructed on discharge instructions, follow up and referral plans. medication usage, Demonstrated understanding of instructions, follow-up care, medications, Prescriptions given X 1, 04:03 Patient left the ED. al5 Signatures: Dispatcher [employer] [facility] Josiane Guerrero, Reg Reg mr MenaRayshawn, RN RN jb4 Navdeep Garcia MD MD rt Anne Alonzo RN RN al5 Mireya Mariscal RN RN br2 Kelle Noriega, RN RN hm5
[2024-12-20 04:10] VITALS: TEMP 97.1
[2024-12-20 04:12] VITALS: BP 131/88; O2SAT 99
== END 2024-12-20 04:03 | disposition home or self-care (01) ==
LOC: ER 02:14
DX: M25.552 Pain in left hip (principal); E11.22 Type 2 diabetes mellitus with diabetic chronic kidney disease; I13.2 Hypertensive heart and chronic kidney disease with heart failure and with stage 5 chronic kidney disease, or end stage renal disease; I50.9 Heart failure, unspecified; N18.6 End stage renal disease; Z99.2 Dependence on renal dialysis; F17.210 Nicotine dependence, cigarettes, uncomplicated; Z79.01 Long term (current) use of anticoagulants
CPT/HCPCS: 99283

== ENCOUNTER 2025-03-05 05:00 | Inpatient (IN) | payer OTHER ==
[2025-03-05] MEDS ORDERED: ONDANSETRON 4 MG/2 ML VIAL ONE (05:17)
[2025-03-05] MEDS ORDERED: MORPHINE 4 MG/ML SYR ONE ×2 (05:18→07:37)
[2025-03-05] MEDS ORDERED: NITROGLYCERIN 0.4 MG/TAB SL ONE (05:19)
[2025-03-05 05:21] LABS: Absolute Lymphocytes (CBC) 3.3 K/uL (0.7-4.9); Hematocrit 53.1 % (39.6-49.0); Hemoglobin 18.1 g/dL (13.6-17.9); MCH 35.3 pg (27.0-35.0); MCHC 34.0 g/dL (32.0-36.0); MCV 103.6 fL (80-100); MPV 7.0 fL (7.6-11.3); Nucleated RBC Absolute Count 0.0 (0-0); Nucleated Red Blood Cells % 0.0 % (0-0); RBC Red Blood Cell Count 5.12 M/uL (4.33-5.43); White Blood Count 11.90 thou/uL (4.3-10.9)
[2025-03-05 05:27] LABS: PT Prothrombin Time 11.7 SECONDS (10-13.0); Protime INR 1.04
[2025-03-05 06:21] LABS: ALT/SGPT 17 U/L (16-61); Albumin 3.8 g/dL (3.4-5.0); Albumin/Globulin Ratio 0.8 (1.1-1.8); Alkaline Phosphatase 86 U/L (45-117); Anion Gap 16.2 mEq/L (5.0-15.0); BUN Blood Urea Nitrogen 33 mg/dL (7-18); Globulin 5.0 g/dL (2.3-3.5); Glucose Level 160 mg/dL (74-106); NT PRO-BNP 19980 pg/mL (<125)
[2025-03-05 06:22] LABS: AST/SGOT 21 U/L (15-37); Bilirubin Indirect, Calculated 0.3 mg/dL (0.2-0.8); Magnesium 2.6 mg/dL (1.6-2.4); Potassium 4.2 mEq/L (3.5-5.1)
[2025-03-05 06:23] LABS: Troponin High Sensitivity 128.3 pg/mL (<58.9)
--- NOTE | 2025-03-05 06:31 | ER ---
Nurse's Notes [facility] Name: Dasia oMnroe Age: 39 yrs Sex: Male : 1985 Arrival Date: 03/05/2025 Time: 05:00 Bed 15 Private MD: Diagnosis: Chest pain, NSTEMI;Paroxysmal atrial fibrillation-with rvr;Dependence on renal dialysis Presentation: 03/05 05:04 Chief complaint: Patient states: pt started having chest pain yesterday post dialysis ss12 around 1830. pt smoke some weed at home post dialysis. having nausea and vomiting. Coronavirus screen: Client denies travel out of the [place] in the last 14 days. Ebola Screen: Patient negative for fever greater than or equal to 101.5 degrees Fahrenheit, and additional compatible Ebola Virus Disease symptoms Patient denies exposure to infectious person. Patient denies travel to an Ebola-affected area in the 21 days before illness onset. Initial Sepsis Screen: Does the patient meet any 2 criteria? No. Patient's initial sepsis screen is negative. Does the patient have a suspected source of infection? No. Patient's initial sepsis screen is negative. Risk Assessment: Do you want to hurt yourself or someone else? Patient reports no desire to harm self or others. Onset of symptoms was March 04, 2025 at 18:30. 05:04 Method Of Arrival: Wheelchair ss12 05:04 Acuity: GUANAKITO 2 ss12 Triage Assessment: 05:05 General: Appears distressed, uncomfortable, Behavior is anxious, crying, restless. ss12 Pain: Complains of pain in epigastric and chest pain. EENT: No deficits noted. No signs and/or symptoms were reported regarding the EENT system. Neuro: No deficits noted. Level of Consciousness is awake, alert, obeys commands, Oriented to person, place, time, situation. Cardiovascular: No deficits noted. Reports chest pain, nausea, vomiting, Patient's skin is warm and dry. Respiratory: No deficits noted. Airway is patent Respiratory effort is even, unlabored, Respiratory pattern is regular, symmetrical. GI: No deficits noted. No signs and/or symptoms were reported involving the gastrointestinal system. : No deficits noted. No signs and/or symptoms were reported regarding the genitourinary system. Derm: No deficits noted. No signs and/or symptoms reported regarding the dermatologic system. Skin is intact, Skin is dry, Skin is normal. Musculoskeletal: No deficits noted. No signs and/or symptoms reported regarding the musculoskeletal system. Historical: - Allergies: 05:28 No Known Allergies; ss12 - PMHx: :28 4 herniated disk; Anxiety; Congestive heart failure; diabetes mellitus; Dialysis; Tues; ss12 Hypertensive disorder; kidney disease; - PSHx: :28 dialysis access placement; left arm; ss12 - Immunization history:: Adult Immunizations up to date. - Infectious Disease History:: Denies. - Social history:: Smoking status: Patient reports the use of cigarette tobacco products, smokes one pack cigarettes per day. marijuana use. Screenin:33 [facility] ED Fall Risk Assessment (Adult) History of falling in the last 3 months, ss12 including since admission No falls in past 3 months (0 pts) Confusion or Disorientation No (0 pts) Intoxicated or Sedated No (0 pts) Impaired Gait No (0 pts) Mobility Assist Device Used No (0 pt) Altered Elimination No (0 pt) Score/Fall Risk Level 0 - 2 = Low Risk Oriented to surroundings, Maintained a safe environment, Educated pt \T\ family on fall prevention, incl call for assistance when getting out of bed, Assessed \T\ reinforced patient's understanding of fall precautions. Abuse screen: Denies threats or abuse. Denies injuries from another. Nutritional screening: No deficits noted. Tuberculosis screening: No symptoms or risk factors identified. Assessment: 05:34 Pain: Complains of pain in epigastric and chest Pain radiates to back Pain currently is ss12 10 out of 10 on a pain scale. Pain began suddenly, Is continuous. Neuro: No deficits noted. 06:04 Reassessment: Patient appears in no apparent distress at this time. Patient and/or ss12 family updated on plan of care and expected duration. Pain level reassessed. Patient is alert, oriented x 3, equal unlabored respirations, skin warm/dry/pink. 07:40 Reassessment: Patient appears in no apparent distress at this time. Patient and/or ph family updated on plan of care and expected duration. Pain level reassessed. Patient is alert, oriented x 3, equal unlabored respirations, skin warm/dry/pink. Pt c/o chest pain, awaiting admission orders from hospitalist, ERP notified, verbal order for 4mg morphine IVP from Dr Castano. Vital Signs: 05:04 BP 183 / 108; Pulse 91; Resp 26 S; Pulse Ox 95% on R/A; ss12 05:33 Weight 86 kg; Height 5 ft. 5 in. ; ss12 06:00 BP 142 / 66; Pulse 80; Resp 16 S; Pulse Ox 99% on R/A; ss12 06:45 BP 137 / 73; Pulse 95; Resp 16 S; Pulse Ox 99% on R/A; ss12 07:50 BP 142 / 88; Pulse 148; Resp 18; ph 08:18 BP 132 / 83; Pulse 73; Resp 18; Pulse Ox 100% on R/A; ph 09:00 BP 146 / 88; Pulse 76; Resp 18; Temp 97.2; Pulse Ox 98% on R/A; ph 10:00 BP 112 / 82; Pulse 72; Resp 16; Pulse Ox 97% on R/A; ph 11:00 BP 123 / 78; Pulse 72; Resp 18; Temp 97.8; Pulse Ox 99% on R/A; ph 05:33 Body Mass Index 31.55 (86.00 kg, 165.1 cm) ss12 Vitals: 07:50 Cardiac Rhythm Assessment Atrial fibrillation W/rapid ventricular response. ph Radha Coma Score: 06:00 Eye Response: spontaneous(4). Motor Response: obeys commands(6). Verbal Response: ss12 oriented(5). Total: 15. 06:45 Eye Response: spontaneous(4). Motor Response: obeys commands(6). Verbal Response: ss12 oriented(5). Total: 15. ED Course: 05:04 Patient arrived in ED. rv1 05:05 Laurel Aguilar MD is Attending Physician. sp3 05:15 Kisha Beard RN is Primary Nurse. ss12 05:28 Triage completed. ss12 05:31 Inserted saline lock: 20 gauge in right hand, using aseptic technique. Blood collected. br2 Flushed with 10 mL NS. 05:33 Arm band placed on right wrist. ss12 05:34 No provider procedures requiring assistance completed. ss12 05:34 Patient has correct armband on for positive identification. Provided Education on: plan ss12 of care. Client placed on continuous cardiac and pulse oximetry monitoring. NIBP monitoring applied. roof designer on. Pulse ox on. 05:36 Patient maintains SpO2 saturation greater than 95% on room air. ss12 06:05 XRAY Chest (1 view) In Process Unspecified. EDMS 06:18 CT Chest Abdomen Pelvis W/O Contrast In Process Unspecified. EDMS 06:30 Seda Rockwell MD is Hospitalizing Provider. sp3 07:52 Patient admitted, IV remains in place. ph Administered Medications: 05:20 Drug: morphine IVP or IV 4 mg IVP once over 4 mins Route: IVP; Infused Over: 4 mins; ss12 Site: right antecubital; 06:02 Follow up: Response: No adverse reaction; Pain is decreased ss12 05:20 Drug: Ondansetron IVP 4 mg IVP once; over 2 minutes Route: IVP; Site: right antecubital;ss12 06:02 Follow up: Response: No adverse reaction; Nausea is decreased ss12 05:20 Drug: Nitroglycerin Sublingual 0.4 mg Sublingual once; every five minute if needed x3 ss12 Route: Sublingual; 05:30 Drug: Nitroglycerin Sublingual 0.4 mg Sublingual once; every five minute if needed x3 ss12 Route: Sublingual; 06:02 Follow up: Response: Pain is decreased ss12 07:49 Drug: morphine IVP or IV 4 mg IVP once over 4 mins Route: IVP; Infused Over: 4 mins; ph Site: right hand; 10:44 Follow up: Response: No adverse reaction; Pain is decreased ph 08:17 Drug: Metoprolol PO 50 mg PO once Route: PO; ph 10:44 Follow up: Response: No adverse reaction; Cardiac rhythm changed ph 08:17 Drug: Metoprolol IVP 5 mg IVP once; Hold for SBP <100 or HR <60. {Note: gave 2.5 ph initially, will reassess HR and give remainder if needed.} Route: IVP; Site: right hand; 10:44 Follow up: Response: No adverse reaction; Cardiac rhythm changed ph 08:17 Drug: Famotidine IVP 20 mg IVP once; dilute with 10 mL 0.9% NaCl; give over 2 minutes ph Route: IVP; Site: right hand; 10:43 Follow up: Response: No adverse reaction ph 08:17 Drug: Aspirin PO Chewable Tablet 162 mg PO once Route: PO; ph 10:43 Follow up: Response: No adverse reaction ph 10:44 Not Given (Hemodynamic Parameters): metoprolol5 mg IVP once; Hold for SBP <100 or HR ph <60. Medication: 05:34 VIS not applicable for this client. ss12 Outcome: 06:30 Decision to Hospitalize by Provider. sp3 11:25 Admitted to Tele accompanied by tech, family with patient, via wheelchair, ph 11:25 Condition: good 11:25 Instructed on the need for admit, 11:25 Patient left the ED. ph Signatures: Dispatcher [employer] EDCarito Briceño RN RN ph Laurel Aguilar MD MD sp3 Erin Lozano rv1 Mireya Mariscal RN RN br2 Kisha Beard RN RN ss12 Corrections: (The following items were deleted from the chart) 06:04 05:34 Pain: Complains of pain in epigastric and chest pain Pain radiates to back Pain ss12 currently is 10 out of 10 on a pain scale. Pain began suddenly, Is continuous, ss12
--- NOTE | 2025-03-05 06:31 | EDPHYS ---
Physician Documentation [facility] Name: Dasia Monroe Age: 39 yrs Sex: Male : 1985 Arrival Date: 03/05/2025 Time: 05:00 Bed 15 Private MD: ED Physician Laurel Aguilar HPI: 03/05 05:29 This 39 yrs old Male presents to ER via Wheelchair with complaints of Chest sp3 Pain, Vomiting. 05:29 39-year-old male with history of end-stage renal disease, on dialysis with last sp3 dialysis today, diabetes, hypertension, CHF, prior NSTEMI presents to the ED with chief complaint chest pain radiating to the abdomen. Patient also has a history of biliary colic. Records do not indicate that he has had a cholecystectomy and he denies having one. No emesis, diarrhea, fever noted. ROS negative for shortness of breath, headache, flank pain, syncope, rash, bleeding or any other signs or symptoms on ROS at this time.. Historical: - Allergies: 05:28 No Known Allergies; ss12 - PMHx: 05:28 4 herniated disk; Anxiety; Congestive heart failure; diabetes mellitus; Dialysis; Tues; ss12 Hypertensive disorder; kidney disease; - PSHx: 05:28 dialysis access placement; left arm; ss12 - Immunization history:: Adult Immunizations up to date. - Infectious Disease History:: Denies. - Social history:: Smoking status: Patient reports the use of cigarette tobacco products, smokes one pack cigarettes per day. marijuana use. ROS: 05:29 Constitutional: Negative for fever, chills, and weight loss, Eyes: Negative for injury, sp3 pain, redness, and discharge, ENT: Negative for injury, pain, and discharge, Neck: Negative for injury, pain, and swelling, Respiratory: Negative for shortness of breath, cough, wheezing, and pleuritic chest pain, Back: Negative for injury and pain, MS/Extremity: Negative for injury and deformity, Skin: Negative for injury, rash, and discoloration, Neuro: Negative for headache, weakness, numbness, tingling, and seizure, Psych: Negative for depression, anxiety, suicide ideation, homicidal ideation, and hallucinations, Allergy/Immunology: Negative for hives, rash, and allergies, Endocrine: Negative for neck swelling, polydipsia, polyuria, polyphagia, and marked weight changes, 05:29 All other systems are negative, Exam: 05:32 Constitutional: This is a well developed, well nourished patient who is awake, alert, sp3 and in no acute distress. Head/Face: Normocephalic, atraumatic. Eyes: Pupils equal round and reactive to light, extra-ocular motions intact. Lids and lashes normal. Conjunctiva and sclera are non-icteric and not injected. Cornea within normal limits. Periorbital areas with no swelling, redness, or edema. ENT: Nares patent. No nasal discharge, no septal abnormalities noted. External auditory canals are clear. Oropharynx with no redness, swelling, or masses, exudates, or evidence of obstruction, uvula midline. Mucous membranes moist. Neck: Trachea midline, no thyromegaly or masses palpated, and no cervical lymphadenopathy. Supple, full range of motion without nuchal rigidity, or vertebral point tenderness. No Meningismus. Chest/axilla: Normal chest wall appearance and motion. Nontender with no deformity. No lesions are appreciated. Cardiovascular: Regular rate and rhythm with a normal S1 and S2. No gallops, murmurs, or rubs. Normal PMI, no JVD. No pulse deficits. Respiratory: Lungs have equal breath sounds bilaterally, clear to auscultation and percussion. No rales, rhonchi or wheezes noted. No increased work of breathing, no retractions or nasal flaring. Back: No spinal tenderness. No costovertebral tenderness. Full range of motion. Skin: Warm, dry with normal turgor. Normal color with no rashes, no lesions, and no evidence of cellulitis. MS/ Extremity: Pulses equal, no cyanosis. Neurovascular intact. Full, normal range of motion. Neuro: Awake and alert, GCS 15, oriented to person, place, time, and situation. Cranial nerves II-XII grossly intact. Motor strength 5/5 in all extremities. Sensory grossly intact. Cerebellar exam normal. Normal gait. 05:32 ECG was reviewed by the Attending Physician. EKG demonstrates normal sinus rhythm at 94 bpm with normal intervals except QTc of 465, leftward axis poor R wave progression and nonspecific diffuse ST/T changes without evidence of acute ischemia. Consider left anterior fascicular block. 05:32 Abdomen/GI: Mild epigastric pain to palpation without peritoneal signs, rebound or guarding., Vital Signs: 05:04 BP 183 / 108; Pulse 91; Resp 26 S; Pulse Ox 95% on R/A; ss12 05:33 Weight 86 kg; Height 5 ft. 5 in. ; ss12 06:00 BP 142 / 66; Pulse 80; Resp 16 S; Pulse Ox 99% on R/A; ss12 06:45 BP 137 / 73; Pulse 95; Resp 16 S; Pulse Ox 99% on R/A; ss12 07:50 BP 142 / 88; Pulse 148; Resp 18; ph 08:18 BP 132 / 83; Pulse 73; Resp 18; Pulse Ox 100% on R/A; ph 09:00 BP 146 / 88; Pulse 76; Resp 18; Temp 97.2; Pulse Ox 98% on R/A; ph 10:00 BP 112 / 82; Pulse 72; Resp 16; Pulse Ox 97% on R/A; ph 11:00 BP 123 / 78; Pulse 72; Resp 18; Temp 97.8; Pulse Ox 99% on R/A; ph 05:33 Body Mass Index 31.55 (86.00 kg, 165.1 cm) ss12 [place] Coma Score: 06:00 Eye Response: spontaneous(4). Motor Response: obeys commands(6). Verbal Response: ss12 oriented(5). Total: 15. 06:45 Eye Response: spontaneous(4). Motor Response: obeys commands(6). Verbal Response: ss12 oriented(5). Total: 15. MDM: 05:05 Medical Screening Exam initiated sp3 05:34 Data reviewed: vital signs, nurses notes, old medical records, lab test result(s), EKG, sp3 radiologic studies. ED course: 39-year-old male with extensive PMH including hemodialysis and CHF now presents with chest pain and epigastric pain. Differential diagnosis includes CHF, acute coronary syndrome, NSTEMI, angina, biliary pathology including biliary colic, cholecystitis, choledocholithiasis, pancreatitis, colitis, gastritis, among others. Workup will include full labs, CT scan of the chest abdomen pelvis noncontrast, EKG and general supportive care including pain medication. Disposition pending workup and patient course.. 06:29 ED course: Pain is improved after nitroglycerin. Troponin at 128. CT scan of the chest sp3 abdomen pelvis pending however LFTs are normal and I am not highly suspicious of abnormality. Patient will be admitted to internal medicine with cardio consultation, serial cardiac markers. ED team will follow-up with CT. Patient will be admitted to Dr. Rockwell at this time.. 03/05 05:06 Order name: Basic Metabolic Panel; Complete Time: 06:25 sp3 03/05 05:06 Order name: CBC with Diff; Complete Time: 06:19 sp3 03/05 05:06 Order name: LFT's; Complete Time: 06:25 sp3 03/05 05:06 Order name: Magnesium; Complete Time: 06:25 sp3 03/05 05:06 Order name: NT PRO-BNP; Complete Time: 06:25 sp3 03/05 05:06 Order name: PT-INR; Complete Time: 06:19 sp3 03/05 05:06 Order name: Troponin HS; Complete Time: 06:25 sp3 03/05 10:23 Order name: CBC with Automated Diff EDMS 03/05 10:23 Order name: CBC with Automated Diff EDMS 03/05 10:23 Order name: Comprehensive Metabolic Panel EDMS 03/05 10:23 Order name: Comprehensive Metabolic Panel EDMS 03/05 05:06 Order name: XRAY Chest (1 view); Complete Time: 08:46 sp3 03/05 05:19 Order name: CT Chest Abdomen Pelvis W/O Contrast; Complete Time: 08:46 sp3 03/05 05:06 Order name: Cardiac monitoring; Complete Time: 05:37 sp3 03/05 05:06 Order name: EKG - Nurse/Tech; Complete Time: 05:38 sp3 03/05 05:06 Order name: IV Saline Lock; Complete Time: 05:38 sp3 03/05 05:06 Order name: Labs collected and sent; Complete Time: 05:38 sp3 03/05 05:06 Order name: O2 Per Protocol; Complete Time: 05:38 sp3 03/05 05:06 Order name: O2 Sat Monitoring; Complete Time: 05:38 sp3 03/05 05:19 Order name: NPO; Complete Time: 05:38 sp3 Administered Medications: 05:20 Drug: morphine IVP or IV 4 mg IVP once over 4 mins Route: IVP; Infused Over: 4 mins; ss12 Site: right antecubital; 06:02 Follow up: Response: No adverse reaction; Pain is decreased ss12 05:20 Drug: Ondansetron IVP 4 mg IVP once; over 2 minutes Route: IVP; Site: right antecubital;ss12 06:02 Follow up: Response: No adverse reaction; Nausea is decreased ss12 05:20 Drug: Nitroglycerin Sublingual 0.4 mg Sublingual once; every five minute if needed x3 ss12 Route: Sublingual; 05:30 Drug: Nitroglycerin Sublingual 0.4 mg Sublingual once; every five minute if needed x3 ss12 Route: Sublingual; 06:02 Follow up: Response: Pain is decreased ss12 07:49 Drug: morphine IVP or IV 4 mg IVP once over 4 mins Route: IVP; Infused Over: 4 mins; ph Site: right hand; 10:44 Follow up: Response: No adverse reaction; Pain is decreased ph 08:17 Drug: Metoprolol PO 50 mg PO once Route: PO; ph 10:44 Follow up: Response: No adverse reaction; Cardiac rhythm changed ph 08:17 Drug: Metoprolol IVP 5 mg IVP once; Hold for SBP <100 or HR <60. {Note: gave 2.5 ph initially, will reassess HR and give remainder if needed.} Route: IVP; Site: right hand; 10:44 Follow up: Response: No adverse reaction; Cardiac rhythm changed ph 08:17 Drug: Famotidine IVP 20 mg IVP once; dilute with 10 mL 0.9% NaCl; give over 2 minutes ph Route: IVP; Site: right hand; 10:43 Follow up: Response: No adverse reaction ph 08:17 Drug: Aspirin PO Chewable Tablet 162 mg PO once Route: PO; ph 10:43 Follow up: Response: No adverse reaction ph 10:44 Not Given (Hemodynamic Parameters): metoprolol5 mg IVP once; Hold for SBP <100 or HR ph <60. Disposition Summary: 03/05/25 06:30 Hospitalization Ordered Notes: Hospitalization Status: Inpatient Admission sp3 Provider: Seda Rockwell [facility] sp3 Condition: Stable sp3 Problem: an acute exacerbation sp3 Symptoms: have worsened sp3 Bed/Room Type: Standard sp3 Room Assignment: 404(03/05/25 10:28) eb Diagnosis - Chest pain, NSTEMI sp3 - Paroxysmal atrial fibrillation - with rvr griffin - Dependence on renal dialysis griffin Forms: - Medication Reconciliation Form sp3 - SBAR form sp3 - Leadership Thank You Letter sp3 Signatures: Dispatcher [employer] EDMS Jordan Castano MD MD cha Hall, Patricia, RN RN Marina Vernon Setul, MD MD sp3 Kisha Beard RN RN ss12 Corrections: (The following items were deleted from the chart) 05:06 05:06 BASIC METABOLIC PANEL+C.LAB.BRZ ordered. EDMS EDMS 05:06 05:06 CBC+H.LAB.BRZ ordered. EDMS EDMS 05:06 05:06 HEPATIC FUNCTION+C.LAB.BRZ ordered. EDMS EDMS 05:06 05:06 MAGNESIUM+C.LAB.BRZ ordered. EDMS EDMS 05:06 05:06 PROBNP+C.LAB.BRZ ordered. EDMS EDMS 05:06 05:06 PROTIME (+INR)+COAG.LAB.BRZ ordered. EDMS EDMS 05:06 05:06 Troponin High Sensitivity+C.LAB.BRZ ordered. EDMS EDMS 05:07 05:06 Chest Single View+RAD.RAD.BRZ ordered. EDMS EDMS 09:05 06:30 sp3 eb 09:06 09:05 405 eb eb 10:28 09:06 eb eb
--- NOTE | 2025-03-05 07:53 | RAD REPORT ---
EXAM: XR Chest 1 View AP HISTORY: chest pain COMPARISON: CT chest 05/20/2024 Chest 1 View AP 02/02/2025 TECHNIQUE: Chest 1 View AP FINDINGS: Moderate decreased inspiration (decreased lung volumes) makes evaluation more difficult and may accen tuate heart size and pulmonary vascularity. Heart size and pulmonary vessels within normal limits. Lungs clear without evidence of contusion, consolidation, mass, or significant pulmonary edema. No hemothorax or pneumothorax. No free air in upper abdomen. Bones unremarkable without fracture. Medial left upper arm surgical clips. IMPRESSION: Unremarkable chest radiograph. Electronically signed by: Villa Lopez MD 03/05/2025 07:45 AM CDT RP Due to temporary technical issues with the PACS/Physician Referral Network (PRN) reporting system, reports are being daniel d by the in-house radiologist without review as a courtesy to ensure prompt reporting. The interpreting radiologist is fully responsible for the content of the report. Transcribed Date/Time: 03/05/2025 7:52 AM
[2025-03-05] MEDS ORDERED: METOPROLOL TAR 50 MG TAB ONE (08:03)
[2025-03-05] MEDS ORDERED: METOPROLOL TARTRATE 5 MG/5 ML INJ IV ONE (08:03)
[2025-03-05] MEDS ORDERED: ASPIRIN 81 MG CHEWABLE TABLET ONE (08:03)
[2025-03-05] MEDS ORDERED: FAMOTIDINE 20 MG/2 ML VIAL IV ONE (08:03)
--- NOTE | 2025-03-05 08:43 | RAD REPORT ---
EXAM: CT CHEST, ABDOMEN AND PELVIS WITHOUT CONTRAST CLINICAL INDICATION: known gallstones;Chest pain TECHNIQUE: CT chest, abdomen and pelvis was performed without contrast, as per department protocol. A xial, sagittal and coronal reconstructions were obtained. One or more of the following dose reduction techniques were used: Automated exposure control, adjustment of the mA and/or kV according to patient size, and/or iterative reconstruction. Unless otherwise specified, incidental findings do not require dedicated imaging follow-up. Examination is limited by the lack of intravenous contrast material. COMPARISON: 05/19/2024 FINDINGS: LUNGS: No evidence of airspace or interstitial process. No nodules. PLEURA: No pleural effusion. No pneumothorax. MEDIASTINUM AND LYMPH NODES: No mediastinal mass or fluid collection. Normal size mediastinal, hilar, and axillary lymph nodes. OSSEOUS STRUCTURES AND CHEST WALL: Intact. LIVER: Normal in size and contour. No focal lesion or biliary dilatation. Cholelithiasis. PANCREAS: No mass, ductal dilation, or ramos-pancreatic fluid. SPLEEN: Normal size. No focal lesion. ADRENALS: Normal; no mass. KIDNEYS: Mildly atrophic. No hydronephrosis. URINARY BLADDER: Normal contour. GASTROINTESTINAL TRACT: No bowel obstruction, free air, significant free fluid or abscess. Mild sig moid diverticulosis coli. Moderate stool retained in the colon. APPENDIX: Normal appendix. LYMPH NODES: No lymphadenopathy. MUSCULOSKELETAL: Mild degenerative changes. OTHER: Aortoiliac atherosclerosis. IMPRESSION: Cholelithiasis. Mild renal atrophy.
[2025-03-05] MEDS ORDERED: ACETAMINOPHEN 500 MG TAB PO PRN (10:19)
[2025-03-05 12:51] VITALS: BMI 31.9
[2025-03-05] MEDS: NA CHLORIDE 0.9% 1,000 ML IV SCH (17:08)
[2025-03-05] MEDS: MORPHINE 2 MG/ML SYR IV PRN (17:14)
[2025-03-05] MEDS: ONDANSETRON 4 MG/2 ML VIAL IV PRN (17:14)
--- NOTE | 2025-03-05 18:42 | P.HP ---
Certification for Inpatient Patient admitted to: Inpatient With expected LOS: >2 Midnights Patient will require the following post-hospital care: None Practitioner: I am a practitioner with admitting privileges, knowledge of patient current condition, hospital course, and medical plan of care. Services: Services provided to patient in accordance with Admission requirements found in Title 42 Section 412.3 of the Code of Federal Regulations Patient History Date of Service: 03/05/25 Reason for admission: Abdominal pain/Chest pain rule out acute coronary syndrome History of Present Illness: Patient is a 39-year-old gentleman who has a history of end-stage renal disease who was at dialysis when he started having chest pain. Pain was mainly in the sternal area and radiated to his abdomen. Decision was made to come into the emergency room for further evaluation. In the ER patient's troponins have been negative. Patient will be admitted for observation. Allergies No Known Drug Allergies Allergy (Verified 07/09/23 21:44) Anaphylaxis Home Medications: Metoprolol Tartrate 100 tab PO BID 08/16/23 LORazepam [Lorazepam] 1 mg PO DAILYPRN PRN 07/03/24 Apixaban [Eliquis *] 2.5 mg PO BID #60 tablet 08/11/24 cloNIDine HCL [Clonidine HCl] 0.2 mg PO DAILY 03/05/25 Minocycline HCl 100 mg PO DAILY #30 cap 03/07/25 Mupirocin Oint [Bactroban 2% Ointment] 22 appl TP DAILY #1 tube 03/07/25 Smz./Tmp. [Bactrim Ds 800 MG/160 MG] 1 tab PO DAILY #15 tab 03/07/25 Zolpidem Tartrate [Ambien] 5 mg PO BEDTIME PRN PRN #10 tab 03/07/25 - Past Medical/Surgical History Has patient received pneumonia vaccine in the past: No Diabetic: Yes -: ESRD (Dr. South/ Dr. Candelaria) -: Afib -: HTN -: CHF -: Peritoneal dialysis -: Herniated disk -: Anxiety -: Depression -: Diabetes mellitus -: Dialysis Access placement 07/23 - Family History Father Medical History: Heart disease, Hypertension, Diabetes, Stroke - Social History Smoking Status: Current every day smoker Alcohol use: No CD- Drugs: Yes Caffeine use: Yes Place of Residence: Home Review of Systems 10-point ROS is otherwise unremarkable Physical Examination - Vital Signs Temperature: 98.1 F Blood Pressure: 167/90 Pulse: 64 Respirations: 16 Pulse Ox (%): 100 - Physical Exam General: Alert, In no apparent distress, Oriented x3 HEENT: Atraumatic, PERRLA, Mucous membr. moist/pink, EOMI, Sclerae nonicteric Neck: Supple, 2+ carotid pulse no bruit, No LAD, Without JVD or thyroid abnormality Respiratory: Clear to auscultation bilaterally, Normal air movement Cardiovascular: Regular rate/rhythm, Normal S1 S2, No murmurs Gastrointestinal: Normal bowel sounds, Soft and benign, Non-distended, No tenderness Musculoskeletal: No clubbing, No swelling, No tenderness Integumentary: No rashes Neurological: Normal gait, Normal speech, Normal strength at 5/5 x4 extr, Normal tone, Normal affect Lymphatics: No axilla or inguinal lymphadenopathy - Studies Laboratory Data (last 24 hrs) 03/05/25 03/05/25 03/05/25 05:11 05:11 05:11 WBC 11.90 H Hgb 18.1 H Hct 53.1 H Plt Count 214 PT 11.7 INR 1.04 Sodium 135 L Potassium 4.2 BUN 33 H Creatinine 10.40 H Glucose 160 H Magnesium 2.6 H Total Bilirubin 0.5 AST 21 ALT 17 Alkaline Phosphatase 86 Assessment & Plan - Problems (Diagnosis) (1) Chest pain, rule out acute myocardial infarction Status: Acute (2) Atrial fibrillation with RVR Status: Acute (3) Gastritis Status: Acute Qualifiers: Gastritis type: other gastritis Chronicity: acute Gastritis bleeding: without bleeding Qualified Code(s): K29.00 - Acute gastritis without bleeding (4) NSTEMI (non-ST elevated myocardial infarction) Status: Acute (5) ESRD on dialysis Status: Chronic (6) Essential (primary) hypertension Status: Chronic - Plan 1. Serial troponins and EKG 2. Appreciate Cardiology consultation 3. Echocardiogram and stress test if cardiology is agreeable 4. Anti-platelet therapy, anti coagulation, beta-cait, statin, and O2 as needed 5. IV morphine for pain 6. Nitro p.r.n. Discharge Plan: Home Plan to discharge in: Greater than 2 days - Advance Directives Does patient have a Living Will: No Does patient have a Durable POA for Healthcare: No - Code Status/Comfort Care Code Status Assessed: Yes Code Status: Full Code Critical Care: No Time Spent Managing PTS Care (In Minutes): 45
[2025-03-05] MEDS: ZOLPIDEM TARTRATE 5 MG TABLET PO PRN (21:00)
[2025-03-06 05:01] LABS: Absolute Lymphocytes (CBC) 1.9 K/uL (0.7-4.9); Hematocrit 47.3 % (39.6-49.0); Hemoglobin 16.2 g/dL (13.6-17.9); MCH 35.5 pg (27.0-35.0); MCHC 34.2 g/dL (32.0-36.0); MCV 103.7 fL (80-100); MPV 6.7 fL (7.6-11.3); Nucleated RBC Absolute Count 0.0 (0-0); Nucleated Red Blood Cells % 0.1 % (0-0); RBC Red Blood Cell Count 4.56 M/uL (4.33-5.43); White Blood Count 8.60 thou/uL (4.3-10.9)
[2025-03-06 05:39] LABS: ALT/SGPT 16.0 U/L (16-61); AST/SGOT 18.0 U/L (15-37); Albumin 3.1 g/dL (3.4-5.0); Albumin/Globulin Ratio 0.8 (1.1-1.8); Alkaline Phosphatase 68.0 U/L (45-117); Anion Gap 14.7 mEq/L (5.0-15.0); BUN Blood Urea Nitrogen 42.0 mg/dL (7-18); Globulin 3.9 g/dL (2.3-3.5); Glucose Level 91.0 mg/dL (74-106); Potassium 4.7 mEq/L (3.5-5.1)
[2025-03-06] MEDS ORDERED: SODIUM CHLORIDE 0.9% 10ML INJ IV PRN (09:16)
[2025-03-06] MEDS: PANTOPRAZOLE 40 MG INJ IVP SCH (09:39)
[2025-03-06] MEDS ORDERED: LORAZEPAM 1 MG TABLET PO PRN (14:04)
[2025-03-06] MEDS: METOPROLOL TAR 50 MG TAB PO SCH (14:25)
[2025-03-06 14:56] VITALS: O2SAT 98
[2025-03-06] MEDS: HYDRALAZINE HCL 20 MG/ML VIAL IV PRN (17:00)
[2025-03-06] MEDS ORDERED: METOPROLOL TAR 50 MG TAB PO SCH ×2 (21:00)
[2025-03-06] MEDS: APIXABAN 2.5 MG TABLET PO SCH (21:30)
[2025-03-07 08:49] VITALS: TEMP 98.1
[2025-03-16 05:08] VITALS: BP 167/90
== END 2025-03-07 13:51 | disposition home or self-care (01) | DRG 280 ==
LOC: ER 05:00 → ERHOLD 10:19 → 4TH 10:43
PROVIDERS: ADMIT Hospitalist; ATTEND Hospitalist
PROC: 5A1D70Z Performance of Urinary Filtration, Intermittent, Less than 6 Hours Per Day (ICD-10-PCS; principal; 2025-03-05)
DX: I21.4 Non-ST elevation (NSTEMI) myocardial infarction (principal); N18.6 End stage renal disease; I12.0 Hypertensive chronic kidney disease with stage 5 chronic kidney disease or end stage renal disease; E11.22 Type 2 diabetes mellitus with diabetic chronic kidney disease; I48.0 Paroxysmal atrial fibrillation; K29.00 Acute gastritis without bleeding; F17.210 Nicotine dependence, cigarettes, uncomplicated; I25.2 Old myocardial infarction; Z99.2 Dependence on renal dialysis; Z79.01 Long term (current) use of anticoagulants; Z79.899 Other long term (current) drug therapy
CPT/HCPCS: 36415; 71045; 71250; 74176; 80048; 80053; 80076; 82947; 83735; 83880; 84484; 85025; 85610; 93005; 99285; J0360; J2270; J2405; J2470; J7030

== ENCOUNTER 2025-03-12 08:42 | Emergency (ER) | payer OTHER ==
[2025-03-12] MEDS ORDERED: ONDANSETRON 4 MG/2 ML VIAL ONE (09:00)
[2025-03-12] MEDS ORDERED: MORPHINE 4 MG/ML SYR ONE (09:01)
[2025-03-12] MEDS ORDERED: HYDRALAZINE HCL 20 MG/ML VIAL ONE (09:01)
[2025-03-12 09:37] LABS: Absolute Lymphocytes (CBC) 1.4 K/uL (0.7-4.9); Hematocrit 51.8 % (39.6-49.0); Hemoglobin 17.7 g/dL (13.6-17.9); MCH 35.9 pg (27.0-35.0); MCHC 34.1 g/dL (32.0-36.0); MCV 105.3 fL (80-100); MPV 7.2 fL (7.6-11.3); Nucleated RBC Absolute Count 0.0 (0-0); Nucleated Red Blood Cells % 0.1 % (0-0); RBC Red Blood Cell Count 4.92 M/uL (4.33-5.43); White Blood Count 6.40 thou/uL (4.3-10.9)
[2025-03-12] MEDS ORDERED: MAGNES/ALUMIN/SIMET 30ML UCUP ONE (09:49)
[2025-03-12] MEDS ORDERED: FAMOTIDINE 20 MG/2 ML VIAL IV ONE (09:49)
[2025-03-12] MEDS ORDERED: LIDOCAINE VISCOUS 2% 10ML ORAL SOLN ONE (09:49)
[2025-03-12] MEDS ORDERED: PANTOPRAZOLE 40 MG INJ ONE (09:49)
[2025-03-12 10:25] LABS: ALT/SGPT 15.0 U/L (16-61); Albumin 3.9 g/dL (3.4-5.0); Albumin/Globulin Ratio 0.8 (1.1-1.8); Alkaline Phosphatase 83.0 U/L (45-117); Anion Gap 14.9 mEq/L (5.0-15.0); BUN Blood Urea Nitrogen 34.0 mg/dL (7-18); Globulin 4.7 g/dL (2.3-3.5); Glucose Level 127.0 mg/dL (74-106); Lipase 43.0 U/L (13-75)
[2025-03-12 10:29] LABS: AST/SGOT 19.0 U/L (15-37); Potassium 4.9 mEq/L (3.5-5.1)
--- NOTE | 2025-03-12 10:37 | EDPHYS ---
Physician Documentation [facility] Name: Dasia Monroe Age: 39 yrs Sex: Male : 1985 Arrival Date: 03/12/2025 Time: 08:42 Bed 7 Private MD: ED Physician Kleber Jurado HPI: 03/12 09:48 This 39 yrs old Male presents to ER via Ambulatory with complaints of dr5 Nausea/Vomiting. 09:48 The patient presents to the emergency department with nausea, that is mild, vomiting. dr5 Onset: The symptoms/episode began/occurred yesterday. Patient is a 39-year-old male with history of anxiety, congestive heart failure, diabetes on dialysis Friday, hypertension coming in with upper abdominal pain that is similar to previous episodes with nausea and vomiting. Patient reports he smokes marijuana. Patient states that he has not followed up with his primary care doctor since he was discharged on Friday03/07/25 and also has not seen a GI doctor. Patient reports that he has had similar episodes like this in the past. Patient reports this feels like his previous heartburn. Patient states that he had 2 and half liters removed yesterday at her dialysis.. Historical: - Allergies: 08:56 No Known Allergies; jl7 - PMHx: 08:56 4 herniated disk; Anxiety; Congestive heart failure; diabetes mellitus; Dialysis; jl7 M-W-F; Hypertensive disorder; kidney disease; - PSHx: 08:56 dialysis access placement; left arm; jl7 - Immunization history:: Adult Immunizations unknown. - Infectious Disease History:: Denies. - Social history:: Smoking status: Patient reports the use of cigarette tobacco products, smokes one pack cigarettes per day. Patient uses street drugs, marijuana. ROS: 09:48 Constitutional: as per hpi dr5 Exam: 09:48 Constitutional: This is a well developed, well nourished patient who is awake, alert, dr5 and in no acute distress. Head/Face: Normocephalic, atraumatic. Eyes: Pupils equal round and reactive to light, extra-ocular motions intact. Lids and lashes normal. Conjunctiva and sclera are non-icteric and not injected. Cornea within normal limits. Periorbital areas with no swelling, redness, or edema. Neck: Trachea midline, no thyromegaly or masses palpated, and no cervical lymphadenopathy. Supple, full range of motion without nuchal rigidity, or vertebral point tenderness. No Meningismus. Chest/axilla: Normal chest wall appearance and motion. Nontender with no deformity. No lesions are appreciated. Cardiovascular: Regular rate and rhythm with a normal S1 and S2. Normal PMI, no JVD. No pulse deficits. Respiratory: Lungs have equal breath sounds bilaterally, clear to auscultation. No rales, rhonchi or wheezes noted. No increased work of breathing, no retractions or nasal flaring. 09:48 Back: No spinal tenderness. No costovertebral tenderness. Full range of motion. Skin: Warm, dry with normal turgor. Normal color with no rashes, no lesions, and no evidence of cellulitis. MS/ Extremity: Pulses equal, no cyanosis. Neurovascular intact. Full, normal range of motion. Neuro: Awake and alert, GCS 15, oriented to person, place, time, and situation. Cranial nerves II-XII grossly intact. Motor strength 5/5 in all extremities. Sensory grossly intact. Cerebellar exam normal. Normal gait. 09:48 Abdomen/GI: Inspection: abdomen appears normal, Bowel sounds: normal, Palpation: moderate abdominal tenderness, in the epigastric area, Vital Signs: 08:54 BP 203 / 102; Pulse 59; Resp 17; Temp 98.5; Pulse Ox 100% ; Weight 81.5 kg; Height 5 jl7 ft. 4 in. ; Pain 10/10; 09:20 BP 192 / 102; Pulse 72; Resp 18 S; Pulse Ox 97% on R/A; aa5 08:54 Body Mass Index 30.84 (81.50 kg, 162.56 cm) 7 08:54 Pain Scale: Adult jl7 MDM: 08:48 Medical Screening Exam initiated dr5 10:38 Differential diagnosis: Nonspecific abd pain, gastritis, pancreatitis, viral dr5 gastroenteritis, gastroenteritis, Cannabinoid hyperemesis syndrome. Data reviewed: vital signs, nurses notes, lab test result(s), CBC, white blood cell count, hemoglobin, hematocrit, platelets, electrolytes, sodium, potassium, chloride, serum bicarbonate, BUN, creatinine, serum glucose. Consideration of Admission/Observation Escalation of care including admission/observation considered. Escalation considered if patient's abdominal pain has not resolved.. 10:39 I considered the following discharge prescriptions or medication management in the [facility] emergency department I discussed and recommended Over The Counter medications, Medications were administered in the Emergency Department. See MAR. Test considered but Not performed: CT: CT scan considered but patient has increased creatinine. Patients symptoms have resolved after medication. . Historians other than the Patient: Spouse/Significant Other: . Care significantly affected by the following chronic conditions: Diabetes, Hypertension, Congestive Heart Failure, Chronic Kidney Disease. Care significantly affected by the following Social Determinants of Health: Poor access to healthcare and/or lack of insurance, Poor access to transportation, Problems related to employment. 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 Medication response: Droperidol, Protonix, Pepcid. Response to treatment: the patient's symptoms have resolved after treatment, the patient's condition has returned to base line. Special discussion: I have referred the patient to see his PCP for further evaluation of high blood pressure. I discussed with the patient/guardian in detail that at this point there is no indication for admission to the hospital. It is understood, however, that if the symptoms persist or worsen the patient needs to return immediately for re-evaluation. I had a long discussion where I sat down with and patient and discussed the need to follow-up with her primary care doctor. I explained that if they do not like their primary care doctor at this time, to try and find a new primary care doctor that will listen to their concerns. Explained that the ER is not able to give referrals for other physicians. Recommended patient follow-up with primary care doctor and or return back to [place] to see his doctor there. They explained the like there are [place] physicians and would like to return back to them. I also gave patient resources for outpatient psychiatry as he would like to speak with someone. Patient currently denies suicidal homicidal ideation. Patient just does not know who to go to in regards to having difficulty sleeping. Patient and spouse are agreeable plan. I will print all labs and give to them to take with them. I also explained to stop smoking marijuana daily as this causes cannabinoid hyperemesis syndrome. Droperidol markedly improved all his symptoms. Patient is agreeable to plan.. 03/12 08:57 Order name: CBC with Diff dr5 03/12 08:57 Order name: CMP; Complete Time: 10:31 dr5 03/12 08:57 Order name: Lipase; Complete Time: 10:31 dr5 03/12 10:03 Order name: CBC Smear Scan EDMS 03/12 08:57 Order name: IV Saline Lock; Complete Time: 08:58 dr5 03/12 08:57 Order name: Labs collected and sent; Complete Time: 08:59 dr5 EC:55 Rate is 57 beats/min. Rhythm is regular. QRS Dana is Normal. PA interval is normal at dr5 146 msec. QRS interval is normal at 94 msec. QT interval is normal at 420 msec. Administered Medications: 08:58 CANCELLED (Inappropriate at this time): ativan2 mg IVP once dr5 08:59 Drug: Ondansetron IVP 4 mg IVP once; over 2 minutes Route: IVP; Site: right antecubital;aa5 09:22 Follow up: Response: No adverse reaction aa5 09:01 Drug: Droperidol IVP 1.25 mg IVP once Route: IVP; Site: right antecubital; aa5 09:22 Follow up: Response: No adverse reaction aa5 09:03 Drug: morphine IVP or IV 4 mg IVP once over 4 mins Route: IVP; Infused Over: 4 mins; aa5 Site: right antecubital; 09:22 Follow up: Response: No adverse reaction aa5 09:05 Drug: hydrALAZINE IVP 5 mg IVP once Route: IVP; Site: right antecubital; aa5 09:22 Follow up: Response: No adverse reaction aa5 09:53 Drug: Pantoprazole IVP 40 mg IVP once Route: IVP; Site: right antecubital; aa5 10:49 Follow up: Response: No adverse reaction bp 09:53 Drug: Famotidine IVP 20 mg IVP once; dilute with 10 mL 0.9% NaCl; give over 2 minutes aa5 Route: IVP; Site: right antecubital; 10:49 Follow up: Response: No adverse reaction bp 09:54 Drug: GI Cocktail without - (Maalox PO 30 ml, Lidocaine Mucous Membrane 2 % 15 aa5 ml) PO once Route: PO; 10:50 Follow up: Response: No adverse reaction bp Disposition: 12:30 Co-signature as Attending Physician, Kleber Jurado I agree with the assessment ci and plan of care. I reviewed the patient's care provided by the Advanced Practice Provider and agree with the diagnosis and treatment plan. Disposition Summary: 03/12/25 10:36 Discharge Ordered Notes: Location: Home dr5 Condition: Stable dr5 Diagnosis - Abdominal pain, Generalized dr5 Followup: dr5 - With: Emergency Department - When: As needed - Reason: Worsening of condition Followup: dr5 - With: Private Physician - When: 1 - 2 days - Reason: Recheck today's complaints, Continuance of care, Re-evaluation by your physician Discharge Instructions: - Discharge Summary Sheet dr5 - Abdominal Pain, Adult dr5 Forms: - Medication Reconciliation Form dr5 - Patient Portal Instructions dr5 - Leadership Thank You Letter dr5 Prescriptions: - Protonix 40 mg Oral Tablet - take 1 tablet ORAL route once daily; 30 tablet; Refills: 0, Product Selection dr5 Permitted - Zofran 4 mg Oral Tablet - take 1 tablet ORAL route every 12 hours As needed; 20 tablet; Refills: 0, dr5 Product Selection Permitted - Tramadol 50 mg Oral Tablet - take 1 tablet ORAL route every 8 hours as needed; 12 tablet; Refills: 0, dr5 Product Selection Permitted Signatures: Dispatcher [employer] EDKY Elis Catherine, RN RN aa5 Reji Jolley RN RN jl7 Kleber Jurado Dustin, HANDS HANGER-C HANDS HANGER-Cdr5 Narciso Ramos RN bp Corrections: (The following items were deleted from the chart) 08:58 08:46 Chest Pa And Lat (2 Views)+RAD.RAD.BRZ ordered. EDMS EDMS 08:58 08:57 Ativan IVP 2 mg IVP once ordered. dr5 dr5 08:58 08:58 CBC+H.LAB.BRZ ordered. EDMS EDMS 08:58 08:58 COMPREHENSIVE METABOLIC PANEL+C.LAB.BRZ ordered. EDMS EDMS 08:58 08:58 LIPASE+C.LAB.BRZ ordered. EDMS EDMS
--- NOTE | 2025-03-12 10:37 | ER ---
Nurse's Notes [facility] Name: Dasia Monroe Age: 39 yrs Sex: Male : 1985 Arrival Date: 03/12/2025 Time: 08:42 Bed 7 Private MD: Diagnosis: Abdominal pain, Generalized Presentation: 03/12 08:54 Chief complaint: Patient states: N/V upper abd pain since yesterday after dialysis. jl7 Coronavirus screen: At this time, the client does not indicate any symptoms associated with coronavirus-19. Ebola Screen: No symptoms or risks identified at this time. Initial Sepsis Screen: Does the patient meet any 2 criteria? No. Patient's initial sepsis screen is negative. Does the patient have a suspected source of infection? No. Patient's initial sepsis screen is negative. Risk Assessment: Do you want to hurt yourself or someone else? Patient reports no desire to harm self or others. Onset of symptoms was March 11, 2025. 08:54 Method Of Arrival: Ambulatory [facility] 08:54 Acuity: [place] 3 jl7 Triage Assessment: 08:56 General: Appears in no apparent distress. uncomfortable, Behavior is anxious, crying. jl7 Pain: Complains of pain in abdomen Pain currently is 10 out of 10 on a pain scale. GI: Reports nausea, vomiting. Historical: - Allergies: 08:56 No Known Allergies; jl7 - PMHx: 08:56 4 herniated disk; Anxiety; Congestive heart failure; diabetes mellitus; Dialysis; jl7 M-W-F; Hypertensive disorder; kidney disease; - PSHx: 08:56 dialysis access placement; left arm; jl7 - Immunization history:: Adult Immunizations unknown. - Infectious Disease History:: Denies. - Social history:: Smoking status: Patient reports the use of cigarette tobacco products, smokes one pack cigarettes per day. Patient uses street drugs, marijuana. Screenin:58 [facility] ED Fall Risk Assessment (Adult) History of falling in the last 3 months, aa5 including since admission No falls in past 3 months (0 pts) Confusion or Disorientation No (0 pts) Intoxicated or Sedated No (0 pts) Impaired Gait No (0 pts) Mobility Assist Device Used No (0 pt) Altered Elimination No (0 pt) Score/Fall Risk Level 0 - 2 = Low Risk Oriented to surroundings, Maintained a safe environment, Educated pt \\T\\ family on fall prevention, incl call for assistance when getting out of bed, Assessed \\T\\ reinforced patient's understanding of fall precautions. Abuse screen: Denies threats or abuse. Nutritional screening: No deficits noted. Tuberculosis screening: No symptoms or risk factors identified. Assessment: 08:58 General: Appears uncomfortable, Behavior is cooperative, crying. Pain: Complains of aa5 pain in right upper quadrant, left upper quadrant, right lower quadrant and left lower quadrant Pain currently is 10 out of 10 on a pain scale. Quality of pain is described as crampy, sharp, Pain began is chronic Is continuous, Noted to be guarding, moaning, restless. Neuro: Level of Consciousness is awake, alert, obeys commands, Oriented to person, place, time, situation. Cardiovascular: Heart tones S1 S2 present Rhythm is regular Dialysis shunt: in the left arm, with palpable thrill, with auscultated bruit, no bleeding noted. Respiratory: Airway is patent Respiratory effort is even, unlabored, Respiratory pattern is regular, symmetrical. GI: Abdomen is round non-distended, Bowel sounds present X 4 quads. Abd is soft and non tender X 4 quads. Reports lower abdominal pain, upper abdominal pain, nausea, vomiting. : No signs and/or symptoms were reported regarding the genitourinary system. EENT: No signs and/or symptoms were reported regarding the EENT system. Derm: Skin is pink, warm \\T\\ dry. Musculoskeletal: Range of motion: intact in all extremities. 09:45 Reassessment: Patient is alert, oriented x 3, equal unlabored respirations, skin aa5 warm/dry/pink. Pt appears more comfortable, pt states "I am just so uncomfortable, my acid is bothering me", provider notified. Pt sitting up in bed, no longer crying or moaning. . Vital Signs: 08:54 BP 203 / 102; Pulse 59; Resp 17; Temp 98.5; Pulse Ox 100% ; Weight 81.5 kg; Height 5 jl7 ft. 4 in. ; Pain 10/10; 09:20 BP 192 / 102; Pulse 72; Resp 18 S; Pulse Ox 97% on R/A; aa5 08:54 Body Mass Index 30.84 (81.50 kg, 162.56 cm) jl7 08:54 Pain Scale: Adult jl7 ED Course: 08:44 Patient arrived in ED. cj3 08:45 Ronald Lares FNP-C [facility]. [facility]5 08:45 Kleber Jurado is Attending Physician. dr5 08:51 Elis Catherine, RN is Primary Nurse. aa5 08:56 Triage completed. jl7 08:56 Arm band placed on right wrist. jl7 08:58 Patient has correct armband on for positive identification. Bed in low position. Call aa5 light in reach. Side rails up X 1. Adult w/ patient. central office repairer supervisor on. Pulse ox on. NIBP on. 08:59 EKG completed in triage. Results shown to MD. kb4 08:59 Initial lab(s) drawn, by me, sent to lab. Inserted saline lock: 18 gauge in right aa5 antecubital area, using aseptic technique. Blood collected. Flushed with 10 mL NS. 09:32 No provider procedures requiring assistance completed. aa5 10:49 IV discontinued, intact, bleeding controlled, No redness/swelling at site. Pressure bp dressing applied. Administered Medications: 08:58 CANCELLED (Inappropriate at this time): ativan2 mg IVP once dr5 08:59 Drug: Ondansetron IVP 4 mg IVP once; over 2 minutes Route: IVP; Site: right antecubital;aa5 09:22 Follow up: Response: No adverse reaction aa5 09:01 Drug: Droperidol IVP 1.25 mg IVP once Route: IVP; Site: right antecubital; aa5 09:22 Follow up: Response: No adverse reaction aa5 09:03 Drug: morphine IVP or IV 4 mg IVP once over 4 mins Route: IVP; Infused Over: 4 mins; aa5 Site: right antecubital; 09:22 Follow up: Response: No adverse reaction aa5 09:05 Drug: hydrALAZINE IVP 5 mg IVP once Route: IVP; Site: right antecubital; aa5 09:22 Follow up: Response: No adverse reaction aa5 09:53 Drug: Pantoprazole IVP 40 mg IVP once Route: IVP; Site: right antecubital; aa5 10:49 Follow up: Response: No adverse reaction bp 09:53 Drug: Famotidine IVP 20 mg IVP once; dilute with 10 mL 0.9% NaCl; give over 2 minutes aa5 Route: IVP; Site: right antecubital; 10:49 Follow up: Response: No adverse reaction bp 09:54 Drug: GI Cocktail without - (Maalox PO 30 ml, Lidocaine Mucous Membrane 2 % 15 aa5 ml) PO once Route: PO; 10:50 Follow up: Response: No adverse reaction bp Medication: 09:32 VIS not applicable for this client. aa5 Outcome: 10:36 Discharge ordered by . dr5 10:49 Discharged to home ambulatory, with family, bp 10:49 Condition: stable 10:49 Discharge instructions given to patient, family, Instructed on discharge instructions, follow up and referral plans. medication usage, Demonstrated understanding of instructions, follow-up care, medications, Prescriptions given X 2, 10:50 Patient left the ED. bp Signatures: Elis Catherine, RN RN aa5 Reji Jolley RN RN jl7 Narciso Ramos RN RN bp Ronald Lares, AUCTION CLERK-C AUCTION CLERK-Cdr5 Zora Martinez RN RN kb4 Emily Yarbrough 3
[2025-03-12 11:04] VITALS: TEMP 98.5
[2025-03-12 11:06] VITALS: BP 192/102; O2SAT 97
[2025-03-12 11:20] LABS: Blood Morphology Comment NOTED (NOT SEEN); White Blood Cell Scan OK (OK)
[2025-03-12 11:21] LABS: Anisocytosis 1+; Macrocytosis 1+
== END 2025-03-12 10:50 | disposition home or self-care (01) ==
LOC: ER 08:42
DX: R10.84 Generalized abdominal pain (principal); R11.2 Nausea with vomiting, unspecified; E11.22 Type 2 diabetes mellitus with diabetic chronic kidney disease; I13.2 Hypertensive heart and chronic kidney disease with heart failure and with stage 5 chronic kidney disease, or end stage renal disease; N18.6 End stage renal disease; I50.9 Heart failure, unspecified; Z99.2 Dependence on renal dialysis; F17.210 Nicotine dependence, cigarettes, uncomplicated
CPT/HCPCS: 93005; 85025; 36415; 83690; 80053; 96375; 96374; 99285; J0360; J2470; J2405; J1790

== ENCOUNTER 2025-03-16 06:37 | Inpatient (IN) | payer OTHER ==
[2025-03-16] MEDS ORDERED: FAMOTIDINE 20 MG/2 ML VIAL IV ONE ×2 (07:48→09:31)
[2025-03-16] MEDS ORDERED: ONDANSETRON 4 MG/2 ML VIAL ONE (07:48)
[2025-03-16] MEDS ORDERED: HYDRALAZINE HCL 20 MG/ML VIAL ONE (07:48)
[2025-03-16] MEDS ORDERED: MAGNES/ALUMIN/SIMET 30ML UCUP ONE (07:48)
[2025-03-16] MEDS ORDERED: LIDOCAINE VISCOUS 2% 10ML ORAL SOLN ONE (07:49)
[2025-03-16 07:54] LABS: Absolute Lymphocytes (CBC) 1.2 K/uL (0.7-4.9); Hematocrit 48.4 % (39.6-49.0); Hemoglobin 16.6 g/dL (13.6-17.9); MCH 35.6 pg (27.0-35.0); MCHC 34.3 g/dL (32.0-36.0); MCV 103.9 fL (80-100); MPV 6.9 fL (7.6-11.3); Nucleated RBC Absolute Count 0.0 (0-0); Nucleated Red Blood Cells % 0.0 % (0-0); RBC Red Blood Cell Count 4.66 M/uL (4.33-5.43); White Blood Count 7.00 thou/uL (4.3-10.9)
[2025-03-16 08:21] LABS: ALT/SGPT 17.0 U/L (16-61); AST/SGOT 15.0 U/L (15-37); Albumin 3.5 g/dL (3.4-5.0); Albumin/Globulin Ratio 0.9 (1.1-1.8); Alkaline Phosphatase 70.0 U/L (45-117); Anion Gap 14.0 mEq/L (5.0-15.0); BUN Blood Urea Nitrogen 48.0 mg/dL (7-18); Bilirubin Indirect, Calculated 0.2 mg/dL (0.2-0.8); Globulin 3.7 g/dL (2.3-3.5); Glucose Level 140.0 mg/dL (74-106); Magnesium 4.6 mg/dL (1.6-2.4); Potassium 5.0 mEq/L (3.5-5.1)
[2025-03-16 08:24] LABS: Troponin High Sensitivity 73.1 pg/mL (<58.9)
--- NOTE | 2025-03-16 08:32 | RAD REPORT ---
EXAMINATION: CT ABDOMEN AND PELVIS WITHOUT CONTRAST CLINICAL INDICATION: ABD PAIN TECHNIQUE: CT abdomen and pelvis was performed, without IV contrast, as per department protocol. Axia l, sagittal and coronal reconstructions were obtained. One or more of the following dose reduction techniques were used: Automated exposure control, adjustment of the mA and kV according to the patien t size, and iterative reconstruction. Unless otherwise specified, incidental findings do not require dedicated imaging follow-up. COMPARISON: 02/10/2025 FINDINGS: The lack of intravenous contrast limits the sensitivity of this exam for evaluation of solid visceral organs, vascular structures, and retroperitoneum. LOWER CHEST: Mild linear atelectasis in the left lung base. LIVER:Normal in size and contour. No focal lesion. Cholelithiasis. SPLEEN: Normal size. No focal lesion. PANCREAS: No mass, ductal dilation, or ramos-pancreatic fluid. ADRENALS: Normal; no mass. KIDNEYS AND URETERS: Mild atrophy in size and contour. No hydronephrosis. URINARY BLADDER: Normal contour. GASTROINTESTINAL TRACT: No evidence of bowel obstruction, significant free fluid, free air or abscess . Moderate stool with diverticulosis is seen in the sigmoid colon. APPENDIX: Normal appendix. LYMPH NODES: No lymphadenopathy. MUSCULOSKELETAL: Mild multilevel spinal degenerative changes. ADDITIONAL FINDINGS: Aortic atherosclerosis. IMPRESSION: Cholelithiasis.
--- NOTE | 2025-03-16 08:33 | RAD REPORT ---
EXAMINATION: ONE VIEW CHEST XR CLINICAL INDICATION: CHEST PAIN TECHNIQUE: Frontal chest projection is submitted. Examination is limited by patient positioning and t echnique. COMPARISON: 03/05/2025 FINDINGS: [id number] bilateral pulmonary opacities likely represent pulmonary edema or pneumonia. The hea rt is mildly enlarged in size. No displaced fractures identified.
--- NOTE | 2025-03-16 08:53 | EDPHYS ---
Physician Documentation [facility] Name: Dasia Monroe Age: 39 yrs Sex: Male : 1985 Arrival Date: 03/16/2025 Time: 06:37 Bed 2 Private MD: ED Physician Jeb Gama HPI: 03/16 08:52 This 39 yrs old Male presents to ER via Wheelchair with complaints of Doesn't ms3 Feel Right. 08:52 39-year-old male with past medical history of herniated disc, anxiety, heart failure, ms3 diabetes, dialysis, hypertension presents to the emergency department for not feeling well. Patient states he is having reflux, back pain. Patient states his last dialysis was 1 and half days ago. Patient describes his discomfort as a 10/10. He denies any alleviating or inciting factors. Patient endorses body aches, shortness of breath. Patient states he was seen in the emergency department 3 times last week.. Historical: - Allergies: 06:57 No Known Allergies; ha1 - PMHx: 06:57 4 herniated disk; Anxiety; Congestive heart failure; diabetes mellitus; Dialysis; ha1 M-W-F; Hypertensive disorder; kidney disease; - PSHx: 06:57 dialysis access placement; left arm; ha1 - Immunization history:: Adult Immunizations unknown. - Infectious Disease History:: Denies. - Social history:: Smoking status: Patient reports the use of cigarette tobacco products, smokes one pack cigarettes per day. ROS: 08:52 Constitutional: Negative for fever, and chills. Cardiovascular: Negative for chest ms3 pain, and palpitations. 08:52 MS/Extremity: Negative for injury and deformity, Skin: Negative for injury, rash, and discoloration, 08:52 Cardiovascular: Positive for chest pain, 08:52 Respiratory: Positive for shortness of breath, 08:52 Abdomen/GI: Positive for abdominal pain, Exam: 08:52 Constitutional: This is a well developed, well nourished patient who is awake, alert, ms3 and in no acute distress. Cardiovascular: Regular rate and rhythm with a normal S1 and S2. No gallops, murmurs, or rubs. Normal PMI, no JVD. No pulse deficits. Respiratory: Lungs have equal breath sounds bilaterally, clear to auscultation and percussion. No rales, rhonchi or wheezes noted. No increased work of breathing, no retractions or nasal flaring. Abdomen/GI: Soft, non-tender, with normal bowel sounds. No distension or tympany. No guarding or rebound. No evidence of tenderness throughout. Skin: Warm, dry with normal turgor. Normal color with no rashes, no lesions, and no evidence of cellulitis. 09:06 ECG was reviewed by the Attending Physician. ms3 Vital Signs: 06:44 BP 220 / 98; Pulse 65; Resp 17; Temp 97.9(T); Pulse Ox 100% on R/A; Weight 82 kg; ha1 Height 5 ft. 4 in. ; Pain 10/10; 08:40 BP 161 / 75; Pulse 61; Resp 16; Pulse Ox 98% on R/A; iw 09:13 BP 184 / 96; Pulse 63; Resp 18; Pulse Ox 100% on R/A; ph 09:44 BP 182 / 91; Pulse 61; Resp 16 S; Pulse Ox 100% on R/A; iw 11:00 BP 162 / 83; Pulse 59; Resp 18; Pulse Ox 99% on R/A; ph 06:44 Body Mass Index 31.03 (82.00 kg, 162.56 cm) ha1 06:44 Pain Scale: Adult ha1 MDM: 07:18 Medical Screening Exam initiated ms3 08:52 Differential diagnosis: abnormal EKG, acute myocardial infarction, anxiety. ms3 08:56 The patient was given aspirin in the Emergency Department. Data reviewed: vital signs, ms3 nurses notes, lab test result(s), EKG, radiologic studies, and as a result, I will admit patient. Consideration of Admission/Observation Patient was admitted/placed on observation. Management of patient was discussed with the following: Hospitalist: Dr Presley. I considered the following discharge prescriptions or medication management in the emergency department Medications were administered in the Emergency Department. See MAR. Independent interpretation of the following test(s) in the Emergency Department EKG: See my EKG interpretation above. Counseling: I had a detailed discussion with the patient and/or guardian regarding the historical points, exam findings, and any diagnostic results supporting the discharge/admit diagnosis, lab results, radiology results, the need for further work-up and treatment in the hospital. ED course: Discussed elevated troponin and pulmonary edema on chest x-ray necessitating admission with patient. Patient understands agrees with plan. All questions were answered.. 03/16 07:17 Order name: Basic Metabolic Panel; Complete Time: 08:41 ms3 03/16 07:17 Order name: CBC with Diff; Complete Time: 08:41 ms3 03/16 07:17 Order name: LFT's; Complete Time: 08:41 ms3 03/16 07:17 Order name: Magnesium; Complete Time: 08:41 ms3 03/16 07:17 Order name: Troponin HS; Complete Time: 08:41 ms3 03/16 09:31 Order name: CBC with Automated Diff EDMS 03/16 09:31 Order name: CBC with Automated Diff EDMS 03/16 09:31 Order name: CBC with Automated Diff EDMS 03/16 09:32 Order name: CBC with Automated Diff EDMS 03/16 09:32 Order name: CBC with Automated Diff EDMS 03/16 09:32 Order name: Comprehensive Metabolic Panel EDMS 03/16 09:32 Order name: Comprehensive Metabolic Panel EDMS 03/16 09:32 Order name: Comprehensive Metabolic Panel EDMS 03/16 09:32 Order name: Comprehensive Metabolic Panel EDMS 03/16 09:32 Order name: Comprehensive Metabolic Panel EDMS 03/16 09:32 Order name: Troponin High Sensitivity EDMS 03/16 09:32 Order name: Troponin High Sensitivity EDMS 03/16 09:32 Order name: Troponin High Sensitivity EDMS 03/16 09:35 Order name: Lipase; Complete Time: 10:04 EDMS 03/16 07:17 Order name: XRAY Chest (1 view); Complete Time: 08:41 ms3 03/16 07:17 Order name: CT Abd/Pelvis - Without Contrast; Complete Time: 08:41 ms3 03/16 09:08 Order name: Abdomen Limited US; Complete Time: 10:04 la1 03/16 07:17 Order name: Cardiac monitoring; Complete Time: 08:18 ms3 03/16 07:17 Order name: EKG - Nurse/Tech; Complete Time: 08:14 ms3 03/16 07:17 Order name: IV Saline Lock; Complete Time: 07:50 ms3 03/16 07:17 Order name: Labs collected and sent; Complete Time: 07:50 ms3 03/16 07:17 Order name: O2 Per Protocol; Complete Time: 07:50 ms3 03/16 07:17 Order name: O2 Sat Monitoring; Complete Time: 07:50 ms3 EC:06 Rate is 58 beats/min. Rhythm is regular. Left axis deviation noted. SC interval is ms3 normal. QRS interval is normal. Clinical impression: NSR w/ Non-specific ST/T Changes. Interpreted by me. Reviewed by me. Administered Medications: 08:16 Drug: GI Cocktail without - (Maalox PO 30 ml, Lidocaine Mucous Membrane 2 % 15 iw ml) PO once Route: PO; 09:44 Follow up: Response: No adverse reaction iw 08:16 Drug: Famotidine IVP 20 mg IVP once; dilute with 10 mL 0.9% NaCl; give over 2 minutes iw Route: IVP; Site: right wrist; 11:34 Follow up: Response: No adverse reaction ph 08:16 Drug: hydrALAZINE IVP 10 mg IVP once Route: IVP; Site: right wrist; iw 09:44 Follow up: Response: Blood pressure is lowered iw 08:16 Drug: Ondansetron IVP 4 mg IVP once; over 2 minutes Route: IVP; Site: right wrist; iw 11:34 Follow up: Response: No adverse reaction ph 09:43 Drug: Aspirin PO Chewable Tablet 324 mg PO once; 81 mg tablets x 4 Route: PO; iw 11:34 Follow up: Response: No adverse reaction ph 09:43 Drug: Famotidine IVP 10 mg IVP once; dilute with 10 mL 0.9% NaCl; give over 2 minutes iw Route: IVP; Site: right wrist; 11:34 Follow up: Response: No adverse reaction ph 09:43 Drug: morphine IVP or IV 4 mg IVP once over 4 mins Route: IVP; Infused Over: 4 mins; iw Site: right wrist; 11:34 Follow up: Response: No adverse reaction ph Disposition: 08:56 Critical Care:. ms3 Disposition Summary: 03/16/25 08:52 Hospitalization Ordered Notes: Hospitalization Status: Inpatient Admission ms3 Provider: Antoni Presley ms3 Location: Telemetry/[facility]Sur (Inpatient) ms3 Condition: Stable ms3 Problem: new ms3 Symptoms: are unchanged ms3 Bed/Room Type: Standard ms3 Room Assignment: 425(03/16/25 09:57) bd Diagnosis - Acute pulmonary edema ms3 - Elevated troponin ms3 Forms: - Medication Reconciliation Form ms3 - SBAR form ms3 - Leadership Thank You Letter ms3 Critical care time excluding procedures: 08:56 Critical care time: Bedside Care: 30 minutes, Consultation: 5 minutes. Total time: 35 ms3 minutes Signatures: Dispatcher [employer] EDMS Montse Tate Irene, ROSIO RN iw Harpal Welch, [id number] Jeb Gama DO DO ms3 Usha Dozier RN RN ha1 Carito Macario RN ph Corrections: (The following items were deleted from the chart) 07:18 07:18 Abdomen Pelvis Wo Con+CT.RAD.BRZ ordered. EDOR EDMS 09:57 08:52 ms3 bd
--- NOTE | 2025-03-16 08:53 | ER ---
Nurse's Notes [facility] Name: Dasia Monroe Age: 39 yrs Sex: Male : 1985 Arrival Date: 03/16/2025 Time: 06:37 Bed 2 Private MD: Diagnosis: Acute pulmonary edema;Elevated troponin Presentation: 03/16 06:44 Chief complaint: Patient states: BACK PAIN, NAUSEA, AND VOMITING. ha1 06:44 Coronavirus screen: Client denies travel out of the [place] in the last 14 days. Ebola ha1 Screen: No symptoms or risks identified at this time. Initial Sepsis Screen: Does the patient meet any 2 criteria? No. Patient's initial sepsis screen is negative. Does the patient have a suspected source of infection? No. Patient's initial sepsis screen is negative. Risk Assessment: Do you want to hurt yourself or someone else? Patient reports no desire to harm self or others. Onset of symptoms was March 16, 2025. 06:44 Method Of Arrival: Wheelchair ha1 06:44 Acuity: [place] 3 ha1 Triage Assessment: 06:57 General: Appears uncomfortable, Behavior is cooperative. Pain: Complains of pain in ha1 back Pain currently is 10 out of 10 on a pain scale. Neuro: Level of Consciousness is awake, alert, obeys commands, Oriented to person, place, time, situation. Cardiovascular: Capillary refill < 3 seconds Patient's skin is warm and dry. Respiratory: Airway is patent Respiratory effort is even, unlabored, Respiratory pattern is regular, symmetrical. Musculoskeletal: Circulation, motion, and sensation intact. Range of motion: intact in all extremities. Historical: - Allergies: 06:57 No Known Allergies; ha1 - PMHx: 06:57 4 herniated disk; Anxiety; Congestive heart failure; diabetes mellitus; Dialysis; ha1 M-W-F; Hypertensive disorder; kidney disease; - PSHx: 06:57 dialysis access placement; left arm; ha1 - Immunization history:: Adult Immunizations unknown. - Infectious Disease History:: Denies. - Social history:: Smoking status: Patient reports the use of cigarette tobacco products, smokes one pack cigarettes per day. Screenin:18 [facility] ED Fall Risk Assessment (Adult) History of falling in the last 3 months, iw including since admission No falls in past 3 months (0 pts) Confusion or Disorientation No (0 pts) Intoxicated or Sedated No (0 pts) Impaired Gait No (0 pts) Mobility Assist Device Used No (0 pt) Altered Elimination No (0 pt) Score/Fall Risk Level 0 - 2 = Low Risk Oriented to surroundings, Maintained a safe environment. Abuse screen: Denies threats or abuse. Denies injuries from another. Nutritional screening: No deficits noted. Tuberculosis screening: No symptoms or risk factors identified. Assessment: 08:18 General: Appears in no apparent distress. Behavior is cooperative, quiet. Pain: iw Complains of pain in abdomen Pain radiates to back Pain. Neuro: Level of Consciousness is awake, alert, obeys commands, Oriented to person, place, time, situation, Moves all extremities. Full function. : Reports pain. 09:02 Reassessment: Patient appears in no apparent distress at this time. Patient is alert, iw oriented x 3, equal unlabored respirations, skin warm/dry/pink. 09:43 Pain: Complains of pain in abdomen Pain currently is 9 out of 10 on a pain scale. iw Neuro: Level of Consciousness is awake, alert, obeys commands. Vital Signs: 06:44 BP 220 / 98; Pulse 65; Resp 17; Temp 97.9(T); Pulse Ox 100% on R/A; Weight 82 kg; ha1 Height 5 ft. 4 in. ; Pain 10/10; 08:40 BP 161 / 75; Pulse 61; Resp 16; Pulse Ox 98% on R/A; iw 09:13 BP 184 / 96; Pulse 63; Resp 18; Pulse Ox 100% on R/A; ph 09:44 BP 182 / 91; Pulse 61; Resp 16 S; Pulse Ox 100% on R/A; iw 11:00 BP 162 / 83; Pulse 59; Resp 18; Pulse Ox 99% on R/A; ph 06:44 Body Mass Index 31.03 (82.00 kg, 162.56 cm) ha1 06:44 Pain Scale: Adult ha1 ED Course: 06:39 Patient arrived in ED. jj6 06:52 Naya Duran, RN is Primary Nurse. kd3 06:57 Triage completed. ha1 07:08 Jeb Gama DO is Attending Physician. ms3 07:44 Initial lab(s) drawn, by me, sent to lab. Inserted saline lock: 20 gauge in right iw wrist, using aseptic technique. Blood collected. Flushed with 10 mL NS. 07:50 Primary Nurse role handed off by Naya Duran RN iw 07:50 Praveena Bliss, RN is Primary Nurse. iw 07:56 CT Abd/Pelvis - Without Contrast In Process Unspecified. EDMS 08:02 XRAY Chest (1 view) In Process Unspecified. EDMS 08:18 Patient has correct armband on for positive identification. Client placed on continuous iw cardiac and pulse oximetry monitoring. NIBP monitoring applied. 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 08:51 Antoni Presley MD is Hospitalizing Provider. ms3 09:45 Abdomen Limited US In Process Unspecified. EDMS 11:34 No provider procedures requiring assistance completed. Patient admitted, IV remains in ph place. 11:34 Arm band placed on. ph Administered Medications: 08:16 Drug: GI Cocktail without - (Maalox PO 30 ml, Lidocaine Mucous Membrane 2 % 15 iw ml) PO once Route: PO; 09:44 Follow up: Response: No adverse reaction iw 08:16 Drug: Famotidine IVP 20 mg IVP once; dilute with 10 mL 0.9% NaCl; give over 2 minutes iw Route: IVP; Site: right wrist; 11:34 Follow up: Response: No adverse reaction ph 08:16 Drug: hydrALAZINE IVP 10 mg IVP once Route: IVP; Site: right wrist; iw 09:44 Follow up: Response: Blood pressure is lowered iw 08:16 Drug: Ondansetron IVP 4 mg IVP once; over 2 minutes Route: IVP; Site: right wrist; iw 11:34 Follow up: Response: No adverse reaction ph 09:43 Drug: Aspirin PO Chewable Tablet 324 mg PO once; 81 mg tablets x 4 Route: PO; iw 11:34 Follow up: Response: No adverse reaction ph 09:43 Drug: Famotidine IVP 10 mg IVP once; dilute with 10 mL 0.9% NaCl; give over 2 minutes iw Route: IVP; Site: right wrist; 11:34 Follow up: Response: No adverse reaction ph 09:43 Drug: morphine IVP or IV 4 mg IVP once over 4 mins Route: IVP; Infused Over: 4 mins; iw Site: right wrist; 11:34 Follow up: Response: No adverse reaction ph Medication: 11:33 VIS not applicable for this client. ph Outcome: 08:52 Decision to Hospitalize by Provider. ms3 11:35 Admitted to Tele accompanied by nurse, via wheelchair, with chart, ph 11:35 Condition: stable 11:35 Instructed on the need for admit, 11:35 Patient left the ED. ph Signatures: Dispatcher [employer] EDPraveena Acosta, RN RN Carito Macario RN RN Jeb Gama DO DO ms3 Scarlett Robles jj6 Naya Duran RN RN kd3 Usha Dozier RN RN ha1
[2025-03-16] MEDS ORDERED: SODIUM CHLORIDE 0.9% 10ML INJ IV PRN (09:27)
[2025-03-16] MEDS ORDERED: MORPHINE 4 MG/ML SYR ONE (09:30)
[2025-03-16] MEDS ORDERED: ASPIRIN 81 MG CHEWABLE TABLET ONE (09:30)
--- NOTE | 2025-03-16 09:44 | P.HP ---
Certification for Inpatient Patient admitted to: Observation With expected LOS: <2 Midnights Patient will require the following post-hospital care: None Practitioner: I am a practitioner with admitting privileges, knowledge of patient current condition, hospital course, and medical plan of care. Services: Services provided to patient in accordance with Admission requirements found in Title 42 Section 412.3 of the Code of Federal Regulations Patient History Date of Service: 03/16/25 Reason for admission: Abdominal pain, pulmonary edema History of Present Illness: 39-year-old male with history of ESRD on HD, hypertension, CHF, atrial fibrillation on chronic anticoagulation presents to the emergency department with chief complaint of abdominal pain, back pain, nausea and vomiting. He reports he had similar symptoms around a week ago that have not totally resolved. Patient was evaluated in the emergency department his labs are significant for a white blood cell count of 7 sodium 132 chloride 95 creatinine 13.9 GFR 4 glucose 140 initial high sensitive troponin is 73.1 chest x-ray was performed which showed mild to moderate pulmonary opacities likely representing pulmonary edema or pneumonia the heart is mildly enlarged no displaced fractures. CT of the abdomen pelvis was also performed which demonstrated cholelithiasis. LFTs are normal, lipase was added onto the chemistry and is pending as well as an abdominal ultrasound. Patient be admitted under observation for abdominal pain, nausea/vomiting, cholelithiasis, elevated troponin and pulmonary edema. Allergies No Known Drug Allergies Allergy (Verified 07/09/23 21:44) Anaphylaxis Home Medications: Metoprolol Tartrate 100 tab PO BID 08/16/23 LORazepam [Lorazepam] 1 mg PO DAILYPRN PRN 07/03/24 Apixaban [Eliquis *] 2.5 mg PO BID #60 tablet 08/11/24 cloNIDine HCL [Clonidine HCl] 0.2 mg PO DAILY 03/05/25 Minocycline HCl 100 mg PO DAILY #30 cap 03/07/25 Mupirocin Oint [Bactroban 2% Ointment] 22 appl TP DAILY #1 tube 03/07/25 Smz./Tmp. [Bactrim Ds 800 MG/160 MG] 1 tab PO DAILY #15 tab 03/07/25 Zolpidem Tartrate [Ambien] 5 mg PO BEDTIME PRN PRN #10 tab 03/07/25 - Past Medical/Surgical History Diabetic: Yes -: ESRD (Dr. South/ Dr. Candelaria) -: Afib -: HTN -: CHF -: Peritoneal dialysis -: Herniated disk -: Anxiety -: Depression -: Diabetes mellitus -: Dialysis Access placement 07/23 - Family History Father -: Heart disease, Hypertension, Diabetes, Stroke - Social History Alcohol use: No CD- Drugs: Yes Caffeine use: Yes Place of Residence: Home Review of Systems 10-point ROS is otherwise unremarkable Gastrointestinal: Nausea, Vomiting, Abdominal Pain Physical Examination - Physical Exam General: Alert, In no apparent distress, Oriented x3 HEENT: Atraumatic, PERRLA, EOMI Neck: Supple, 2+ carotid pulse no bruit, No LAD Respiratory: Clear to auscultation bilaterally, Normal air movement Cardiovascular: Regular rate/rhythm, Normal S1 S2 Gastrointestinal: Normal bowel sounds, No tenderness Musculoskeletal: No tenderness Integumentary: No rashes Neurological: Normal gait, Normal speech, Normal strength at 5/5 x4 extr, Normal affect - Studies Laboratory Data (last 24 hrs) 03/16/25 03/16/25 07:45 07:45 WBC 7.00 Hgb 16.6 Hct 48.4 Plt Count 203 Sodium 132 L Potassium 5.0 BUN 48 H Creatinine 13.90 H Glucose 140 H Magnesium 4.6 H Total Bilirubin 0.4 AST 15 ALT 17 Alkaline Phosphatase 70 Assessment and Plan - Plan Assessment: Abdominal pain, nausea/vomiting Cholelithiasis ESRD on HD with pulmonary edema Elevated troponin History of atrial fibrillation on chronic anticoagulation Hypertension Plan: Abdominal pain, nausea/vomiting Cholelithiasis Lipase added onto the chemistry, abdominal ultrasound ordered Will consult general surgery Trial PPI Admit under observation, clear liquid diet advance as tolerated ESRD on HD with pulmonary edema Elevated troponin Suspect this is secondary to decreased renal clearance and pulmonary edema Trend troponin and monitor abdomen. Nephrology consultation If there is chest pain or further significant elevation in troponin we will consult cardiology History of atrial fibrillation on chronic anticoagulation Continue Eliquis, other complications Hypertension Continue home medications DVT PPX: Heparin subcu Code status: Full code Discharge Plan: Home Plan to discharge in: 24 Hours - Advance Directives Does patient have a Living Will: No Does patient have a Durable POA for Healthcare: No - Code Status/Comfort Care Code Status Assessed: Yes (Full code) Critical Care: No Time Spent Managing Pts Care (In Minutes): 67
--- NOTE | 2025-03-16 09:52 | RAD REPORT ---
EXAM: Right upper quadrant ultrasound. CLINICAL HISTORY: abd pain, N/V, Back pain;Abd pain COMPARISON: None. FINDINGS: Gallbladder: Cholelithiasis. Gallbladder is likely full of stones and sludge. Wall thickening not bernie iggy demonstrated. No pericholecystic fluid. Bile ducts: No intrahepatic or extrahepatic biliary dilatation. Common bile duct not well visualized . Limited imaging of the liver shows heterogenous parenchymal pattern. IMPRESSION: Cholelithiasis.
[2025-03-16] MEDS: PANTOPRAZOLE 40 MG INJ IVP SCH (10:00)
[2025-03-16] MEDS: ONDANSETRON 4 MG/2 ML VIAL IV PRN (13:04)
[2025-03-16] MEDS: FENTANYL CITR 100 MCG/2 ML IV PRN (13:12)
[2025-03-16] MEDS: POLYETHYL GLY 3350 17 GM/DOSE PO ONE (14:11)
--- NOTE | 2025-03-16 16:23 | P.CNS ---
Date of Consult: 03/16/25 Reason for Consult: ESRD, acute pulm edema, continuation of dialysis Requesting Physician: Jeb Gama Chief Complaint: Abdominal pain, pulmonary edema History of Present Illness: 39-year-old male with history of ESRD on [employer] since , initially on CCPD x 1 year and then transitioned to iHD over the past 1.5-2 years with hx of labile, accelerated HTN in the past, Afib with RVR initially noted first in and on anticoagulation with Eliquis since, a hx of non compliance with diet, progressive weight gain, chronic low back pain, a hx of some intermittent abd pain and N/V who came in to ER feeling poorly. Recent labs at the unit have shown hyperkalemia, hyperphosphatemia and other. Pt admitted today for abnormal findings on imaging tests and pt's symptoms. This is a delayed entry note, pt was seen on rounds earlier this morning. Allergies No Known Drug Allergies Allergy (Verified 07/09/23 21:44) Anaphylaxis Home Medications: Metoprolol Tartrate 100 tab PO BID 08/16/23 LORazepam [Lorazepam] 1 mg PO DAILYPRN PRN 07/03/24 Apixaban [Eliquis *] 2.5 mg PO BID #60 tablet 08/11/24 Zolpidem Tartrate [Ambien] 5 mg PO BEDTIME PRN PRN #10 tab 03/07/25 Sevelamer Carbonate [Renvela] 2 tab PO ACHS 03/16/25 Smz./Tmp. [Bactrim Ds 800 MG/160 MG] 1 yves TOP DAILY 03/16/25 - Past Medical/Surgical History Diabetic: Yes -: ESRD (Dr. South/ Dr. Candelaria) -: Afib -: HTN -: CHF -: Peritoneal dialysis -: Herniated disk -: Anxiety -: Depression -: Diabetes mellitus -: Dialysis Access placement 07/23 - Family History Father Medical History: Heart disease, Hypertension, Diabetes, Stroke - Social History Smoking Status: Current every day smoker Alcohol use: No CD- Drugs: Yes Caffeine use: Yes Place of Residence: Home Review of Systems General: As per HPI Eyes: Unremarkable ENT: Unremarkable Respiratory: As per HPI Cardiovascular: As per HPI Gastrointestinal: Nausea, Abdominal Pain, As per HPI Genitourinary: Unremarkable Musculoskeletal: As per HPI Integumentary: Unremarkable Neurological: Unremarkable Physical Examination Temp Pulse Resp BP Pulse Ox 98.4 F 63 18 197/94 H 100 03/16/25 13:00 03/16/25 13:00 03/16/25 13:00 03/16/25 13:00 03/16/25 13:00 General: In no apparent distress, Cooperative, Other (Appears chronically ill) HEENT: Atraumatic, Normocephalic, Other (not needing O2) Neck: Supple Respiratory: Normal air movement, Other (non tachypnec, no rhonchi) Cardiovascular: Regular rate/rhythm, No gallops Gastrointestinal: Other (Soft, obese, mild distention, no guarding) Musculoskeletal: No swelling, No contractures, Other (Lt UE AVF) Integumentary: No rashes Neurological: Normal speech, Normal tone, Normal affect Laboratory Data (last 24 hrs) 03/16/25 03/16/25 03/16/25 07:45 07:45 07:45 WBC 7.00 Hgb 16.6 Hct 48.4 Plt Count 203 Sodium 132 L Potassium 5.0 BUN 48 H Creatinine 13.90 H Glucose 140 H Magnesium 4.6 H Total Bilirubin 0.4 AST 15 ALT 17 Alkaline Phosphatase 70 Lipase 28 Conclusions/Impression: A/P) 1. ESRD 2nd to chronic conditions, renal atrophy noted on imaging, on OP iHD MWF at [facility]. 2. HD today for metab clearance and UF 3. Acute pulm edema in the setting of progressive weight gain, non compliance with diet, cardiomegaly, LVH, acute on chronic diastolic CHF, other. Will target UF of at least 3L today, tolerates larger UF goals typically without issues 4. Hypertensive heart and kidney disease -BP has not been as accelerated as it was in the past although SBP was quite high initially in the ER this AM, pt had reported stopping some meds when questioned on recent rounds but because BP was not elevated during those session but is mod elevated currently, so will re- assess BP regimen on this admission 5. Abd pain, N/V unspecified. Cholelithiasis -will f/u gen surgery reccs. Constipation, chronic. Will place on bowel regimen
[2025-03-16] MEDS: LOSARTAN POTASSIUM 50 MG TABLET PO SCH (17:00)
[2025-03-16] MEDS: HEPARIN 5000 UNIT/ML 1 ML VIAL SQ SCH (20:41)
[2025-03-16] MEDS: METOPROLOL TAR 50 MG TAB PO SCH (20:41)
[2025-03-16] MEDS: ACETAMINOPHEN 325 MG TABLET PO PRN (21:18)
[2025-03-16] MEDS ORDERED: MORPHINE 2 MG/ML SYR IV PRN (21:39)
[2025-03-16] MEDS: HYDROCODONE/APAP 5/325 MG TAB PO PRN (22:03)
[2025-03-17] MEDS: HYDRALAZINE HCL 20 MG/ML VIAL IV PRN (00:51)
[2025-03-17 05:10] LABS: Absolute Lymphocytes (CBC) 1.7 K/uL (0.7-4.9); Hematocrit 52.3 % (39.6-49.0); Hemoglobin 17.7 g/dL (13.6-17.9); MCH 35.2 pg (27.0-35.0); MCHC 33.8 g/dL (32.0-36.0); MCV 104.2 fL (80-100); MPV 7.3 fL (7.6-11.3); Nucleated RBC Absolute Count 0.0 (0-0); Nucleated Red Blood Cells % 0.0 % (0-0); RBC Red Blood Cell Count 5.01 M/uL (4.33-5.43); White Blood Count 7.50 thou/uL (4.3-10.9)
[2025-03-17 05:35] LABS: ALT/SGPT 24.0 U/L (16-61); AST/SGOT 35.0 U/L (15-37); Albumin 3.6 g/dL (3.4-5.0); Albumin/Globulin Ratio 0.9 (1.1-1.8); Alkaline Phosphatase 72.0 U/L (45-117); Anion Gap 11.2 mEq/L (5.0-15.0); BUN Blood Urea Nitrogen 32.0 mg/dL (7-18); Globulin 3.9 g/dL (2.3-3.5); Glucose Level 80.0 mg/dL (74-106); Magnesium 4.0 mg/dL (1.6-2.4); Potassium 5.2 mEq/L (3.5-5.1)
[2025-03-17] MEDS ORDERED: BISACODYL E.C. 5 MG TAB PO PRN (07:23)
[2025-03-17] MEDS: DOCUSATE NA 100 MG CAP PO SCH (09:00)
[2025-03-17] MEDS: METOPROLOL TAR 50 MG TAB PO SCH (09:00)
[2025-03-17] MEDS ORDERED: LOSARTAN POTASSIUM 50 MG TABLET PO SCH (09:00)
--- NOTE | 2025-03-17 11:40 | P.PN ---
Nephrology note (S) Pt seen lying in bed, appears chronically ill, cites some generalized pain, malaise, has had some nausea, discussed concerns regarding cholethiasis and plan for HIDA scan per surgeon, pt counseled on the need to complete testing to determine if his GB needs to come out (O) Vitals reviewed in the EMR General: Appears chronically ill but NAD HEENT: Atraumatic, Normocephalic, Other (not needing O2) Neck: Supple Respiratory: Normal air movement, Other (non tachypnec, no rhonchi) Cardiovascular: Regular rate/rhythm, No gallops Gastrointestinal: Other (Soft, obese, mild distention, no guarding) Musculoskeletal: No swelling, No contractures, Other (Lt UE AVF) Integumentary: No rashes Neurological: Normal speech, Normal tone, Normal affect Laboratory Data (last 24 hrs) Reviewed in the EMR Conclusions/Impression: A/P) 1. ESRD 2nd to chronic conditions, renal atrophy noted on imaging, on OP iHD MWF at [facility]. 2. HD performed yesterday for metab clearance and UF, K level at ULN this AM but will not repeat HD today, next HD tmrw 3. Acute pulm edema in the setting of progressive weight gain, non compliance with diet, cardiomegaly, LVH, chronic diastolic CHF (note corrected), other. S/p UF yesterday but pt insisted on goal lowering per HD RN, H/H has been elevated, unclear if reflecting hemoconcentration or polycythemia from tobacco use. No resp distress, no hypoxia noted at rest 4. Hypertensive heart and kidney disease -BP has not been as accelerated as it was in the past although SBP was quite high initially in the ER yesterday, pt had reported stopping some meds when questioned on recent rounds but because BP was not elevated during those session but has been elevated here. Placed on Metoprolol and Losartan currently 5. Abd pain, N/V unspecified. Cholelithiasis -will f/u gen surgery reccs. Constipation, chronic. Did place on bowel regimen
[2025-03-17] MEDS: LORazepam 2 MG/ML VIAL IV ONE ×3 (13:40→22:46)
--- NOTE | 2025-03-17 14:11 | P.PN ---
Date of Service: 03/17/25 Subjective: Still with nausea/epigastric abdominal pain No other acute events overnight ROS: 10 point ROS as noted above, otherwise negative Physical exam GEN: Alert, oriented, NAD HEENT: Normal conjunctiva, sclera anicteric CV: Regular rate and rhythm, no edema Pulm: Nonlabored respirations on room air ABD: Soft, mild upper abdominal tenderness, nondistended MSK: No joint tenderness Integumentary: No rashes Neuro: Normal speech, normal affect Vitals reviewed Assessment: Abdominal pain, nausea/vomiting Cholelithiasis ESRD on HD with pulmonary edema Elevated troponin History of atrial fibrillation on chronic anticoagulation Hypertension Plan: Abdominal pain, nausea/vomiting Cholelithiasis Abdominal ultrasound shows cholelithiasis Still with nausea/vomiting and pain General Surgery commence HIDA scan which has been ordered Trial PPI ESRD on HD with pulmonary edema Elevated troponin Suspect this is secondary to decreased renal clearance and pulmonary edema/demand ischemia Troponin trended flat Nephrology consultation History of atrial fibrillation on chronic anticoagulation Continue Eliquis, other complications Hypertension Continue home medications DVT PPX: Eliquis Code status: Full code Discharge Plan: Home Plan to discharge in: 24 Hours Time Spent Managing Pts Care (In Minutes): 35
[2025-03-17] MEDS: HYDRALAZINE HCL 20 MG/ML VIAL IV ONE (15:26)
--- NOTE | 2025-03-17 15:52 | RAD REPORT ---
EXAMINATION: NUCLEAR MEDICINE HIDA SCAN WITH GALLBLADDER EJECTION FRACTION CLINICAL INDICATION: Male, 39 years old. epigastric pain per general surgery TECHNIQUE: Hepatobiliary imaging was acquired over the abdomen for 60 minutes following intravenous a dministration of radiotracer. Gallbladder ejection fraction determination was then performed utilizing synthetic 1.6 mgm CCK over a slow 30 minute infusion. RADIOPHARMACEUTICAL: 6.3 mCi Technetium 99m Mebrofenin. COMPARISON: 03/16/2025 ultrasound FINDINGS: Normal hepatic uptake and excretion with appropriate clearance of background blood pool activity. Normal visualization of biliary and small bowel activity. Gallbladder visualizes within normal time limits. The calculated ejection fraction is 34% (normal greater than 35%). Subjective pain reported by the patient: Pre-procedure - none During or subsequent to synthetic CCK infusion - none IMPRESSION: Patient cystic duct and patent sphincter of Oddi. No delay in visualization of the gallbladder, biliary tree, or duodenum. Ejection fraction is 34% (normal greater than 35%). Subjective patient pain assessment as detailed above.
[2025-03-17] MEDS: DIPHENHYDRAMINE 25 MG TAB/CAP PO PRN (23:50)
[2025-03-18 07:17] LABS: Absolute Lymphocytes (CBC) 1.8 K/uL (0.7-4.9); Hematocrit 48.3 % (39.6-49.0); Hemoglobin 16.2 g/dL (13.6-17.9); MCH 35.0 pg (27.0-35.0); MCHC 33.6 g/dL (32.0-36.0); MCV 104.0 fL (80-100); MPV 7.5 fL (7.6-11.3); Nucleated RBC Absolute Count 0.0 (0-0); Nucleated Red Blood Cells % 0.0 % (0-0); RBC Red Blood Cell Count 4.65 M/uL (4.33-5.43); White Blood Count 8.80 thou/uL (4.3-10.9)
[2025-03-18 08:14] LABS: ALT/SGPT 23.0 U/L (16-61); AST/SGOT 18.0 U/L (15-37); Albumin 3.4 g/dL (3.4-5.0); Albumin/Globulin Ratio 1.0 (1.1-1.8); Alkaline Phosphatase 74.0 U/L (45-117); Anion Gap 13.4 mEq/L (5.0-15.0); BUN Blood Urea Nitrogen 53.0 mg/dL (7-18); Globulin 3.4 g/dL (2.3-3.5); Glucose Level 72.0 mg/dL (74-106); Potassium 5.4 mEq/L (3.5-5.1)
[2025-03-18 08:30] VITALS: BP 206/100; TEMP 98.3
[2025-03-18] MEDS: LOSARTAN POTASSIUM 50 MG TABLET PO SCH (08:43)
[2025-03-18] MEDS ORDERED: HYDRALAZINE HCL 20 MG/ML VIAL IV PRN (08:46)
--- NOTE | 2025-03-18 11:11 | P.PN ---
Nephrology note (S) Pt denies any acute abd pain or N/V, results of HIDA scan discussed, pt is preferring elective cholecystectomy as OP and wanting to go home and receive his HD today at the OP unit. Discussed diet in detail. (O) Vitals reviewed in the EMR General: Appears chronically ill but NAD HEENT: Atraumatic, Normocephalic, Other (not needing O2) Neck: Supple Respiratory: Normal air movement, Other (non tachypnec, no rhonchi) Cardiovascular: Regular rate/rhythm, No gallops Gastrointestinal: Other (Soft, obese, mild distention, no guarding) Musculoskeletal: No swelling, No contractures, Other (Lt UE AVF) Integumentary: No rashes Neurological: Normal speech, Normal tone, Normal affect Laboratory Data (last 24 hrs) Reviewed in the EMR Conclusions/Impression: A/P) 1. ESRD 2nd to chronic conditions, renal atrophy noted on imaging, on OP iHD MWF at [facility]. 2. HD performed Wed for metab clearance and UF, hx of recurrent hyperkalemia, pt needs HD today but will receive it at the OP unit, he has a 3rd shift chair time, unit notified 3. Acute pulm edema in the setting of progressive weight gain, non compliance w ith diet, cardiomegaly, LVH, chronic diastolic CHF (note corrected), other. S/p UF Wed, clinically stable, H/H has been elevated, unclear if reflecting hemoconcentration or polycythemia from tobacco use. No resp distress, no hypoxia noted at rest Re-assess EDW at his unit 4. Hypertensive heart and kidney disease -BP has not been as accelerated as it was in the past although SBP was quite high initially in the ER yesterday, pt had reported stopping some meds when questioned on recent rounds but because BP was not elevated during those session but has been elevated here. Placed on Metoprolol and Losartan currently 5. Abd pain, N/V unspecified. Cholelithiasis -pt will need to f/u with surgeon as OP. Constipation, chronic. Did place on bowel regimen. Pt was taking Mg citrate laxatives which pt was strongly advised to stop as labs had shown some hypermagnesemia
[2025-03-18 11:21] VITALS: O2SAT 96
[2025-03-18 12:16] VITALS: BMI 30.9
--- NOTE | 2025-03-18 13:44 | P.DS ---
Admission Date: 03/17/25 Discharge Date: 03/18/25 Disposition: ROUTINE DISCHARGE Discharge Condition: GOOD Reason for Admission: Abdominal pain, pulmonary edema Brief History of Present Illness: 39-year-old male with history of ESRD on HD, hypertension, CHF, atrial fibrillation on chronic anticoagulation presents to the emergency department with chief complaint of abdominal pain, back pain, nausea and vomiting. He reports he had similar symptoms around a week ago that have not totally resolved. Patient was evaluated in the emergency department his labs are significant for a white blood cell count of 7 sodium 132 chloride 95 creatinine 13.9 GFR 4 glucose 140 initial high sensitive troponin is 73.1 chest x-ray was performed which showed mild to moderate pulmonary opacities likely representing pulmonary edema or pneumonia the heart is mildly enlarged no displaced fractures. CT of the abdomen pelvis was also performed which demonstrated cholelithiasis. LFTs are normal, lipase was added onto the chemistry and is pending as well as an abdominal ultrasound. Patient be admitted under observation for abdominal pain, nausea/vomiting, cholelithiasis, elevated troponin and pulmonary edema. Hospital Course: Assessment: Abdominal pain, nausea/vomiting Cholelithiasis ESRD on HD with pulmonary edema Elevated troponin History of atrial fibrillation on chronic anticoagulation Hypertension Patient was admitted to hospital for nausea, vomiting, abdominal pain. His initial CT and ultrasound showed cholelithiasis. General surgery was consulted and followed along with his case, he ended up having a HIDA scan on 03/17 which showed a low ejection fraction of 34%. She will surgery offered laparoscopic cholecystectomy while inpatient, patient declined at this time stating he would rather be discharged and follow-up outpatient for possible cholecystectomy patient's white blood cell count, LFTs all remained within normal limits during his hospitalization. Patient is feeling better at this time and requesting discharge. He will go to his normal schedule outpatient dialysis this afternoon, this has been okayed with nephrology who is aware. Vital Signs/Physical Exam: Temp Pulse Resp BP Pulse Ox 98.3 F 75 16 206/100 H 100 03/18/25 08:00 03/18/25 08:42 03/18/25 11:49 03/18/25 08:42 03/18/25 11:49 General: Alert, In no apparent distress, Oriented x3 HEENT: Atraumatic, PERRLA Neck: Supple, JVD not distended Respiratory: Clear to auscultation bilaterally, Normal air movement Cardiovascular: Regular rate/rhythm, Normal S1 S2 Gastrointestinal: Normal bowel sounds, No tenderness Musculoskeletal: No tenderness Integumentary: No rashes Neurological: Normal speech, Normal affect Laboratory Data at Discharge: WBC 8.80 thou/uL (4.3-10.9) 03/18/25 07:05 Hgb 16.2 g/dL (13.6-17.9) D 03/18/25 07:05 Hct 48.3 % (39.6-49.0) 03/18/25 07:05 Plt Count 202 thou/uL (152-406) 03/18/25 07:05 Sodium 133 mEq/L (136-145) L 03/18/25 07:05 Potassium 5.4 mEq/L (3.5-5.1) H 03/18/25 07:05 BUN 53 mg/dL (7-18) H 03/18/25 07:05 Creatinine 13.80 mg/dL (0.70-1.30) H 03/18/25 07:05 Glucose 72 mg/dL (74-106) L 03/18/25 07:05 Phosphorus 8.3 mg/dL (2.5-4.9) H 03/18/25 07:05 Magnesium 4.0 mg/dL (1.6-2.4) H 03/17/25 04:35 Total Bilirubin 0.5 mg/dL (0.2-1.0) 03/18/25 07:05 AST 18 U/L (15-37) 03/18/25 07:05 ALT 23 U/L (16-61) 03/18/25 07:05 Alkaline Phosphatase 74 U/L (45-117) 03/18/25 07:05 Lipase 28 U/L (13-75) 03/16/25 07:45 Home Medications: Metoprolol Tartrate 100 tab PO BID 08/16/23 LORazepam [Lorazepam] 1 mg PO DAILYPRN PRN 07/03/24 Apixaban [Eliquis *] 2.5 mg PO BID #60 tablet 08/11/24 Zolpidem Tartrate [Ambien] 5 mg PO BEDTIME PRN PRN #10 tab 03/07/25 Sevelamer Carbonate [Renvela] 2 tab PO ACHS 08/13/25 Ondansetron [Zofran] 4 mg PO Q6H PRN #16 tab 03/18/25 New Medications: Ondansetron [Zofran] 4 mg PO Q6H PRN #16 tab PRN Reason: Nausea / Vomiting Physician Discharge Instructions: PROBLEM: Patient was admitted to hospital for nausea, vomiting, abdominal pain. His initial CT and ultrasound showed cholelithiasis. General surgery was consulted and followed along with his case, he ended up having a HIDA scan on 03/17 which showed a low ejection fraction of 34%. She will surgery offered laparoscopic cholecystectomy while inpatient, patient declined at this time stating he would rather be discharged and follow-up outpatient for possible cholecystectomy patient's white blood cell count, LFTs all remained within normal limits during his hospitalization. Patient is feeling better at this time and requesting discharge. He will go to his normal schedule outpatient dialysis this afternoon, this has been okayed with nephrology who is aware. GOAL: Clear understanding of disease process INSTRUCTIONS: Continue home medications as previously prescribed, patient reports that he does have adequate supply of his blood pressure medications at home, will send a pr escription for Zofran to take as needed. Diet: Renal Activity: as tolerated Please call nurses station for any questions or concerns [phone]. Refills will not be done by hospital. Your family doctor/surgeon will prescribe and refill as needed. Diet: Renal Activity: Ad sania Followup: EDITH STAPLETON [Primary Care Provider] - Time spent managing pt's care (in minutes): 42
== END 2025-03-18 12:12 | disposition home or self-care (01) | DRG 444 ==
LOC: ER 06:37 → 4TH 09:26 → OBSVTOIN 03-17 13:59
PROVIDERS: ADMIT Hospitalist; ATTEND Hospitalist
PROC: 5A1D70Z Performance of Urinary Filtration, Intermittent, Less than 6 Hours Per Day (ICD-10-PCS; principal; 2025-03-16)
DX: K80.20 Calculus of gallbladder without cholecystitis without obstruction (principal); I50.33 Acute on chronic diastolic (congestive) heart failure; N18.6 End stage renal disease; I48.20 Chronic atrial fibrillation, unspecified; I13.2 Hypertensive heart and chronic kidney disease with heart failure and with stage 5 chronic kidney disease, or end stage renal disease; I24.89 Other forms of acute ischemic heart disease; E11.22 Type 2 diabetes mellitus with diabetic chronic kidney disease; E87.5 Hyperkalemia; E83.41 Hypermagnesemia; K59.09 Other constipation; N26.1 Atrophy of kidney (terminal); E83.39 Other disorders of phosphorus metabolism; K21.9 Gastro-esophageal reflux disease without esophagitis; F17.210 Nicotine dependence, cigarettes, uncomplicated; R79.89 Other specified abnormal findings of blood chemistry; Z99.2 Dependence on renal dialysis; Z79.01 Long term (current) use of anticoagulants; Z79.899 Other long term (current) drug therapy
CPT/HCPCS: 36415; 71045; 74176; 76705; 78227; 80048; 80053; 80076; 83690; 83735; 84100; 84484; 85025; 90935; 93005; 96374; 96375; 99285; A9537; G0378; J0360; J1644; J2405; J2470; J2805; J3010

== ENCOUNTER 2025-03-24 03:21 | Observation (INO) | payer OTHER ==
[2025-03-24] MEDS ORDERED: ONDANSETRON 4 MG/2 ML VIAL ONE (03:53)
[2025-03-24] MEDS ORDERED: MORPHINE 4 MG/ML SYR ONE (03:54)
[2025-03-24] MEDS ORDERED: HYDRALAZINE HCL 20 MG/ML VIAL ONE (03:54)
[2025-03-24 04:08] LABS: Absolute Lymphocytes (CBC) 1.1 K/uL (0.7-4.9); Hematocrit 47.2 % (39.6-49.0); Hemoglobin 16.1 g/dL (13.6-17.9); MCH 35.1 pg (27.0-35.0); MCHC 34.0 g/dL (32.0-36.0); MCV 103.3 fL (80-100); MPV 7.4 fL (7.6-11.3); Nucleated RBC Absolute Count 0.0 (0-0); Nucleated Red Blood Cells % 0.1 % (0-0); RBC Red Blood Cell Count 4.57 M/uL (4.33-5.43); White Blood Count 8.90 thou/uL (4.3-10.9)
[2025-03-24 04:14] LABS: PT Prothrombin Time 12.5 SECONDS (10-13.0); Protime INR 1.11
[2025-03-24] MEDS ORDERED: MORPHINE 2 MG/ML SYR ONE (05:12)
[2025-03-24] MEDS ORDERED: DIPHENHYDRAMINE 50 MG/ML VIAL ONE (05:13)
[2025-03-24 05:47] LABS: ALT/SGPT 20 U/L (16-61); AST/SGOT 14 U/L (15-37); Alkaline Phosphatase 82 U/L (45-117); Anion Gap 11.7 mEq/L (5.0-15.0); BUN Blood Urea Nitrogen 33 mg/dL (7-18); Glucose Level 160 mg/dL (74-106); Potassium 4.7 mEq/L (3.5-5.1)
[2025-03-24 05:48] LABS: Albumin 3.4 g/dL (3.4-5.0); Albumin/Globulin Ratio 0.9 (1.1-1.8); Bilirubin Indirect, Calculated 0.3 mg/dL (0.2-0.8); Globulin 3.6 g/dL (2.3-3.5); Magnesium 2.9 mg/dL (1.6-2.4); NT PRO-BNP 86440 pg/mL (<125)
[2025-03-24 05:49] LABS: Troponin High Sensitivity 94.7 pg/mL (<58.9)
--- NOTE | 2025-03-24 06:13 | ER ---
Nurse's Notes [facility] Name: Dasia Monroe Age: 39 yrs Sex: Male : 1985 Arrival Date: 03/24/2025 Time: 03:21 Bed 6 Private MD: Diagnosis: Acute pulmonary edema;Volume overload, end-stage renal disease on hemodialysis, intractable vomiting, intractable back pain. Presentation: 03/24 03:39 Chief complaint: Patient states: BACK PAIN SINCE YESTERDAY. Coronavirus screen: At this jj7 time, the client does not indicate any symptoms associated with coronavirus-19. Ebola Screen: No symptoms or risks identified at this time. Initial Sepsis Screen: Does the patient meet any 2 criteria? No. Patient's initial sepsis screen is negative. Does the patient have a suspected source of infection? No. Patient's initial sepsis screen is negative. Risk Assessment: Do you want to hurt yourself or someone else? Patient reports no desire to harm self or others. Onset of symptoms was March 23, 2025. 03:39 Method Of Arrival: Wheelchair jj7 03:39 Acuity: GUA[place]IT[place] 3 jj7 Triage Assessment: 03:44 General: Appears in no apparent distress. uncomfortable, Behavior is calm, cooperative, jj7 appropriate for age. Pain: Complains of pain in back. Musculoskeletal: Capillary refill < 3 seconds, Reports pain in back. Historical: - Allergies: 03:44 No Known Allergies; jj7 - PMHx: 03:44 4 herniated disk; Anxiety; Congestive heart failure; diabetes mellitus; Dialysis; jj7 M-W-F; Hypertensive disorder; kidney disease; - PSHx: 03:44 dialysis access placement; left arm; jj7 - Immunization history:: Adult Immunizations up to date. - Infectious Disease History:: Denies. - Social history:: Smoking status: Patient reports the use of cigarette tobacco products, smokes one pack cigarettes per day. Patient uses street drugs, marijuana, Patient/guardian denies using alcohol, IV drugs. - Family history:: not pertinent. Screenin:45 [facility] ED Fall Risk Assessment (Adult) History of falling in the last 3 months, bm8 including since admission No falls in past 3 months (0 pts) Confusion or Disorientation No (0 pts) Intoxicated or Sedated No (0 pts) Impaired Gait No (0 pts) Mobility Assist Device Used No (0 pt) Altered Elimination No (0 pt) Score/Fall Risk Level 0 - 2 = Low Risk Oriented to surroundings, Maintained a safe environment, Educated pt \T\ family on fall prevention, incl call for assistance when getting out of bed, Assessed \T\ reinforced patient's understanding of fall precautions, Hourly rounding (assess needs \T\ fall precautionary measures) done, Used ambulatory aids as needed (educated on \T\ assisted with), Used gait belt as appropriate. Abuse screen: Denies threats or abuse. Nutritional screening: No deficits noted. Tuberculosis screening: No symptoms or risk factors identified. Assessment: 04:44 Reassessment: Patient appears in no apparent distress at this time. No changes from bm8 previously documented assessment. Patient and/or family updated on plan of care and expected duration. Pain level reassessed. Patient is alert, oriented x 3, equal unlabored respirations, skin warm/dry/pink. Patient states symptoms have improved. Neuro: No deficits noted. Level of Consciousness is awake, alert, obeys commands, Oriented to person, place, time, situation, Appropriate for age. Musculoskeletal: Circulation, motion, and sensation intact. Capillary refill < 3 seconds, in bilateral fingers. Reports pain in back Pain is 8 out of 10 on a pain scale. 06:38 Reassessment: Patient appears in no apparent distress at this time. Patient and/or bm8 family updated on plan of care and expected duration. Pain level reassessed. Patient is alert, oriented x 3, equal unlabored respirations, skin warm/dry/pink. Patient states feeling better. Patient states symptoms have improved. 08:42 Reassessment: PT REFUSING ADMIT, SIGNED OUT AMA. PT COUNSELED TO REMAIN BY PROVIDER AND bp STAFF BUT DECLINED. AO4, VSS. Vital Signs: 03:39 BP 203 / 96; Pulse 68; Resp 20; Temp 98; Pulse Ox 98% ; Weight 81 kg; Height 5 ft. 4 jj7 in. ; 04:43 BP 124 / 87; Pulse 80; Resp 17; Temp 98; Pulse Ox 98% ; Pain 0/10; bm8 06:06 BP 142 / 86; Pulse 69; Resp 16 S; Pulse Ox 99% on R/A; lg3 06:38 BP 165 / 91; Pulse 73; Resp 18; Temp 98; Pulse Ox 100% ; Pain 3/10; bm8 08:42 BP 142 / 84; Pulse 62; Resp 16; Pulse Ox 98% ; bp 03:39 Body Mass Index 30.65 (81.00 kg, 162.56 cm) jj7 04:43 Pain Scale: Adult bm8 06:38 Pain Scale: Adult bm8 [place] Coma Score: 04:45 Eye Response: spontaneous(4). Motor Response: obeys commands(6). Verbal Response: bm8 oriented(5). Total: 15. 05:51 Eye Response: spontaneous(4). Motor Response: obeys commands(6). Verbal Response: sp4 oriented(5). Total: 15. 06:38 Eye Response: spontaneous(4). Motor Response: obeys commands(6). Verbal Response: bm8 oriented(5). Total: 15. ED Course: 03:23 Patient arrived in ED. gm2 03:37 Phill Quiñones MD is Attending Physician. sp4 03:42 Triage completed. jj7 03:44 Arm band placed on right wrist. Patient placed in an exam room, on a stretcher. jj7 03:59 Basic Metabolic Panel Sent. vk 03:59 CBC with Diff Sent. vk 03:59 LFT's Sent. vk 03:59 Magnesium Sent. vk 04:00 NT PRO-BNP Sent. vk 04:00 PT-INR Sent. vk 04:00 Troponin HS Sent. vk 04:00 Initial lab(s) drawn, by ia, sent to lab. Inserted saline lock: 20 gauge in right vk antecubital area, using aseptic technique. Blood collected. Flushed with 10 mL NS. 04:41 Yony Still, RN is Primary Nurse. bm8 04:45 Patient has correct armband on for positive identification. Placed in gown. Bed in low bm8 position. Call light in reach. Side rails up X 1. Adult w/ patient. Client placed on continuous cardiac and pulse oximetry monitoring. NIBP monitoring applied. property assessment monitor on. Pulse ox on. NIBP on. Door closed. Noise minimized. Warm blanket given. Pillow given. Verbal reassurance given. Head of bed elevated. 04:45 No provider procedures requiring assistance completed. Patient maintains SpO2 bm8 saturation greater than 95% on room air. 05:18 XRAY Chest (1 view) In Process Unspecified. EDMS 06:12 Antoni Presley MD is Hospitalizing Provider. sp4 08:42 Provided Education on: NA. bp 08:42 IV discontinued, intact, bleeding controlled, No redness/swelling at site. Pressure bp dressing applied. Administered Medications: 04:05 Drug: Droperidol IVP 1.25 mg IVP once Route: IVP; Site: right antecubital; bm8 04:42 Follow up: Response: No adverse reaction bm8 04:06 Drug: hydrALAZINE IVP 20 mg IVP once; For SBP > 140 mmHg. Hold if less than 120 mmHg. bm8 Route: IVP; Site: right antecubital; 04:43 Follow up: Response: No adverse reaction bm8 04:06 Drug: morphine IVP or IV 4 mg IVP once over 4 mins Route: IVP; Infused Over: 4 mins; bm8 Site: right antecubital; 04:43 Follow up: Response: No adverse reaction bm8 04:06 Drug: Ondansetron IVP 4 mg IVP once; over 2 minutes Route: IVP; Site: right antecubital;bm8 04:42 Follow up: Response: No adverse reaction bm8 05:17 Drug: diphenhydrAMINE IVP 25 mg IVP once Route: IVP; Site: right antecubital; bm8 06:38 Follow up: Response: No adverse reaction bm8 05:17 Drug: morphine IVP or IV 2 mg IVP once over 4 mins Route: IVP; Infused Over: 4 mins; bm8 Site: right antecubital; 06:38 Follow up: Response: No adverse reaction bm8 Medication: 04:45 VIS not applicable for this client. bm8 Outcome: 06:13 Decision to Hospitalize by Provider. sp4 08:42 AMA AMA form signed bp 08:42 Condition: stable 08:42 Instructed on the need for admit, 08:44 Patient left the ED. bp Signatures: Dispatcher [employer] EDMS Narciso Ramos RN RN bp Able, Lacie, RN RN lg3 Delmi Yarbrough RN RN jj7 Potepalov, Sergey, MD MD sp4 Sheyla Mota Vivian vk McDonald, Yony, RN RN bm8
--- NOTE | 2025-03-24 06:13 | EDPHYS ---
Physician Documentation [facility] Name: Dasia Monroe Age: 39 yrs Sex: Male : 1985 Arrival Date: 03/24/2025 Time: 03:21 Bed 6 Private MD: ED Physician Phill Quiñones HPI: 03/24 03:37 This 39 yrs old Male presents to ER via Unassigned with complaints of Back sp4 Pain. 05:51 39-year-old male presents with acute moderate to severe back pain and shortness of sp4 breath. Associated with nausea vomiting. Patient has extensive past medical history of end-stage renal disease associated with hypertension, CHF atrial fibrillation on chronic anticoagulation. He is to be all elevated troponins,. Admitted last time 03/17/2025 for abdominal pain and pulmonary edema. Patient's medications include metoprolol 100 mg p.o. twice daily, lorazepam 1 mg p.o. daily, apixaban 2.5 mg twice daily, zolpidem 5 mg p.o. bedtime, Savella and 2 tabs AC and at bedtime, ondansetron 4 mg as needed. Last time patient was admitted for nausea vomiting abdominal pain and pulmonary edema. There was some findings of cholelithiasis. HIDA scan showed low ejection fraction of 34%, surgery of her laparoscopic cholecystectomy but patient declined.. Historical: - Allergies: 03:44 No Known Allergies; jj7 - PMHx: 03:44 4 herniated disk; Anxiety; Congestive heart failure; diabetes mellitus; Dialysis; jj7 M-W-F; Hypertensive disorder; kidney disease; - PSHx: 03:44 dialysis access placement; left arm; jj7 - Immunization history:: Adult Immunizations up to date. - Infectious Disease History:: Denies. - Social history:: Smoking status: Patient reports the use of cigarette tobacco products, smokes one pack cigarettes per day. Patient uses street drugs, marijuana, Patient/guardian denies using alcohol, IV drugs. - Family history:: not pertinent. ROS: 05:51 Constitutional: Negative for fever, chills, and weight loss, positive back pain, sp4 positive vomiting, positive shortness of breath 05:51 All other systems are negative, Exam: 05:51 Constitutional: Ill-appearing male signs of moderate physical debility, diffuse skin sp4 rash associated with chronic kidney disease. Head/Face: Normocephalic, atraumatic. Eyes: Pupils equal round and reactive to light, extra-ocular motions intact. Lids and lashes normal. Conjunctiva and sclera are not injected. Cornea within normal limits. Periorbital areas with no swelling, redness, or edema. ENT: Nares patent. No nasal discharge, no septal abnormalities noted. Tympanic membranes are normal and external auditory canals are clear. Oropharynx with no redness, swelling, or masses, exudates, or evidence of obstruction, uvula midline. Mucous membranes moist. Neck: Trachea midline, no thyromegaly or masses palpated, and no cervical lymphadenopathy. Supple, full range of motion without nuchal rigidity, or vertebral point tenderness. Chest/axilla: Normal chest wall appearance and motion. Nontender with no deformity. No lesions are appreciated. Cardiovascular: Regular rate and rhythm with a normal S1 and S2. No gallops, murmurs, or rubs. No pulse deficits. Respiratory: Lungs have equal breath sounds bilaterally, clear to auscultation and percussion. No rales, rhonchi or wheezes noted. No increased work of breathing, no retractions or nasal flaring. Abdomen/GI: Soft, with normal bowel sounds. No distension or tympany. No guarding or rebound. No evidence of tenderness throughout. Back: No spinal tenderness. No costovertebral tenderness. Skin: Warm, dry with normal turgor. Normal color with no rashes, no lesions, and no evidence of cellulitis. MS/ Extremity: Pulses equal, no cyanosis. Neurovascular intact. Full, normal range of motion. Neuro: Awake and alert, GCS 15, oriented to person, place, time, and situation. Cranial nerves II-XII grossly intact. Motor strength 5/5 in all extremities. Sensory grossly intact. 05:51 ECG was reviewed by the [place]ending Phys[place] 0403 normal sinus rhythm rate 66 otherwise unremarkable. Vital Signs: 03:39 BP 203 / 96; Pulse 68; Resp 20; Temp 98; Pulse Ox 98% ; Weight 81 kg; Height 5 ft. 4 jj7 in. ; 04:43 BP 124 / 87; Pulse 80; Resp 17; Temp 98; Pulse Ox 98% ; Pain 0/10; bm8 06:06 BP 142 / 86; Pulse 69; Resp 16 S; Pulse Ox 99% on R/A; lg3 06:38 BP 165 / 91; Pulse 73; Resp 18; Temp 98; Pulse Ox 100% ; Pain 3/10; bm8 08:42 BP 142 / 84; Pulse 62; Resp 16; Pulse Ox 98% ; bp 03:39 Body Mass Index 30.65 (81.00 kg, 162.56 cm) jj7 04:43 Pain Scale: Adult bm8 06:38 Pain Scale: Adult bm8 [place] Coma Score: 04:45 Eye Response: spontaneous(4). Motor Response: obeys commands(6). Verbal Response: bm8 oriented(5). Total: 15. 05:51 Eye Response: spontaneous(4). Motor Response: obeys commands(6). Verbal Response: sp4 oriented(5). Total: 15. 06:38 Eye Response: spontaneous(4). Motor Response: obeys commands(6). Verbal Response: bm8 oriented(5). Total: 15. MDM: 03:43 Medical Screening Exam initiated sp4 06:09 Differential diagnosis: Cholelithiasis Fatigue Fracture ruptured disc, spinal injury, sp4 sprain. Data reviewed: vital signs, nurses notes, lab test result(s), radiologic studies, plain films. Consideration of Admission/Observation Escalation of care including admission/observation considered. Management of patient was discussed with the following: Hospitalist: Discussed with admission team,. [employer] Sales Specialist: Health Safety Engineer consulted. ED course: Positive for acute pulmonary edema, elevated troponin, persistent back pain and vomiting. Warrants admission for hemodialysis.. 06:34 ED course: EXAM: XR Chest, 1 View CLINICAL HISTORY: The patient is 39 years old and is sp4 Male; Chest pain. TECHNIQUE: Single view of the chest. COMPARISON: XR Chest 03/16/2025. FINDINGS: Lungs: No pulmonary vascular congestion or consolidation. Pleural space: Unremarkable. No pneumothorax. Heart: Unremarkable. No cardiomegaly. Mediastinum: Unremarkable. Bones/joints: No acute fracture visualized. Upper abdomen: No free air in the visualized upper abdomen. IMPRESSION: No acute cardiopulmonary process identified.. 03/24 03:42 Order name: Basic Metabolic Panel; Complete Time: 05:51 sp4 03/24 03:42 Order name: CBC with Diff; Complete Time: 05:11 sp4 03/24 03:42 Order name: LFT's; Complete Time: 05:51 sp4 03/24 03:42 Order name: Magnesium; Complete Time: 05:51 sp4 03/24 03:42 Order name: NT PRO-BNP; Complete Time: 05:51 sp4 03/24 03:42 Order name: PT-INR; Complete Time: 05:11 sp4 03/24 03:42 Order name: Troponin HS; Complete Time: 05:51 sp4 03/24 08:18 Order name: Basic Metabolic Panel EDMS 03/24 08:18 Order name: Basic Metabolic Panel EDMS 03/24 08:18 Order name: Basic Metabolic Panel EDMS 03/24 08:18 Order name: Basic Metabolic Panel EDMS 03/24 08:18 Order name: Lipid Profile EDMS 03/24 08:18 Order name: CBC with Automated Diff EDMS 03/24 08:18 Order name: CBC with Automated Diff EDMS 03/24 08:18 Order name: CBC with Automated Diff EDMS 03/24 08:18 Order name: CBC with Automated Diff EDMS 03/24 08:19 Order name: Lipid Profile EDMS 03/24 08:19 Order name: Magnesium EDMS 03/24 08:19 Order name: Magnesium EDMS 03/24 08:19 Order name: Magnesium EDMS 03/24 08:19 Order name: Magnesium EDMS 03/24 08:19 Order name: Phosphorus EDMS 03/24 08:19 Order name: Phosphorus EDMS 03/24 08:19 Order name: Phosphorus EDMS 03/24 08:19 Order name: Phosphorus EDMS 03/24 08:19 Order name: T4 Free EDMS 03/24 08:19 Order name: T4 Free EDMS 03/24 08:19 Order name: Thyroid Stimulating Hormone EDMS 03/24 08:19 Order name: Thyroid Stimulating Hormone EDMS 03/24 08:19 Order name: Troponin High Sensitivity EDMS 03/24 08:19 Order name: Troponin High Sensitivity EDMS 03/24 08:19 Order name: Troponin High Sensitivity EDMS 03/24 03:42 Order name: XRAY Chest (1 view) sp4 03/24 08:20 Order name: Echo with Doppler EDMS 03/24 08:18 Order name: CONS Physician Consult EDMS 03/24 03:42 Order name: Cardiac monitoring; Complete Time: 03:59 sp4 03/24 03:42 Order name: EKG - Nurse/Tech; Complete Time: 04:06 sp4 03/24 03:42 Order name: IV Saline Lock; Complete Time: 03:59 sp4 03/24 03:42 Order name: Labs collected and sent; Complete Time: 03:59 sp4 03/24 03:42 Order name: O2 Per Protocol; Complete Time: 03:59 sp4 03/24 03:42 Order name: O2 Sat Monitoring; Complete Time: 03:59 sp4 03/24 04:10 Order name: Misc. Order: RECOLLECT GREEN TOP; Complete Time: 04:41 rv1 EC:03 Rate is 66 beats/min. Rhythm is regular, Normal Sinus Rhythm. QRS [place] is Normal. [place] sp4 interval is normal. QRS interval is normal. QT interval is normal. No Q waves. T waves are Normal. No ST changes noted. Clinical impression: No evidence of ischemia. Interpreted by me. Reviewed by me. Administered Medications: 04:05 Drug: Droperidol IVP 1.25 mg IVP once Route: IVP; Site: right antecubital; bm8 04:42 Follow up: Response: No adverse reaction bm8 04:06 Drug: hydrALAZINE IVP 20 mg IVP once; For SBP > 140 mmHg. Hold if less than 120 mmHg. bm8 Route: IVP; Site: right antecubital; 04:43 Follow up: Response: No adverse reaction bm8 04:06 Drug: morphine IVP or IV 4 mg IVP once over 4 mins Route: IVP; Infused Over: 4 mins; bm8 Site: right antecubital; 04:43 Follow up: Response: No adverse reaction bm8 04:06 Drug: Ondansetron IVP 4 mg IVP once; over 2 minutes Route: IVP; Site: right antecubital;bm8 04:42 Follow up: Response: No adverse reaction bm8 05:17 Drug: diphenhydrAMINE IVP 25 mg IVP once Route: IVP; Site: right antecubital; bm8 06:38 Follow up: Response: No adverse reaction bm8 05:17 Drug: morphine IVP or IV 2 mg IVP once over 4 mins Route: IVP; Infused Over: 4 mins; bm8 Site: right antecubital; 06:38 Follow up: Response: No adverse reaction bm8 Disposition Summary: 03/24/25 06:13 Hospitalization Ordered Notes: Hospitalization Status: Observation sp4 Provider: Antoni Presley Location: Telemetry/MedSurg (observation) sp4 Condition: Stable sp4 Problem: new sp4 Symptoms: have improved sp4 Bed/Room Type: Standard sp4 Room Assignment: sp4 Diagnosis - Acute pulmonary edema sp4 - Volume overload, end-stage renal disease on hemodialysis, intractable vomiting, sp4 intractable back pain. Forms: - Medication Reconciliation Form sp4 - SBAR form sp4 - Leadership Thank You Letter sp4 Signatures: Dispatcher [employer] Delmi Phipps, RN RN jj7 Erin Lozano rv1 Phill Quiñones MD MD sp4 Yony Still RN RN bm8 Corrections: (The following items were deleted from the chart) 03:43 03:43 BASIC METABOLIC PANEL+C.LAB.BRZ ordered. EDMS EDMS 03:43 03:43 CBC+H.LAB.BRZ ordered. EDMS EDMS 03:43 03:43 HEPATIC FUNCTION+C.LAB.BRZ ordered. EDMS EDMS 03:43 03:43 MAGNESIUM+C.LAB.BRZ ordered. EDMS EDMS 03:43 03:43 PROBNP+C.LAB.BRZ ordered. EDMS EDMS 03:43 03:43 PROTIME (+INR)+COAG.LAB.BRZ ordered. EDMS EDMS 03:43 03:43 Troponin High Sensitivity+C.LAB.BRZ ordered. EDMS EDMS 03:43 03:43 Chest Single View+RAD.RAD.BRZ ordered. EDMS EDMS 05:58 05:51 Rate is 66 beats/min. Rhythm is regular, Normal Sinus Rhythm. QRS [place] is Normal. sp4 [place] interval is normal. QRS interval is normal. QT interval is normal. No Q waves. T waves are Normal. No ST changes noted. Clinical impression: No evidence of ischemia. Interpreted by me. Reviewed by me. sp4
--- NOTE | 2025-03-24 06:30 | RAD REPORT ---
EXAM: XR Chest, 1 View CLINICAL HISTORY: The patient is 39 years old and is Male; Chest pain. TECHNIQUE: Single view of the chest. COMPARISON: XR Chest 03/16/2025. FINDINGS: Lungs: No pulmonary vascular congestion or consolidation. Pleural space: Unremarkable. No pneumothorax. Heart: Unremarkable. No cardiomegaly. Mediastinum: Unremarkable. Bones/joints: No acute fracture visualized. Upper abdomen: No free air in the visualized upper abdomen. IMPRESSION: No acute cardiopulmonary process identified. Electronically signed by: Chelsea Hensley MD 03/24/2025 06:25 AM CDT RP V2 Due to temporary technical issues with the PACS/[employer] reporting system, reports are being daniel d by the in-house radiologist without review as a courtesy to ensure prompt reporting. The interpreting radiologist is fully responsible for the content of the report. Transcribed Date/Time: 03/24/2025 6:29 AM
[2025-03-24] MEDS ORDERED: ACETAMINOPHEN 325 MG TABLET PO PRN (08:12)
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
[2025-03-24] MEDS ORDERED: NA CHLORIDE 0.9% 1,000 ML IV SCH (09:00)
[2025-03-24] MEDS ORDERED: HEPARIN 5000 UNIT/ML 1 ML VIAL SQ SCH (09:00)
[2025-03-24] MEDS ORDERED: ASPIRIN EC 81 MG TAB PO SCH (09:00)
[2025-03-24 09:22] VITALS: TEMP 98
[2025-03-24 09:27] VITALS: BP 142/84; O2SAT 98
[2025-03-24] MEDS ORDERED: ATORVASTATIN 40 MG TAB PO SCH (21:00)
== END 2025-03-24 08:42 | disposition left against medical advice (07) ==
LOC: ER 03:21 → ERHOLD 08:12
PROVIDERS: ADMIT Internal Medicine; ATTEND Internal Medicine
DX: R07.9 Chest pain, unspecified (principal); R79.89 Other specified abnormal findings of blood chemistry; N18.6 End stage renal disease; G89.29 Other chronic pain; Z99.2 Dependence on renal dialysis; Z53.29 Procedure and treatment not carried out because of patient's decision for other reasons
CPT/HCPCS: 93005; 85025; 80048; 36415; 83735; 85610; 80076; 84484; 83880; 71045; J0360; J1200; J2270; J2405; J1790; G0378